=== PATIENT | female | born 1950 | race Caucasian/White ===

== ENCOUNTER 2019-07-15 10:42 | Outpatient (CLI) | payer MEDICARE, SELFPAY ==
--- NOTE | ~2019-07-15 | US_ITS ---
EXAMINATION: US carotid duplex BI DATE: 07/15/2019 11:12 INDICATION: Atherosclerosis. TECHNIQUE: Grayscale, color Doppler, and pulsed Doppler images of the cervical carotid arteries were obtained. The degree of vessel stenosis is placed in one of the following categories: normal, <50%, 5 0-69%, >=70% but less than near-occlusion, near-occlusion, or total occlusion. Note that percent sten osis relative to normal distal artery lumen diameter is indirectly measured from velocity measurement s as described by Barrie, et al. Radiology 2003; 229:340-346. Notes: Normal: Peak systolic velocity <125 centimeters/sec and no plaque <50%. Peak systolic velocity <125 ( EDV <40; ICA/CCA PSV ratio <2.0; used these factors only a tandem lesions or low cardiac output or co ntralateral disease) 50-69 %: PSV 125-230 (EDV 40-100; ratio 2-4) >= 70% but less than near occlusion: PSV greater than 230 (EDV > 100; ratio> 4.0) Near Occlusion: PSV that is variable; markedly narrowed lumen Occlusion: Absent flow on color/spectral Doppler and no lumen on orantes scale. COMPARISON: Ultrasound dated 03/14/2017 FINDINGS: RIGHT: The right common carotid artery (CCA) peak systolic velocity (PSV) is 90 cm/s. The right internal car otid artery (ICA) PSV is 84 cm/s. The right ICA end-diastolic velocity (EDV) is 19 cm/s. The right IC A/CCA PSV ratio is 0.9. The external carotid artery (ECA) PSV is 94 cm/s. There is antegrade flow in the right vertebral artery. LEFT: The left CCA PSV is 92 cm/s. The left ICA PSV is 94 cm/s. The left ICA EDV is 18 cm/s. The left ICA/C CA PSV ratio is 1.0. The ECA PSV is 126 cm/s. There is antegrade flow in the left vertebral artery. IMPRESSION: 1. Less than 50% stenosis in the right internal carotid artery by sonographic criteria. 2. Less than 50% stenosis in the left internal carotid artery by sonographic criteria. Reviewed, dictated and finalized at location B. CUTTER IMPRESSION: 1. Less than 50% stenosis in the right internal carotid artery by sonographic c chucho. 2. Less than 50% stenosis in the left internal carotid artery by sonographic praful almendarez.
== END 2019-07-15 10:43 | disposition home or self-care (01) ==
LOC: ANHIMG 10:45
PROVIDERS: PCP Internal Medicine; Visit Provider Internal Medicine
DX: I77.9 Disorder of arteries and arterioles, unspecified (principal); I65.23 Occlusion and stenosis of bilateral carotid arteries
CPT/HCPCS: 93880

== ENCOUNTER 2020-04-05 08:52 | Outpatient (CLI) | payer MEDICARE, SELFPAY ==
--- NOTE | 2020-05-10 16:07 | WPDHOMESLEEP ---
Sleep Study - Home Unattended Date of Study: 04/05/20 Ordering Provider: Fredy Puri MD Interpreting Physician: Alyssa Mack MD Home Sleep Study Type: Apnea Link Air Height: 1.52 m Weight: 60.328 kg Body Mass Index: 25.9 Neck Circumference (inches): 13 Lyons: 13 Reason for Sleep Study history of obstructive sleep apnea 5-6 years ago, lost 107 lb, retesting to see if obstructive sleep apnea has resolved Sleep History Natasha Edouard is a 70-year-old female who was diagnosed with obstructive sleep apnea 5 to 6 years ago. She used CPAP regularly. She has lost 107 lb this past year and wants to discontinue use of CPAP, if possible. she has continued using medication to help fall asleep include and 10 mg of melatonin. She rarely awakens from sleep feeling short of breath. She does not awaken at night with heartburn, belching or coughing. She occasionally snores. It is never loud enough that others complain about it. She frequently has trouble sleeping with a cold. She occasionally has gasping at night while using CPAP, however indicates that she does not have this problems when she is not using CPAP. she rarely has breathing problems at night reported to her by others. She occasionally sweats excessively at night. She rarely notices her heart pounding or beating irregularly at night. She rarely falls asleep during the day. She does not fall asleep involuntarily or while driving the car. She does not fall asleep during physical effort. She rarely has loss of muscle tone with strong emotion. 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 She does not feel paralyzed on waking or falling asleep. She rarely has vivid dreamlike scenes upon awakening or falling asleep. She is not afraid to go to sleep. She rarely has nightmares. She occasionally remembers her dreams. She frequently has racing thoughts through her mind. She occasionally feels sad or depressed. she frequently feels anxious. She occasionally has muscular tension. She rarely notices parts of her body jerking, rarely kicks at night. She does not have crawling or aching feelings in her legs at night. she rarely has any leg pain at night. She does not have morning jaw pain. she occasionally grind her teeth during sleep. She rarely is bothered by pain during the day, rarely is awakened by pain at night. She rarely wakes up feeling stiff in the morning. She does not wake up with sore or achy muscles. She rarely wakes up with pain in the neck and spine. She has not bears, dizziness, fatigue, moderate memory problems, insomnia and fainting spells. She has taken sertraline for anxiety disorder for the past 17 years. She has fatigue. She still uses CPAP even with the weight loss. CPAP now disrupts her sleep instead of helping it. She has nasal congestion which she notices at night. Normal bedtime is 12 midnight to 1:00 a.m.. She is now on Trazodone for sleep initiation which allows her to fall asleep faster compared to zolpidem. She typically wakes up 4-5 times at night. When she used the zolpidem at sometimes took hours for her to fall asleep. Her new medication is more effective. She usually wakes up at 2:00 a.m.. Sometime she does word puzzles if she is awake for over an hour. She wakes in the morning at 9:00 a.m.. On the weekends her schedule is similar. She naps infrequently. A short nap is not refreshing. She is drowsy in the morning for 2 hours after waking. She feels better in the evening compared to the morning. Habits: Smoked tobacco 22 years ago. Caffeine; a half bottle of Diet Coke a day. No alcohol or recreational drugs. [facility] Past Medical History Medical History Abnormal finding of blood chemistry, unspecified Acute renal failure Arm fracture, left Arthritis Benign essential hypertension BMI 27.0-27.9,adult BMI 31.0-31.9,adult BMI 33.0-33.9,adult
[2020-05-10 19:03] VITALS: BMI 25.9
== END 2020-04-05 08:53 | disposition home or self-care (01) ==
LOC: ANHCSM 08:57
PROVIDERS: PCP Internal Medicine; Visit Provider Internal Medicine
DX: G47.33 Obstructive sleep apnea (adult) (pediatric) (principal)
CPT/HCPCS: 95806

== ENCOUNTER 2020-09-27 16:09 | Outpatient (CLI) | payer MEDICARE, SELFPAY ==
--- NOTE | ~2020-09-27 | CT_ITS ---
EXAMINATION: CT facial bones wo con EXAM DATE: 09/27/2020 16:35 INDICATION: R51.9 - Headache, unspecified. Pain around right eye, fainted on and hit face. TECHNIQUE: Spiral CT of the facial bones was acquired in the axial plane without contrast. Coronal reformatted images were also reviewed. The dose-length product (DLP) for this examination was 283.88 mGy-cm. The exposure was tailored according to patient size, and iterative reconstruction (ASIR) wa s used as additional dose reduction technique. There is no prior study for comparison. FINDINGS: There are no displaced acute nasal bone fractures. The mandible, sinuses and orbits are in tact. The orbits, globes and extraocular muscles are unremarkable. Mild to moderate left maxillar y sinus mucoperiosteal thickening inferiorly, with what appears to be most likely a tooth root fragme nt inside this. No sinus fluid. Incomplete posterior fusion of C1, congenital variant. Small contus ion along the right brow. Bilateral cataract surgery. Moderate nasal septal deviation. IMPRESSION: 1. Small right periorbital soft tissue contusion. 2. Mild left maxillary sinus mucoperiosteal thickening with tooth root fragment inside. Reviewed, dictated and finalized at location A. IMPRESSION: 1. Small right periorbital soft tissue contusion. 2. Mild left maxillary sinus mucoperiosteal thickening with tooth root fragmen t inside.
== END 2020-09-27 16:10 | disposition home or self-care (01) ==
PROVIDERS: PCP Internal Medicine; Visit Provider Internal Medicine
DX: S00.83XA Contusion of other part of head, initial encounter (principal); R51.9 Headache, unspecified
CPT/HCPCS: 70486

== ENCOUNTER 2020-10-05 14:16 | Outpatient (CLI) | payer MEDICARE, SELFPAY ==
--- NOTE | 2020-10-05 14:30 | ECHO_ITS ---
Patient Info Name: Natasha Edouard Age: 70 years : 1950 Gender: Female Ht: 60 in Wt: 115 lbs BSA: 1.49 m2 HR: 63 bpm BP: 172 / 91 mmHg Technical Quality: Good Exam Date: 10/05/2020 2:49 PM Exam Location: [facility] Patient Status: Outpatient Admit Date: 10/05/2020 Staff Ordering Physician: Fredy Puri MD Pacs Administrator: JAIRO Attending Provider: Fredy Puri MD Referring Physician: Jaxson HECTOR; Exam Type: CA echo doppler color flow Study Info Indications R55 - Syncope and collapse Complete two-dimensional, color flow and Doppler transthoracic echocardiogram is performed. Summary 1. Complete two-dimensional, color flow and Doppler transthoracic echocardiogram is performed. 2. Left ventricular chamber dimension is normal. 3. Left ventricular systolic function is normal, estimated at 65-70%. 4. The left ventricular diastolic function is grade I diastolic dysfunction. 5. E/e' 12 is mildly elevated. 6. Left atrial chamber dimension is moderately enlarged. 7. The mitral valve has moderate to severe calcified annulus. 8. There is trace tricuspid valve regurgitation. 9. No pulmonary hypertension, estimated pulmonary arterial systolic pressure is 30 mmHg. Left Ventricle E/e' 12 is mildly elevated. Left ventricular chamber dimension is normal. Left ventricular systolic function is normal, estimated at 65-70%. The left ventricular diastolic function is grade I diastolic dysfunction. Right Ventricle Right ventricular chamber dimension is normal. Right ventricular systolic function is normal. Left Atria Left atrial chamber dimension is moderately enlarged. Right Atria Right atrial chamber dimension is normal. Aortic Valve The aortic valve is trileaflet. There is no aortic valve stenosis. There is no aortic valve regurgitation. Pulmonic Valve There is no pulmonic regurgitation. Mitral Valve The mitral valve has moderate to severe calcified annulus. There is no mitral valve stenosis. There is no mitral valve regurgitation. Tricuspid Valve There is trace tricuspid valve regurgitation. No pulmonary hypertension, estimated pulmonary arterial systolic pressure is 30 mmHg. Pericardium/Pleural There is no pericardial effusion. Inferior Vena Cava Normal inferior vena cava with >50% collapse upon inspiration consistent with normal right atrial pressure, 5 mmHg. Aorta The aortic root size at the sinus of Valsalva is normal. Left Ventricular Outflow Tract Name Value Normal LVOT 2D LVOT Diameter 1.8 cm LVOT Doppler LVOT Peak Gradient 6 mmHg LVOT Mean Gradient 3 mmHg LVOT VTI 31 cm LVOT VTI/AV VTI Ratio 0.8 LVOT Stroke Volume 76 ml LVOT CO 13.0 l/min LVOT CI 8.7 l/min/m2 Pulmonic Valve Name Value Normal
== END 2020-10-05 14:17 | disposition home or self-care (01) ==
PROVIDERS: PCP Internal Medicine; Visit Provider Internal Medicine
DX: R55 Syncope and collapse (principal)
CPT/HCPCS: 93306

== ENCOUNTER → 2020-11-02 01:35 | Outpatient (CLI) | payer MEDICARE, SELFPAY ==
[2020-11-03 16:17] LABS: SARS-CoV-2 RNA PCR Negative
== END ==
PROVIDERS: PCP Internal Medicine; Visit Provider Podiatrist Foot & Ankle Surgery
DX: Z01.812 Encounter for preprocedural laboratory examination (principal); Z20.822 Contact with and (suspected) exposure to COVID-19
CPT/HCPCS: C9803; U0003; U0005

== ENCOUNTER 2020-11-02 09:16 | Outpatient (CLI) | payer MEDICARE, SELFPAY ==
[2020-11-02 10:27] LABS: Anion Gap 5 mmol/L (8-16); Blood Urea Nitrogen 23 mg/dL (7-17); Calcium 9.2 mg/dL (8.4-10.2); Carbon Dioxide 32 mmol/L (22-30); Chloride 101 mmol/L (98-107); Estimated Glomerular Filt Rate > 60; Glucose 146 mg/dL (65-105); Potassium 4.1 mmol/L (3.4-5.0); Sodium 138 mmol/L (137-145)
== END 2020-11-02 09:17 | disposition home or self-care (01) ==
LOC: ANHSURGERY 09:22
PROVIDERS: Anesthesiology; PCP Internal Medicine; Visit Provider Podiatrist Foot & Ankle Surgery
DX: E11.65 Type 2 diabetes mellitus with hyperglycemia (principal); Z79.4 Long term (current) use of insulin
CPT/HCPCS: 36415; 80048

== ENCOUNTER 2020-11-05 01:25 | Day surgery (SDC) | payer MEDICARE, SELFPAY ==
[2020-11-01 13:42] VITALS: BMI 21.5
[2020-11-05] VITALS (7 sets, daily range): BP systolic 107–151; BP diastolic 62–67; PULSE 57–63; RESP 12–16; TEMP 36.2; O2SAT 94–100; BMI 22.4
--- NOTE | ~2020-11-05 | XR_ITS ---
EXAMINATION: XR surgery orthopedic DATE: 11/05/2020 10:13 INDICATION: Arthrodesis in the right foot TECHNIQUE: 3 fluoroscopic images of the right forefoot are submitted during procedure performed by Dr Derek San. Radiologist was not present for the imaging or procedure. The amount of fluoroscopy time used during this procedure was 1.3 minutes. COMPARISON: None. FINDINGS: Initial image demonstrates prominent right hallux valgus. There is mild polyarticular osteoarthritis at the first metatarsophalangeal and multiple interphalangeal joints. Subsequent images demonstrates reduction to essentially anatomic alignment of the prior hallux valgus with first metatarsophalangeal arthrodesis with dorsal plate and screw fixation. There has also been an osteotomy of the head of th e second proximal phalanx with second proximal interphalangeal arthrodesis. A percutaneous pin extend s from the distal aspect of the second toe throughout the phalanges of the second toe and into the he ad of the second metatarsal. Arthrodesis of the second proximal interphalangeal joint which is in danis r-anatomic alignment. There is internal fixation with a compression screw positioned over the wire an d spanning the second proximal interphalangeal joint space. There is widening of the second metatarso phalangeal joint space with likely postoperative intra-articular lucent gas. No fractures identified. IMPRESSION: 1. Expected appearance during first metatarsophalangeal and second proximal interphalangeal instrumen digna arthrodeses which appear in near anatomic alignment. See procedure note for further detail. Reviewed, dictated and finalized at location A. IMPRESSION: 1. Expected appearance during first metatarsophalangeal and second proximal int erphalangeal instrumented arthrodeses which appear in near anatomic alignment. See procedure note for further detail.
--- NOTE | 2020-11-05 07:22 | WPDHPUPDATE1 ---
History and Physical Update Update Date/Time: 11/05/20 07:22 History and Physical has been reviewed, including an updated exam of the patient. There are NO changes in the patient's condition. Risks, benefits, and alternatives have been discussed and questions answered. Patient agrees to proceed with procedure.
[2020-11-05] MEDS: LACTATED RINGERS 1,000 ML 30 ML IV CONT ×2 (07:51→11:00)
--- NOTE | 2020-11-05 07:57 | WPDANESEPPF ---
Anes - Initial Pre Proc Eval Procedure: Operation Date: 11/05/20 08:30 Proposed Procedures s Hammertoe Repair of Second Digit on Right Foot - Mitchell San JR, MD p Arthrodesis of First Metatarsal Phalangeal Joint Right Foot - Mitchell San JR, MD Date/Time: 11/05/20 07:57 Surgeon: Mitchell San JR, MD Pre Op Diagnosis: bunion rt foot, hammertoe 2nd digit rt foot Patient Data Age: 70 Gender: F Height: 1.52 m Weight: 52 kg Last Vital Signs Temp 36.2 C L 11/05/20 07:53 Pulse 62 11/05/20 07:53 Resp 16 11/05/20 07:53 BP 107/62 11/05/20 07:53 Pulse Ox 100 11/05/20 07:53 Allergies Allergy/AdvReac Type Severity Reaction Status Date / Time Sulfa (Sulfonamide Allergy Unknown Diarrhea Verified 11/05/20 06:36 Antibiotics) morphine AdvReac Severe NAUSEA AND Verified 11/05/20 06:36 VOMITING Home Medications Medication Instructions Recorded Confirmed Type calcium carbonate 600 mg calcium 600 mg PO BID 07/09/19 11/01/20 History (1,500 mg) tablet cholecalciferol (vitamin D3) 25 1,000 unit PO DAILY 07/09/19 11/01/20 History mcg (1,000 unit) capsule mecobalamin (vitamin B12) 1,000 1,000 mcg SUBLINGUAL DAILY 07/09/19 11/01/20 History mcg disintegrating tablet,sublingual multivit with 1 tablet PO DAILY 07/09/19 11/01/20 History adswaqnd-jiul-JP-lutein 8 mg iron-400 mcg-300 mcg tablet omega-3 fatty acids 1,000 mg 2,000 mg PO BID cap 07/09/19 11/01/20 History capsule oxybutynin chloride 10 mg 10 mg PO DAILY #90 tablet 01/13/20 11/01/20 Rx tablet,extended release 24 hr insulin syringe-needle U-100 1 mL #400 ea 04/27/20 10/12/20 Rx 31 gauge x 5/16 empagliflozin 25 mg tablet See Rx Instructions .ROUTE 05/18/20 11/01/20 Rx .COMPLEX #90 tablet blood sugar diagnostic #400 ea 07/16/20 10/12/20 Rx fluticasone propionate 50 2 spray INTRANASAL DAILY #3 ea 07/16/20 11/01/20 Rx mcg/actuation nasal spray,suspension furosemide 20 mg tablet 20 mg PO QAM PRN #90 tablet 07/16/20 11/01/20 Rx metformin 1,000 mg tablet See Rx Instructions .ROUTE 07/16/20 11/01/20 Rx .COMPLEX #180 tablet rosuvastatin 40 mg tablet 40 mg PO DAILY #90 tablet 07/16/20 11/01/20 Rx trazodone 100 mg tablet See Rx Instructions PO .COMPLEX 09/06/20 11/01/20 Rx #180 tablet flash glucose sensor #6 ea 10/07/20 10/12/20 Rx flash glucose scanning reader See Rx Instructions .ROUTE 10/28/20 11/01/20 Rx .COMPLEX #1 ea fexofenadine-pseudoephedrine ER 1 tablet PO DAILY #31 tablet 10/29/20 11/01/20 Rx 180 mg-240 mg tablet,ext.release 24 hr insulin aspart U-100 [Novolog 5 unit SUB-Q .COMPLEX PRN 11/01/20 11/01/20 History U-100 Insulin aspart] insulin glargine [Lantus U-100 22 unit SUB-Q QAM 11/01/20 11/01/20 History Insulin] levocetirizine See Rx Instructions .ROUTE 11/01/20 11/01/20 History .COMPLEX PRN levothyroxine [Synthroid] 150 mcg PO QAM 11/01/20 11/05/20 History potassium chloride 10 meq PO DAILY PRN 11/01/20 11/01/20 History sertraline 200 mg PO HS 11/01/20 11/01/20 History triamcinolone acetonide See Rx Instructions .ROUTE 11/01/20 11/01/20 History .COMPLEX PRN Patient hx anesthesia problems: none Family hx anesthesia problems: none [facility] Past Medical History Medical History Abnormal finding of blood chemistry, unspecified Acute renal failure Arm fracture, left Arthritis Benign essential hypertension BMI 23.0-23.9, adult BMI 24.0-24.9, adult BMI 27.0-27.9,adult BMI 31.0-31.9,adult BMI 33.0-33.9,adult BMI 34.0-34.9,adult Bunion Carotid disease, bilateral Colon cancer screening Dependent edema Depression Diabetes mellitus type 2, insulin dependent Diabetes mellitus with hyperglycemia, with long-term current use of insulin Encounter for Medicare annual wellness exam Encounter for routine adult health examination without abnormal findings Excessive and redundant skin and subcutaneous tissue F
--- NOTE | 2020-11-05 08:12 | SUR.PREOP ---
0755: DR FOREMAN NOTIFIED THAT PT TOOK 3 GLUCOSE TABLETS AT MIDNIGHT, 1 TAB AT 0200, AND 1 TAB AT 0400 TODAY.
[2020-11-05] MEDS: ceFAZolin 2 GM/D5W 50 ML 2 GM/50 ML BAG IVPB (08:40)
--- NOTE | 2020-11-05 10:46 | W.PM.PROC2 ---
Procedure Note - Detailed Date of Procedure 11/05/20 Pre-op Diagnosis bunion rt foot, hammertoe 2nd digit rt foot Post-op Diagnosis same Procedure Performed 1. Arthrodesis of the first metatarsal phalangeal joint right foot 2. Hammertoe repair 2nd digit right foot requiring an extensor tenotomy and 2nd metatarsal osteotomy to reduce the deformity Surgeon Mitchell San JR, DPM Anesthesia general and local Description of Procedure PROCEDURE IN DETAIL: Under mild sedation, the patient was brought into the operating room, placed on the operating table in supine position. A pneumatic ankle tourniquet was placed about the patient's ipsilateral ankle. Following general LMA, a local anesthetic block was obtained about the foot and ankle utilizing 20 cc of Exparel. The foot was then scrubbed, prepped, and draped in the usual aseptic manner. An Esmarch bandage was then used to exsanguinate the patient's foot and the pneumatic ankle tourniquet was then inflated. Surgery began in the following manner: Attention was directed to the dorsal aspect of the 1st metatarsophalangeal joint where there was a prominent first metatarsal. The incision was made starting along the central shaft of the 1st metatarsal and extending just proximal to the interphalangeal joint of the hallux. The incision was continued deep down through the subcutaneous tissues using sharp and blunt dissection. All bleeders were cauterized as necessary. At this point, the dissection was continued down to the level of the periosteum and capsular structures overlying the 1st metatarsophalangeal joint. A full length periosteum and capsular incision was made just medial to the extensor hallucis longus tendon. The periosteum and capsular structures were freed from the base of the proximal phalanx as well as the distal 1st metatarsal. At this point, the 1st metatarsophalangeal joint was identified. There was almost complete loss of articular cartilage to the head of the 1st metatarsal as well as the base of the proximal phalanx. There was significant broadening and hypertrophy of the 1st metatarsophalangeal joint. Utilizing a sagittal bone saw, the hypertrophied 1st metatarsal was resected dorsally, medially, and laterally. A power bur was used to make sure that there were no rough edges and also to further debride the hypertrophic 1st metatarsal. Next, a rongeur was used to resect all hypertrophic base of the proximal phalanx. At this point, the reamer system for the [place] CrossCHECK system was used to denude the degenerative cartilage from the head of the 1st metatarsal as well as the base of the proximal phalanx. The cartilage and subchondral bone were fully debrided utilizing the reamer system until healthy bleeding bone was noted. Next, a 2-0 drill bit was used to further fenestrate the head of the 1st metatarsal as well as the base of the proximal phalanx in order to allow fusion across the 1st metatarsophalangeal joint. Next, a 0.045 inch K-wire was driven from the medial aspect of the base of the proximal phalanx into the head of the 1st metatarsal in order to serve as temporary fixation. A large steel plate was used to make sure that the hallux was in a rectus position both in the sagittal plane as well as the frontal and transverse plane. Excellent position of the hallux was noted. Next, a CrossCHECK plate was placed atop the 1st metatarsophalangeal joint held in position with [place] wires. Utilizing standard principles and techniques, the 2 distal drill holes were drilled and two 2.7mm mm fully-threaded locking screws were driven from dorsal to plantar holding the distal aspect of the plate intact. At this point, a 3.5mm lag screw was driven from dorsal distal to proximal plantar across the 1st metatarsophalangeal joint through the plate system with excellent compression noted after careful removal of the olive wire and temporary fixation from the 1st metatarsophala
[2020-11-05] MEDS: fentaNYL CITRATE INJ (*CRX) 100 MCG/2 ML VIAL 25 MCG IV PUSH ×4 (10:51→11:05)
--- NOTE | 2020-11-05 11:42 | SUR.PHASEII ---
patient ate prior to getting her BG checked in post-op.
[2020-11-05] MEDS: oxyCODONE/ACETAMINOPHEN (*CRX) 5-325 MG TABLET 1 TABLET PO (12:04)
== END 2020-11-05 12:55 | disposition home or self-care (01) ==
PROVIDERS: PCP Internal Medicine; Visit Provider Podiatrist Foot & Ankle Surgery
PROC: (CPT 28308; principal; 2020-11-05 08:30)
PROC: (CPT 28750; 2020-11-05 08:30)
DX: M21.611 Bunion of right foot (principal); M20.41 Other hammer toe(s) (acquired), right foot; I10 Essential (primary) hypertension; E11.40 Type 2 diabetes mellitus with diabetic neuropathy, unspecified; F32.9 Major depressive disorder, single episode, unspecified; E78.5 Hyperlipidemia, unspecified; E03.9 Hypothyroidism, unspecified; G47.33 Obstructive sleep apnea (adult) (pediatric); E55.9 Vitamin D deficiency, unspecified; Z79.4 Long term (current) use of insulin; Z79.84 Long term (current) use of oral hypoglycemic drugs; Z98.84 Bariatric surgery status; Z87.891 Personal history of nicotine dependence
CPT/HCPCS: 28308; 28285; 28750; 36415; 80048; A9270; C1713; C9290; C9803; J0690; J1100; J2250; J2405; J2704; J3010; J7120; U0003; U0005

== ENCOUNTER 2021-07-28 01:22 | Day surgery (SDC) | payer MEDICARE, SELFPAY ==
[2021-07-19 09:44] VITALS: BMI 22.2
--- NOTE | 2021-07-27 13:28 | WPDGICN ---
Assessment and Plan Assessment and plan (1) Change in bowel habit: Code(s): R19.4 - Change in bowel habit Status: Acute (2) Colon cancer screening: Code(s): Z12.11 - Encounter for screening for malignant neoplasm of colon Status: Acute Assessment and Plan: Colonoscopy with possible biopsy or polypectomy or cautery or injection of substances. GI Consult Note Consult date/time: 07/27/21 13:28 HPI: Natasha Edouard is a 71 year old female who has been having issues with her bowels. Lately she has been constipated. She does take many medications some of which can be constipating. she has a bowel movement almost every day but often feels like the stool is not want to come down. She then has to massage around the anus to stimulate it. She denies seeing blood in her stools Review of Systems Review of Systems: All systems reviewed & are unremarkable except as noted in HPI and below PMFSH Past Medical History Medical History Abnormal finding of blood chemistry, unspecified Acute renal failure Arm fracture, left Arthritis Benign essential hypertension BMI 21.0-21.9, adult BMI 23.0-23.9, adult BMI 24.0-24.9, adult BMI 27.0-27.9,adult BMI 31.0-31.9,adult BMI 33.0-33.9,adult BMI 34.0-34.9,adult Bunion Carotid disease, bilateral Change in bowel habit Colon cancer screening Constipation Dependent edema Depression Diabetes mellitus type 2, insulin dependent Diabetes mellitus with hyperglycemia, with long-term current use of insulin Elevated LFTs Encounter for Medicare annual wellness exam Encounter for routine adult health examination with abnormal findings Encounter for routine adult health examination without abnormal findings Excessive and redundant skin and subcutaneous tissue Facial pain, acute Follow up Frequent falls Grade I diastolic dysfunction Hearing loss HTN (hypertension) Hx of small bowel obstruction Hyperlipidemia Hypothyroidism Hypothyroidism (acquired) IDDM (insulin dependent diabetes mellitus) Insomnia Left wrist fracture Neuropathy On residential drug therapy Orthostatic hypotension MATTHIAS on CPAP Seasonal allergies Sinus mucosal thickening Syncope Traumatic ecchymosis of face Urticaria Vitamin D deficiency Surgical History Surgical History H/O section H/O: hysterectomy History of appendectomy History of bunionectomy History of Ivy-en-Y gastric bypass History of surgery on left wrist History of total bilateral knee replacement (TKR) S/P gastric bypass S/P right knee arthroscopy Family History Family History Mother Family history of diabetes mellitus in first degree relative Diabetes mellitus Father Family history of heart disease in male family member before age 55 Family history of cardiovascular disease Social History Social History Smoking packs per day: 1.5 Smoking cigarettes per day: 30.0 Years smoked: 20 Smoking pack-years: 30.00 Smoking status: Former smoker Tobacco type: cigarettes Additional smoking assessment comments: STATES 1 TO 1 1/2PK/DAY/30YRS-QUIT 1996 Alcohol intake: never Substance use: never Substance use type: does not use Living arrangements: with family Gender identity (if verbalized by the patient): Female Spiritual care concerns: No Meds Home Medications and Allergies Home Medications Medication Instructions Recorded Confirmed Type calcium carbonate 600 mg calcium 600 mg PO DAILY 07/09/19 07/19/21 History (1,500 mg) tablet cholecalciferol (vitamin D3) 25 1,000 unit PO DAILY 07/09/19 07/19/21 History mcg (1,000 unit) capsule mecobalamin (vitamin B12) 1,000 1,000 mcg SUBLINGUAL DAILY 07/09/19 07/19/21 History mcg disintegrating tablet,sublingual multivit with
[2021-07-28 08:44] VITALS: BP 110/75; PULSE 87; RESP 20; TEMP 36.8; O2SAT 100; BMI 21.7
--- NOTE | 2021-07-28 08:56 | WPDANESEPPF ---
Anes - Initial Pre Proc Eval Procedure: Operation Date: 07/28/21 09:30 Proposed Procedures p Colonoscopy - Piotr Lynn MD Date/Time: 07/28/21 08:56 Surgeon: Piotr Lynn MD Pre Op Diagnosis: change in bowel habits, constipation Patient Data Age: 71 Gender: F Height: 1.5 m Weight: 48.7 kg Last Vital Signs Temp 36.8 C 07/28/21 08:44 Pulse 87 07/28/21 08:44 Resp 20 07/28/21 08:44 BP 110/75 07/28/21 08:44 Pulse Ox 100 07/28/21 08:44 Allergies Allergy/AdvReac Type Severity Reaction Status Date / Time morphine AdvReac Severe NAUSEA AND Verified 07/28/21 08:43 VOMITING Sulfa (Sulfonamide AdvReac Intermediate Diarrhea Verified 07/28/21 08:43 Antibiotics) Home Medications Medication Instructions Recorded Confirmed Type calcium carbonate 600 mg calcium 600 mg PO DAILY 07/09/19 07/19/21 History (1,500 mg) tablet cholecalciferol (vitamin D3) 25 1,000 unit PO DAILY 07/09/19 07/19/21 History mcg (1,000 unit) capsule mecobalamin (vitamin B12) 1,000 1,000 mcg SUBLINGUAL DAILY 07/09/19 07/19/21 History mcg disintegrating tablet,sublingual multivit with 1 tablet PO DAILY 07/09/19 07/19/21 History klynhntj-bxtz-UV-lutein 8 mg iron-400 mcg-300 mcg tablet omega-3 fatty acids 1,000 mg 2,000 mg PO DAILY cap 07/09/19 07/19/21 History capsule insulin syringe-needle U-100 1 mL #400 ea 04/27/20 05/26/21 Rx 31 gauge x 16 blood sugar diagnostic #400 ea 07/16/20 05/26/21 Rx flash glucose scanning reader See Rx Instructions .ROUTE 10/28/20 07/19/21 Rx .COMPLEX #1 ea potassium chloride 10 meq PO DAILY PRN 11/01/20 07/19/21 History triamcinolone acetonide 0.5 % See Rx Instructions .ROUTE 12/02/20 07/19/21 Rx topical cream .COMPLEX #60 gram Synthroid 150 mcg tablet 150 mcg PO QAM #90 tablet NS 04/25/21 07/19/21 Rx trazodone 50 mg tablet See Rx Instructions .ROUTE 05/11/21 07/19/21 Rx .COMPLEX #180 tablet trazodone 100 mg tablet See Rx Instructions PO .COMPLEX 05/19/21 07/19/21 Rx #180 tablet flash glucose sensor See Rx Instructions .ROUTE 05/23/21 07/19/21 Rx .COMPLEX #6 ea furosemide 20 mg tablet 20 mg PO QAM PRN #90 tablet 05/23/21 07/19/21 Rx fluticasone propionate 50 See Rx Instructions .ROUTE 05/30/21 07/19/21 Rx mcg/actuation nasal .COMPLEX #48 gram spray,suspension levocetirizine 5 mg tablet See Rx Instructions .ROUTE 05/30/21 07/19/21 Rx .COMPLEX PRN #90 tablet Novolog U-100 Insulin aspart 100 5 unit SUB-Q TID PRN #30 ml NS 06/05/21 07/19/21 Rx unit/mL subcutaneous solution empagliflozin [Jardiance] 25 mg PO QAM 07/19/21 07/19/21 History insulin glargine [Lantus U-100 28 unit SUB-Q QAM 07/19/21 07/19/21 History Insulin] metformin 1,000 mg PO BID 07/19/21 07/19/21 History omeprazole 40 mg PO DAILY 07/19/21 07/19/21 History oxybutynin chloride 10 mg PO HS 07/19/21 07/19/21 History rosuvastatin 40 mg PO HS 07/19/21 07/19/21 History sertraline 200 mg PO HS 07/19/21 07/19/21 History cefdinir 300 mg capsule 300 mg PO Q12H #14 cap 07/22/21 Rx fexofenadine-pseudoephedrine ER See Rx Instructions .ROUTE 07/22/21 Rx 180 mg-240 mg tablet,ext.release .COMPLEX #31 tablet 24 hr Patient hx anesthesia problems: none Family hx anesthesia problems: none Results Review: All pre-operative results and documents have been reviewed as part of the pre-operative evaluation. [facility] Past Medical History Medical History Abnormal finding of blood chemistry, unspecified Acute renal failure Arm fracture, left Arthritis Benign essential hypertension BMI 21.0-21.9, adult BMI 23.0-23.9, adult BMI 24.0-24.9, adult BMI 27.0-27.9,adult BMI 31.0-31.9,adult BMI 33.0-33.9,adult BMI 34.0-34.9,adult Bunion Carotid disease, bilateral Change in bowel habit Colon cancer screening Constipation Dependent edema Depression Diabetes mellitus type 2, insulin dependent Diabetes mellitus with hypergl
[2021-07-28 09:14] LABS: Glucose Point of Care 251 mg/dl (65-105)
[2021-07-28] MEDS: LACTATED RINGERS 1,000 ML 150 ML IV CONT (09:14)
[2021-07-28 10:05] VITALS: BP 111/65; PULSE 68; RESP 18; O2SAT 96
[2021-07-28 10:15] VITALS: BP 118/62; PULSE 64; RESP 20; O2SAT 98
[2021-07-28 10:25] VITALS: BP 103/79; PULSE 65; RESP 20; O2SAT 100
--- NOTE | 2021-07-28 10:33 | SUR.PHASEII ---
Pt glucose 229 per implanted monitor.
== END 2021-07-28 10:34 | disposition home or self-care (01) ==
PROVIDERS: PCP Internal Medicine; Visit Provider Internal Medicine Gastroenterology
PROC: 0DJD8ZZ Inspection of Lower Intestinal Tract, Via Natural or Artificial Opening Endoscopic (ICD-10-PCS; CPT 45378; principal; 2021-07-28 09:30)
DX: Z12.11 Encounter for screening for malignant neoplasm of colon (principal); K57.30 Diverticulosis of large intestine without perforation or abscess without bleeding; K59.00 Constipation, unspecified; I11.9 Hypertensive heart disease without heart failure; E78.5 Hyperlipidemia, unspecified; E03.9 Hypothyroidism, unspecified; E11.40 Type 2 diabetes mellitus with diabetic neuropathy, unspecified; G47.33 Obstructive sleep apnea (adult) (pediatric); E55.9 Vitamin D deficiency, unspecified; F32.9 Major depressive disorder, single episode, unspecified; Z79.4 Long term (current) use of insulin; Z98.84 Bariatric surgery status; Z87.891 Personal history of nicotine dependence; Z79.84 Long term (current) use of oral hypoglycemic drugs
CPT/HCPCS: G0121; 82948; J2704; J7120

== ENCOUNTER 2021-09-13 08:58 | Outpatient (CLI) | payer MEDICARE, SELFPAY ==
--- NOTE | ~2021-09-13 | US_ITS ---
EXAMINATION: US abdomen limited DATE: 09/13/2021 10:43 INDICATION: Abnormal findings of blood chemistry TECHNIQUE: Multiple grayscale and Doppler ultrasound images of the abdomen were obtained. COMPARISON: CT, 05/31/2019 FINDINGS: The head and body of the pancreas are normal. The pancreatic tail is obscured by bowel gas. The liver is normal with normal echogenicity and echotexture. No surface nodularity. Normal hepatope grayson flow in the main portal vein. Stones are present in the nondistended gallbladder. There is no gal lbladder wall thickening or pericholecystic fluid. The normal common bile duct measures 3 mm. There w as no sonographic Joya sign. IMPRESSION: 1. Cholelithiasis without evidence of cholecystitis. Reviewed, dictated and finalized at location A.
== END 2021-09-13 08:59 | disposition home or self-care (01) ==
PROVIDERS: PCP Internal Medicine; Visit Provider Internal Medicine
DX: R79.89 Other specified abnormal findings of blood chemistry (principal); K80.20 Calculus of gallbladder without cholecystitis without obstruction
CPT/HCPCS: 76705

== ENCOUNTER 2021-10-14 09:55 | Outpatient (CLI) | payer MEDICARE, SELFPAY ==
--- NOTE | ~2021-10-14 | XR_ITS ---
EXAMINATION: XR thoracic spine 2V DATE: 10/14/2021 10:12 INDICATION: Mid back pain. TECHNIQUE: 2 views of thoracic spine were obtained. COMPARISON: Chest 2 views 10/24/2012 FINDINGS: There is 7 degrees dextrocurvature of thoracic spine. Vertebral body heights and interverte bral disc heights are normal. There are bridging endplate osteophytes at multiple levels in the spine , consistent with diffuse idiopathic skeletal hyperostosis (DISH). There are staple lines in the area of the stomach. IMPRESSION: 1. DISH. Reviewed, dictated and finalized at location A. IMPRESSION: 1. DISH.
== END 2021-10-14 09:56 | disposition home or self-care (01) ==
PROVIDERS: PCP Internal Medicine; Visit Provider Internal Medicine
DX: R10.9 Unspecified abdominal pain (principal); M54.6 Pain in thoracic spine; M48.19 Ankylosing hyperostosis [Forestier], multiple sites in spine
CPT/HCPCS: 72070

== ENCOUNTER 2022-03-17 08:36 | Outpatient (CLI) | payer MEDICARE, SELFPAY ==
--- NOTE | ~2022-03-17 | DEXA_ITS ---
Bone Density Report Name: SABRINA MARTIN Age: 72 Sex: Female Ethnicity: White Date of : 1950 Indication: postmenopausal; screening for osteoporosis; Referring Provider: KAREEM ALBARRAN Study: Bone densitometry was performed. Exam Date: March 17, 2022 Accession number: [id number] Bone Density: Region BMD T-score Z-score Classification AP Spine(L1-L4) 1.076 0.3 2.6 Normal Femoral Neck (Left) 0.569 -2.5 -0.5 Osteoporosis Total Hip (Left) 0.735 -1.7 0.0 Osteopenia Femoral Neck (Right) 0.552 -2.7 -0.7 Osteoporosis Total Hip (Right) 0.703 -2.0 -0.3 Osteopenia Total Hip Mean 0.719 -1.9 -0.2 Osteopenia World Health Organization criteria for BMD impression classify patients as: Normal (T-score at or above -1.0), Osteopenia (T-score between -1.0 and -2.5), or Osteoporosis (T-score at or below -2.5). 10-year Fracture Risk: FRAX not reported because: Some T-score for Spine Total or Hip Total or Femoral Neck at or below -2.5 Clinical Information Provided by Patient: Has used the following medications: Vitamin D, Calcium Patient maximum height was 60 Menopause Age: 44 Does not regularly consume dairy products Onset of menses at age 10 Number of children 4 Impression: The patient has osteoporosis, based on the Right Femoral Neck T-score. Discussion: INCREASED RISK OF FRACTURE. BONE DENSITY IS UNDESIRABLY LOW AT ONE OR MORE SKELETAL SITES, CONSISTENT WITH POSTMENOPAUSAL OSTEOPOROSIS. This patient's lowest T-score meets the World Health Organization's (WHO) criteria for osteoporosis at one or more sites (T-score -2.5 or below). In untreated patients, the risk of osteoporotic fracture increases approximately two-fold for each 1.0 SD decrease in T-score. Low bone density is not the only risk factor for fracture; also consider factors such as patient's age, frailty or poor health, risk of falling, risk of injury, previous osteoporotic fracture, family history of osteoporosis, cigarette smoking, low body weight, etc. Not everyone with low bone mineral density has osteoporosis; osteomalacia and other metabolic bone disorders should also be considered. Patients who have osteoporosis should be evaluated for specific diseases and conditions (secondary causes) that may cause or contribute to bone loss. The [place] [employer] Endocrinologists (AACE) and National Osteoporosis Foundation (NOF) recommend pharmacologic intervention for all postmenopausal women whose T-score is in this range. The patient should follow a healthful lifestyle (good nutrition with adequate calcium and vitamin D, and appropriate weight-bearing exercise). Follow-Up: Consider a repeat BMD and Vertebral Fracture Assessment (VFA) exam in 2 years or sooner if medically necessary, to reassess this patient's status. Kenneth
--- NOTE | ~2022-03-17 | MM_ITS ---
EXAMINATION: MM screening shun BI w earnest HISTORY: Screening TECHNIQUE: Craniocaudal and mediolateral oblique 3-D tomosynthesis images were obtained and synthetic 2-D images were generated. CAD analysis was submitted and interpreted. COMPARISON: No prior mammogram is available for comparison at this institution. BREAST PARENCHYMAL COMPOSITION: Breast composed of scattered areas of fibroglandular density FINDINGS: There are bilateral asymmetries in the upper outer quadrant of the right breast and in the subareolar location of the left breast. IMPRESSION: 1. Bilateral asymmetries. 2. Additional mammographic views and possible breast ultrasound are recommended. BI-RADS Category 0: Incomplete: Needs additional imaging evaluation. Reviewed, dictated and finalized at location A. IMPRESSION: 1. Bilateral asymmetries. 2. Additional mammographic views and possible breast ultrasound are recommended . BI-RADS Category 0: Incomplete: Needs additional imaging evaluation.
== END 2022-03-17 08:37 | disposition home or self-care (01) ==
LOC: ANHIMG 08:42
PROVIDERS: PCP Internal Medicine; Visit Provider Internal Medicine
DX: Z12.31 Encounter for screening mammogram for malignant neoplasm of breast (principal); R29.6 Repeated falls; Z91.89 Other specified personal risk factors, not elsewhere classified; R92.8 Other abnormal and inconclusive findings on diagnostic imaging of breast; Z78.0 Asymptomatic menopausal state; M81.0 Age-related osteoporosis without current pathological fracture; M85.852 Other specified disorders of bone density and structure, left thigh; M85.851 Other specified disorders of bone density and structure, right thigh
CPT/HCPCS: 77063; 77067; 77080

== ENCOUNTER 2022-03-28 06:57 | Emergency (ER) | payer MEDICARE, SELFPAY ==
--- NOTE | ~2022-03-28 | CT_ITS ---
EXAMINATION: CT brain wo con DATE: 03/28/2022 07:35 INDICATION: Head injury. TECHNIQUE: Computed tomography (CT) of the head was performed without intravenous contrast. The mA wa s adjusted according to patient size. Iterative reconstruction technique was employed. The dose-lengt h product was 605.33 mGy-cm. COMPARISON: None FINDINGS: There is no intracranial hemorrhage, acute infarction, or abnormal intracranial mass lesion . There are scattered areas of low attenuation in the cerebral white matter, which is within normal l imits for the patient's age. The ventricles are normal in size. There is mucosal thickening in left m axillary sinus with thickening and sclerosis of the sinus boss, consistent with chronic sinusitis. T he mastoid air cells are normal. IMPRESSION: 1. Normal aging brain. 2. Chronic sinusitis. Reviewed, dictated and finalized at location A. [facility]
[2022-03-28 07:00] VITALS: BP 147/67; PULSE 70; RESP 16; TEMP 36.7; O2SAT 96
--- NOTE | 2022-03-28 08:21 | ED.FALL ---
HPI - Fall General Chief Complaint: Fall Stated Complaint: fall/laceration Time Seen by Provider: 03/28/22 07:03 History of Present Illness HPI Narrative: Patient is 72-year-old female who presents to the ER after falling. Patient reports she rolled out of bed. Unsure if she struck her head on her nightstand or the ground. She has a laceration over the left parietal aspect. No headache or change in vision or change in hearing. She is not on any blood thinners. Bandage applied and bleeding controlled. Tetanus up-to-date. Related Data Home Medications Medication Instructions Recorded Confirmed calcium carbonate 600 mg calcium 600 mg PO DAILY 07/09/19 02/13/22 (1,500 mg) tablet (Calcium) mecobalamin (vitamin B12) 1,000 1,000 mcg sublingual DAILY 07/09/19 02/13/22 mcg disintegrating tablet,sublingual multivit with 1 tablet PO DAILY 07/09/19 02/13/22 awraaidv-kvnl-KG-lutein 8 mg iron-400 mcg-300 mcg tablet (Centrum Silver Women) omega-3 fatty acids 1,000 mg 2,000 mg PO DAILY 07/09/19 02/13/22 capsule (Fish Oil Concentrate) empagliflozin 25 mg tablet 25 mg PO QAM 07/19/21 02/13/22 (Jardiance) omeprazole 40 mg capsule,delayed 40 mg PO DAILY 07/19/21 02/13/22 release rosuvastatin 40 mg tablet 40 mg PO HS 07/19/21 02/13/22 cholecalciferol (vitamin D3) 125 125 mcg PO DAILY 03/22/22 mcg (5,000 unit) capsule Allergies Allergy/AdvReac Type Severity Reaction Status Date / Time morphine AdvReac Severe NAUSEA AND Verified 03/28/22 07:36 VOMITING Sulfa (Sulfonamide AdvReac Intermediate Diarrhea Verified 03/28/22 07:36 Antibiotics) Review of Systems Review of Systems: All systems reviewed & are unremarkable except as noted in HPI and below Eyes: Eyes: Denies change in vision Musculoskeletal: Musculoskeletal: Denies back pain, Denies arthralgias and Denies joint swelling Integumentary/Breasts: Skin/Breast: Denies erythema and Denies rash Comments: Scalp laceration Neurologic: Denies syncope, Denies headache(s), Denies focal weakness and Denies numbness PMFSH Past Medical History Medical History Abdominal pain Abnormal finding of blood chemistry, unspecified Acute renal failure Amaurosis fugax Arm fracture, left Arthritis Benign essential hypertension BMI 21.0-21.9, adult BMI 22.0-22.9, adult BMI 23.0-23.9, adult BMI 24.0-24.9, adult BMI 27.0-27.9,adult BMI 31.0-31.9,adult BMI 33.0-33.9,adult BMI 34.0-34.9,adult BMI 40.0-44.9, adult BMI 45.0-49.9, adult Body mass index (BMI) of 50-59.9 in adult (03/13/17) Bunion Carotid disease, bilateral Change in bowel habit Colon cancer screening Constipation Dependence on other enabling machines and devices Dependent edema Depression Diabetes mellitus type 2, insulin dependent Diverticular disease GILMAN (dyspnea on exertion) Elevated LFTs Encounter for Medicare annual wellness exam Encounter for routine adult health examination with abnormal findings Encounter for routine adult health examination without abnormal findings Excessive and redundant skin and subcutaneous tissue Facial pain, acute Fatigue Follow up Frequent falls GERD (gastroesophageal reflux disease) Grade I diastolic dysfunction Hearing loss History of obstructive sleep apnea HTN (hypertension) Hx of small bowel obstruction Hyperlipidemia Hypothyroidism Hypothyroidism (acquired) IDDM (insulin dependent diabetes mellitus) Insomnia Left arm numbness Left wrist fracture Neuropathy On fci drug therapy Orthostatic hypotension MATTHIAS on CPAP Seasonal allergies Sinus mucosal thickening Syncope Traumatic ecchymosis of face Urticaria Vitamin D deficiency Surgical History Surgical History H/O section H/O: hysterectomy History of appendectomy History of bunionectomy History of Ivy-en-Y gastric bypass History of surgery on left wrist Histor
== END 2022-03-28 09:35 | disposition home or self-care (01) ==
PROVIDERS: Emergency Provider Emergency Medicine; PCP Internal Medicine
DX: S01.01XA Laceration without foreign body of scalp, initial encounter (principal); I10 Essential (primary) hypertension; E11.40 Type 2 diabetes mellitus with diabetic neuropathy, unspecified; E03.9 Hypothyroidism, unspecified; E78.5 Hyperlipidemia, unspecified; I77.9 Disorder of arteries and arterioles, unspecified; K21.9 Gastro-esophageal reflux disease without esophagitis; G47.33 Obstructive sleep apnea (adult) (pediatric); M19.90 Unspecified osteoarthritis, unspecified site; Z90.710 Acquired absence of both cervix and uterus; Z98.84 Bariatric surgery status; Z96.653 Presence of artificial knee joint, bilateral; Z87.891 Personal history of nicotine dependence; Z79.4 Long term (current) use of insulin; Z79.84 Long term (current) use of oral hypoglycemic drugs; J32.9 Chronic sinusitis, unspecified; W06.XXXA Fall from bed, initial encounter
CPT/HCPCS: 12002; 70450; 99284

== ENCOUNTER 2022-04-05 13:32 | Outpatient (CLI) | payer MEDICARE, SELFPAY ==
--- NOTE | ~2022-04-05 | MMUS_ITS ---
EXAMINATION: MM diagnostic shun BI w earnest, US breast LT limited HISTORY: Bilateral mammographic asymmetries reported in upper outer right breast and subareolar left breast on 03/17/2022 screening mammogram TECHNIQUE: Additional 3-D tomosynthesis images of both breasts were performed and synthetic 2-D image s were generated. CAD analysis was submitted and interpreted. High resolution left 11:00-1:00 breast ultrasound was performed. COMPARISON: 03/17/2022 bilateral screening mammogram FINDINGS: MAMMOGRAPHIC FINDINGS: Right breast: No suspicious mass, architectural distortion, malignant calcification, skin thickening or retraction of the right breast is detected. Left breast: There is an angular tubular appearing asymmetric density anteriorly in the upper mid lef t breast, measuring up to approximately 2.9 cm AP dimension on CC view, up to approximately 7 mm tracy sverse dimension. No suspicious mass or architectural distortion, malignant calcification, skin thickening or retractio n of the left breast is noted otherwise. ULTRASOUND: 11:00 near nipple: There is a parallel circumscribed complex multicystic lesion measuring up to appro ximately 4 x 9 x 16 mm, without interval vascularity or suspicious shadowing. No other suspicious mass or shadowing is evident to 11:00 and 1:00. IMPRESSION: 1. Benign finding 2. Routine annual mammographic screening is recommended BI-RADS Category 2: Benign finding(s). Reviewed, dictated and finalized at location A. LEMAN IMPRESSION: 1. Benign finding 2. Routine annual mammographic screening is recommended BI-RADS Category 2: Benign finding(s).
== END 2022-04-05 13:33 | disposition home or self-care (01) ==
PROVIDERS: PCP Internal Medicine; Visit Provider Internal Medicine
DX: R92.8 Other abnormal and inconclusive findings on diagnostic imaging of breast (principal)
CPT/HCPCS: 76642; 77062; 77066; G0279

== ENCOUNTER 2022-04-27 14:25 | Outpatient (CLI) | payer MEDICARE, SELFPAY ==
--- NOTE | ~2022-04-27 | XR_ITS ---
Right Shoulder Technique: AP and scapular Y views were obtained. Clinical History: Pain Findings: No fracture or dislocation is seen. Osseous alignment is anatomic. There is minimal degener ative changes of the acromioclavicular and glenohumeral joints. Soft tissues are unremarkable. Impression: Minimal degenerative changes, as above. Reviewed, dictated and finalized at location [] ER OPENER Impression: Minimal degenerative changes, as above.
== END 2022-04-27 14:26 | disposition home or self-care (01) ==
PROVIDERS: PCP Internal Medicine; Visit Provider Internal Medicine
DX: M19.011 Primary osteoarthritis, right shoulder (principal)
CPT/HCPCS: 73030

== ENCOUNTER 2022-06-09 10:35 | Outpatient (CLI) | payer MEDICARE, SELFPAY ==
--- NOTE | ~2022-06-09 | NM_ITS ---
EXAMINATION: NM shaun stress w perfusion DATE: 06/09/2022 12:36 INDICATION: Chest pain TECHNIQUE: Rest images were obtained following intravenous administration of 8.6 mCi Tc99m tetrofosmi n (Myoview). The patient was infused intravenously with Lexiscan (Regadenoson). Then, 28.5 mCi Tc99m tetrofosmin (Myoview) was administered intravenously, and stress images were obtained. Data was recon structed into short axis and horizontal and vertical long axis SPECT images. Gated SPECT images were also obtained. COMPARISON: None. FINDINGS: There is no definite reversible or fixed perfusion abnormality to suggest ischemia or infar ction. There is normal left ventricular chamber size, wall motion and ejection fraction. Left ventr icular ejection fraction measures >70%. IMPRESSION: 1. Normal myocardial perfusion at rest and during stress. 2. Left ventricular ejection fraction measuring >70%. Reviewed, dictated and finalized at location B. CIATE PROFESSOR OF MANAGEMENT
--- NOTE | 2022-06-09 10:49 | EST_ITS ---
Patient Info Name: Natasha Edouard Age: 72 years : 1950 Gender: Female Ht: 60 in Wt: 126 lbs BSA: 1.57 m2 HR: 61 bpm BP: 142 / 80 mmHg Heart Rhythm: Sinus Rhythm Exam Date: 06/09/2022 11:48 AM Exam Location: [facility] Stress Patient Status: Outpatient Admit Date: 06/09/2022 Staff Ordering Physician: Fredy Puri MD Attending Provider: Fredy Puri MD Exercise Technologist: Shira Read CT Exercise Physician: Duane Medina DO Exam Type: CA stress shaun w NM Study Info Indications R07.9 - Chest pain, unspecified A regadenoson stress test was performed. Summary 1. 1. Negative lexiscan stress test for ischemic ST changes by ECG criteria. 2. 2. Baseline hypertension. 3. 3. Nuclear scan to follow and will be reported separately. Please correlate with it. 4. 4. Patient informed of the above results. Protocol: Lexiscan Stress ECG Details Stage: REST Duration (min): 1 min : 19 sec HR (bpm): 60 SBP (mmHg): 142 DBP (mmHg): 80 Stage: REST Duration (min): 5 min : 45 sec HR (bpm): 60 SBP (mmHg): 142 DBP (mmHg): 80 Stage: STAGE 1 Duration (min): 0 min : 59 sec HR (bpm): 76 SBP (mmHg): 147 DBP (mmHg): 77 Stage: RECOVERY Duration (min): 1 min : 0 sec HR (bpm): 82 SBP (mmHg): 147 DBP (mmHg): 77 Stage: RECOVERY Duration (min): 2 min : 0 sec HR (bpm): 83 SBP (mmHg): 147 DBP (mmHg): 77 Stage: RECOVERY Duration (min): 3 min : 0 sec HR (bpm): 85 SBP (mmHg): 128 DBP (mmHg): 63 Stage: RECOVERY Duration (min): 3 min : 2 sec HR (bpm): 84 SBP (mmHg): 128 DBP (mmHg): 63 Rest HR: 60 bpm Peak HR: 85 bpm Rest Sys BP: 142 mmHg Peak Sys BP: 147 mmHg Max Pred HR: 147 bpm % Max Pred HR: 58 % Target HR: 125 bpm Max RPP: 12,495 bpm*mmHg Termination Reason: Completed protocol Cardiac Symptoms: Shortness of breath Total Time: 1 min : 0 sec Rest Solorio BP: 80 mmHg Peak Solorio BP: 77 mmHg Total Dose: 0.4 mg Resting ECG Sinus rhythm. Stress ECG No ST changes. Arrhythmias None. Report Signatures
== END 2022-06-09 10:36 | disposition home or self-care (01) ==
PROVIDERS: PCP Internal Medicine; Visit Provider Internal Medicine
DX: R07.9 Chest pain, unspecified (principal); R53.83 Other fatigue
CPT/HCPCS: 78452; 93017; A9502; J2785

== ENCOUNTER 2022-11-02 11:17 | Outpatient (CLI) | payer MEDICARE, SELFPAY ==
--- NOTE | ~2022-11-02 | XR_ITS ---
EXAMINATION: XR thoracic spine 3V DATE: 11/02/2022 12:01 INDICATION: Nontraumatic severe back pain TECHNIQUE: One AP, lateral and lateral swimmer's views of the thoracic spine were obtained. COMPARISON: 10/14/2021 FINDINGS: Slight thoracic dextrocurvature likely exaggerated by some leftward rotation of the patient. Sagittal alignment is normal. Vertebral body heights are normal. Mild disc height loss at multiple levels thr oughout the thoracic spine. There are bridging osteophytes at multiple levels in the spine, consisten t with diffuse idiopathic skeletal hyperostosis (DISH). Suture lines in the left epigastric region co nsistent with history of prior gastric bypass procedure. Visualized portions of the lungs are clear. Heart size is normal. IMPRESSION: 1. Mild thoracic spondylosis with multiple bridging or nearly bridging endplate osteophytes consisten t with diffuse idiopathic skeletal hyperostosis (DISH). Reviewed, dictated and finalized at location A. IMPRESSION: 1. Mild thoracic spondylosis with multiple bridging or nearly bridging endplate osteophytes consistent with diffuse idiopathic skeletal hyperostosis (DISH).
--- NOTE | ~2022-11-02 | XR_ITS ---
XR abdomen/kub 1V 11/02/2022 11:57 INDICATION: Back pain TECHNIQUE: KUB COMPARISON: None FINDINGS: Bowel gas pattern is normal. Large amount of retained fecal material in the colon. There ar e surgical changes in the left upper abdomen. There is no evidence of free air, mass, organomegaly, a scites or obstruction. No abnormal calculi are seen. The bones appear intact. IMPRESSION: 1: No acute abdominal abnormality identified. Reviewed, dictated and finalized at location L.
--- NOTE | ~2022-11-02 | XR_ITS ---
XR lumbar spine 6V w bending 11/02/2022 11:57 Indication: Severe low back pain Procedure: 6 views lumbar spine including flexion/extension views Comparison: 10/14/2021 Findings: There is mild superior endplate compression deformity of L2. There is disc narrowing at all lumbar levels most advanced at L5-S1. There is moderate facet hypertrophy at L3-4, L4-5 and L5-S1. T here is grade 1 degenerative spondylolisthesis at L4-5. No acute fracture or traumatic malalignment. Impression: 1: Moderate-severe lumbar spondylosis. 2: Mild chronic superior plate compression deformity of L2. Reviewed, dictated and finalized at location L. Impression: 1: Moderate-severe lumbar spondylosis. 2: Mild chronic superior plate compression deformity of L2.
== END 2022-11-02 11:18 | disposition home or self-care (01) ==
PROVIDERS: PCP Internal Medicine; Visit Provider Internal Medicine
DX: M47.894 Other spondylosis, thoracic region (principal); M47.896 Other spondylosis, lumbar region
CPT/HCPCS: 72072; 72114; 74018

== ENCOUNTER 2023-03-07 12:26 | Emergency (ER) | payer MEDICARE, SELFPAY ==
--- NOTE | ~2023-03-07 | XR_ITS ---
Clinical Indication: Chest pressure PA and lateral views of the chest: Comparison: 10/24/2012 Findings: There is linear right midlung scarring. The lungs are otherwise clear, without evidence of focal consolidation or pleural effusion. Cardiomediastinal silhouette is within normal limits. Bones and soft tissues are unremarkable. Impression: Linear right midlung scarring, otherwise clear lungs. Reviewed, dictated and finalized at location . Impression: Linear right midlung scarring, otherwise clear lungs.
--- NOTE | ~2023-03-07 | CT_ITS ---
EXAMINATION: CTA chest PE protocol DATE: 03/07/2023 15:57 CDT INDICATION: Midsternal chest pressure TECHNIQUE: Computed tomographic angiography (CTA) of the chest was performed with 100 mL Omnipaque-35 0 intravenous contrast. The dose-length product was 265.79 mGy-cm. Maximum intensity projection 3D-re constructions of the aorta and other arteries were constructed by the technologist on a separate work station. COMPARISON: None. FINDINGS: There is mediastinal lymphadenopathy. Study is technically adequate without evidence for pu lmonary embolism. Heart size normal. No significant pleural or pericardial effusion. There are change s of gastric bypass surgery. There is a hiatal hernia. There is patchy groundglass opacification in b oth lungs, consistent with pneumonia. No endobronchial lesions. No pneumothorax. IMPRESSION: 1. Patchy bilateral groundglass opacification of both lungs, consistent with pneumonia. 2: Mediastinal lymphadenopathy, likely reactive. Reviewed, dictated and finalized at location B. IMPRESSION: 1. Patchy bilateral groundglass opacification of both lungs, consistent with pn eumonia. 2: Mediastinal lymphadenopathy, likely reactive.
--- NOTE | 2023-03-07 12:29 | ECG_ITS ---
Measurements Intervals [place] Rate: 68 P: 24 OR: 157 QRS: 11 QRSD: 74 T: 38 QT: 403 QTc: 429 Interpretive Statements SINUS RHYTHM NO PREVIOUS ECG AVAILABLE FOR COMPARISON Electronically Signed On 03-07-2023 20:23:53 CDT by Gabrielle Elliott M.D.
[2023-03-07 12:39] VITALS: BP 118/64; PULSE 69; RESP 20; TEMP 36.2; O2SAT 100
[2023-03-07 12:46] LABS: Basophils Absolute Auto 0.1 K/mm3 (0.0-0.1); Basophils Percent Auto 0.7 % (0.2-1.2); Eosinophils Absolute Auto 0.2 K/mm3 (0-0.3); Eosinophils Percent Auto 3.1 % (0-4.4); Hematocrit 46.2 % (37.0-47.0); Hemoglobin 13.8 g/dL (12.0-15.0); Immature Granulocyte Absolute 0.03 K/mm3 (0.00-0.031); Immature Granulocyte Percent A 0.4 % (0-0.5); Lymphocytes Percent Auto 13.9 % (18.3-44.2); Mean Corpuscular HGB Conc 29.9 g/dl (32-36); Mean Platelet Volume 10.1 fl (7.4-10.4); Monocytes Absolute Auto 0.7 K/mm3 (0.1-0.6); Monocytes Percent Auto 9.5 % (2.6-8.5); Neutrophils Absolute Auto 5.2 K/mm3 (1.3-6.7); Neutrophils Percent Auto 72.4 % (45.5-73.1); Platelet Count Result 338 k/mm3 (150-375); Red Blood Count 5.31 M/mm3 (4.2-5.4); Red Cell Distribution Width 14.6 % (11.5-14.5); White Blood Count 7.2 K/mm3 (4.5-10.0)
[2023-03-07 12:55] LABS: Alanine Aminotransferase 18 U/L (6-35); Albumin Level 4.1 g/dL (3.5-5.1); Alkaline Phosphatase 57 U/L (38-126); Anion Gap 5 mmol/L (8-16); Aspartate Amino Transferase 25 U/L (14-36); Bilirubin,Total 0.4 mg/dL (0.2-1.3); Blood Urea Nitrogen 20 mg/dL (7-17); Calcium 9.4 mg/dL (8.4-10.2); Carbon Dioxide 29 mmol/L (22-30); Chloride 104 mmol/L (98-107); Estimated CRCL calculation 50 ml/min; Estimated Glomerular Filt Rate > 60; Glucose 114 mg/dL (65-110); Lipase 84 U/L (23-300); Sodium 138 mmol/L (137-145)
[2023-03-07 13:07] LABS: Troponin I < 0.012 ng/mL (0.000-0.034)
[2023-03-07 13:51] LABS: INR 0.9; Partial Thromboplastin Time 27.5 SECONDS (22.3-36.8); Prothrombin Time 12.4 Seconds (11.1-14.7)
--- NOTE | 2023-03-07 14:18 | ED.CHESTPAIN ---
HPI - Chest Pain General Chief Complaint: Chest Pain Stated Complaint: chest pain Time Seen by Provider: 03/07/23 13:40 History of Present Illness HPI narrative: 73-year-old female present emergency department for evaluation of intermittent chest pain. Patient states over the last few days patient has had short lasting chest pain that feels like pressure and last 2 to 3 minutes. Patient denies any radiation of the pain to her neck back or arm. Patient denies any prior cardiac history. Patient did have a stress test by Dr. Medina last year. Upon arrival to the emergency department patient denies any current chest pain or shortness of breath. Related Data Home Medications Medication Instructions Recorded Confirmed calcium carbonate 600 mg calcium 600 mg PO DAILY 07/09/19 01/29/23 (1,500 mg) tablet (Calcium) mecobalamin (vitamin B12) 1,000 1,000 mcg sublingual DAILY 07/09/19 01/29/23 mcg disintegrating tablet,sublingual [id number] 8 mg-folic 400 1 tablet PO DAILY 07/09/19 01/29/23 mcg-K 50 mcg-lutein 300 mcg tablet (Centrum Silver Women) omega-3 fatty acids 1,000 mg 2,000 mg PO DAILY 07/09/19 01/29/23 capsule (Fish Oil Concentrate) empagliflozin 25 mg tablet 25 mg PO QAM 07/19/21 01/29/23 (Jardiance) rosuvastatin 40 mg tablet 40 mg PO HS 07/19/21 01/29/23 cholecalciferol (vitamin D3) 125 125 mcg PO DAILY 03/22/22 01/29/23 mcg (5,000 unit) capsule ferrous sulfate 325 mg (65 mg 325 mg PO BID 01/26/23 01/29/23 iron) tablet (FeroSul) Allergies Allergy/AdvReac Type Severity Reaction Status Date / Time morphine AdvReac Severe NAUSEA AND Verified 01/29/23 09:13 VOMITING Sulfa (Sulfonamide AdvReac Intermediate Diarrhea Verified 01/29/23 09:13 Antibiotics) Review of Systems Review of Systems: All systems reviewed & are unremarkable except as noted in HPI and below PMFSH Past Medical History Medical History (Updated 03/07/23 @ 16:29 by Jovani Griffith MD) Abdominal pain Abnormal finding of blood chemistry, unspecified Acute renal failure Amaurosis fugax Arm fracture, left Arthritis Benign essential hypertension BMI 21.0-21.9, adult BMI 22.0-22.9, adult BMI 23.0-23.9, adult BMI 24.0-24.9, adult BMI 25.0-25.9,adult BMI 27.0-27.9,adult BMI 31.0-31.9,adult BMI 33.0-33.9,adult BMI 34.0-34.9,adult BMI 40.0-44.9, adult BMI 45.0-49.9, adult Body mass index (BMI) of 50-59.9 in adult (03/13/17) Bunion Carotid disease, bilateral Change in bowel habit Cheilitis Colon cancer screening Constipation Dependence on other enabling machines and devices Dependent edema Depression Diabetes mellitus type 2, insulin dependent Diverticular disease GILMAN (dyspnea on exertion) Elevated LFTs Encounter for Medicare annual wellness exam Encounter for routine adult health examination with abnormal findings Encounter for routine adult health examination without abnormal findings Excessive and redundant skin and subcutaneous tissue Facial pain, acute Fatigue Follow up Frequent falls GERD (gastroesophageal reflux disease) Grade I diastolic dysfunction Hearing loss History of obstructive sleep apnea HTN (hypertension) Hx of small bowel obstruction Hyperlipidemia Hypothyroidism Hypothyroidism (acquired) IDDM (insulin dependent diabetes mellitus) Insomnia Iron deficiency anemia Left arm numbness Left wrist fracture Left-sided chest pain Mild sleep apnea Neuropathy On penitentiary drug therapy Orthostatic hypotension MATTHIAS on CPAP Seasonal allergies Sinus mucosal thickening Syncope Traumatic ecchymosis of face Trigger finger of left hand Urticaria Vitamin D deficiency Surgical History Surgical History H/O section H/O: hysterectomy History of appendectomy History of bunionectomy History of Ivy-en-Y gastric bypass History of surgery on left wrist History of total bilateral knee replacement (TKR) S/P gastric bypass S/P right kn
[2023-03-07 14:46] LABS: D Dimer 0.83 ug/mL (<0.48)
[2023-03-07 15:18] VITALS: BP 119/88; PULSE 64; RESP 19; O2SAT 92
[2023-03-07 15:48] LABS: Troponin I < 0.012 ng/mL (0.000-0.034)
[2023-03-07] MEDS: AZITHROMYCIN 250 MG TABLET 500 MG PO (17:00)
[2023-03-07] MEDS: AMOXICILLIN/CLAVULANATE K 875-125 MG TAB 1 TABLET PO (17:00)
[2023-03-07 17:02] VITALS: BP 119/88; PULSE 66; RESP 17; O2SAT 95
== END 2023-03-07 17:04 | disposition home or self-care (01) ==
PROVIDERS: Emergency Medicine; Emergency Provider Emergency Medicine; PCP Internal Medicine
DX: J18.9 Pneumonia, unspecified organism (principal); R07.9 Chest pain, unspecified; I10 Essential (primary) hypertension; I77.9 Disorder of arteries and arterioles, unspecified; E03.9 Hypothyroidism, unspecified; E11.40 Type 2 diabetes mellitus with diabetic neuropathy, unspecified; E55.9 Vitamin D deficiency, unspecified; D50.9 Iron deficiency anemia, unspecified; K21.9 Gastro-esophageal reflux disease without esophagitis; G47.33 Obstructive sleep apnea (adult) (pediatric); F32.A Depression, unspecified; Z98.84 Bariatric surgery status; Z96.653 Presence of artificial knee joint, bilateral; Z87.891 Personal history of nicotine dependence; Z90.710 Acquired absence of both cervix and uterus; Z79.84 Long term (current) use of oral hypoglycemic drugs; Z79.4 Long term (current) use of insulin
CPT/HCPCS: 36415; 71046; 71275; 80053; 83690; 84484; 85025; 85380; 85610; 85730; 93005; 99284; A9270; Q9967

== ENCOUNTER 2023-03-12 11:16 | Outpatient (CLI) | payer MEDICARE, SELFPAY ==
--- NOTE | ~2023-03-12 | XR_ITS ---
XR chest 2V DATE: 03/12/2023 11:33 INDICATION: Pneumonia follow-up TECHNIQUE: PA and lateral views COMPARISON: 03/07/2023 2 view chest and CTA chest FINDINGS: Interval improvement of mild discoid atelectasis, right upper lobe. No pulmonary infiltrate or consolidation, pleural effusion or pulmonary vascular congestion or pneumothorax are evident. Normal heart size. No hilar or mediastinal enlargement. Diffuse osteopenia. Diffuse idiopathic skeletal hyperostosis of the thoracic spine. IMPRESSION: Mild discoid atelectasis, right upper lobe Reviewed, dictated and finalized at location B.
== END 2023-03-12 11:17 | disposition home or self-care (01) ==
PROVIDERS: PCP Internal Medicine; Visit Provider Internal Medicine
DX: J18.9 Pneumonia, unspecified organism (principal)
CPT/HCPCS: 71046

== ENCOUNTER 2023-06-22 11:14 | Outpatient (CLI) | payer MEDICARE, SELFPAY ==
--- NOTE | ~2023-06-22 | US_ITS ---
EXAMINATION: US carotid duplex BI DATE: 06/22/2023 16:52 INDICATION: Carotid atherosclerosis TECHNIQUE: Grayscale, color Doppler, and pulsed Doppler images of the cervical carotid arteries were obtained. The degree of vessel stenosis is placed in one of the following categories: normal, <50%, 5 0-69%, >=70% but less than near-occlusion, near-occlusion, or total occlusion. Note that percent sten osis relative to normal distal artery lumen diameter is indirectly measured from velocity measurement s as described by Barrie, et al. Radiology 2003; 229:340-346. COMPARISON: 07/15/2019 FINDINGS: RIGHT: The right common carotid artery (CCA) peak systolic velocity (PSV) is 68 cm/s. The right internal car otid artery (ICA) PSV is 53 cm/s. The right ICA end-diastolic velocity (EDV) is 13 cm/s. The right IC A/CCA PSV ratio is 0.9. Grayscale and color Doppler images yield an estimate of <50% diameter reducti on from plaque in the ICA. The external carotid artery (ECA) PSV is 94 cm/s. There is antegrade flow in the right vertebral artery. LEFT: The left CCA PSV is 65 cm/s. The left ICA PSV is 60 cm/s. The left ICA EDV is 18 cm/s. The left ICA/C CA PSV ratio is 1.7. Grayscale and color Doppler images yield an estimate of <50% diameter reduction from plaque in the ICA. The ECA PSV is 80 cm/s. There is antegrade flow in the left vertebral artery. IMPRESSION: 1. <50% stenosis in the right internal carotid artery. 2. <50% stenosis in the left internal carotid artery. Reviewed, dictated and finalized at location A. GER TARGET
== END 2023-06-22 11:15 | disposition home or self-care (01) ==
PROVIDERS: PCP Internal Medicine; Visit Provider Internal Medicine
DX: Z09 Encounter for follow-up examination after completed treatment for conditions other than malignant neoplasm (principal); I77.9 Disorder of arteries and arterioles, unspecified; I65.23 Occlusion and stenosis of bilateral carotid arteries
CPT/HCPCS: 93880

== ENCOUNTER 2023-11-19 15:15 | Emergency (ER) | payer MEDICARE, SELFPAY ==
--- NOTE | ~2023-11-19 | CT_ITS ---
EXAMINATION: CT abdomen pelvis w con DATE: 11/19/2023 18:06 INDICATION: Low abdominal pain. Blood in stool. TECHNIQUE: Computed tomography (CT) of the abdomen and pelvis was performed with 100 mL Omnipaque 350 intravenous contrast. Automated exposure control and iterative reconstruction technique were employe d. The dose-length product was 310.49 mGy-cm. COMPARISON: CT abdomen pelvis 05/31/2019 FINDINGS: The visualized portions of the lung bases demonstrate mild atelectasis. No pleural effusion . The heart size is normal. No pericardial effusion. There are coronary artery calcifications. There is a small sliding hiatal hernia. There are changes of gastric bypass procedure. The liver, gallbladd er, spleen, pancreas, and adrenal glands are normal. There is cortical thinning of the kidneys. There is a 2 mm stone in right kidney. There are scattered diverticula in the colon. There is fat strandin g around the sigmoid colon, consistent with diverticulitis. There are no dilated loops of bowel. The appendix is not visualized. There are no pathologically enlarged lymph nodes. There is no free intrap eritoneal fluid. There is a lipoma in right iliopsoas muscle. There is severe lumbar spondylosis. The re is a chronic compression fracture of L2. IMPRESSION: 1. Sigmoid diverticulitis. No perforation or abscess. Reviewed, dictated and finalized at location E.
[2023-11-19 15:16] VITALS: BP 122/62; PULSE 72; RESP 17; TEMP 36.4; O2SAT 100
--- NOTE | 2023-11-19 17:17 | ED.GENADULT ---
HPI - General Adult General Chief complaint: Recheck/Abnormal Lab/Rx Stated complaint: ruptured colon Time Seen by Provider: 11/19/23 17:17 Focused HPI: Patient is a 73 y/o female, with PMH of IDDM, who presents to the ED with c/o ABD pain and rectal bleeding. Patient reports having watery diarrhea for the past 3 days. She denies blood mixed in with the stool, but notes shes has had several episode of passing only bright red blood. She does not hx of hemorrhoids and diverticulitis, but denies ever having bleeding like this before. She also c/o lower abdominal pain, N/V a few nights ago, and abnormal tissue coming from her rectum. States she looked with a mirror this morning and saw a red piece of tissue coming from her rectum. Denies fevers, melena. Denies previous hx of GIB. She is not on any anticoagulation. Last colonoscopy 2021. GENERAL: Elderly, well-nourished, and in no acute distress. HEAD: Normocephalic, atraumatic. CHEST: Clear to auscultation. ?No respiratory distress. HEART: Regular rate and rhythm.? ABD: Mild tenderness palpation diffusely throughout lower abdomen. No rebound or rigidity. Normoactive bowel sounds. NEURO: ?Alert and oriented x3. Patient screened in triage and initial orders placed.? ?Additional care and disposition to be based upon?diagnostic testing and treatment. Source: patient and old records reviewed Mode of arrival: ambulatory Limitations: no limitations Related Data Home Medications Medication Instructions Recorded Confirmed calcium carbonate (Calcium 600) 600 mg PO DAILY 07/09/19 10/11/23 mecobalamin (vitamin B12) 1,000 1,000 mcg sublingual DAILY 07/09/19 10/11/23 mcg disintegrating tablet,sublingual [id number] 8 mg-folic 400 1 tablet PO DAILY 07/09/19 10/11/23 mcg-K 50 mcg-lutein 300 mcg tablet (Centrum Silver Women) omega-3 fatty acids 1,000 mg 2,000 mg PO DAILY 07/09/19 10/11/23 capsule (Fish Oil Concentrate) cholecalciferol (vitamin D3) 125 125 mcg PO DAILY 03/22/22 10/11/23 mcg (5,000 unit) capsule Allergies Allergy/AdvReac Type Severity Reaction Status Date / Time morphine AdvReac Severe NAUSEA AND Verified 10/11/23 15:19 VOMITING Sulfa (Sulfonamide AdvReac Intermediate Diarrhea Verified 10/11/23 15:19 Antibiotics) [facility] Past Medical History Medical History (Updated 11/20/23 @ 00:00 by Background Daemon) Abdominal pain Abnormal finding of blood chemistry, unspecified Acute renal failure Amaurosis fugax Arm fracture, left Arthritis Benign essential hypertension BMI 21.0-21.9, adult BMI 22.0-22.9, adult BMI 23.0-23.9, adult BMI 24.0-24.9, adult BMI 25.0-25.9,adult BMI 27.0-27.9,adult BMI 31.0-31.9,adult BMI 33.0-33.9,adult BMI 34.0-34.9,adult BMI 40.0-44.9, adult BMI 45.0-49.9, adult Body mass index (BMI) of 50-59.9 in adult (03/13/17) Bunion Carotid disease, bilateral Change in bowel habit Cheilitis Chest discomfort Colon cancer screening Constipation Dependence on other enabling machines and devices Dependent edema Depression Diabetes mellitus type 2, insulin dependent Diverticular disease GILMAN (dyspnea on exertion) Elevated LFTs Encounter for Medicare annual wellness exam Encounter for routine adult health examination with abnormal findings Encounter for routine adult health examination without abnormal findings Excessive and redundant skin and subcutaneous tissue Facial pain, acute Fatigue Follow up Frequent falls GERD (gastroesophageal reflux disease) Grade I diastolic dysfunction Hearing loss History of obstructive sleep apnea HTN (hypertension) Hx of small bowel obstruction Hyperlipidemia Hypothyroidism Hypothyroidism (acquired) IDDM (insulin dependent diabetes mellitus) Insomnia Iron deficiency anemia Left arm numbness Left wrist fracture Left-sided chest pain Mild sleep apnea Neuropathy On machine long goods helper drug therapy Orthostatic hypotension MATTHIAS on CPAP Seasonal allergies Sinus mucosal thickening Syncope Traumati
[2023-11-19 17:25] VITALS: BP 128/56; PULSE 69; RESP 16; TEMP 36.4; O2SAT 95
[2023-11-19 17:33] LABS: Basophils Percent Auto 0.3 % (0.2-1.2); Eosinophils Absolute Auto 0.2 K/mm3 (0-0.3); Eosinophils Percent Auto 1.8 % (0-4.4); Hematocrit 47.1 % (37.0-47.0); Hemoglobin 15.5 g/dL (12.0-15.0); Immature Granulocyte Absolute 0.04 K/mm3 (0.00-0.031); Immature Granulocyte Percent A 0.4 % (0-0.5); Lymphocytes Percent Auto 13.3 % (18.3-44.2); Mean Corpuscular HGB Conc 32.9 g/dl (32-36); Mean Corpuscular Hemoglobin 29.6 pg (26-34); Mean Corpuscular Volume 90.1 fl (80-100); Mean Platelet Volume 9.7 fl (7.4-10.4); Monocytes Absolute Auto 0.8 K/mm3 (0.1-0.6); Monocytes Percent Auto 9.2 % (2.6-8.5); Neutrophils Absolute Auto 6.8 K/mm3 (1.3-6.7); Platelet Count Result 334 k/mm3 (150-375); Red Blood Count 5.23 M/mm3 (4.2-5.4); Red Cell Distribution Width 14.2 % (11.5-14.5); White Blood Count 9.1 K/mm3 (4.5-10.0)
[2023-11-19 17:44] LABS: Alanine Aminotransferase 15 U/L (6-35); Albumin Level 4.5 g/dL (3.5-5.1); Alkaline Phosphatase 52 U/L (38-126); Anion Gap 10 mmol/L (4-12); Aspartate Amino Transferase 25 U/L (14-36); Bilirubin,Total 0.6 mg/dL (0.2-1.3); Blood Urea Nitrogen 31 mg/dL (7-17); Calcium 9.5 mg/dL (8.4-10.2); Carbon Dioxide 29 mmol/L (22-30); Chloride 99 mmol/L (98-107); Estimated CRCL calculation 48 ml/min; Estimated Glomerular Filt Rate > 60; Glucose 146 mg/dL (65-110); Lipase 67 U/L (23-300); Potassium 3.8 mmol/L (3.4-5.0); Sodium 138 mmol/L (137-145)
[2023-11-19 17:52] LABS: Prothrombin Time 13.5 Seconds (11.1-14.7)
[2023-11-19 17:53] LABS: Partial Thromboplastin Time 30.6 Seconds (22.3-36.8)
[2023-11-19 19:52] VITALS: BP 184/79; PULSE 65; RESP 15; TEMP 36.8; O2SAT 99
--- NOTE | 2023-11-19 19:53 | ED.RECABL ---
HPI - Recheck/Abnormal Lab/Rx General Chief Complaint: Recheck/Abnormal Lab/Rx Stated Complaint: ruptured colon Time Seen by Provider: 11/19/23 17:17 Source: patient, family and old records reviewed Mode of arrival: ambulatory Limitations: no limitations History of Present Illness HPI narrative: 73 YEARS OLD WHITE FEMALE CAME TO THE EMERGENCY ROOM BY PRIVATE CAR COMPLAINING OF FREQUENT BOWEL MOVEMENT UP TO 20 A DAY EACH TIME A SMALL AMOUNT SOMETIME HAVE TISSUE IN IT SOMETIME HAVE BLOOD IN IT, WAS DIFFUSE ABDOMINAL PAIN. SHE DENIES ANY FEVER OR CHILLS OR NAUSEA OR VOMITING. PATIENT IS NOT ON ANTI-PLATELET OR ANTICOAGULANT MEDICATION, HISTORY OF APPENDECTOMY, GASTRIC BYPASS, COMPLICATED WITH OBSTRUCTION, DIABETES, HYPOTHYROIDISM. PATIENT DOES NOT SMOKE OR DRINK. THE ABDOMINAL PAIN IS DIFFUSE, DULL ACHING, NO AGGRAVATING OR RELIEVING FACTORS Related Data Home Medications Medication Instructions Recorded Confirmed calcium carbonate (Calcium 600) 600 mg PO DAILY 07/09/19 10/11/23 mecobalamin (vitamin B12) 1,000 1,000 mcg sublingual DAILY 07/09/19 10/11/23 mcg disintegrating tablet,sublingual [id number]-znqa-[id number] 8 mg-folic 400 1 tablet PO DAILY 07/09/19 10/11/23 mcg-K 50 mcg-lutein 300 mcg tablet (Centrum Silver Women) omega-3 fatty acids 1,000 mg 2,000 mg PO DAILY 07/09/19 10/11/23 capsule (Fish Oil Concentrate) cholecalciferol (vitamin D3) 125 125 mcg PO DAILY 03/22/22 10/11/23 mcg (5,000 unit) capsule Allergies Allergy/AdvReac Type Severity Reaction Status Date / Time morphine AdvReac Severe NAUSEA AND Verified 10/11/23 15:19 VOMITING Sulfa (Sulfonamide AdvReac Intermediate Diarrhea Verified 10/11/23 15:19 Antibiotics) Review of Systems Review of Systems: All systems reviewed & are unremarkable except as noted in HPI and below PMFSH Past Medical History Medical History (Updated 11/19/23 @ 21:51 by Jenny Silva MD) Abdominal pain Abnormal finding of blood chemistry, unspecified Acute renal failure Amaurosis fugax Arm fracture, left Arthritis Benign essential hypertension BMI 21.0-21.9, adult BMI 22.0-22.9, adult BMI 23.0-23.9, adult BMI 24.0-24.9, adult BMI 25.0-25.9,adult BMI 27.0-27.9,adult BMI 31.0-31.9,adult BMI 33.0-33.9,adult BMI 34.0-34.9,adult BMI 40.0-44.9, adult BMI 45.0-49.9, adult Body mass index (BMI) of 50-59.9 in adult (03/13/17) Bunion Carotid disease, bilateral Change in bowel habit Cheilitis Chest discomfort Colon cancer screening Constipation Dependence on other enabling machines and devices Dependent edema Depression Diabetes mellitus type 2, insulin dependent Diverticular disease GILMAN (dyspnea on exertion) Elevated LFTs Encounter for Medicare annual wellness exam Encounter for routine adult health examination with abnormal findings Encounter for routine adult health examination without abnormal findings Excessive and redundant skin and subcutaneous tissue Facial pain, acute Fatigue Follow up Frequent falls GERD (gastroesophageal reflux disease) Grade I diastolic dysfunction Hearing loss History of obstructive sleep apnea HTN (hypertension) Hx of small bowel obstruction Hyperlipidemia Hypothyroidism Hypothyroidism (acquired) IDDM (insulin dependent diabetes mellitus) Insomnia Iron deficiency anemia Left arm numbness Left wrist fracture Left-sided chest pain Mild sleep apnea Neuropathy On [facility] drug therapy Orthostatic hypotension MATTHIAS on CPAP Seasonal allergies Sinus mucosal thickening Syncope Traumatic ecchymosis of face Trigger finger of left hand Trigger index finger of left hand Urticaria Vitamin D deficiency Surgical History Surgical History (Updated 10/11/23 @ 15:40 by Monica Dowling [facility]) H/O section H/O: hysterectomy History of appendectomy History of bunionectomy History of dental surgery History of Ivy-en-Y gastric bypass History of surgery on left wrist History of total bilateral knee replacement (TKR) S/P
[2023-11-19] MEDS: SODIUM CHLORIDE 0.9% IV 1,000 ML 999 ML IV CONT (20:19)
[2023-11-19 21:11] LABS: Appearance Urine Clear (Clear); Bilirubin Urine Negative (Negative); Blood Urine Negative (Negative); Color Urine Yellow (Yellow); Glucose Urine UA 2+ mg/dL (Negative); Ketones Urine Negative (Negative); Leukocyte Esterase Ur Negative LEU/UL (Negative); Nitrate Urine Negative (Negative); Protein Urine Negative (Negative); Specific Grav Ur > 1.045 (1.001-1.035); Urobilinogen Urine 0.2 mg/dL (<2.0)
[2023-11-19 21:12] LABS: Add Urine Microscopic? YES
== END 2023-11-19 22:01 | disposition home or self-care (01) ==
PROVIDERS: Physician Assistant; Emergency Provider Emergency Medicine; PCP Internal Medicine
DX: K57.92 Diverticulitis of intestine, part unspecified, without perforation or abscess without bleeding (principal); Z87.891 Personal history of nicotine dependence; M19.90 Unspecified osteoarthritis, unspecified site; F32.A Depression, unspecified; E11.9 Type 2 diabetes mellitus without complications; Z79.4 Long term (current) use of insulin; K21.9 Gastro-esophageal reflux disease without esophagitis; I10 Essential (primary) hypertension; E03.9 Hypothyroidism, unspecified; D64.9 Anemia, unspecified; G47.30 Sleep apnea, unspecified
CPT/HCPCS: 36415; 74177; 80053; 81001; 83605; 83690; 85025; 85610; 85730; 86850; 86900; 86901; 96360; 96361; 99284; J7030; Q9967

== ENCOUNTER 2023-11-27 15:10 | Outpatient (CLI) | payer MEDICARE, SELFPAY ==
--- NOTE | ~2023-11-27 | MM_ITS ---
EXAMINATION: MM screening shun BI w earnest HISTORY: Screening TECHNIQUE: Craniocaudal and mediolateral oblique 3-D tomosynthesis images were obtained and synthetic 2-D images were generated. CAD analysis was submitted and interpreted. COMPARISON: No prior mammogram is available for comparison at this institution. BREAST PARENCHYMAL COMPOSITION: Not dense: There are scattered areas of fibroglandular density. FINDINGS: There is focal asymmetry in the subareolar location of the left breast anteriorly, unchange d from prior study. There is no evidence of suspicious mass, calcification, or architectural distorti on to suggest malignancy in either breast. There has been no suspicious interval change. IMPRESSION: 1. No mammographic evidence of malignancy. 2. Recommend routine screening mammography in one year. BI-RADS Category 2: Benign finding(s). Reviewed, dictated and finalized at location B.
== END 2023-11-27 15:11 | disposition home or self-care (01) ==
PROVIDERS: PCP Internal Medicine; Visit Provider Internal Medicine
DX: Z12.31 Encounter for screening mammogram for malignant neoplasm of breast (principal)
CPT/HCPCS: 77063; 77067

== ENCOUNTER 2024-01-17 12:30 | Outpatient (RCR) | payer MEDICARE, SELFPAY ==
--- NOTE | 2024-01-11 11:27 | OPREHPOC ---
Outpatient Therapy Plan of Care This is a Multidisciplinary Plan of Care that may contain components documented by all disciplines (PT, OT, and ST.) PT Problem 1 PT Problem #1 Knowledge Deficit PT Goal 1 Goal / Goal Update 1. Patient will perform independent HEP Target Visit 2 PT Problem 2 PT Problem #2 Pain PT Goal 1 Goal / Goal Update 1. Patient will report abdominal pain no higher than 3/10 with normal ADL's Target Visit 5 PT Problem 3 PT Problem #3 Impaired Strength PT Goal 1 Goal / Goal Update 1. Pelvic floor strength to 2/5 to decrease bowel urgency and stress incontinence 2. Pelvic floor endurance to 5 seconds Target Visit 5 PT Problem 4 PT Problem #4 Impaired Functional ADLs PT Goal 1 Goal / Goal Update 1. Patient will report no more than 2 BM per day and no sensation of incomplete emptying 2. Patient able to go out in the community without limitation 3. Patient will report stress incontinence no more than 1 time a week Target Visit 5
--- NOTE | 2024-01-11 11:27 | PTOPEVAL1 ---
Assessment and note entered by Brooke Caballero DPT Evaluation Information Assessment Status Evaluation Diagnosis constipation ICD-10 Condition Codes (PT) Weakness R53.1,R32 Subjective Information Pt reports she voids 8-10 times a day and 1-2 times at night. Leaks urine every day at some point and wears pads at all times. Takes myrbetric . Can hold urge to void a very short amount of time. Denies pain with urination. BM 6-8 times a day but reports inability to completely empty. The frequency of BM has increased over the last year. Feels a lot of fecal urgency. Sometimes has pain with BM. Denies fecal incontinence but the urge will hit quickly. Has also been diagnosed with diverticulitis and does get abdominal pain, highest 7-8 and lowest 07/21. Has hemorrhoids that bleed and will be getting those removed January 20. Denies history of pelvic pain. Pt has been 3 times, 2 vaginal deliveries and 1 . Hysterectomy in 1977. Oopherectomy 15 years later, gastric bypass 5 years ago, then another abdominal surgery to remove scar tissue. Reports a fear of going out socially due to her frequent and urgent BM. Patient goal: be able to control bowels better Diet: insulin dependent diabetes, eats smaller meals 6 times a day. Drinks protein shakes, iced water and iced tea (approximately 20 ounces of tea ). Apple juice if her glucose drops but not daily. Reported Pain Level Pain Score 3: Self Report Assessment PT Clinical Summary The patient is presenting to skilled therapy with diagnosis of constipation and reports bowel frequency/urgency, stress incontinence, and abdominal pain. She presents with significantly decreased core and pelvic floor strength and unable to perform contraction at all this session. Her weakness is contributing to her symptoms and she will highly benefit from therapy to address these impairments in order to improve function. Plan of Care Interventions Electrical Stimulation,Hot Pack/Cold Pack,Manual Therapy,Neuro Re-education,Patient/Caregiver Education,Therapeutic Activities,Therapeutic Exercise PT Services Indicated Yes Treatment Frequency and
--- NOTE | 2024-02-28 15:04 | PTOPDC ---
Assessment and note entered by Brooke Caballero DPT Evaluation Information Assessment Status Discharge - Pt Not Present Diagnosis constipation ICD-10 Condition Codes (PT) Weakness R53.1,R32 Subjective Information - Assessment PT Clinical Summary The patient has not attended therapy since 01/17/24. She will be discharged this date. Plan of Care PT Services Indicated No
== END 2024-02-29 11:03 | disposition home or self-care (01) ==
LOC: ANHPT 12:30
PROVIDERS: PCP Internal Medicine; Visit Provider Surgery
DX: K59.09 Other constipation (principal)
CPT/HCPCS: 97112; 97140; 97161; 97530

== ENCOUNTER 2024-01-21 01:08 | Day surgery (SDC) | payer MEDICARE, SELFPAY ==
[2024-01-16 09:29] VITALS: BMI 26.2
--- NOTE | 2024-01-16 09:48 | PC.NURSE ---
Report to the Outpatient Waiting Room, entrance under the green pavilion located off [facility], at time _1000am on date _01/21/24 . Planned Procedure Time: __12:00pm .? Time changes happen often and if your time is changed the preop area will call you the afternoon before. - You and your visitor will be asked to self-screen and do not enter if you have any COVID symptoms. Please call surgeon if you need to reschedule. - A mask is optional within the hospital at this time. Patients may have clear liquids (water, carbonated beverages, clear teas, apple juice) until 3 hours prior to surgery (0900am) with a maximum of 20 ounces. - No food from midnight until time of surgery and no smoking Take only the following medications with a SIP of water on the morning of surgery: __Synthroid and 1/2 am scheduled insulin. Tramadol if needed for pain DO NOT STOP ANY OF YOUR OTHER PRESCRIPTION MEDICATIONS PRIOR TO SURGERY EXCEPT THE FOLLOWING Medications to discontinue per physician Hold all vitamins, supplements,probiotics and herbs 3 days prior to surgery per Anesthesia Date to take last dose___01/17/24 Please no make-up, nail belarusian, hairspray, perfume, deodorant, or body powder the day of surgery.? No jewelry (including any body piercings) or valuables the day of surgery, leave them at home.? Please take a shower or bath the night before, or the morning of, surgery with an antibacterial soap.? Wear comfortable, loose fitting clothing.? - Jewelry must be removed prior to entering the operating room.? Rings and piercings that are not removed may be cut off. - The hospital will not accept responsibility for valuables.? - Please leave all valuables, including medications, at home the day of surgery. If you are going home after surgery, a licensed recycling collections driver must drive you home.? - NO public transportation without another adult if you receive anesthesia. - We recommend that an adult stay with you for 24 hours following discharge. - We also recommend that you do not drive, make important decision, drink alcoholic beverages, or take any drugs that were not prescribed by your health care provider for at least 24 hours after your discharge time. Follow any additional instructions given to you from your surgeon. Pt to call today to verify No prep is required preop w Telephone instructions given to __patient and asked if any additional questions and then verbalized understanding. Patient advised to call surgeon office or pre surgery nurse liaison [phone] if any additional questions.
[2024-01-21] VITALS (16 sets, daily range): BP systolic 117–153; BP diastolic 61–72; PULSE 53–65; RESP 11–18; TEMP 36.2–36.4; O2SAT 90–100; BMI 27.1
[2024-01-21] MEDS: LACTATED RINGERS 1,000 ML 30 ML IV CONT (10:50)
[2024-01-21] MEDS: ACETAMINOPHEN 500 MG TABLET 1000 MG PO (10:53)
[2024-01-21 10:59] LABS: Glucose Point of Care 112 mg/dl (65-105)
--- NOTE | 2024-01-21 11:45 | WPDHPUPDATE1 ---
History and Physical Update Update Date/Time: 01/21/24 11:45 History and Physical has been reviewed, including an updated exam of the patient. There are NO changes in the patient's condition. Risks, benefits, and alternatives have been discussed and questions answered. Patient agrees to proceed with procedure.
--- NOTE | 2024-01-21 11:52 | PM.IMHP ---
H&P: HPI History of Present Illness Date/Time: 01/21/24 11:52 Chief Complaint: Bleeding internal hemorrhoids Narrative: 74 yo woman present for internal hemorrhoid banding. She reports no changes since last seen in office. Review of Systems Review of Systems: All systems reviewed & are unremarkable except as noted in HPI and below Constitutional: Constitutional: Denies chills, Denies fever(s), Denies headache(s) and Denies weight loss Eyes: Eyes: Denies change in vision ENT: Denies dizziness, Denies headache(s), Denies neck mass and Denies throat swelling Cardiovascular: Cardiovascular: Denies chest pain, Denies lightheadedness and Denies dyspnea Respiratory: Respiratory: Denies cough, Denies dyspnea and Denies wheezing Gastrointestinal: Gastrointestinal: Denies abdominal pain, Denies change in bowel habits, Denies nausea and Denies vomiting Comments: Prolapsing internal hemorrhoids Genitourinary: Genitourinary: Denies hematuria and Denies dysuria Musculoskeletal: Musculoskeletal: Reports as per HPI Integumentary/Breasts: Skin/Breast: Reports as per HPI Neurologic: Denies dizziness and Denies headache(s) Allergic/Immunologic: Allergic/Immunologic: Denies throat swelling and Denies wheezing PMFSH Past Medical History Medical History Abdominal pain Abnormal finding of blood chemistry, unspecified Acute renal failure Amaurosis fugax Arm fracture, left Arthritis Benign essential hypertension BMI 21.0-21.9, adult BMI 22.0-22.9, adult BMI 23.0-23.9, adult BMI 24.0-24.9, adult BMI 25.0-25.9,adult BMI 26.0-26.9,adult BMI 27.0-27.9,adult BMI 31.0-31.9,adult BMI 33.0-33.9,adult BMI 34.0-34.9,adult BMI 40.0-44.9, adult BMI 45.0-49.9, adult Body mass index (BMI) of 50-59.9 in adult (03/13/17) Bunion Carotid disease, bilateral Change in bowel habit Cheilitis Chest discomfort Colon cancer screening Constipation Dependence on other enabling machines and devices Dependent edema Depression Diabetes mellitus type 2, insulin dependent Diverticular disease GILMAN (dyspnea on exertion) Elevated LFTs Encounter for Medicare annual wellness exam Encounter for routine adult health examination with abnormal findings Encounter for routine adult health examination without abnormal findings Excessive and redundant skin and subcutaneous tissue External hemorrhoid Facial pain, acute Fatigue Follow up Frequent falls GERD (gastroesophageal reflux disease) Grade I diastolic dysfunction Hearing loss History of obstructive sleep apnea HTN (hypertension) Hx of small bowel obstruction Hyperlipidemia Hypothyroidism Hypothyroidism (acquired) IDDM (insulin dependent diabetes mellitus) Insomnia Iron deficiency anemia Left arm numbness Left wrist fracture Left-sided chest pain Mild sleep apnea Neuropathy 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 Orthostatic hypotension MATTHIAS on CPAP Seasonal allergies Sinus mucosal thickening Syncope Traumatic ecchymosis of face Trigger finger of left hand Trigger index finger of left hand Urinary incontinence Urticaria Vitamin D deficiency Surgical History Surgical History H/O section H/O: hysterectomy History of appendectomy History of bunionectomy History of dental surgery History of Ivy-en-Y gastric bypass History of surgery on left wrist History of total bilateral knee replacement (TKR) S/P gastric bypass S/P right knee arthroscopy Family History Family History Mother Family history of diabetes mellitus in first degree relative Diabetes mellitus Father Family history of heart disease in male family member before age 55 Family history of cardiovascular disease Social History Social History Smoking packs per day: 1 Smoking cigarettes per day: 20.0 Y
--- NOTE | 2024-01-21 11:59 | WPDANESEPPF ---
Anes - Initial Pre Proc Eval Procedure: Operation Date: 01/21/24 12:00 Proposed Procedures p Rectal Examination Under Anesthesia, Internal Hemorrhoids Rubber Banding - Shahbaz Wooten DO Date/Time: 01/21/24 11:59 Surgeon: Shahbaz Wooten DO Pre Op Diagnosis: grade3 internal hemorrhoids Patient Data Age: 74 Gender: F Height: 1.52 m Weight: 63 kg Last Vital Signs Temp 36.2 C L 01/21/24 10:25 Pulse 65 01/21/24 10:25 Resp 14 01/21/24 10:25 BP 127/71 01/21/24 10:25 Pulse Ox 99 01/21/24 10:25 O2 Del Method Room Air 01/21/24 10:25 Allergies Allergy/AdvReac Type Severity Reaction Status Date / Time morphine AdvReac Severe NAUSEA AND Verified 01/21/24 11:19 VOMITING Sulfa (Sulfonamide AdvReac Intermediate Diarrhea Verified 01/21/24 11:19 Antibiotics) Home Medications Medication Instructions Recorded Confirmed Type calcium carbonate (Calcium 600) 600 mg PO DAILY 07/09/19 01/16/24 History mecobalamin (vitamin B12) 1,000 1,000 mcg sublingual DAILY 07/09/19 01/16/24 History mcg disintegrating tablet,sublingual [id number]-[id number] 8 mg-folic 400 1 tablet PO DAILY 07/09/19 01/16/24 History mcg-K 50 mcg-lutein 300 mcg tablet (Centrum Silver Women) omega-3 fatty acids 1,000 mg 2,000 mg PO DAILY 07/09/19 01/16/24 History capsule (Fish Oil Concentrate) blood sugar diagnostic (Accu-Chek #400 ea 07/16/20 12/20/23 Rx Radha Plus test strips) flash glucose scanning reader See Rx Instructions .Route 10/28/20 12/20/23 Rx (FreeStyle Sandy 14 Day [place]) .COMPLEX #1 ea cholecalciferol (vitamin D3) 125 125 mcg PO DAILY 03/22/22 01/16/24 History mcg (5,000 unit) capsule levocetirizine 5 mg tablet See Rx Instructions .Route 03/20/23 01/16/24 Rx .COMPLEX #90 tabs Cpap machine and supplies #1 ea 10/22/23 12/20/23 Rx alendronate 70 mg tablet (Fosamax) 70 mg PO WEEKLY #12 tabs 10/23/23 01/16/24 Rx lancets 30 gauge #300 ea 10/23/23 12/20/23 Rx insulin syringe-needle U-100 1 mL #100 ea 10/29/23 12/20/23 Rx 31 gauge x 5/16 (BD Insulin Syringe Ultra-Fine) Jardiance 25 mg tablet 25 mg PO QAM #30 tabs 11/02/23 01/16/24 Rx (empagliflozin) omeprazole 40 mg capsule,delayed 40 mg PO DAILY #90 caps 11/02/23 01/16/24 Rx release blood-glucose sensor (FreeStyle #2 ea 11/26/23 12/20/23 Rx Sandy 3 Sensor device) bupropion HCl 150 mg 24 hr tablet, 150 mg PO QAM #90 tabs 12/07/23 01/16/24 Rx extended release (Wellbutrin XL) tramadol 50 mg tablet 50 mg PO QID PRN pain #50 tabs 12/20/23 01/16/24 Rx furosemide 20 mg tablet See Rx Instructions .Route 12/21/23 01/16/24 Rx .COMPLEX #90 tabs Synthroid 150 mcg tablet See Rx Instructions .Route 01/01/24 01/21/24 Rx (levothyroxine) .COMPLEX #90 tabs bempedoic acid 180 mg-ezetimibe 10 1 tablet PO DAILY #90 tabs 01/02/24 01/16/24 Rx mg tablet (Nexlizet) blood-glucose meter,continuous #1 ea 01/02/24 Rx (FreeStyle Sandy 3 [place]) flash glucose sensor (FreeStyle See Rx Instructions .Route 01/02/24 Rx Sandy 14 Day Sensor kit) .COMPLEX #6 ea fluticasone propionate 50 See Rx Instructions .Route 01/02/24 01/16/24 Rx mcg/actuation nasal .COMPLEX #48 grams spray,suspension insulin glargine 100 unit/mL See Rx Instructions .Route 01/02/24 01/21/24 Rx subcutaneous solution (Lantus .COMPLEX #30 mL U-100 Insulin) metformin 1,000 mg tablet See Rx Instructions .Route 01/02/24 01/16/24 Rx .COMPLEX #180 tabs mirabegron 50 mg tablet,extended 50 mg PO DAILY #90 tabs 01/02/24 01/16/24 Rx release 24 hr (Myrbetriq) potassium chloride 10 mEq See Rx Instructions .Route 01/02/24 01/16/24 Rx capsule,extended release .COMPLEX #90 caps sertraline 100 mg tablet See Rx Instructions .Route 01/02/24 01/16/24 Rx .COMPLEX #180 tabs trazodone 100 mg tablet See Rx Instructions .Route 01/02/24 01/16/24 Rx .COMPLEX #180 tabs trazodone 50 mg tablet See Rx Instructions .Route 01/02/24 01/16/24 Rx .COMPLEX #180
[2024-01-21] MEDS: ceFAZolin 2 GM/D5W 50 ML 2 GM/50 ML BAG IVPB (12:15)
[2024-01-21] MEDS: BUPivacaine HCL 0.5% 10 ML AMP 30 ML INFILTRATE (12:29)
--- NOTE | 2024-01-21 12:39 | W.PM.PROC2 ---
Procedure Note - Detailed Date of Procedure 01/21/24 Pre-op Diagnosis grade3 internal hemorrhoids Post-op Diagnosis Same Procedure Performed Rectal exam under anesthesia with internal hemorrhoid rubber-band ligation x3 Surgeon Shahbaz Wooten, DO Anesthesia General (LMA) and Local (1% lidocaine with epinephrine) Indications This is a woman who presented with chronic constipation, pelvic floor relaxation, and prolapsing/bleeding internal hemorrhoids. She has been treating the constipation with MiraLax twice daily and has been seeing physical therapy for pelvic floor strengthening exercises. He continues to have intermittent bleeding with bowel movements. Discussions were made with the patient about treatment options and decision was made to proceed with rectal exam under anesthesia with internal hemorrhoid rubber banding. Findings Rectal exam under anesthesia was performed. The patient did have evidence of a slightly relaxed anal sphincter and pelvic floor. She had some prolapsing internal hemorrhoid tissue which was most predominant in the right anterior and left lateral locations. Rubber-band ligation was performed and the right anterior, left lateral, and right posterior locations. No other rectal abnormalities were noted. No specimens were obtained for pathology. Description of Procedure Procedure as well as risks, benefits, and alternatives were discussed with the patient. Written consent was obtained and placed in chart prior to procedure. Patient was brought back to surgical suite. She was placed supine on operating table. Time-out was done to confirm patient and procedure. LMA was then placed by the anesthesia department. She was placed in left lateral decubitus position on the operating table. Her perirectal area was prepped and draped in sterile fashion using Betadine prep. Digital rectal exam was initially performed. A medium Hill-Sy anoscope was then inserted and the anal rectal canal was carefully inspected. Prolapsing internal hemorrhoids were identified but no other significant abnormalities were seen. Rubber-band ligation of the internal hemorrhoids were performed in the right anterior, left posterior, and right posterior locations. The base of the hemorrhoid that was ligated was anesthetized with 1% lidocaine with epinephrine. The area was carefully inspected and hemostasis appeared adequate. No other abnormalities were noted. The anoscope was then removed. The patient was then awakened from anesthesia, extubated, and transferred to recovery. Estimated Blood Loss 2 Complications No immediate complications Condition Stable Disposition Same day [facility] Billing Surgery - Charge Forward: Surgery Billing
[2024-01-21 12:46] LABS: Glucose Point of Care 91 mg/dl (65-105)
[2024-01-21] MEDS: fentaNYL CITRATE INJ (*CRX) 100 MCG/2 ML VIAL 25 MCG IV PUSH ×3 (13:17→14:08)
--- NOTE | 2024-01-21 14:52 | SUR.PHASEII ---
DR. JIMENES CALLED RE: SATS 90% ON ROOM AIR; INSTRUCTED TO HAVE PATIENT USE INCENTIVE SPIROMETER. PATIENT ABLE TO REACH GOAL OF 1750 WITHOUT DIFFICULTY.
--- NOTE | 2024-01-21 15:00 | SUR.PHASEII ---
SATS 90% ON ROOM AIR AFTER DOING INCENTIVE SPIROMETER; REPLACED O2 PER NC 1 LITER.
--- NOTE | 2024-01-21 15:36 | SUR.PHASEII ---
Addendum entered by Bonny Pate RN 01/21/24 15:37: ON ROOM AIR Original Note: 1515 PATIENT SAT'S NOW 98% AFTER WALKING TO BATHROOM.
== END 2024-01-21 15:30 | disposition home or self-care (01) ==
PROVIDERS: PCP Internal Medicine; Visit Provider Surgery
PROC: (CPT 46221; principal; 2024-01-21 12:00)
DX: K64.2 Third degree hemorrhoids (principal); I10 Essential (primary) hypertension; E78.5 Hyperlipidemia, unspecified; E03.9 Hypothyroidism, unspecified; E11.9 Type 2 diabetes mellitus without complications; K21.9 Gastro-esophageal reflux disease without esophagitis; N17.9 Acute kidney failure, unspecified; G47.00 Insomnia, unspecified; E55.9 Vitamin D deficiency, unspecified; D50.9 Iron deficiency anemia, unspecified; F32.A Depression, unspecified; G47.33 Obstructive sleep apnea (adult) (pediatric); Z79.83 Long term (current) use of bisphosphonates; Z79.4 Long term (current) use of insulin; Z79.84 Long term (current) use of oral hypoglycemic drugs; Z79.891 Long term (current) use of opiate analgesic; Z99.89 Dependence on other enabling machines and devices; Z98.890 Other specified postprocedural states; Z98.84 Bariatric surgery status; Z87.891 Personal history of nicotine dependence; Z86.79 Personal history of other diseases of the circulatory system; Z82.49 Family history of ischemic heart disease and other diseases of the circulatory system
CPT/HCPCS: 46221; 82948; A9270; J0690; J1100; J2405; J2704; J3010; J7120

== ENCOUNTER 2024-02-03 18:31 | Emergency (ER) | payer MEDICARE, SELFPAY ==
--- NOTE | ~2024-02-03 | XR_ITS ---
XR chest 2V DATE: 02/03/2024 19:10 INDICATION: Chest pressure TECHNIQUE: PA and lateral views COMPARISON: 03/12/2023 PA and lateral views FINDINGS: Normal heart size. No hilar or mediastinal enlargement. No pulmonary infiltrate or consol idation, pulmonary vascular congestion or pleural effusion or pneumothorax. Diffuse idiopathic skeletal hyperostosis of the thoracic spine. Osteopenia. IMPRESSION: No active cardiopulmonary disease Reviewed, dictated and finalized at location A.
--- NOTE | 2024-02-03 18:31 | ECG_ITS ---
Test Date: 2024-02-03 18:52:10 Measurements Intervals [place] Rate: 62 P: 22 CA: 156 QRS: -7 QRSD: 82 T: 34 QT: 409 QTc: 417 Interpretive Statements SINUS RHYTHM DELAYED PRECORDIAL R/S TRANSITION NONSPECIFIC ST-T WAVE ABNORMALITY- HIGH LATERAL LEADS BASELINE ARTIFACT- I, II, III, AVR, AVL, AVF, V1-V6 BORDERLINE ECG No previous ECG available for comparison Electronically Signed On 02-03-2024 19:30:54 CDT by Duane Medina D.O.
[2024-02-03 18:35] VITALS: BP 152/82; PULSE 65; RESP 16; TEMP 36.4; O2SAT 99
[2024-02-03 18:58] LABS: Basophils Absolute Auto 0.1 K/mm3 (0.0-0.1); Basophils Percent Auto 0.6 % (0.2-1.2); Eosinophils Absolute Auto 0.2 K/mm3 (0-0.3); Eosinophils Percent Auto 2.2 % (0-4.4); Hematocrit 49.2 % (37.0-47.0); Hemoglobin 15.8 g/dL (12.0-15.0); Immature Granulocyte Absolute 0.02 K/mm3 (0.00-0.031); Immature Granulocyte Percent A 0.2 % (0-0.5); Lymphocytes Absolute Auto 1.12 K/mm3 (0.9-3.2); Lymphocytes Percent Auto 12.7 % (18.3-44.2); Mean Corpuscular HGB Conc 32.1 g/dl (32-36); Mean Corpuscular Hemoglobin 29.5 pg (26-34); Mean Corpuscular Volume 91.8 fl (80-100); Mean Platelet Volume 9.3 fl (7.4-10.4); Monocytes Absolute Auto 0.9 K/mm3 (0.1-0.6); Monocytes Percent Auto 10.4 % (2.6-8.5); Neutrophils Absolute Auto 6.5 K/mm3 (1.3-6.7); Neutrophils Percent Auto 73.9 % (45.5-73.1); Platelet Count Result 310 k/mm3 (150-375); Red Blood Count 5.36 M/mm3 (4.2-5.4); Red Cell Distribution Width 14.2 % (11.5-14.5); White Blood Count 8.8 K/mm3 (4.5-10.0)
[2024-02-03 19:09] LABS: Prothrombin Time 13.4 Seconds (11.1-14.7)
[2024-02-03 19:10] LABS: Partial Thromboplastin Time 38.5 Seconds (22.3-36.8)
[2024-02-03 19:16] LABS: Alanine Aminotransferase 19 U/L (6-35); Albumin Level 4.3 g/dL (3.5-5.1); Alkaline Phosphatase 65 U/L (38-126); Anion Gap 9 mmol/L (4-12); Aspartate Amino Transferase 34 U/L (14-36); Bilirubin,Total 0.3 mg/dL (0.2-1.3); Blood Urea Nitrogen 19 mg/dL (7-17); Calcium 8.9 mg/dL (8.4-10.2); Carbon Dioxide 30 mmol/L (22-30); Chloride 98 mmol/L (98-107); Estimated CRCL calculation 50 ml/min; Estimated Glomerular Filt Rate > 60; Glucose 56 mg/dL (65-110); Lipase 87 U/L (23-300); Potassium 3.4 mmol/L (3.4-5.0); Sodium 137 mmol/L (137-145)
[2024-02-03 19:18] LABS: Troponin I < 0.012 ng/mL (0.000-0.034)
[2024-02-03 19:30] LABS: Glucose Point of Care 152 mg/dl (65-105)
--- NOTE | 2024-02-03 19:37 | PC.NURSE ---
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 Pt bought her an apple juice and she is drinking it at this time.
[2024-02-03 19:38] VITALS: PULSE 71; O2SAT 98
[2024-02-03] MEDS: ASPIRIN 81 MG CHEWABLE TABLET 324 MG PO (19:42)
[2024-02-03 19:43] VITALS: BP 129/54; PULSE 60; RESP 16; O2SAT 96
[2024-02-03 19:53] LABS: Magnesium 2.1 mg/dL (1.6-2.3)
[2024-02-03 20:31] VITALS: BP 133/57; PULSE 62; RESP 18; O2SAT 91
--- NOTE | 2024-02-03 22:10 | ECG_ITS ---
Test Date: 2024-02-03 22:23:11 Measurements Intervals [place] Rate: 60 P: 39 NV: 171 QRS: 32 QRSD: 77 T: 36 QT: 408 QTc: 409 Interpretive Statements SINUS RHYTHM CANNOT R/O SEPTAL INFARCT, AGE INDETERMINATE BASELINE ARTIFACT- I, II, III, AVR, AVL ABNORMAL ECG Compared to ECG 02/03/2024 18:52:10 NO SIGNIFICANT CHANGE Electronically Signed On 02-04-2024 06:21:45 CDT by Duane Medina D.O.
[2024-02-03 23:00] VITALS: BP 147/64; PULSE 61; RESP 18; O2SAT 99
[2024-02-03 23:16] LABS: Troponin I 0.012 ng/mL (0.000-0.034)
--- NOTE | 2024-02-03 23:18 | ED.GENADULT ---
HPI - General Adult General Chief complaint: Chest Pain Stated complaint: chest pressure Time Seen by Provider: 02/03/24 19:27 History of Present Illness HPI narrative: Patient 74-year-old female who presents emergency department with chief complaint of chest pain. Patient reports he has had several episodes of discomfort in her chest where she feels as though her heart is beating fast the patient states she gets diaphoretic patient reports she had an episode yesterday and then had an episode today the patient states episode lasted less than 5 minutes reports that it has resolved now and currently has no complaints. Patient reports contact her primary care provider who recommended that she come to the emergency department for evaluation. Patient reports that several years since her last stress test. Related Data Home Medications Medication Instructions Recorded Confirmed calcium carbonate (Calcium 600) 600 mg PO DAILY 07/09/19 02/01/24 mecobalamin (vitamin B12) 1,000 1,000 mcg sublingual DAILY 07/09/19 02/01/24 mcg disintegrating tablet,sublingual [id number]-[id number] 8 mg-folic 400 1 tablet PO DAILY 07/09/19 02/01/24 mcg-K 50 mcg-lutein 300 mcg tablet (Centrum Silver Women) omega-3 fatty acids 1,000 mg 2,000 mg PO DAILY 07/09/19 02/01/24 capsule (Fish Oil Concentrate) cholecalciferol (vitamin D3) 125 125 mcg PO DAILY 03/22/22 02/01/24 mcg (5,000 unit) capsule buspirone 10 mg tablet 10 mg PO BID 01/16/24 02/01/24 Allergies Allergy/AdvReac Type Severity Reaction Status Date / Time morphine AdvReac Severe NAUSEA AND Verified 02/01/24 09:15 VOMITING Sulfa (Sulfonamide AdvReac Intermediate Diarrhea Verified 02/01/24 09:15 Antibiotics) Review of Systems Review of Systems: A 10 system review of systems was completed on the patient and is negative except for what is stated in the HPI. Nursing and ancillary documentation was reviewed. [facility], [facility] Past Medical History Medical History Abdominal pain Abnormal finding of blood chemistry, unspecified Acute renal failure Amaurosis fugax Arm fracture, left Arthritis Benign essential hypertension BMI 21.0-21.9, adult BMI 22.0-22.9, adult BMI 23.0-23.9, adult BMI 24.0-24.9, adult BMI 25.0-25.9,adult BMI 26.0-26.9,adult BMI 27.0-27.9,adult BMI 31.0-31.9,adult BMI 33.0-33.9,adult BMI 34.0-34.9,adult BMI 40.0-44.9, adult BMI 45.0-49.9, adult Body mass index (BMI) of 50-59.9 in adult (03/13/17) Bunion Carotid disease, bilateral Change in bowel habit Cheilitis Chest discomfort Colon cancer screening Constipation Dependence on other enabling machines and devices Dependent edema Depression Diabetes mellitus type 2, insulin dependent Diverticular disease GILMAN (dyspnea on exertion) Elevated LFTs Encounter for Medicare annual wellness exam Encounter for routine adult health examination with abnormal findings Encounter for routine adult health examination without abnormal findings Excessive and redundant skin and subcutaneous tissue External hemorrhoid Facial pain, acute Fatigue Follow up Frequent falls GERD (gastroesophageal reflux disease) Grade I diastolic dysfunction Hearing loss History of obstructive sleep apnea HTN (hypertension) Hx of small bowel obstruction Hyperlipidemia Hypothyroidism Hypothyroidism (acquired) IDDM (insulin dependent diabetes mellitus) Insomnia Iron deficiency anemia Left arm numbness Left wrist fracture Left-sided chest pain Mild sleep apnea Neuropathy 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
== END 2024-02-03 23:30 | disposition home or self-care (01) ==
PROVIDERS: Emergency Medicine; Emergency Provider Emergency Medicine; PCP Internal Medicine
DX: R07.89 Other chest pain (principal); R00.2 Palpitations; I77.9 Disorder of arteries and arterioles, unspecified; I11.9 Hypertensive heart disease without heart failure; K21.9 Gastro-esophageal reflux disease without esophagitis; E11.40 Type 2 diabetes mellitus with diabetic neuropathy, unspecified; E55.9 Vitamin D deficiency, unspecified; E03.9 Hypothyroidism, unspecified; D50.9 Iron deficiency anemia, unspecified; G47.33 Obstructive sleep apnea (adult) (pediatric); N39.41 Urge incontinence; Z98.84 Bariatric surgery status; Z96.653 Presence of artificial knee joint, bilateral; Z87.891 Personal history of nicotine dependence; Z90.710 Acquired absence of both cervix and uterus; R94.31 Abnormal electrocardiogram [ECG] [EKG]
CPT/HCPCS: 36415; 71046; 80053; 82948; 83690; 83735; 84443; 84484; 85025; 85610; 85730; 93005; 99284; A9270

== ENCOUNTER 2024-02-27 01:25 | Day surgery (SDC) | payer MEDICARE, SELFPAY ==
--- NOTE | 2024-02-21 11:18 | PC.NURSE ---
Report to the Outpatient Waiting Room, entrance under the green pavilion located off [facility], at time 1200 NOON on date ___ 02/27/24___. Planned Procedure Time: __2:00 PM .? Time changes happen often and if your time is changed the preop area will call you the afternoon before. - You and your visitor will be asked to self-screen and do not enter if you have any COVID symptoms. Please call surgeon if you need to reschedule. - A mask is optional within the hospital at this time. Patients may have clear liquids (water, carbonated beverages, clear teas, apple juice) until 3 hours prior to surgery( 11 AM) with a maximum of 20 ounces. - No food from midnight until time of surgery and no smoking - Infants may have breast milk until 4 hours before surgery, formula 6 hours prior to surgery. - Children will be allowed to drink immediately following surgery.? If applicable, please bring a bottle or sippy cup to assist with drinking. Juice, water, soda, and popsicles are readily available.? For infants on formula, please bring formula the day of surgery.? Pacifiers are allowed. Take only the following medications with a SIP of water on the morning of surgery: BUPROPION,BUSPIRONE,SERTRALINE,SYNTHROID, TAKE HALF OF INSULIN DOSE MORNING OF SURGERY DO NOT STOP ANY OF YOUR OTHER PRESCRIPTION MEDICATIONS PRIOR TO SURGERY EXCEPT THE FOLLOWING Medications to discontinue per physician HOLD ALL VITAMINS AND SUPPLEMENTS 3 DAYS PRE OP.LAST DOSE 02/23/24 Please no make-up, nail vietnamese, hairspray, perfume, deodorant, or body powder the day of surgery.? No jewelry (including any body piercings) or valuables the day of surgery, leave them at home.? Please take a shower or bath the night before, or the morning of, surgery with an antibacterial soap.? Wear comfortable, loose fitting clothing.? Children are encouraged to wear pajamas. - Jewelry must be removed prior to entering the operating room.? Rings and piercings that are not removed may be cut off. - The hospital will not accept responsibility for valuables.? - Please leave all valuables, including medications, at home the day of surgery. If you are going home after surgery, a licensed security patrol driver must drive you home.? - NO public transportation without another adult if you receive anesthesia. - We recommend that an adult stay with you for 24 hours following discharge. - We also recommend that you do not drive, make important decision, drink alcoholic beverages, or take any drugs that were not prescribed by your health care provider for at least 24 hours after your discharge time. Follow any additional instructions given to you from your surgeon. Telephone instructions given to ___PATIENT and asked if any additional questions and then verbalized understanding. Patient advised to call surgeon office or pre surgery nurse liaison [phone] if any additional questions.
[2024-02-21 11:24] VITALS: BMI 24.5
[2024-02-27 12:11] LABS: Glucose Point of Care 155 mg/dl (65-105)
[2024-02-27] MEDS: ACETAMINOPHEN 500 MG TABLET 1000 MG PO (12:30)
[2024-02-27 12:35] VITALS: BP 100/75; PULSE 72; RESP 14; TEMP 36.4; O2SAT 96; BMI 27.6
--- NOTE | 2024-02-27 12:41 | WPDHPUPDATE1 ---
History and Physical Update Update Date/Time: 02/27/24 12:41 History and Physical has been reviewed, including an updated exam of the patient. There are NO changes in the patient's condition. Risks, benefits, and alternatives have been discussed and questions answered. Patient agrees to proceed with procedure.
--- NOTE | 2024-02-27 12:53 | WPDANESEPPF ---
Anes - Initial Pre Proc Eval Procedure: Operation Date: 02/27/24 14:00 Proposed Procedures p Rectal Examination under Anesthesia Internal Hemorrhoid Banding - Shahbaz Wooten DO Date/Time: 02/27/24 12:53 Surgeon: Shahbaz Wooten DO Pre Op Diagnosis: Grade III Internal Hemorrhoids Patient Data Age: 74 Gender: F Height: 1.52 m Weight: 64.1 kg Last Vital Signs Temp 97.5 F L 02/27/24 12:35 Pulse 72 02/27/24 12:35 Resp 14 02/27/24 12:35 BP 100/75 02/27/24 12:35 Pulse Ox 96 02/27/24 12:35 O2 Del Method Room Air 02/27/24 12:35 Allergies Allergy/AdvReac Type Severity Reaction Status Date / Time morphine AdvReac Severe NAUSEA AND Verified 02/27/24 12:26 VOMITING Sulfa (Sulfonamide AdvReac Intermediate Diarrhea Verified 02/27/24 12:26 Antibiotics) Home Medications Medication Instructions Recorded Confirmed Type calcium carbonate (Calcium 600) 600 mg PO DAILY 07/09/19 02/21/24 History mecobalamin (vitamin B12) 1,000 1,000 mcg sublingual DAILY 07/09/19 02/21/24 History mcg disintegrating tablet,sublingual gkkcincj-fiwy-mymk 8 mg-folic 400 1 tablet PO DAILY 07/09/19 02/21/24 History mcg-K 50 mcg-lutein 300 mcg tablet (Centrum Silver Women) omega-3 fatty acids 1,000 mg 2,000 mg PO DAILY 07/09/19 02/21/24 History capsule (Fish Oil Concentrate) blood sugar diagnostic (Accu-Chek #400 ea 07/16/20 02/07/24 Rx Radha Plus test strips) flash glucose scanning reader See Rx Instructions .Route 10/28/20 02/21/24 Rx (FreeStyle Sandy 14 Day [place]) .COMPLEX #1 ea cholecalciferol (vitamin D3) 125 125 mcg PO DAILY 03/22/22 02/21/24 History mcg (5,000 unit) capsule Cpap machine and supplies #1 ea 10/22/23 02/07/24 Rx alendronate 70 mg tablet (Fosamax) 70 mg PO WEEKLY #12 tabs 10/23/23 02/21/24 Rx lancets 30 gauge #300 ea 10/23/23 02/07/24 Rx insulin syringe-needle U-100 1 mL #100 ea 10/29/23 02/07/24 Rx 31 gauge x 5/16 (BD Insulin Syringe Ultra-Fine) Jardiance 25 mg tablet 25 mg PO QAM #30 tabs 11/02/23 02/21/24 Rx (empagliflozin) omeprazole 40 mg capsule,delayed 40 mg PO DAILY #90 caps 11/02/23 02/21/24 Rx release bupropion HCl 150 mg 24 hr tablet, 150 mg PO QAM #90 tabs 12/07/23 02/21/24 Rx extended release (Wellbutrin XL) tramadol 50 mg tablet 50 mg PO QID PRN pain #50 tabs 12/20/23 02/21/24 Rx furosemide 20 mg tablet See Rx Instructions .Route 12/21/23 02/21/24 Rx .COMPLEX #90 tabs Synthroid 150 mcg tablet See Rx Instructions .Route 01/01/24 02/21/24 Rx (levothyroxine) .COMPLEX #90 tabs bempedoic acid 180 mg-ezetimibe 10 1 tablet PO DAILY #90 tabs 01/02/24 02/21/24 Rx mg tablet (Nexlizet) blood-glucose meter,continuous #1 ea 01/02/24 02/07/24 Rx (FreeStyle Sandy 3 [place]) fluticasone propionate 50 See Rx Instructions .Route 01/02/24 02/21/24 Rx mcg/actuation nasal .COMPLEX #48 grams spray,suspension insulin glargine 100 unit/mL See Rx Instructions .Route 01/02/24 02/27/24 Rx subcutaneous solution (Lantus .COMPLEX #30 mL U-100 Insulin) metformin 1,000 mg tablet See Rx Instructions .Route 01/02/24 02/21/24 Rx .COMPLEX #180 tabs mirabegron 50 mg tablet,extended 50 mg PO DAILY #90 tabs 01/02/24 02/21/24 Rx release 24 hr (Myrbetriq) potassium chloride 10 mEq See Rx Instructions .Route 01/02/24 02/21/24 Rx capsule,extended release .COMPLEX #90 caps sertraline 100 mg tablet See Rx Instructions .Route 01/02/24 02/21/24 Rx .COMPLEX #180 tabs trazodone 100 mg tablet See Rx Instructions .Route 01/02/24 02/21/24 Rx .COMPLEX #180 tabs trazodone 50 mg tablet See Rx Instructions .Route 01/02/24 02/21/24 Rx .COMPLEX #180 tabs triamcinolone acetonide 0.5 % See Rx Instructions .Route 01/02/24 02/21/24 Rx topical cream .COMPLEX #60 grams fexofenadine-pseudoephedrine ER See Rx Instructions .Route 01/03/24 02/21/24 Rx 180 mg-240 mg tablet,ext.release .COMPLEX #31 tabs 24 hr (Laurence-D 24 Hour) insulin
[2024-02-27] MEDS: LACTATED RINGERS 1,000 ML 30 ML IV CONT (13:00)
[2024-02-27] MEDS: ceFAZolin 2 GM/D5W 50 ML 2 GM/50 ML BAG IVPB (13:04)
[2024-02-27] MEDS: BUPIVACAINE/EPINEPHRINE 0.5% 10 ML VIAL 4 ML INFILTRATE (13:22)
[2024-02-27 13:24] VITALS: BP 111/60; PULSE 56; RESP 14; O2SAT 97
[2024-02-27 13:31] LABS: Glucose Point of Care 144 mg/dl (65-105)
--- NOTE | 2024-02-27 13:33 | P.OP_ITS ---
Procedure Note - Detailed Date of Procedure 02/27/24 Pre-op Diagnosis Grade III Internal Hemorrhoids Post-op Diagnosis Same Procedure Performed Rectal exam under anesthesia with internal hemorrhoid rubber banding x3 Surgeon Shahbaz Wooten, DO Anesthesia MAC and Local Indications This is a 74-year-old woman who presented with prolapsing and bleeding internal hemorrhoids. She has undergone internal hemorrhoid banding once before and had some slight benefit but still continues to have rectal bleeding. She now presents for repeat hemorrhoid rubber banding. Findings Rectal exam under anesthesia was performed. The patient appeared to still have some prolapsing internal hemorrhoids around the left lateral, anterior midline, and left posterior locations. Rubber bands were placed around these 3 locations at the internal hemorrhoid tissue. No other rectal abnormalities were seen. Patient tolerated the procedure well. Description of Procedure Procedure as well as risks, benefits, and alternatives were discussed with the patient. Written consent was obtained and placed in chart prior to procedure. Patient was brought back to surgical suite. She was placed in left lateral decubitus position on her hospital stretcher. Time-out was done to confirm patient and procedure. IV sedation was administered by the anesthesia department. Her perirectal area was prepped and draped in sterile fashion using Betadine prep. Digital rectal exam was initially performed. A medium Hill- Sy anoscope was then inserted and the anal rectal canal was carefully inspected. Prolapsing internal hemorrhoids were identified but no other significant abnormalities were seen. Rubber-band ligation of the internal hemorrhoids were performed in the left lateral, left posterior, and anterior midline locations. The base of the hemorrhoid that was ligated was anesthetized with 1% lidocaine with epinephrine. The area was carefully inspected and hemostasis appeared adequate. No other abnormalities were noted. The anoscope was then removed. The patient was then awakened from anesthesia and transferred to recovery. Estimated Blood Loss 2 Complications No immediate complications Condition Stable Disposition Same day [facility] Billing Surgery - Charge Forward: Surgery Billing
[2024-02-27 13:40] VITALS: BP 123/61; PULSE 60; RESP 14; O2SAT 92
[2024-02-27 14:10] VITALS: BP 122/60; PULSE 56; RESP 14; O2SAT 93
[2024-02-27] MEDS: fentaNYL CITRATE INJ (*CRX) 100 MCG/2 ML VIAL 25 MCG IV PUSH (14:15)
[2024-02-27 14:40] VITALS: BP 118/62; PULSE 54; RESP 14; O2SAT 97
== END 2024-02-27 15:00 | disposition home or self-care (01) ==
PROVIDERS: PCP Internal Medicine; Visit Provider Surgery
PROC: (CPT 46221; principal; 2024-02-27 14:00)
DX: K64.2 Third degree hemorrhoids (principal); E78.5 Hyperlipidemia, unspecified; E03.9 Hypothyroidism, unspecified; I11.0 Hypertensive heart disease with heart failure; I50.30 Unspecified diastolic (congestive) heart failure; E11.9 Type 2 diabetes mellitus without complications; G47.00 Insomnia, unspecified; D50.9 Iron deficiency anemia, unspecified; E55.9 Vitamin D deficiency, unspecified; G47.33 Obstructive sleep apnea (adult) (pediatric); N17.9 Acute kidney failure, unspecified; F32.A Depression, unspecified; G21.9 Secondary parkinsonism, unspecified; I95.1 Orthostatic hypotension; R32 Unspecified urinary incontinence; Z79.4 Long term (current) use of insulin; Z79.83 Long term (current) use of bisphosphonates; Z79.84 Long term (current) use of oral hypoglycemic drugs; Z79.891 Long term (current) use of opiate analgesic; Z79.899 Other long term (current) drug therapy; Z79.85 Long-term (current) use of injectable non-insulin antidiabetic drugs; Z99.89 Dependence on other enabling machines and devices; Z98.890 Other specified postprocedural states; Z98.84 Bariatric surgery status; Z87.891 Personal history of nicotine dependence; Z87.19 Personal history of other diseases of the digestive system; Z82.49 Family history of ischemic heart disease and other diseases of the circulatory system
CPT/HCPCS: 46221; 82948; A9270; J0690; J2003; J2405; J2704; J3010; J7120

== ENCOUNTER 2024-02-28 14:09 | Outpatient (CLI) | payer MEDICARE, SELFPAY ==
--- NOTE | 2024-03-04 15:37 | WPDHOLTEREM ---
Holter/Event Monitor Holter/Event Monitor Date of procedure: 02/28/24 Holter/Event Procedure: 48 Hr Holter Monitor Indications: Palpitations Conclusion: 1. 48 hour holter monitor on 02/28/24. 2. Underlying rhythm is sinus rhythm. HR range 48-109 bpm; average HR 66 bpm. HR at 48 bpm was at 07:29. 3. There are 196 premature supraventricular complexes, 1 supraventricular couplet, and 3 supraventricular bigeminy. NO supraventricular tachycardia. 4. There are 276 premature ventricular complexes and 210 ventricular bigeminy. No ventricular tachycardia. 5. No sinoatrial or atrioventricular blocks. No significant pauses greater than 2 seconds. 6. Patient reports symptoms of chest pains which demonstrate sinus rhythm, HR range 48-66 bpm.
== END 2024-02-28 14:10 | disposition home or self-care (01) ==
LOC: ANHCARD 14:13
PROVIDERS: PCP Internal Medicine; Visit Provider Internal Medicine
DX: R00.2 Palpitations (principal); R07.89 Other chest pain
CPT/HCPCS: 93225; 93226

== ENCOUNTER 2024-04-25 01:12 | Day surgery (SDC) | payer MEDICARE, SELFPAY ==
[2024-04-14 11:46] VITALS: BMI 25.4
--- NOTE | 2024-04-14 11:56 | PC.NURSE ---
Report to the Outpatient Waiting Room, entrance under the green pavilion located off [facility], at time __10:00am on date _04/25/24 . Planned Procedure Time: __12:00pm .? Time changes happen often and if your time is changed the preop area will call you the afternoon before. - You and your visitor will be asked to self-screen and do not enter if you have any COVID symptoms. Please call surgeon if you need to reschedule. - A mask is optional within the hospital at this time. Patients may have clear liquids (water, carbonated beverages, clear teas, apple juice) until 3 hours prior to surgery with a maximum of 20 ounces. - No food from midnight until time of surgery and no smoking. This includes no chewing gum, candy or mints.(0900am) Take only the following medications with a SIP of water on the morning of surgery: __1/2 am Insulin, Busprion, Synthroid, Sertraline, Tramadol DO NOT STOP ANY OF YOUR OTHER PRESCRIPTION MEDICATIONS PRIOR TO SURGERY EXCEPT THE FOLLOWING Medications to discontinue per physician Hold all vitamins and supplements for 3 days prior per Anesthesia Date to take last dose___ Please no make-up, nail estonian, hairspray, perfume, deodorant, or body powder the day of surgery.? No jewelry (including any body piercings) or valuables the day of surgery, leave them at home.? Please take a shower or bath the night before, or the morning of, surgery with an antibacterial soap.? Wear comfortable, loose fitting clothing.? - Jewelry must be removed prior to entering the operating room.? Rings and piercings that are not removed may be cut off. - The hospital will not accept responsibility for valuables.? - Please leave all valuables, including medications, at home the day of surgery. If you are going home after surgery, a licensed cdl b driver must drive you home.? - NO public transportation without another adult if you receive anesthesia. - We recommend that an adult stay with you for 24 hours following discharge. - We also recommend that you do not drive, make important decision, drink alcoholic beverages, or take any drugs that were not prescribed by your health care provider for at least 24 hours after your discharge time. Follow any additional instructions given to you from your surgeon. Telephone instructions given to ___Patient and asked if any additional questions and then verbalized understanding. Patient advised to call surgeon office or pre surgery nurse liaison [phone] if any additional questions.
[2024-04-25 10:14] VITALS: BP 139/59; PULSE 79; RESP 16; TEMP 36.1; O2SAT 100
[2024-04-25 10:56] LABS: Glucose Point of Care 246 mg/dl (65-105)
[2024-04-25 11:08] LABS: Anion Gap 3 mmol/L (4-12); Blood Urea Nitrogen 25 mg/dL (7-17); Carbon Dioxide 30 mmol/L (22-30); Chloride 102 mmol/L (98-107); Estimated CRCL calculation 49 ml/min; Estimated Glomerular Filt Rate > 60; Glucose 219 mg/dL (65-110); Potassium 4.1 mmol/L (3.4-5.0); Sodium 135 mmol/L (137-145)
--- NOTE | 2024-04-25 11:39 | P.HP_ITS ---
H&P: HPI History of Present Illness Date/Time: 04/25/24 11:39 Chief Complaint: bleeding internal hemorrhoids Narrative: 74 yo woman presents for hemorrhoid rubber banding. She reports bleeding is improving but still has some occasional bleeding. Denies any pain. Review of Systems Review of Systems: All systems reviewed & are unremarkable except as noted in HPI and below Constitutional: Constitutional: Denies chills, Denies fever(s), Denies headache(s) and Denies weight loss Eyes: Eyes: Denies change in vision ENT: Denies dizziness, Denies headache(s), Denies neck mass and Denies throat swelling Cardiovascular: Cardiovascular: Denies chest pain, Denies lightheadedness and Denies dyspnea Respiratory: Respiratory: Denies cough, Denies dyspnea and Denies wheezing Gastrointestinal: Gastrointestinal: Denies abdominal pain, Denies change in bowel habits, Denies nausea and Denies vomiting Genitourinary: Genitourinary: Denies hematuria and Denies dysuria Musculoskeletal: Musculoskeletal: Reports as per HPI Integumentary/Breasts: Skin/Breast: Reports as per HPI Neurologic: Denies dizziness and Denies headache(s) Allergic/Immunologic: Allergic/Immunologic: Denies throat swelling and Denies wheezing [facility] Past Medical History Medical History (Updated 04/08/24 @ 11:26 by Monica Dowling, [facility]) Encounter for weight management External hemorrhoid Urinary incontinence BMI 26.0-26.9,adult Chest discomfort Trigger index finger of left hand Cheilitis Iron deficiency anemia Left-sided chest pain Trigger finger of left hand BMI 25.0-25.9,adult Body mass index (BMI) of 50-59.9 in adult (03/13/17) Left arm numbness History of obstructive sleep apnea GILMAN (dyspnea on exertion) Dependence on other enabling machines and devices BMI 45.0-49.9, adult BMI 40.0-44.9, adult Amaurosis fugax Acute renal failure Mild sleep apnea Fatigue Abdominal pain GERD (gastroesophageal reflux disease) Diverticular disease BMI 22.0-22.9, adult Change in bowel habit BMI 21.0-21.9, adult Encounter for routine adult health examination with abnormal findings Constipation Elevated LFTs Grade I diastolic dysfunction Bunion Sinus mucosal thickening Facial pain, acute Traumatic ecchymosis of face BMI 23.0-23.9, adult Syncope Frequent falls Colon cancer screening BMI 24.0-24.9, adult Seasonal allergies Vitamin D deficiency Insomnia BMI 27.0-27.9,adult Excessive and redundant skin and subcutaneous tissue Encounter for routine adult health examination without abnormal findings BMI 31.0-31.9,adult Urticaria BMI 33.0-33.9,adult Follow up Encounter for Medicare annual wellness exam Hearing loss Abnormal finding of blood chemistry, unspecified Orthostatic hypotension Hx of small bowel obstruction Carotid disease, bilateral BMI 34.0-34.9,adult Benign essential hypertension On usp drug therapy MATTHIAS on CPAP Hypothyroidism (acquired) Hyperlipidemia Diabetes mellitus type 2, insulin dependent Dependent edema Depression IDDM (insulin dependent diabetes mellitus) Hypothyroidism Left wrist fracture Arm fracture, left Arthritis HTN (hypertension) Neuropathy Surgical History Surgical History History of hemorrhoidectomy Rectal exam under anesthesia with internal hemorrhoid rubber-band ligation x3 History of dental surgery History of bunionectomy History of total bilateral knee replacement (TKR) S/P gastric bypass S/P right knee arthroscopy History of surgery on left wrist History of appendectomy H/O: hysterectomy H/O section History of Ivy-en-Y gastric bypass Family History Family History (Updated 04/16/24 @ 13:56 by Monica Dowling CMA) Mother Family history of diabetes mellitus in first degree relative Diabetes mellitus Father Family history of heart disease in male family member before age 55 Family history of cardiovascular disease Sibling FHx: thyroid cancer Papillary thyroid cancer Social History Social History Smoking packs per day: 1 Smoking cigarettes per day: 20.0 Years smoked: 30 Smoking pack-years: 30.00 Smoking status: Former smoker Tobacco type: cigarettes Second hand tobacco smoke exposure: No Smoking end date: 05/14/97 Additional smoking assessment comments: STATES 1 TO 1 1/2PK/DAY/30YRS-QUIT 1996 Alcohol intake: never Substance use: never Substance use type: does not use Lack of Transportation: No Lack of Food: Never True Current Housing: I Have Housing Concerned About Future Housing: No Difficulty Paying Gas/Electric Bills: No Difficulty Paying for Meds: No Currently Unemployed: No Education: Bachelor's Degree Difficulty w/ Childcare or Family Care: No Living arrangements: with family Additional living arrangements comments: Occupation/Education: retired Gender identity (if verbalized by the patient): Female Spiritual care concerns: No Meds Home Medications and Allergies Home Medications ?Medication ?Instructions ?Recorded ?Confirmed ?Type calcium carbonate (Calcium 600) 600 mg PO DAILY 07/09/19 04/14/24 History mecobalamin (vitamin B12) 1,000 1,000 mcg sublingual DAILY 07/09/19 04/14/24 History mcg disintegrating tablet,sublingual luiyosrq-soyf-kbxf 8 mg-folic 400 1 tablet PO DAILY 07/09/19 04/14/24 History mcg-K 50 mcg-lutein 300 mcg tablet (Centrum Silver Women) omega-3 fatty acids 1,000 mg 2,000 mg PO DAILY 07/09/19 04/14/24 History capsule (Fish Oil Concentrate) blood sugar diagnostic (Accu-Chek #400 ea 07/16/20 04/14/24 Rx Radha Plus test strips) flash glucose scanning reader See Rx Instructions .Route 10/28/20 04/14/24 Rx (FreeStyle Sandy 14 Day [place]) .COMPLEX #1 ea cholecalciferol (vitamin D3) 125 125 mcg PO DAILY 03/22/22 04/14/24 History mcg (5,000 unit) capsule Cpap machine and supplies #1 ea 10/22/23 04/14/24 Rx alendronate 70 mg tablet (Fosamax) 70 mg PO WEEKLY #12 tabs 10/23/23 04/14/24 Rx lancets 30 gauge #300 ea 10/23/23 04/14/24 Rx insulin syringe-needle U-100 1 mL #100 ea 10/29/23 04/14/24 Rx 31 gauge x 5/16 (BD Insulin Syringe Ultra-Fine) Jardiance 25 mg tablet 25 mg PO QAM #30 tabs 11/02/23 04/14/24 Rx (empagliflozin) omeprazole 40 mg capsule,delayed 40 mg PO DAILY #90 caps 11/02/23 04/14/24 Rx release bupropion HCl 150 mg 24 hr tablet, 150 mg PO QAM #90 tabs 12/07/23 04/25/24 Rx extended release (Wellbutrin XL) tramadol 50 mg tablet 50 mg PO QID PRN pain #50 tabs 12/20/23 04/14/24 Rx furosemide 20 mg tablet See Rx Instructions .Route 12/21/23 04/14/24 Rx .COMPLEX #90 tabs Synthroid 150 mcg tablet See Rx Instructions .Route 01/01/24 04/14/24 Rx (levothyroxine) .COMPLEX #90 tabs bempedoic acid 180 mg-ezetimibe 10 1 tablet PO DAILY #90 tabs 01/02/24 04/14/24 Rx mg tablet (Nexlizet) blood-glucose meter,continuous #1 ea 01/02/24 04/14/24 Rx (FreeStyle [place] 3 [place]) fluticasone propionate 50 See Rx Instructions .Route 01/02/24 04/14/24 Rx mcg/actuation nasal .COMPLEX #48 grams spray,suspension insulin glargine 100 unit/mL See Rx Instructions .Route 01/02/24 04/14/24 Rx subcutaneous solution (Lantus .COMPLEX #30 mL U-100 Insulin) metformin 1,000 mg tablet See Rx Instructions .Route 01/02/24 04/14/24 Rx .COMPLEX #180 tabs mirabegron 50 mg tablet,extended 50 mg PO DAILY #90 tabs 01/02/24 04/14/24 Rx release 24 hr (Myrbetriq) potassium chloride 10 mEq See Rx Instructions .Route 01/02/24 04/14/24 Rx capsule,extended release .COMPLEX #90 caps sertraline 100 mg tablet See Rx Instructions .Route 01/02/24 04/25/24 Rx .COMPLEX #180 tabs trazodone 100 mg tablet See Rx Instructions .Route 01/02/24 04/14/24 Rx .COMPLEX #180 tabs trazodone 50 mg tablet See Rx Instructions .Route 01/02/24 04/14/24 Rx .COMPLEX #180 tabs triamcinolone acetonide 0.5 % See Rx Instructions .Route 01/02/24 04/14/24 Rx topical cream .COMPLEX #60 grams fexofenadine-pseudoephedrine ER See Rx Instructions .Route 01/03/24 04/14/24 Rx 180 mg-240 mg tablet,ext.release .COMPLEX #31 tabs 24 hr (Laurence-D 24 Hour) levocetirizine 5 mg tablet See Rx Instructions .Route 02/04/24 04/14/24 Rx .COMPLEX #90 tabs melatonin 5 mg capsule 5 mg PO HS 02/07/24 04/14/24 History blood-glucose sensor (FreeStyle #2 ea 02/26/24 04/14/24 Rx Sandy 3 Sensor device) buspirone 15 mg tablet 15 mg PO TID #90 tabs 03/07/24 04/25/24 Rx oxybutynin chloride 10 mg See Rx Instructions .Route 04/07/24 04/14/24 Rx tablet,extended release 24 hr .COMPLEX #90 tabs semaglutide 1 mg/dose (4 mg/3 mL) 1 mg (0.75 mL) subcut WEEKLY #3 mL 04/08/24 04/14/24 Rx subcutaneous pen injector (Ozempic) insulin lispro 100 unit/mL See Rx Instructions subcut 04/16/24 04/25/24 Rx subcutaneous solution (Humalog .COMPLEX #20 mL U-100 Insulin) Allergies Allergy/AdvReac Type Severity Reaction Status Date / Time morphine AdvReac Severe NAUSEA AND Verified 04/25/24 11:14 VOMITING Sulfa (Sulfonamide AdvReac Intermediate Diarrhea Verified 04/25/24 11:14 Antibiotics) Vital Signs Vital Signs - 24 hr 04/25/24 10:14 Temperature 96.9 F L Pulse Rate 79 Respiratory Rate 16 Blood Pressure 139/59 L Pulse Oximetry 100 Oxygen Delivery Room Air Exam Const: General: no acute distress and alert Orientation/consciousness: patient oriented x3 HENMT: Head: normocephalic and atraumatic Ears: hearing grossly normal bilaterally Face/Nose/Sinus: Normal nares present Mouth: Yes Normal oral and palatal mucosa present Eyes: Periorbital: periorbital findings normal Sclera: sclerae normal EOM: EOMs intact bilaterally Neck: Neck: normal visual inspection, no lymphadenopathy and trachea midline Chest: Chest palpation & inspection: normal inspection of the chest Resp: Effort & Inspection: normal respiratory effort Auscultation: clear to auscultation bilaterally Cardio: Jugular venous distension: no JVD Rate: regular rate Rhythm: regular rhythm Heart sounds: S1 normal heart sound present and S2 normal heart sound present Peripheral pulses: Peripheral pulses 2+ throughout GI: Inspection: normal to inspection GI Palp: Yes Soft to palpation, No Tenderness to palpation present (GI), No Guarding due to palpation present (GI) and No Rebound tenderness present Percussion: Yes normal to percussion Auscultation: normal bowel sounds Rectal Exam: Internal hemorrhoid(s) present : General: Yes no CVA tenderness Back/Spine/Pelvis: Back: no CVA tenderness Neuro: General: patient oriented x3, no focal motor deficits and CN's II-XI intact bilaterally Cognition (Neuro): normal cognition Speech: normal speech Motor exam (neuro): 5/5 motor strength present throughout Extrem: General: capillary refill normal and no clubbing, cyanosis or edema H&P: Results Labs Labs: [facility] 04/25/24 10:35 Sodium 135 L Potassium 4.1 Chloride 102 Carbon Dioxide 30 BUN 25 H Creatinine 0.60 L Glucose 219 H Calcium 9.0 Assessment and Plan Assessment and plan (1) Grade III internal hemorrhoids: Code(s): K64.2 - Third degree hemorrhoids Status: Acute Assessment and Plan: I have recommended rectal exam under anesthesia with internal hemorrhoid rubber banding. I have discussed the procedure, risks, benefits, and alternatives with the patient. All questions answered. No changes since last seen in office.
--- NOTE | 2024-04-25 11:39 | WPDHPUPDATE1 ---
History and Physical Update Update Date/Time: 04/25/24 11:39 History and Physical has been reviewed, including an updated exam of the patient. There are NO changes in the patient's condition. Risks, benefits, and alternatives have been discussed and questions answered. Patient agrees to proceed with procedure.
[2024-04-25] MEDS: BUPivacaine HCL 0.5% 10 ML AMP 30 ML INFILTRATE (11:59)
--- NOTE | 2024-04-25 11:59 | P.PNAN_ITS ---
Anes - Initial Pre Proc Eval Procedure: Operation Date: 04/25/24 12:00 Proposed Procedures p Rectal Examination under Anesthesia for Internal Hemorrhoids Rubber Banding - Shahbaz Wooten DO Date/Time: 04/25/24 11:59 Surgeon: Shahbaz Wooten DO Pre Op Diagnosis: grade 3 internal hemorrhoids Patient Data Age: 74 Gender: F Height: 1.52 m Weight: 58.3 kg Last Vital Signs Temp 96.9 F L 04/25/24 10:14 Pulse 79 04/25/24 10:14 Resp 16 04/25/24 10:14 BP 139/59 L 04/25/24 10:14 Pulse Ox 100 04/25/24 10:14 O2 Del Method Room Air 04/25/24 10:14 Allergies Allergy/AdvReac Type Severity Reaction Status Date / Time morphine AdvReac Severe NAUSEA AND Verified 04/25/24 11:14 VOMITING Sulfa (Sulfonamide AdvReac Intermediate Diarrhea Verified 04/25/24 11:14 Antibiotics) Home Medications ?Medication ?Instructions ?Recorded ?Confirmed ?Type calcium carbonate (Calcium 600) 600 mg PO DAILY 07/09/19 04/14/24 History mecobalamin (vitamin B12) 1,000 1,000 mcg sublingual DAILY 07/09/19 04/14/24 History mcg disintegrating tablet,sublingual [id number] 8 mg-folic 400 1 tablet PO DAILY 07/09/19 04/14/24 History mcg-K 50 mcg-lutein 300 mcg tablet (Centrum Silver Women) omega-3 fatty acids 1,000 mg 2,000 mg PO DAILY 07/09/19 04/14/24 History capsule (Fish Oil Concentrate) blood sugar diagnostic (Accu-Chek #400 ea 07/16/20 04/14/24 Rx Radha Plus test strips) flash glucose scanning reader See Rx Instructions .Route 10/28/20 04/14/24 Rx (FreeStyle Sandy 14 Day [place]) .COMPLEX #1 ea cholecalciferol (vitamin D3) 125 125 mcg PO DAILY 03/22/22 04/14/24 History mcg (5,000 unit) capsule Cpap machine and supplies #1 ea 10/22/23 04/14/24 Rx alendronate 70 mg tablet (Fosamax) 70 mg PO WEEKLY #12 tabs 10/23/23 04/14/24 Rx lancets 30 gauge #300 ea 10/23/23 04/14/24 Rx insulin syringe-needle U-100 1 mL #100 ea 10/29/23 04/14/24 Rx 31 gauge x 5/16 (BD Insulin Syringe Ultra-Fine) Jardiance 25 mg tablet 25 mg PO QAM #30 tabs 11/02/23 04/14/24 Rx (empagliflozin) omeprazole 40 mg capsule,delayed 40 mg PO DAILY #90 caps 11/02/23 04/14/24 Rx release bupropion HCl 150 mg 24 hr tablet, 150 mg PO QAM #90 tabs 12/07/23 04/25/24 Rx extended release (Wellbutrin XL) tramadol 50 mg tablet 50 mg PO QID PRN pain #50 tabs 12/20/23 04/14/24 Rx furosemide 20 mg tablet See Rx Instructions .Route 12/21/23 04/14/24 Rx .COMPLEX #90 tabs Synthroid 150 mcg tablet See Rx Instructions .Route 01/01/24 04/14/24 Rx (levothyroxine) .COMPLEX #90 tabs bempedoic acid 180 mg-ezetimibe 10 1 tablet PO DAILY #90 tabs 01/02/24 04/14/24 Rx mg tablet (Nexlizet) blood-glucose meter,continuous #1 ea 01/02/24 04/14/24 Rx (FreeStyle [place] 3 [place]) fluticasone propionate 50 See Rx Instructions .Route 01/02/24 04/14/24 Rx mcg/actuation nasal .COMPLEX #48 grams spray,suspension insulin glargine 100 unit/mL See Rx Instructions .Route 01/02/24 04/14/24 Rx subcutaneous solution (Lantus .COMPLEX #30 mL U-100 Insulin) metformin 1,000 mg tablet See Rx Instructions .Route 01/02/24 04/14/24 Rx .COMPLEX #180 tabs mirabegron 50 mg tablet,extended 50 mg PO DAILY #90 tabs 01/02/24 04/14/24 Rx release 24 hr (Myrbetriq) potassium chloride 10 mEq See Rx Instructions .Route 01/02/24 04/14/24 Rx capsule,extended release .COMPLEX #90 caps sertraline 100 mg tablet See Rx Instructions .Route 01/02/24 04/25/24 Rx .COMPLEX #180 tabs trazodone 100 mg tablet See Rx Instructions .Route 01/02/24 04/14/24 Rx .COMPLEX #180 tabs trazodone 50 mg tablet See Rx Instructions .Route 01/02/24 04/14/24 Rx .COMPLEX #180 tabs triamcinolone acetonide 0.5 % See Rx Instructions .Route 01/02/24 04/14/24 Rx topical cream .COMPLEX #60 grams fexofenadine-pseudoephedrine ER See Rx Instructions .Route 01/03/24 04/14/24 Rx 180 mg-240 mg tablet,ext.release .COMPLEX #31 tabs 24 hr (Laurence-D 24 Hour) levocetirizine 5 mg tablet See Rx Instructions .Route 02/04/24 04/14/24 Rx .COMPLEX #90 tabs melatonin 5 mg capsule 5 mg PO HS 02/07/24 04/14/24 History blood-glucose sensor (FreeStyle #2 ea 02/26/24 04/14/24 Rx Sandy 3 Sensor device) buspirone 15 mg tablet 15 mg PO TID #90 tabs 03/07/24 04/25/24 Rx oxybutynin chloride 10 mg See Rx Instructions .Route 04/07/24 04/14/24 Rx tablet,extended release 24 hr .COMPLEX #90 tabs semaglutide 1 mg/dose (4 mg/3 mL) 1 mg (0.75 mL) subcut WEEKLY #3 mL 04/08/24 04/14/24 Rx subcutaneous pen injector (Ozempic) insulin lispro 100 unit/mL See Rx Instructions subcut 04/16/24 04/25/24 Rx subcutaneous solution (Humalog .COMPLEX #20 mL U-100 Insulin) Laboratory Tests 04/25/24 04/25/24 10:35 10:48 Sodium 135 L mmol/L (137-145) Potassium 4.1 mmol/L (3.4-5.0) Chloride 102 mmol/L (98-107) Carbon Dioxide 30 mmol/L (22-30) Anion Gap 3 L mmol/L (4-12) BUN 25 H mg/dL (7-17) Creatinine 0.60 L mg/dL (0.7-1.0) Estim Creat Clear Calc 49 ml/min Estimated GFR > 60 (59 - ) Glucose 219 H mg/dL (65-110) POC Capillary Glucose 246 H mg/dl (65-105) Calcium 9.0 mg/dL (8.4-10.2) Patient hx anesthesia problems: none Family hx anesthesia problems: none Results Review: All pre-operative results and documents have been reviewed as part of the pre- operative evaluation. [facility] Past Medical History Medical History (Updated 04/08/24 @ 11:26 by Monica Dowling CMA) Encounter for weight management External hemorrhoid Urinary incontinence BMI 26.0-26.9,adult Chest discomfort Trigger index finger of left hand Cheilitis Iron deficiency anemia Left-sided chest pain Trigger finger of left hand BMI 25.0-25.9,adult Body mass index (BMI) of 50-59.9 in adult (03/13/17) Left arm numbness History of obstructive sleep apnea GILMAN (dyspnea on exertion) Dependence on other enabling machines and devices BMI 45.0-49.9, adult BMI 40.0-44.9, adult Amaurosis fugax Acute renal failure Mild sleep apnea Fatigue Abdominal pain GERD (gastroesophageal reflux disease) Diverticular disease BMI 22.0-22.9, adult Change in bowel habit BMI 21.0-21.9, adult Encounter for routine adult health examination with abnormal findings Constipation Elevated LFTs Grade I diastolic dysfunction Bunion Sinus mucosal thickening Facial pain, acute Traumatic ecchymosis of face BMI 23.0-23.9, adult Syncope Frequent falls Colon cancer screening BMI 24.0-24.9, adult Seasonal allergies Vitamin D deficiency Insomnia BMI 27.0-27.9,adult Excessive and redundant skin and subcutaneous tissue Encounter for routine adult health examination without abnormal findings BMI 31.0-31.9,adult Urticaria BMI 33.0-33.9,adult Follow up Encounter for Medicare annual wellness exam Hearing loss Abnormal finding of blood chemistry, unspecified Orthostatic hypotension Hx of small bowel obstruction Carotid disease, bilateral BMI 34.0-34.9,adult Benign essential hypertension On lobsterman drug therapy MATTHIAS on CPAP Hypothyroidism (acquired) Hyperlipidemia Diabetes mellitus type 2, insulin dependent Dependent edema Depression IDDM (insulin dependent diabetes mellitus) Hypothyroidism Left wrist fracture Arm fracture, left Arthritis HTN (hypertension) Neuropathy Surgical History Surgical History History of hemorrhoidectomy Rectal exam under anesthesia with internal hemorrhoid rubber-band ligation x3 History of dental surgery History of bunionectomy History of total bilateral knee replacement (TKR) S/P gastric bypass S/P right knee arthroscopy History of surgery on left wrist History of appendectomy H/O: hysterectomy H/O section History of Ivy-en-Y gastric bypass Family History Family History (Updated 04/16/24 @ 13:56 by Monica Dowling [facility]) Mother Family history of diabetes mellitus in first degree relative Diabetes mellitus Father Family history of heart disease in male family member before age 55 Family history of cardiovascular disease Sibling FHx: thyroid cancer Papillary thyroid cancer Social History Social History (Reviewed 04/08/24 @ 11:21 by Monica Dowling [facility]) Smoking packs per day: 1 Smoking cigarettes per day: 20.0 Years smoked: 30 Smoking pack-years: 30.00 Smoking status: Former smoker Tobacco type: cigarettes Second hand tobacco smoke exposure: No Smoking end date: 05/14/97 Additional smoking assessment comments: STATES 1 TO 1 1/2PK/DAY/30YRS-QUIT 1996 Alcohol intake: never Substance use: never Substance use type: does not use Lack of Transportation: No Lack of Food: Never True Current Housing: I Have Housing Concerned About Future Housing: No Difficulty Paying Gas/Electric Bills: No Difficulty Paying for Meds: No Currently Unemployed: No Education: Bachelor's Degree Difficulty w/ Childcare or Family Care: No Living arrangements: with family Additional living arrangements comments: Occupation/Education: retired Gender identity (if verbalized by the patient): Female Spiritual care concerns: No Anes - Eval Final PreProcedure Day of Procedure 04/25/24 11:59 Patient weight: normal Heart: regular rate and rhythm Lungs: clear to auscultation Airway: Mallampati scale class II Neurological: alert and oriented Last oral intake: >/= 8 hours ASA classification: III Emergent: no Anesthetic plan: proceed Anesthesia type and monitoring: general GIVS and standard monitoring Results Review: All pre-operative results and documents have been reviewed as part of the pre- operative evaluation. Informed Consent: The patient's anesthetic plan and its attendant risks and benefits were discussed with the patient/family/POA. Questions were solicited and answers provided to the satisfaction of the patient/family/POA.
[2024-04-25] MEDS: ceFAZolin 2 GM/D5W 50 ML 2 GM/50 ML BAG IVPB (12:04)
--- NOTE | 2024-04-25 12:29 | W.PM.PROC2 ---
Procedure Note - Detailed Date of Procedure 04/25/24 Pre-op Diagnosis grade 3 internal hemorrhoids Post-op Diagnosis Same Procedure Performed Rectal exam under anesthesia with internal hemorrhoid rubber banding x2 Surgeon Shahbaz Wooten, DO Anesthesia MAC and Local ( 0.5% bupivacaine) Indications this is a 74-year-old woman who presents with internal hemorrhoid bleeding. She has been experiencing rectal bleeding for several months. She has already gone through a couple rounds of internal hemorrhoid banding and is seen signs of improvement. She still has some occasional rectal bleeding and was noted to have some prolapsing internal hemorrhoids in the right anterior and right lateral locations. Discussions were made with the patient about treatment options and decision was made to proceed with internal hemorrhoid rubber banding. Findings Rectal exam under anesthesia was performed. Prolapsing internal hemorrhoids were identified in the right anterior and right lateral locations. Internal hemorrhoid banding was performed in each of these locations. No other abnormalities were noted. Description of Procedure Procedure as well as risks, benefits, and alternatives were discussed with the patient. Written consent was obtained and placed in chart prior to procedure. Patient was brought back to surgical suite. She was placed in right lateral decubitus position the stretcher. IV sedation was administered by the anesthesia department. Time-out was done to confirm patient and procedure. Her perirectal area was prepped and draped in sterile fashion using Betadine prep. Digital rectal exam was initially performed. A medium Hill-Sy anoscope was then inserted in the anal rectal canal was carefully inspected. Internal hemorrhoid rubber banding was performed in the right anterior and right lateral locations. No other significant prolapsing internal hemorrhoids were noted. 0.5% bupivacaine was infiltrated at the base of each of the hemorrhoid locations. The anoscope was then removed. The patient was then awakened from anesthesia and transferred to recovery. Estimated Blood Loss 2 Complications No immediate complications Condition Stable Disposition Same day [facility] Billing Surgery - Charge Forward: Surgery Billing
[2024-04-25 12:32] VITALS: BP 134/70; PULSE 58; RESP 14; O2SAT 100
[2024-04-25 13:02] VITALS: BP 139/74; PULSE 61; RESP 16; O2SAT 100
[2024-04-25 13:25] VITALS: BP 137/69; PULSE 57; RESP 16
== END 2024-04-25 13:32 | disposition home or self-care (01) ==
PROVIDERS: Anesthesiology; PCP Internal Medicine; Visit Provider Surgery
PROC: (CPT 46221; principal; 2024-04-25 12:00)
DX: K64.2 Third degree hemorrhoids (principal); E11.9 Type 2 diabetes mellitus without complications; Z87.891 Personal history of nicotine dependence; Z79.4 Long term (current) use of insulin; Z79.84 Long term (current) use of oral hypoglycemic drugs
CPT/HCPCS: 46221; 36415; 80048; 82948; A9270; J0690; J2003; J2405; J2704

== ENCOUNTER 2024-06-25 11:49 | Outpatient (CLI) | payer MEDICARE, SELFPAY ==
--- NOTE | ~2024-06-25 | XR_ITS ---
EXAMINATION: XR lumbar spine 2-3V DATE: 06/25/2024 12:25 INDICATION: Right hip pain post fall several weeks prior TECHNIQUE: Anteroposterior and lateral views of the lumbar spine, and cone-down lateral view of the l umbosacral junction were obtained. COMPARISON: Lumbar spine radiographs dated 11/02/[address] dated 11/19/2023 FINDINGS: Unchanged 5 mm anterolisthesis L4 on L5 with associated severe bilateral facet osteoarthritis.. Uncha nged chronic L2 compression fracture with 20% anterior to central vertebral body height loss. Moderat e disc height loss at L5-S1. Mild disc height loss at T12-L1, L1-L2 and L4-L5. Postoperative changes in the abdomen with suture lines in the left upper and left lower quadrants. IMPRESSION: 1. Moderate lower lumbar predominant spondylosis with chronic mild L2 compression fracture. Reviewed, dictated and finalized at location A. ER TECHNICAL SUPERVISOR IMPRESSION: 1. Moderate lower lumbar predominant spondylosis with chronic mild L2 compressi on fracture.
--- NOTE | ~2024-06-25 | XR_ITS ---
EXAMINATION: XR hip RT min 2V DATE: 06/25/2024 12:25 INDICATION: Right hip pain post fall several weeks prior TECHNIQUE: Anteroposterior and frog-leg lateral views of the right hip were obtained. COMPARISON: None. FINDINGS: Alignment is normal. No fracture or suspected osteonecrosis. Mild right hip osteoarthritis with relat ively preserved joint space and small marginal osteophytes along the rim of the acetabulum. Mild bila teral sacral iliac osteoarthritis. Moderate lower lumbar spondylosis with prominent right-sided endpl ate osteophytes at L5-S1. Surgical clips at the medial aspect of the bilateral proximal thighs. IMPRESSION: 1. Mild right hip osteoarthritis. No acute osseous abnormality. Reviewed, dictated and finalized at location A. A SALES EXECUTIVE
--- OUTSIDE RECORDS SUMMARY | 2024-06-25 12:21 | XMS_ITS | Continuity of Care Document ---
Author Organization [facility] Address [id number] [place] [address] [address] [place] [address] Phone Care Team Providers Care Pcts Name Role Phone Jonny Fuchs DO Unavailable Unavailable Advance Directives Directive Yes / No Effective Date File Name No Information Encounters Encounter Description Practice Location Reason(s) For Visit Diagnoses Date Provider Providers Copied on Encounter [facility], [address], [place], [place], [id number], [place] tel:[phone] [facility] No Information Shila Fabian. [address] [place], [address], [place]. tel: [phone] Family History Family Member Type Diagnosis Age At Onset No Information Payers Payer name Insurance type Covered republican ID Authoriza tion(s) No Information Social History [...]
--- OUTSIDE RECORDS SUMMARY | 2024-06-25 12:21 | XMS_ITS | Clinical Summary ---
Author Organization [facility] Address [address] [place] [address] Care Team Providers Care Final Inspector Motorcyles Name Role Phone Fredy Puri MD Primary Care Provider [phone] Social History Tobacco Use Types Packs/Day Years Used Date Smoking Tobacco: Never Assessed Comments Unknown Sex and Gender Information Value Date Recorded Sex Assigned at Not on file Legal Sex Female 2:32 PM CDT Gender Identity Not on file Sexual Orientation Not on file Plan of Treatment Health Maintenance Due Date Last Done Comments Colorectal Cancer Screening Colonoscopy (10 Years) 1950 Kidney Health Evaluation 1950 Lipid Panel 1949 Diabetes: Retinopathy Eye Exam 1967 Hepatitis C 1967 DTaP, Tdap and Td Vaccines (1 - Tdap) 01/14/1968 Annual Medicare Wellness Visit 2014 Dexa Scan (General) 2014 Zoster Vaccines (2 of 3) 04/08/2015 02/11/2015 Hemoglobin A1C 11/30/2019 06/01/2019, 09/24/2018 COVID-19 Vaccine ( season) 2024 02/03/2022, 01/21/2022, 08/27/2021, Additional history exists Pneumococcal Vaccine: 65+ Years Completed 03/19/2018, 03/15/2017 Influenza Adult Completed 01/06/2024, 01/12, 08/03/2021, Additional history exists RSV Immunization or 60+ Years Completed 01/06/2024, 02/04/2023 Meningococcal B Vaccine Aged Out No l onger eligible based on patient's age to complete this topic Meningococcal Vaccine Aged Out No edgar tima eligible based on patient's age to complete this topic RSV Immunizations Under 20 Months Aged Out No longer eligible based on patient's age to complete this topic Insurance [facility] Care Teams Final Inspector Motorcyles Relationship Specialty Start Date End Date Fredy Puri MD [address] [place] [id number] PCP - General INTERNAL MEDICINE 02/08/24
--- OUTSIDE RECORDS SUMMARY | 2024-06-25 12:21 | XMS_ITS | Referral Summary ---
Author Organization [facility] Address [address] [place] [address] Care Team Providers Care Peritoneal Dialysis Registered Nurse Name Role Phone Fredy Puri MD Primary Care Provider [phone] Allergies Active Allergy Reactions Criticality Noted Date Comments Adhesive Blisters High 04/06/2020 Grass Pollen Other (See comments) Low 09/11/2018 Sinus congestion House Dust Other (See comments) Low 08/04/2020 Stuffy nose, itchy eyes Mold Other (See comments) Low 09/11/2018 Sinus congestion and infections Morphine Vomiting Low 05/07/1970 Pollen Extracts Other (See comments) Low 09/11/2018 Sinus congestion Sulfa (Sulfonamide Antibiotics) Nausea & Vomiting Low 06/01/2019 Sulphated Oil Diarrhea Low 09/11/2018 Medications sertraline (ZOLOFT) 100 mg tabletIndication s:depression Take 200 mg by mouth nightly 09/04/19 19 Active VITAMIN D3 1,000 unit capsuleIndicatio ns:Vitamin D Deficiency Take 1,000 Units by mouth daily 08/31/19 19 Active fluticasone propionate (FLONASE) 50 mcg/actuation nasal sprayIndications :Allergic Rhinitis Administer 1 spray into each nostril as needed 0 12/29/19 19 Active oxybutynin XL (DITROPAN-XL) 10 mg 24 hr tabletIndication s:Urinary Urge Incontinence Take 10 mg by mouth nightly Active potassium chloride ER (KLOR-CON,K-DUR) 10 mEq CR tabletIndication s:hypokalemia prevention,takes with lasix due to cramps Take 10 mEq by mouth as needed Active cyanocobalamin, vitamin B-12, 500 mcg tablet,disintegr atingIndications :Prevention of Vitamin B12 Deficiency [address] 500 mcg under the tongue daily 30 each 5 02/28/20 19 Active Additional Information Patient taking differently: 1,000 mcgsublingual Daily, Indications: Prevention of Vitamin B12 Deficiency, Reported on 07/18/2021 calcium carbonate (OS-WENDY) 1,250 mg (500 mg elemental) tabletIndication s:Hypocalcemia Prevention Take 1 tablet by mouth every morning 01/22/20 19 Active Laurence-D 24 Hour 180-240 mg per 24 hr tabletIndication s:Allergic Rhinitis Take 1 tablet by mouth as needed 10/13/19 20 Active metFORMIN (GLUCOPHAGE) 1,000 mg tabletIndication s:type 2 diabetes mellitus Take 1,000 mg by mouth 2 (two) times a day 10/25/19 20 Active omega 5-jxt-uvc-fish oil 1,200 (144-216) mg capsuleIndicatio ns:hypertriglyce ridemia Take 1 capsule by mouth cook cold meat before breakfast 09/11/19 20 Active multivitamin-iro n-folic acid (Centrum Complete) 18-400 mg-mcg tabletIndication s:Vitamin Deficiency Prevention Take 1 tablet by mouth cook cold meat before breakfast 05/14/19 20 Active furosemide (LASIX) 20 mg tabletIndication s:Edema Take 20 mg by mouth as needed 11/10/19 20 Active Synthroid 150 mcg tabletIndication s:hypothyroidism Take 150 mcg by mouth cook cold meat before breakfast 11/29/19 20 Active Jardiance 25 mg tabletIndication s:type 2 diabetes mellitus Take 25 mg by mouth cook cold meat before breakfast 01/20/20 20 Active insulin aspart (NovoLOG) 100 unit/mL vial for injection Active insulin glargine (LANTUS) 100 unit/mL vial for injection Active traZODone (DESYREL) 100 mg tablet 08/18/19 21 Active FreeStyle Sandy 14 Day Sensor kit USE TO CONTINOUSLY MONITOR BLOOD SUGAR 10/08/19 21 Active levocetirizine (XYZAL) 5 mg tablet 10/10/19 21 Active traZODone (DESYREL) 50 mg tablet 06/25/19 22 Active alendronate (Fosamax) 70 mg tablet 04/01/20 22 Active bempedoic acid-ezetimibe (Nexlizet) 180-10 mg tablet 04/01/20 22 Active bran/gum/fib/abdiaziz /psyl/kelp/pec (FIBER 6 ORAL) 04/01/20 22 Active busPIRone (BUSPAR) 10 mg tablet Take 10 mg by mouth 2 (two) times a day 04/12/20 22 Active docusate sodium (COLACE) 100 mg capsule 04/01/20 22 Active traMADoL (ULTRAM) 50 mg tablet Take 50 mg by mouth 4 (four) times a day as needed 03/28/20 22 Active triamcinolone (KENALOG) 0.5 % cream 05/15/19 23 Active BD Insulin Syringe Ultra-Fine 1 mL 31 gauge x 5/16 syringe USE 4 SYRINGE DAILY WITH INSULIN 06/19/19 23 Active omeprazole (PriLOSEC) 40 mg capsule Take 1 capsule (40 mg total) by mouth daily 90 capsule 3 03/26/20 23 Active Active Problems Problem Noted Date Diagnosed Date Gastroesophageal reflux disease 08/11/2021 Overview (08/11/2021): Added automatically from request for surgery [id number] Regurgitation of food 08/11/2021 Overview (08/11/2021): Added automatically from request for surgery [id number] Status post gastric bypass for obesity Overview (07/18/2020): Added automatically from request for surgery [id number] Abdominal pannus 03/30/2020 Overview (03/30/2020): Added automatically from request for surgery [id number] Encounter for long-term (current) use of other m edications 12/17/2019 Urinary tract infection 12/17/2019 Epigastric pain 05/31/2019 Overview (06/01/2019): Added automatically from request for surgery [id number] MYESHA (acute kidney injury) ([facility]) 02/28/2019 Type 2 diabetes mellitus 02/28/2019 Severe malnutrition ([facility]) 02/21/2019 Nausea and vomiting 02/20/2019 Overview (02/21/2019): Added automatically from request for surgery [id number] Morbid obesity 09/11/2018 Benign essential hypertension 04/15/2010 Anxiety state 04/15/2010 Hypothyroidism 04/15/2010 Insomnia 04/15/2010 Other and unspecified hyperlipidemia 04/15/2010 Osteoarthrosis 04/15/2010 Type 2 diabetes mellitus wit h hyperglycemia, with long-term current use of insulin 04/15/2010 Urinary incontinence 04/15/2010 Resolved Problems Problem Noted Date Diagnosed Date Resolved Date Morbid (severe) obesity due to excess calories 11/01/2018 08/31/2021 Overview (11/01/2018): Added automatically from request for surgery [id number] Immunizations Name Administration Dates Next Due Influenza, Trivalent, High D ose, Split, Preservative Free, Intramuscular 03/19/2019,02/11/2018,02/14/2017 Influenza, Trivalent, IM (MDV) 04/01/2013 Pneumococcal Conjugate PCV 13 03/15/2017 Pneumococcal Polysaccharide PPV23 03/19/2018 ZOSTER LIVE 02/11/2015 Social History Tobacco Use Types Packs/Day Years Used Date Smoking Tobacco: Former Cigarettes 1 29 1 969 - 1998 Smokeless Tobacco: Never Alcohol Use Standard Drinks/Week Comments Never 0 (1 standard drink = 0.6 oz pur e alcohol) AUDIT-C Answer Date Recorded Q1: How often do you have a drink containing alc ohol? Never 08/31/2021 Average Number of Drinks Not on file 022 Q3: How often do you have si x or more drinks on one occasion? Never 08/31/2021 PHQ-2 Answer Date Recorded PHQ-2 Total Score (If total score is 3 or more points, staff should administer the PHQ-9) 0 08/19/2020 Comments No Sex and Gender Information Value Date Recorded Sex Assigned at Not on file Legal Sex Female 8:10 PM STUDENT MINISTRY PASTOR Gender Identity Not on file Sexual Orientation Straight 08/08/2019 1: 54 PM CDT Last Filed Vital Signs Vital Sign Reading Time Taken Comments Blood Pressure 126/73 08/31/2021 8:50 AM CDT Pulse 63 08/31/2021 8:50 AM CDT Temperature 36.2 C (97.2 F) 08/31/2021 8:34 AM CDT Respiratory Rate 23 08/31/2021 8:50 AM CDT Oxygen Saturation 96% 08/31/2021 8:50 AM CDT Inhaled Oxygen Concentration - - Weight 50.8 kg (112 lb) 08/31/2021 6:50 AM CDT Height 152.4 cm (5') 08/31/2021 6:50 AM CDT Body Mass Index 21.87 08/31/2021 6:50 AM CDT Plan of Treatment Not on file Medical Devices Implanted Type Area Sewer Line Repairer Device Identifier Shelf Expiration Date Model / Serial / Lot Other - See Comments Other - see comments Bilatera l: Knee Description:Double knee repl acement Procedures Procedure Name Priority Date/Time Associated Diagnosis Comments HEMOGLOBIN A1C Timed 06/01/2019 3:42 AM STUDENT MINISTRY PASTOR LIPID PANEL Timed 06/01/2019 3:42 AM STUDENT MINISTRY PASTOR EGFR Routine 01/21/2019 2:50 AM CDT from Last 3 Months or Most Recently Relevant to Health Maintenance Results * (ABNORMAL) Hemoglobin A1c (06/01/2019 3:42 AM STUDENT MINISTRY PASTOR) Hgb A1C 7.3(H) 4.0 - 5.6 % MICHELE BHANDARI Estimated Average Glucose 163 mg/dL MICHELE BHANDARI Comment: The ADA recommends reporting an estimated Average Glucose (eAG) with all Hemoglobin A1c results using the equation derived from a study of 507 normal and diabetic adults. Minority populations were underrepresented and children were not included. (Diabetes Care 31:6480-9642, 2008). The eAG is not equivalent to a fasting glucose. Blood specimen (specimen) 06/01/2019 3:42 AM STUDENT MINISTRY PASTOR 06/01/2019 4:24 AM STUDENT MINISTRY PASTOR us Jesus Gallegos MD LAB BLOOD ORDERABLES Final Res ult MICHELE BHANDARI [facility] Department [place] [address] * Lipid panel (06/01/2019 3:42 AM STUDENT MINISTRY PASTOR) Cholesterol 88 30 - 199 mg/dL MIC[facility] Comment: Interpretive Data Ages < or = 19 years Acceptable: <170 mg/dL Borderline high: 170-199 mg/dL High: >or= 200 mg/dL Ages > or = 20 years Desirable: <200 mg/dL Borderline high: 200-239 mg/dL High: >or= 240 mg/dL Literature References: 1. Expert Panel on Integrated Guidelines for Cardiovascular Health and Risk Reduction in Children and Adolescents. Pediatrics 2011;128:S213 2. NCEP Expert Panel. Circulation 2004;110:227 Current Interpretive Data was last revised on 2018. Triglycerides 117 <=149 mg/dL MICHELE [facility] Comment: Interpretive Data Ages < or = 9 years Acceptable: <75 mg/dL Borderline high: 75-99 mg/dL High: >or= 100 mg/dL Ages 10 to 20 years Acceptable: <90 mg/dL Borderline high: 90-129 mg/dL High: >or= 130 mg/dL Ages > or = 20 years Desirable: <150 mg/dL Borderline high: 150-199 mg/dL High: 200-499 mg/dL Very high: >or= 499 mg/dL Literature References: 1. Expert Panel on Integrated Guidelines for Cardiovascular Health and Risk Reduction in Children and Adolescents. Pediatrics 2011;128:S213 2. NCEP Expert Panel. Circulation 2004;110:227 Current Interpretive Data was last revised on 2018. HDL 44 >=40 mg/dL MIC[facility] Comment: Interpretive Data Ages < or = 19 years Acceptable: >45 mg/dL Borderline low: 40-45 mg/dL Low: <40 mg/dL Ages > or = 20 years Desirable: >or= 60 mg/dL Low: <40 mg/dL Literature References: 1. Expert Panel on Integrated Guidelines for Cardiovascular Health and Risk Reduction in Children and Adolescents. Pediatrics 2011;128:S213 2. NCEP Expert Panel. Circulation 2004;110:227 Current Interpretive Data was last revised on 2018. LDL, calculated 21 <=129 mg/dL MIC[facility] Comment: Interpretive Data Ages < or = 19 years Acceptable: <110 mg/dL Borderline high: 110-129 mg/dL High: >or= 130 mg/dL Ages > or = 20 years Optimal: <100 mg/dL Near optimal: 100-129 mg/dL Borderline high: 130-159 mg/dL High: >160 mg/dL Literature References: 1. Expert Panel on Integrated Guidelines for Cardiovascular Health and Risk Reduction in Children and Adolescents. Pediatrics 2011;128:S213 2. NCEP Expert Panel. Circulation 2004;110:227 Current Interpretive Data was last revised on 2018. Non-HDL Cholesterol 44 mg/dL MIC[facility] Comment: Interpretive Data Ages < or = 19 years Acceptable: <120 mg/dL Borderline high: 120-144 mg/dL High: >145 mg/dL Ages > or = 20 years When triglycerides are >200 mg/dL, Non-HDL cholesterol is a secondary target of therapy with treatment goals that are 30 mg/dL greater than the LDL cholesterol target. Literature References: 1. Expert Panel on Integrated Guidelines for Cardiovascular Health and Risk Reduction in Children and Adolescents. Pediatrics 2011;128:S213 2. NCEP Expert Panel. Circulation 2004;110:227 Current Interpretive Data was last revised on 2018. [facility]ol/HDL ratio 2 [facility] Blood specimen (specimen) 06/01/2019 3:42 AM STUDENT MINISTRY PASTOR 06/01/2019 4:21 AM STUDENT MINISTRY PASTOR us Jesus Gallegos MD LAB BLOOD ORDERABLES Final Res ult [facility] [place] [address] * eGFR (01/21/2019 2:50 AM CDT) eGFR >60 mL/min/1.7 3 m2 MICHELE [facility] Comment: Interpretive Data Reference Interval Normal >/= 90 mL/min/1.73m2 Mildly decreased* 60 - 89 mL/min/1.73m2 Mildly to moderately decreased 45 - 59 mL/min/1.73m2 Moderately to severely decreased 30 - 44 mL/min/1.73m2 Severely decreased 15 - 29 mL/min/1.73m2 Kidney Failure < 15 mL/min/1.73m2 *Relative to young adult level If -[place] multiply value by 1.16. Estimated glomerular filtration rate is determined by the CKD-EPI equation recommended by the National Kidney Foundation (KDIGO 2012 Clinical Practice Guideline for the Evaluation and Management of Chronic Kidney Disease. Kidney Intnl Suppl May 2012;3:1). The CKD-EPI equation should not be used for patients with unstable renal function and has not been validated in children and those over 70. Current interpretive data was last reviewed 2015. Blood specimen (specimen) 01/21/2019 2:50 AM CDT 01/21/2019 3:42 AM CDT us Manuel Tai MD LAB BLOOD ORDERABLES Final Resu lt [facility] [address] [facility] [place] [address] from Last 3 Months or Most Recently Relevant to Health Maintenance Insurance [employer] MEDICARE PPO [employer] MEDICARE PPO [employer] MEDICARE PPO Advance Directives For more information, please contact: [phone] * Full Code (Latest Code Status on File) Date Activated Date Inactivated Comments 08/19/2020 2:04 PM 08/20/2020 4:19 PM * Full Code Date Activated Date Inactivated Comments 05/31/2019 11:10 PM 06/03/2019 5:47 PM * Full Code Date Activated Date Inactivated Comments 02/21/2019 2:17 PM 02/28/2019 7:04 PM * Full Code Date Activated Date Inactivated Comments 02/20/2019 11:32 PM 02/21/2019 2:16 PM * Full Code Date Activated Date Inactivated Comments 01/20/2019 2:11 PM 01/22/2019 9:34 PM Care Teams Peritoneal Dialysis Registered Nurse Relationship Specialty Start Date End Date Fredy Puri MD [address] [place] [address] PCP - General 10/17/12
--- OUTSIDE RECORDS SUMMARY | 2024-06-25 12:21 | XMS_ITS | Continuity of Care Document ---
Author Organization [facility] Address [address] [place] [address] Phone Care Team Providers Care Founder & Ceo Name Role Phone Subhash DAVIS MD, Panfilo Unavailable Unavailable Medications Medication Instructions Dosage Effective [...] Provider Providers Copied on Encounter [facility], [address], [place], [place], [id number], [place] tel:[phone] [facility] [place] No Information 5 Subhash Whittaker. [address], [address], [place], [place], [id number], [place]. tel:[phone] Referring Provider: Panfilo Parnell, [address], [place], [place], [id number]. tel:[phone] [facility], [address] [place] [address], [id number], tel:[phone] [facility] [place] No Information 5 Subhash Whittaker. [address], [place], [place], [address], [place]. tel:[phone] Referring Provider: Panfilo Parnell, [address], [place], [place], [id number]. tel:[phone] OFFICE/OUTPA TIENT VISIT, [facility], [address] [place] [address], [id number], [place] tel:[phone] [facility] No Information 5 Subhash Whittaker. [address], [place], [place], [id number], [place]. tel:[phone] Referring Provider: Panfilo Parnell, [address], [place], [place], [id number]. tel:[phone] [facility], [address] [place] [address], [id number], [place] tel:[phone] [facility] No Information 4 Ale Reyes. [address], [place], [place], [address], [place]. tel:[phone] Referring Provider: Haydee Pichardo, [address], [place], [address]. tel:[phone] [facility], [address] [place] [address], [id number], [place] tel:[phone] [facility] No Information 4 Jose Hubbard. [address], [address], [place], [address], [place]. tel:[phone] Referring Provider: Haydee Pichardo, [address], [place], [address]. tel:[phone] [facility], [address] [place] [address], [id number], tel:[phone] [facility] vision is improved, but still blurry OS (chief complaint)n o sharp pain, irritation off and on OS (chief complaint)v ision is improved, but still blurry (chief complaint)n o sharp pain, irritation off and on (chief complaint) No Information 4 Jose Hubbard. [address], [address], [place], [address], [place]. tel:[phone] Referring Provider: aHydee Pichardo, [address], [place], [address]. tel:[phone] [facility], [address] [place] [address], [id number], tel:[phone] [facility] No Information 4 Subhash Whittaker. [address], [address], [id number], [place]. tel:[phone] Referring Provider: Panfilo Parnell, [address], [id number]. tel:[phone] [facility], [address] [place] [address], [id number], tel:[phone] [facility] foreign body sensation OD (chief complaint)f oreign body sensation (chief complaint) No Information 4 Derheimer OD Lucy. [address], [address], [id number], [place]. tel:[phone] Referring Provider: Lucy Deng OD, [address], [place], [place], [id number]. tel:[phone] [facility], [address] [place] [address], [id number], tel:[phone] [facility] No Information 4 Sowmya OD Lucy. [address], [place], [place], [id number], [place]. tel:[phone] Referring Provider: Lucy Deng OD, [address], [place], [place], [address]. tel:[phone] [facility], [address] [place] [address], [id number], tel:[phone] [facility] [place] No Information 4 Subhash Whittaker. [address], [place], [place], [id number], [place]. tel:[phone] Referring Provider: Panfilo Cullen MD P, [address], [place], [place], [id number]. tel:[phone] [facility], [address] [place] [address], [id number], tel:[phone] [facility] No Information 4 Subhash Whittaker. [address], [place], [place], [id number], [place]. tel:[phone] Referring Provider: Panfilo Cullen MD P, [address], [place], [place], [id number]. tel:[phone] OFFICE/OUTPA TIENT VISIT, [facility], [address] [place] [address], [id number], tel:[phone] [facility] No Information 4 Subhash Whittaker. [address], [place], [place], [id number], . tel:[phone] Referring Provider: Panfilo Cullen MD P, [address], [place], [place], [id number]. tel:[phone] Family History Family Member Type Diagnosis Age At Onset No Information Payers Payer name Insurance type Covered republican ID Authoriza tion(s) [facility] [id number] Medicare [place] [id number] Social History Type Description Quantity Date Captured Comments Sex Female Smoking Status No Information Chief Complaint And Reason For Visit No Information Plan Of Treatment Date Type Action Status No Information History Of Present Illness Encounter Date Complaint History Of Prese nt Illness vision is improved, but still blurry vision is improved, but still blurry OS no sharp pain, irrit ation off and on no sharp pain, irritation off and on OS foreign body sensation foreign b emily sensation OD Instructions Date Instruction Additional Infor mation - Refer by Dr. Christopher sood [facility].Standard lens: mild mono-OS Related to Cataract 1 day, 2nd eye - RTO 1 month for final refracti on Related to Cataract 1 day, 2nd eye Assessments Type Assessment Date No Information
--- OUTSIDE RECORDS SUMMARY | 2024-06-25 12:21 | XMS_ITS | Clinical Summary ---
Author Organization [facility] Address [facility] [place] [address] Care Team Providers Care Battery Parts Assembler Name Role Phone Fredy Puri MD Primary Care Provider [phone] Allergies Active Allergy Reactions Criticality Noted Date [...] times a day 10/25/19 20 Active omega 2-dsd-qxr-fish oil 1,200 (144-216) mg capsuleIndicatio ns:hypertriglyce ridemia Take 1 capsule by mouth cobbler sole before breakfast 09/11/19 20 Active multivitamin-iro n-folic acid (Centrum Complete) 18-400 mg-mcg tabletIndication s:Vitamin Deficiency Prevention Take 1 tablet by mouth cobbler sole before breakfast 05/14/19 20 Active furosemide (LASIX) 20 mg tabletIndication s:Edema Take 20 mg by mouth as needed 11/10/19 20 Active Synthroid 150 mcg tabletIndication s:hypothyroidism Take 150 mcg by mouth cobbler sole before breakfast 11/29/19 20 Active Jardiance 25 mg tabletIndication s:type 2 diabetes mellitus Take 25 mg by mouth cobbler sole before breakfast 01/20/20 20 Active insulin aspart [...] (08/11/2021): Added automatically from request for surgery [id number] Regurgitation of food 08/11/2021 Overview (08/11/2021): Added automatically from request for surgery [id number] Status post gastric bypass for obesity Overview (07/18/2020): Added automatically from request for surgery [id number] Abdominal pannus 03/30/2020 Overview (03/30/2020): Added automatically from request for surgery [id number] Encounter for long-term (current) use of other m edications 12/17/2019 Urinary tract infection 12/17/2019 Epigastric pain 05/31/2019 Overview (06/01/2019): Added automatically from request for surgery [id number] MYESHA (acute kidney injury) ([facility]) 02/28/2019 Type 2 diabetes mellitus 02/28/2019 Severe malnutrition ([facility]) 02/21/2019 Nausea and vomiting 02/20/2019 Overview (02/21/2019): Added automatically from request for surgery [id number] Morbid obesity 09/11/2018 Benign essential hypertension 04/15/2010 [...] (11/01/2018): Added automatically from request for surgery [id number] Immunizations Name Administration Dates Next Due Influenza, Trivalent, High D ose, Split, Preservative Free, Intramuscular 03/19/2019,02/11/2018,02/14/2017 Influenza, Trivalent, IM (MDV) 04/01/2013 Pneumococcal Conjugate PCV 13 03/15/2017 Pneumococcal Polysaccharide PPV23 03/19/2018 ZOSTER LIVE 02/11/2015 Surgical History Surgery Date Site/Laterality Comments TONSILLECTOMY 05/14/1973 - 05/13/1974 SECTION 05/14/1976 - 05/13/1977 OOPHERECTOMY 05/14/1989 - 05/13/1990 Bilateral KNEE ARTHROSCOPY 05/14/2002 - 05/13/2003 Bilateral TOTAL KNEE ARTHROPLASTY 05/14/2014 - 05/13/2015 Bilateral APPENDECTOMY 05/14/1968 - 05/13/1969 HYSTERECTOMY 05/14/1976 - 05/13/1977 RACHEL-EN-Y PROCEDURE 01/20/2019 ESOPHAGOGASTRODUODENOSCOPY EXPLORATORY LAPAROTOMY 06/01/2019 adhesiolysis KNEE SURGERY Right Right knee exploration CATARACT EXTRACTION W/ INTRA OCULAR LENS IMPLANT Bilateral Medical History Medical History Date Comments Type 2 diabetes mellitus (HCC) D xd 1976 Sleep apnea Hyperlipidemia Treated with sta tin Hypertension Dxd 1970 Arthritis Hypothyroidism Bariatric surgery status Family History Medical History Relation Name Comments Heart attack Father Hypercalcemia Father Hypertension Father overweight Father Diabetes Mother Heart attack Mother Stroke Mother overweight Mother Cancer Sister Diabetes Sister overweight Sister Anesthesia problems Neg Hx Relation Name Status Comments Father Mother Sister Social History Tobacco Use Types Packs/Day Years Used Date Smoking Tobacco: Former Cigarettes 1 29 1 969 - 1997 Smokeless Tobacco: Never Alcohol Use Standard Drinks/Week [...] on file Legal Sex Female 8:10 PM PROPOSITION PLAYER Gender Identity Not on file Sexual Orientation Straight 08/08/2019 1: 54 PM CDT Obstetrics History Last Filed Vital Signs Vital Sign Reading [...] 08/31/2021 6:50 AM CDT Plan of Treatment Health Maintenance Due Date Last Done Comments Albumin Creatinine Ratio, Urine 1949 Colon Cancer Screening-Colonoscopy 1950 Hepatitis C Screening 1949 Osteoporosis Screening-Bone Density Scan 1949 Dilated Eye Exam 1949 Foot Exam 1949 DTaP/Tdap/Td Vaccine (1 - Tdap) 01/14/1960 Hepatitis B Screening 1967 Well Visit 65+ 2014 Zoster Vaccine (2 of 3) 04/08/2015 02/11/2015 Hemoglobin A1C 11/30/2019 06/01/2019, 09/24/2018 eGFR 01/22/2020 01/21/2019, 09/24/2018 Lipid Panel 06/01/2020 06/01/2019, 09/24/2018 Depression Screening 07/18/2021 07/18/2020 Fall Risk Assessment 08/31/2022 08/31/2021 Influenza Vaccine (#1) 2024 9, 02/11/2018, 02/14/2017, Additional history exists Pneumococcal vaccine 65+ Completed 03/19/2018, 06/2016 Medical Devices Implanted Type Area Weblogic Administrator Device Identifier Shelf Expiration Date Model / Serial / Lot Other - See Comments Other - see comments Bilyadiraa l: Knee Description:Double knee repl acement Procedures Procedure Name Priority Date/Time Associated Diagnosis Comments HEMOGLOBIN A1C Timed 06/01/2019 3:42 AM PROPOSITION PLAYER LIPID PANEL Timed 06/01/2019 3:42 AM PROPOSITION PLAYER EGFR Routine 01/21/2019 2:50 AM CDT from Last 3 Months or Most Recently Relevant to Health Maintenance Results * (ABNORMAL) Hemoglobin A1c (06/01/2019 3:42 AM PROPOSITION PLAYER) Hgb A1C 7.3(H) 4.0 - 5.6 % MICHELE BHANDARI Estimated Average Glucose 163 mg/dL MICHELE BHANDARI Comment: The ADA recommends reporting an estimated Average Glucose (eAG) with all Hemoglobin A1c results using the equation derived from a study of 507 normal and diabetic adults. Minority populations were underrepresented and children were not included. (Diabetes Care 31:9458-9539, 2008). The eAG is not equivalent to a fasting glucose. Blood specimen (specimen) 06/01/2019 3:42 AM PROPOSITION PLAYER 06/01/2019 4:24 AM PROPOSITION PLAYER us Jesus Gallegos MD LAB BLOOD ORDERABLES Final Res ult MICHELE BHANDARI [facility] Department [place] [address] * Lipid panel (06/01/2019 3:42 AM PROPOSITION PLAYER) Cholesterol 88 30 - 199 mg/dL MICHELE [facility] Comment: Interpretive Data Ages < or = [...] on 2018. Triglycerides 117 <=149 mg/dL MICHELE [facility] Comment: Interpretive Data Ages < or = [...] on 2018. HDL 44 >=40 mg/dL MICHELE [facility] Comment: Interpretive Data Ages < or = [...] 2018. LDL, calculated 21 <=129 mg/dL MICHELE [facility] Comment: Interpretive Data Ages < or = [...] on 2018. Non-HDL Cholesterol 44 mg/dL MICHELE [facility] Comment: Interpretive Data Ages < or = [...] last revised on 2018. Chol/HDL ratio 2 [facility] Blood specimen (specimen) 06/01/2019 3:42 AM PROPOSITION PLAYER 06/01/2019 4:21 AM PROPOSITION PLAYER us Jesus Gallegos MD LAB BLOOD ORDERABLES Final Res ult [facility] Department [place] [address] * eGFR (01/21/2019 2:50 AM CDT) eGFR >60 mL/min/1.7 3 m2 MICHELE [facility]. [facility] Comment: Interpretive Data Reference Interval Normal >/= 90 mL/min/1.73m2 Mildly decreased* 60 - 89 mL/min/1.73m2 Mildly to moderately decreased 45 - 59 mL/min/1.73m2 Moderately to severely decreased 30 - 44 mL/min/1.73m2 Severely decreased 15 - 29 mL/min/1.73m2 Kidney Failure < 15 mL/min/1.73m2 *Relative to young adult level If -Turkmen multiply value by 1.16. Estimated glomerular filtration [...] MD LAB BLOOD ORDERABLES Final Resu lt [facility]ER [facility] [address] [facility]. AALIYAH Drummond [id number] from Last 3 Months or Most Recently Relevant to Health Maintenance Insurance [employer] MEDICARE PPO [employer] MEDICARE PPO [employer] CHOICE MEDICARE PPO Advance Directives For more information, please contact: [phone] * Full Code (Latest Code Status on [...] 2:11 PM 01/22/2019 9:34 PM Care Teams Battery Parts Assembler Relationship Specialty Start Date End Date Fredy Puri MD [address] [place] [address] PCP - General 10/17/12
--- OUTSIDE RECORDS SUMMARY | 2024-06-25 12:21 | XMS_ITS | Encounter Summary ---
Author Organization [facility] Address [address] [place] [address] Care Team Providers Care French Instructor Name Role Phone Fredy Puri MD Primary Care Provider [phone] Encounter Details Date Type Department Care Team (Late st Contact Info) Description 01/23/2019 Documentation [facility] Case Management [id number] [place] [address] Brandee Graham, JERMAIN Social History Tobacco Use Types Packs/Day Years Used Date Smoking Tobacco: Former Cigarettes 1 29 1 969 - 1998 Smokeless Tobacco: Never Alcohol Use Standard Drinks/Week Comments Never 0 (1 standard drink = 0.6 oz pur e alcohol) AUDIT-C Answer Date Recorded Frequency of Alcohol Consumption Never 09/11/2018 Average Number of Drinks Not on file 019 Frequency of Binge Drinking Not on file 05/2018 Comments No Sex and Gender Information Value Date Recorded Sex Assigned at Not on file Legal Sex Female 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
--- OUTSIDE RECORDS SUMMARY | 2024-06-25 12:21 | XMS_ITS | Encounter Summary ---
Author Organization [facility] Address [address] [place] [address] Care Team Providers Care Brand Engineer Name Role Phone Unavailable Primary Care Provider Unavailabl e Encounter Details Date Type Department Care Team (Late st Contact Info) Description 11/27/2002 Outpatient [facility] [address] [facility] [address] [place] [address] Shahbaz Bland MD [address] [address] SWELLING OF LIMB (Primary Dx) Social History Tobacco Use Types Packs/Day Years Used Date Smoking Tobacco: Never Assessed Comments Unknown Sex and Gender Information Value Date Recorded Sex Assigned at Not on file Legal Sex Female 5:02 AM 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
--- OUTSIDE RECORDS SUMMARY | 2024-06-25 12:21 | XMS_ITS | Clinical Summary ---
Author Organization [email or web address] Address [address] [facility] Attn: Epic Prelude ADT AALIYAH ROMERO [address] Care Team Providers Care Heater Installer Name Role Phone Unavailable Primary Care Provider Unavailabl e Social History Tobacco Use Types Packs/Day Years Used Date Smoking Tobacco: Never Assessed Comments Unknown Sex and Gender Information Value Date Recorded Sex Assigned at Not on file Legal Sex Female 5:02 AM PROGRAM CLINICIAN Gender Identity Not on file Sexual Orientation Not on file Plan of Treatment Health Maintenance Due Date Last Done Comments DTAP/TDAP/TD VACCINES (1 - Tdap) 01/14/1968 COLORECTAL SCREENING 1994 Colorectal Cancer Screening 1994 FIT-DNA Q 3 years 1994 FIT/FOBT Q 1 year 1994 Flex Sig/CT Colonography Q 5 years 1994 PNEUMOCOCCAL VACCINE 65+ YEARS (1 of 1 - PCV) 01/13/19 99 ZOSTER VACCINE (1 of 2) 1999 OSTEOPOROSIS SCREENING 2014 INFLUENZA VACCINE (#1) 2023 RSV VACCINE (60+ or ) (1 - 1-dose 75+ series) 01/14/2024
== END 2024-06-25 11:50 | disposition home or self-care (01) ==
PROVIDERS: PCP Internal Medicine; Visit Provider Internal Medicine
DX: T14.90XA Injury, unspecified, initial encounter (principal); M47.896 Other spondylosis, lumbar region; M16.11 Unilateral primary osteoarthritis, right hip
CPT/HCPCS: 72100; 73502

== ENCOUNTER 2024-08-29 12:26 | Outpatient (CLI) | payer MEDICARE, SELFPAY ==
--- NOTE | ~2024-08-29 | MR_ITS ---
EXAMINATION: MR hip RT wo con DATE: 08/29/2024 13:40 INDICATION: Right hip pain TECHNIQUE: Magnetic resonance imaging (MRI) of the right hip was performed without intravenous contr ast. Sequences included full-field axial PD-weighted FS FSE and T1-weighted FSE, coronal of the pelvi s with PD-weighted FS FSE, T2-weighted FSE and T1-weighted FSE, small field of view of the right hip with axial PD-weighted FS FSE, sagittal PD-weighted FS FSE, coronal PD-weighted FS FSE and coronal T2 weighted FSE. Additional radial T1-weighted FGR oriented orthogonal to the acetabular rim were obt ained for evaluation of the labrum. COMPARISON: Right hip radiographs dated 06/25/2024 FINDINGS: Marrow edema in the proximal femur centered about an avulsion fracture of the right greater trochante r which is new since the prior radiographs. The fracture involves the footplate of the right gluteus medius tendon. The more anterior footplate of the right gluteus minimus tendon remains contiguous wit h the main to the femur. There is 5 mm superomedial distraction. No other fractures identified. Mild bilateral hip and sacroiliac osteoarthritis. There is degenerative tearing of the superolateral right acetabular labrum. There is severe lumbosacral spondylosis with multilevel severe lower lumbar facet osteoarthritis. Symmetric physiologic amount of fluid within both hip joints. There is reactive edema in the soft tis sues surrounding the right greater trochanteric fracture. 7.0 x 3.7 x 1.7 cm intramuscular lipoma wit hin the distal right iliac is muscle. There is diverticulosis along the sigmoid colon without adjacen t from trace stranding to suggest diverticulitis. The uterus is not identified and has likely been rodriguez rgically resected. There is pelvic floor relaxation. No pathologically enlarged pelvic/inguinal lymph adenopathy. IMPRESSION: 1. 5 mm superomedial distraction of a right greater trochanteric avulsion fracture involving the foot plate of the right gluteus medius tendon which is new since 06/25/2024. Reviewed, dictated and finalized at location A. IMPRESSION: 1. 5 mm superomedial distraction of a right greater trochanteric avulsion fract ure involving the footplate of the right gluteus medius tendon which is new sin ce 06/25/2024.
--- NOTE | ~2024-08-29 | MR_ITS ---
MRI of the lumbar spine Clinical History: Back pain Technique: Axial T2-weighted images, and sagittal T1-weighted, T2-weighted, and and T2 fat-sat images were acquired. Findings: Chronic mild compression of L2 present. No acute fracture or subluxation. No suspicious bon e marrow signal abnormality seen. At L1-L2, there is moderate facet arthropathy. No definite disc bulge or herniation. No spinal canal stenosis or left neural foraminal narrowing. There is mild right neural foraminal narrowing. At L2-L3, there is minimal disc bulge and moderate facet arthropathy. No central canal stenosis. Ther e is moderate to advanced bilateral neural foraminal narrowing. At L3-L4, there is minimal disc bulge with moderate facet arthropathy. No central canal stenosis. The re is mild bilateral neural foraminal narrowing. At L4-L5, there is diffuse disc bulge and severe facet arthropathy. There is moderate central canal s tenosis. There is advanced right neural foraminal narrowing, and moderate to advanced left neural for aminal narrowing. At L5-S1, there is severe degenerative disc narrowing. There is disc osteophyte complex and moderate to advanced facet arthropathy. No central canal stenosis. There is severe bilateral neural foraminal narrowing. Paravertebral soft tissues are unremarkable. Impression: Multilevel moderate to advanced degenerative spondylosis, as detailed above, with multilevel neural f oraminal narrowing present. Moderate central canal stenosis at L4-L5. Chronic L2 compression fracture. Reviewed, dictated and finalized at [facility]. Impression: Multilevel moderate to advanced degenerative spondylosis, as detailed above, wi th multilevel neural foraminal narrowing present. Moderate central canal stenos is at L4-L5. Chronic L2 compression fracture.
== END 2024-08-29 12:27 | disposition home or self-care (01) ==
LOC: GOSHIMG 12:27
PROVIDERS: PCP Internal Medicine; Visit Provider Internal Medicine
DX: M47.896 Other spondylosis, lumbar region (principal); M48.061 Spinal stenosis, lumbar region without neurogenic claudication; S32.020A Wedge compression fracture of second lumbar vertebra, initial encounter for closed fracture; S76.311A Strain of muscle, fascia and tendon of the posterior muscle group at thigh level, right thigh, initial encounter; R29.6 Repeated falls; X58.XXXA Exposure to other specified factors, initial encounter
CPT/HCPCS: 72148; 73721

== ENCOUNTER 2024-10-08 14:55 | Inpatient (IN) | payer MEDICARE, SELFPAY ==
--- NOTE | ~2024-10-08 | XR_ITS ---
EXAMINATION: XR surgery orthopedic DATE: 10/09/2024 15:04 INDICATION: Right hip intertrochanteric nailing TECHNIQUE: 4 fluoroscopic images of the right hip and proximal femur were obtained during procedure p erformed by Dr. Gonzalez. Radiologist was not present for the imaging or procedure. The amount of flu oroscopy time used during this procedure was 1.4 minutes. Total DAP was 2.45 Gycm^2. COMPARISON: Radiographs dated 10/08/2024 FINDINGS: Antegrade intramedullary guillermina and femoral neck dynamic compression screw fixation of the proximal righ t femur. The right greater trochanteric fracture fragment remains minimally displaced in near-anatomi c alignment. Mild osteoarthritis at the right hip. No other fractures identified. Surgical clips in t he medial subcutaneous tissues of the right thigh. IMPRESSION: 1. Fluoroscopy utilized during internal fixation of the proximal right femoral fracture which is in n ear-anatomic alignment. See procedure note for further detail. Reviewed, dictated and finalized at location A. IMPRESSION: 1. Fluoroscopy utilized during internal fixation of the proximal right femoral fracture which is in near-anatomic alignment. See procedure note for further de tail.
--- NOTE | ~2024-10-08 | CT_ITS ---
CT brain wo con Ordering provider: Lazaro Guzman MD History: 74 years Female with . Fall . Comparison: None. Technique: CT of the head without contrast. Radiation reduction technique utilized.The dose-length pr oduct was 605.33 mGy-cm. FINDINGS: BRAIN PARENCHYMA AND CSF SPACES: Mild leukoaraiosis and diffuse cortical atrophy. Mild atheromatous d isease. No midline shift, mass effect or hemorrhage. The brain parenchyma and CSF spaces are otherwi se normal. VISUALIZED PARANASAL SINUSES: Well aerated. MASTOIDS: Well aerated. BONES: The bones appear intact. Bifid posterior arch of C1. SOFT TISSUES: Visualized nasopharynx is normal. Superficial soft tissues are normal. IMPRESSION: No acute intracranial findings. Reviewed, dictated and finalized at location A.
--- NOTE | ~2024-10-08 | XR_ITS ---
XR hip RT 2V w AP pelvis Ordering provider: Stevie Connelly MD History: . fall . Comparison: October 02, 2024 FINDINGS: BONES: Highly suggestive fracture in the right intertrochanteric area is noted. HIP JOINT SPACES: Normal. Bilateral moderate narrowing. SACROILIAC JOINT SPACES/LUMBAR SPINE: The sacroiliac joint spaces are normal. Mild degenerative huitron es of the visualized lower lumbar spine. PUBIC SYMPHYSIS: Normal. SOFT TISSUES: Normal. IMPRESSION: Highly suggestive right intertrochanteric fracture. CT confirmation is advised. Bilateral hip moderate osteoarthritic changes. Reviewed, dictated and finalized at location A.
--- NOTE | ~2024-10-08 | XR_ITS ---
XR chest 1V portable Ordering provider: Lazaro Guzman MD History: 74 years Female with . Pre-op . Comparison: February 03, 2024 FINDINGS: MEDIASTINUM: The cardiac silhouette is not enlarged. LUNGS: No infiltrates, effusions or pneumothorax. OTHER: No free air under the diaphragm. Degenerative changes of the spine. IMPRESSION: No acute cardiopulmonary pathology. Reviewed, dictated and finalized at location A.
--- NOTE | ~2024-10-08 | CT_ITS ---
CT pelvis wo con Ordering provider: Lazaro Guzman MD History: . Eval R hip fracture . Comparison: None. Technique: CT pelvis without oral and IV contrast. . Automated exposure control and iterative recons truction technique were employed. The dose-length product was 123.58 mGy-cm. Findings: BONES: Fracture is seen in the right greater trochanter and also in the area of the lesser trochanter . Extension between the 2 fractures cannot be excluded. Age appropriate degenerative changes of the visualized lower lumbar spine. The bilateral hip osteoart hritic changes and bilateral sacroiliacs. Pubic symphysitis is noted. SUPERFICIAL SOFT TISSUES: Normal. PELVIC ORGANS: The bladder is normal. VISUALIZED BOWEL AND MESENTERY: Normal. No free air or free fluid. No lymphadenopathy. RETROPERITONEUM: Mild atheromatous disease. IMPRESSION: Fracture in the area of the right greater trochanter with highly suggestive fracture in the lesser tr ochanter. Other appearances as described above. Reviewed, dictated and finalized at location A. IMPRESSION: Fracture in the area of the right greater trochanter with highly suggestive fra cture in the lesser trochanter. Other appearances as described above.
--- OUTSIDE RECORDS SUMMARY | 2024-10-08 15:00 | XMS_ITS | Clinical Summary ---
Author Organization [facility] Address [address] [facility] Attn: Epic Prelude ADT AALIYAH ROMERO [address] Care Team Providers Care Fish Roe Processor Name Role Phone Unavailable Primary Care Provider Unavailabl e Social History Tobacco Use Types Packs/Day Years Used Date Smoking Tobacco: Never Assessed Comments Unknown Sex and Gender Information Value Date Recorded Sex Assigned at Not on file Legal Sex Female 5:02 AM ESTHETICIAN Gender Identity Not on file Sexual Orientation Not on file Plan of Treatment Health Maintenance Due Date Last Done Comments DTAP/TDAP/TD VACCINES (1 - Tdap) 01/14/1968 COLORECTAL SCREENING 1994 Colorectal Cancer Screening 1994 FIT-DNA Q 3 years 1994 FIT/FOBT Q 1 year 1994 Flex Sig/CT Colonography Q 5 years 1994 PNEUMOCOCCAL VACCINE 50+ YEARS (1 of 1 - PCV) 01/13/19 99 ZOSTER VACCINE (1 of 2) 1999 OSTEOPOROSIS SCREENING 2014 INFLUENZA VACCINE (#1) 2023 RSV VACCINE (60+ or ) (1 - 1-dose 75+ series) 01/14/2024
--- OUTSIDE RECORDS SUMMARY | 2024-10-08 15:00 | XMS_ITS | Encounter Summary ---
Author Organization [facility] [employer] Address [address] [place] [address] Care Team Providers Care Poiser Balance Name Role Phone Unavailable Primary Care Provider Unavailabl e Encounter Details Date Type Department Care Team (Late st Contact Info) Description 11/27/2002 Outpatient [facility] [address] [facility] [place] [facility] [place] [address] Shahbaz Bland MD [address] [address] SWELLING OF LIMB (Primary Dx) Social History Tobacco Use Types Packs/Day Years Used Date Smoking Tobacco: Never Assessed Comments Unknown Sex and Gender Information Value Date Recorded Sex Assigned at Not on file Legal Sex Female 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
--- OUTSIDE RECORDS SUMMARY | 2024-10-08 15:00 | XMS_ITS | Clinical Summary ---
Author Organization [facility] Address [address] [place] [address] Care Team Providers Care Teleservices Representative Name Role Phone Fredy Puri MD Primary Care Provider [phone] Allergies Active Allergy Reactions Criticality Noted Date [...] times a day 10/25/19 20 Active omega 4-ahj-phq-fish oil 1,200 (144-216) mg capsuleIndicatio ns:hypertriglyce ridemia Take 1 capsule by mouth contact acid plant operator helper before breakfast 09/11/19 20 Active multivitamin-iro n-folic acid (Centrum Complete) 18-400 mg-mcg tabletIndication s:Vitamin Deficiency Prevention Take 1 tablet by mouth contact acid plant operator helper before breakfast 05/14/19 20 Active furosemide (LASIX) 20 mg tabletIndication s:Edema Take 20 mg by mouth as needed 11/10/19 20 Active Synthroid 150 mcg tabletIndication s:hypothyroidism Take 150 mcg by mouth contact acid plant operator helper before breakfast 11/29/19 20 Active Jardiance 25 mg tabletIndication s:type 2 diabetes mellitus Take 25 mg by mouth contact acid plant operator helper before breakfast 01/20/20 20 Active insulin aspart [...] Active bran/gum/fib/abdiaziz /psyl/kelp/pec (FIBER 6 ORAL) 04/01/20 Active busPIRone (BUSPAR) 10 mg tablet Take 10 mg by mouth 2 (two) times a day 04/12/20 Active docusate sodium (COLACE) 100 mg capsule 04/01/20 Active traMADoL (ULTRAM) 50 mg tablet Take 50 mg by mouth 4 (four) times a day as needed 03/28/20 Active triamcinolone (KENALOG) 0.5 % cream 05/15/19 [...] (08/11/2021): Added automatically from request for surgery [id number] Regurgitation of food 08/11/2021 Overview (08/11/2021): Added automatically from request for surgery [id number] Status post gastric bypass for obesity Overview (07/18/2020): Added automatically from request for surgery [id number] Abdominal pannus 03/30/2020 Overview (03/30/2020): Added automatically from request for surgery [id number] Encounter for long-term (current) use of other m edications 12/17/2019 Urinary tract infection 12/17/2019 Epigastric pain 05/31/2019 Overview (06/01/2019): Added automatically from request for surgery [id number] MYESHA (acute kidney injury) ([facility]) 02/28/2019 Type 2 diabetes mellitus 02/28/2019 Severe malnutrition 02/21/2019 Nausea and vomiting 02/20/2019 Overview (02/21/2019): Added automatically from request for surgery [id number] Morbid obesity 09/11/2018 Benign essential hypertension 04/15/2010 [...] (11/01/2018): Added automatically from request for surgery [id number] Immunizations Immunization Administration Dates Next Due Influenza, Trivalent, High [...] on file Legal Sex Female 8:10 PM PRINCIPAL DATABASE DEVELOPER Gender Identity Not on file Sexual Orientation [...] Fall Risk Assessment 08/31/2022 08/31/2021 Influenza Vaccine (Season Ended) 2025 03/19/2019, 02/11/2018, 02/14/2017, Additional history exists Pneumococcal vaccine 65+ Completed 03/19/2018, 06/2016 Medical Devices Implanted Type Area Director Of Collections Device Identifier Shelf Expiration Date Model / Serial / Lot Other - See Comments Other - see comments Bilyadiraa l: Knee Description:Double knee repl acement Procedures Procedure Name Priority Date/Time Associated Diagnosis Comments HEMOGLOBIN A1C Timed 06/01/2019 3:42 AM PRINCIPAL DATABASE DEVELOPER LIPID PANEL Timed 06/01/2019 3:42 AM PRINCIPAL DATABASE DEVELOPER EGFR Routine 01/21/2019 2:50 AM CDT from Last 3 Months or Most Recently Relevant to Health Maintenance Results * (ABNORMAL) Hemoglobin A1c (06/01/2019 3:42 AM PRINCIPAL DATABASE DEVELOPER) Hgb A1C 7.3(H) 4.0 - 5.6 % [facility] Estimated Average Glucose 163 mg/dL [facility] Comment: The ADA recommends reporting an estimated Average Glucose (eAG) with all Hemoglobin A1c results using the equation derived from a study of 507 normal and diabetic adults. Minority populations were underrepresented and children were not included. (Diabetes Care 31:5599-7060, 2008). The eAG is not equivalent to a fasting glucose. Blood specimen (specimen) 06/01/2019 3:42 AM PRINCIPAL DATABASE DEVELOPER 06/01/2019 4:24 AM PRINCIPAL DATABASE DEVELOPER us Jesus Gallegos MD LAB BLOOD ORDERABLES Final Res ult [facility] Department [place] [address] * Lipid panel (06/01/2019 3:42 AM PRINCIPAL DATABASE DEVELOPER) Cholesterol 88 30 - 199 mg/dL [facility] Comment: Interpretive Data Ages < or = [...] revised on 2018. Triglycerides 117 <=149 mg/dL [facility] Comment: Interpretive Data Ages < or = [...] revised on 2018. HDL 44 >=40 mg/dL [facility] Comment: Interpretive Data Ages < or [...] on 2018. LDL, calculated 21 <=129 mg/dL [facility] Comment: Interpretive Data Ages < or [...] revised on 2018. Non-HDL Cholesterol 44 mg/dL [facility] Comment: Interpretive Data Ages < or = [...] last revised on 2018. Chol/HDL ratio 2 [facility] Blood specimen (specimen) 06/01/2019 3:42 AM PRINCIPAL DATABASE DEVELOPER 06/01/2019 4:21 AM PRINCIPAL DATABASE DEVELOPER us Jesus Gallegos MD LAB BLOOD ORDERABLES Final Res ult [facility] Department [place] [address] * eGFR (01/21/2019 2:50 AM CDT) eGFR >60 mL/min/1.7 3 m2 [facility] Comment: Interpretive Data Reference Interval Normal >/= 90 mL/min/1.73m2 Mildly decreased* 60 - 89 mL/min/1.73m2 Mildly to moderately decreased 45 - 59 mL/min/1.73m2 Moderately to severely decreased 30 - 44 mL/min/1.73m2 Severely decreased 15 - 29 mL/min/1.73m2 Kidney Failure < 15 mL/min/1.73m2 *Relative to young adult level If -French multiply value by 1.16. Estimated glomerular filtration [...] MD LAB BLOOD ORDERABLES Final Resu lt [facility] [address] [facility] [address] from Last 3 Months or Most Recently Relevant to Health Maintenance Insurance [employer] MEDICARE PPO [employer] MEDICARE PPO HUMANA CHOICE MEDICARE PPO Advance Directives For more information, please contact: [phone] * Full Code (Latest Code Status on [...] 2:11 PM 01/22/2019 9:34 PM Care Teams Teleservices Representative Relationship Specialty Start Date End Date Fredy Puri MD [address] [facility] [address] [place] [phone] PCP - General 10/17/12
--- OUTSIDE RECORDS SUMMARY | 2024-10-08 15:00 | XMS_ITS | Encounter Summary ---
Author Organization [facility] Healthcare Address [address] [place] [address] Care Team Providers Care Can Closing Machine Tender Name Role Phone Fredy Puri MD Primary Care Provider [phone] Encounter Details Date Type Department Care Team (Late st Contact Info) Description 01/23/2019 Documentation [facility] Case Management [address] [address] Brandee Graham RN Social History Tobacco Use Types Packs/Day Years Used Date Smoking Tobacco: Former Cigarettes 1 29 1 969 - 1998 Smokeless Tobacco: Never Alcohol Use Standard Drinks/Week Comments Never 0 (1 standard drink = 0.6 oz pur e alcohol) AUDIT-C Answer Date Recorded Frequency of Alcohol Consumption Never 09/11/2018 Average Number of Drinks Not on file 019 Frequency of Binge Drinking Not on file 0505/2018 Comments No Sex and Gender Information Value Date Recorded Sex Assigned at Not on file 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
--- OUTSIDE RECORDS SUMMARY | 2024-10-08 15:00 | XMS_ITS | Referral Summary ---
Author Organization [facility] Address [address] [place] [address] Care Team Providers Care Brick Stacker Name Role Phone Fredy Puri MD Primary Care Provider [phone] Allergies Active Allergy Reactions Criticality Noted Date [...] times a day 10/25/19 20 Active omega 1-eoo-xqs-fish oil 1,200 (144-216) mg capsuleIndicatio ns:hypertriglyce ridemia Take 1 capsule by mouth early childhood education worker before breakfast 09/11/19 20 Active multivitamin-iro n-folic acid (Centrum Complete) 18-400 mg-mcg tabletIndication s:Vitamin Deficiency Prevention Take 1 tablet by mouth early childhood education worker before breakfast 05/14/19 20 Active furosemide (LASIX) 20 mg tabletIndication s:Edema Take 20 mg by mouth as needed 11/10/19 20 Active Synthroid 150 mcg tabletIndication s:hypothyroidism Take 150 mcg by mouth early childhood education worker before breakfast 11/29/19 20 Active Jardiance 25 mg tabletIndication s:type 2 diabetes mellitus Take 25 mg by mouth early childhood education worker before breakfast 01/20/20 20 Active insulin aspart [...] (08/11/2021): Added automatically from request for surgery [id number] Regurgitation of food 08/11/2021 Overview (08/11/2021): Added automatically from request for surgery [id number] Status post gastric bypass for obesity Overview (07/18/2020): Added automatically from request for surgery [id number] Abdominal pannus 03/30/2020 Overview (03/30/2020): Added automatically from request for surgery [id number] Encounter for long-term (current) use of other m edications 12/17/2019 Urinary tract infection 12/17/2019 Epigastric pain 05/31/2019 Overview (06/01/2019): Added automatically from request for surgery [id number] MYESHA (acute kidney injury) ([facility]) 02/28/2019 Type 2 diabetes mellitus 02/28/2019 Severe malnutrition 02/21/2019 Nausea and vomiting 02/20/2019 Overview (02/21/2019): Added automatically from request for surgery [id number] Morbid obesity 09/11/2018 Benign essential hypertension 04/15/2010 [...] (11/01/2018): Added automatically from request for surgery [id number] Immunizations Immunization Administration Dates Next Due Influenza, [...] on file Legal Sex Female 8:10 PM TIRE LAYER Gender Identity Not on file Sexual Orientation [...] on file Medical Devices Implanted Type Area Security Patrol Driver Device Identifier Shelf Expiration Date Model / Serial / Lot Other - See Comments Other - see comments Bilatera l: Knee Description:Double knee repl acement Procedures Procedure Name Priority Date/Time Associated Diagnosis Comments HEMOGLOBIN A1C Timed 06/01/2019 3:42 AM TIRE LAYER LIPID PANEL Timed 06/01/2019 3:42 AM TIRE LAYER EGFR Routine 01/21/2019 2:50 AM CDT from Last 3 Months or Most Recently Relevant to Health Maintenance Results * (ABNORMAL) Hemoglobin A1c (06/01/2019 3:42 AM TIRE LAYER) Hgb A1C 7.3(H) 4.0 - 5.6 % [facility] Estimated Average Glucose 163 mg/dL [facility] Comment: The ADA recommends reporting an estimated Average Glucose (eAG) with all Hemoglobin A1c results using the equation derived from a study of 507 normal and diabetic adults. Minority populations were underrepresented and children were not included. (Diabetes Care 31:6125-3437, 2008). The eAG is not equivalent to a fasting glucose. Blood specimen (specimen) 06/01/2019 3:42 AM TIRE LAYER 06/01/2019 4:24 AM TIRE LAYER us Jesus Gallegos MD LAB BLOOD ORDERABLES Final Res ult [facility] Department [place] [address] * Lipid panel (06/01/2019 3:42 AM TIRE LAYER) Cholesterol 88 30 - 199 mg/dL [facility] Comment: Interpretive Data Ages < or = [...] revised on 2018. Triglycerides 117 <=149 mg/dL [facility] Comment: Interpretive Data Ages < or [...] on 2018. HDL 44 >=40 mg/dL [facility] Comment: Interpretive Data Ages < or [...] 2018. LDL, calculated 21 <=129 mg/dL [facility] Comment: Interpretive Data Ages < or [...] on 2018. Non-HDL Cholesterol 44 mg/dL [facility] Comment: Interpretive Data Ages < or [...] last revised on 2018. Chol/HDL ratio 2 [facility] Blood specimen (specimen) 06/01/2019 3:42 AM TIRE LAYER 06/01/2019 4:21 AM TIRE LAYER us Jesus Gallegos MD LAB BLOOD ORDERABLES Final Res ult [facility] Department [place] [address] * eGFR (01/21/2019 2:50 AM CDT) eGFR >60 mL/min/1.7 3 m2 [facility] Comment: Interpretive Data Reference Interval Normal >/= 90 mL/min/1.73m2 Mildly decreased* 60 - 89 mL/min/1.73m2 Mildly to moderately decreased 45 - 59 mL/min/1.73m2 Moderately to severely decreased 30 - 44 mL/min/1.73m2 Severely decreased 15 - 29 mL/min/1.73m2 Kidney Failure < 15 mL/min/1.73m2 *Relative to young adult level If -Nicaraguan multiply value by 1.16. Estimated glomerular filtration [...] BLOOD ORDERABLES Final Resu lt [facility] [address] [facility] [address] from Last 3 Months or Most Recently Relevant to Health Maintenance Insurance HUMANA CHOICE MEDICARE PPO HUMANA CHOICE MEDICARE PPO HUMANA CHOICE MEDICARE PPO Advance Directives For more information, please contact: [phone] * Full Code (Latest Code Status on [...] 2:11 PM 01/22/2019 9:34 PM Care Teams Brick Stacker Relationship Specialty Start Date End Date Fredy Puri MD [address] [facility] [address] [address] [facility] [address] [place] [address] PCP - General 10/17/12
--- OUTSIDE RECORDS SUMMARY | 2024-10-08 15:00 | XMS_ITS | Continuity of Care Document ---
Author Organization [facility] Address [id number] [place] [address] [address] [place] [address] Phone Care Team Providers Care Aws Developer Name Role Phone Jonny Fuchs DO Unavailable Unavailable Advance Directives Directive Yes / No Effective Date File Name No Information Encounters Encounter Description Practice Location Reason(s) For Visit Diagnoses Date Provider Providers Copied on Encounter [facility], [address], [place], [place], [id number], [place] tel:[phone] [facility] No Information Shila Fabian. [address] [place], [address], [place]. tel: [phone] Family History Family Member Type Diagnosis Age At Onset No Information Payers Payer name Insurance type Covered libertarian ID Authoriza tion(s) No Information Social History [...]
--- OUTSIDE RECORDS SUMMARY | 2024-10-08 15:00 | XMS_ITS | Continuity of Care Document ---
Author Organization [facility] Address [address] [place] [address] [address] [place] [address] Phone Care Team Providers Care Business English Instructor Name Role Phone Panfilo Cullen MD, MD [...] Provider Providers Copied on Encounter [facility], [address] [place], [place] [address] [address], [place], [place], [id number], [place] tel:[phone] [facility] No Information 5 Subhash Whittaker. [address], [place], [place], [id number], [place]. tel:[phone] Referring Provider: Panfilo Parnell, [address], [place], [address] . tel:[phone] [facility], [address] [place] [address], [id number], tel:[phone] [facility] No Information 5 Subhash Whittaker. [address], [place], [place], [id number], [place]. tel:[phone] Referring Provider: Panfilo Parnell, [address], [place], [address] . tel:[phone] OFFICE/OUTPA TIENT VISIT, [facility], [address] [place] [address], [id number], [place] tel:[phone] [facility] No Information 5 Subhash Whittaker. [address], [place], [place], [id number], [place]. tel:[phone] Referring Provider: Panfilo Parnell, [address], [place], [address] . tel:[phone] [facility], [address] [place] [address], [id number], [place] tel:[phone] [facility] No Information 4 Ale Reyes. [address], [place], [place], [id number], [place]. tel:[phone] Referring Provider: Haydee Pichardo, [address], [place], [address] . tel:[phone] [facility], [address] [place] [address], [id number], [place] tel:[phone] [facility] No Information 4 Jose Hubbard. [address], [address], [place], [place], [id number], [place]. tel:[phone] Referring Provider: Haydee Pichardo, [address], [place], [address] . tel:[phone] [facility], [address] [place] [address], [id number], tel:[phone] [facility] vision is improved, but still blurry OS (chief complaint)n o sharp pain, irritation off and on OS (chief complaint) No Information 4 Jose Hubbard. [address], [address], [place], [place], [id number], [place]. tel:[phone] Referring Provider: Haydee Pichardo, [address], [place], [address] . tel:[phone] [facility], [address] [place] [address], [id number], tel:[phone] [facility] No Information 4 Subhash Whittaker. [address], [place], [place], [id number], [place]. tel:[phone] Referring Provider: Panfilo Cullen MD P, [address], [place], [address] . tel:[phone] [facility], [address] [place] [address], [id number], [place] tel:[phone] [facility] foreign body sensation OD (chief complaint) No Information 4 Sowmya OD Lucy. [address], [place], [place], [id number], [place]. tel:[phone] Referring Provider: Lucy Deng OD, [address], [place], [address] . tel:[phone] [facility], [address] [place] [address], [id number], tel:[phone] [facility] No Information 4 Sowmya OD Lucy. [address], [place], [place], [id number], [place]. tel:[phone] Referring Provider: Lucy Mcnealdeepa OD, [address], [place], [address] . tel:[phone] [facility], [address] [place] [address], [id number], tel:[phone] [facility] [place] No Information 4 Subhash Whittaker. [address], [address], [address], [place]. tel:[phone] Referring Provider: Panfilo Cullen MD P, [address], [place], [address] . tel:[phone] [facility], [address] [place] [address], [id number], tel:[phone] [facility] No Information 4 Subhash Whittaker. [address], [address], [place], [place], [id number], [place]. tel:[phone] Referring Provider: Panfilo Cullen MD P, [address], [place], [address] . tel:[phone] OFFICE/OUTPA TIENT VISIT, [facility], [address] [place] [address], [id number], [place] tel:[phone] [facility] No Information 4 Subhash Whittaker. [address], [address], [id number], [place]. tel:[phone] Referring Provider: Panfilo Cullen MD P, [address] [facility] [address], [place], [address] . tel:[phone] Family History Family Member Type Diagnosis Age At Onset No Information Payers Payer name Insurance type Covered libertarian ID Authoriza titerry(s) [facility] [id number] Medicare SECONDARY MB [id number] Social History Type Description Quantity Date Captured [...] body sensation foreign b emily sensation OD Functional Status Date Functional Assessmen t No Information Instructions Date Instruction Additional Infor mation - RTO 1 month for final refracti on Related to Cataract 1 day, 2nd eye - Refer by Dr. Christopher sood [facility].Standard lens: mild mono-OS Related to Cataract 1 day, 2nd eye Assessments Type Assessment Date No Information Patient Care Teams Name Effective Dates (start - stop) Status Members No Information
[2024-10-08 15:14] VITALS: BP 114/68; PULSE 88; RESP 16; TEMP 36.4; O2SAT 98
--- OUTSIDE RECORDS SUMMARY | 2024-10-08 16:13 | XMS_ITS | Clinical Summary ---
Author Organization [employer] 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
--- OUTSIDE RECORDS SUMMARY | 2024-10-08 16:13 | XMS_ITS | Encounter Summary ---
Author Organization [email or web address] Address [address] [place] [address] Care Team Providers Care Hospital Supervisor Name Role Phone Unavailable Primary Care Provider Unavailabl e Encounter Details Date Type Department Care Team (Late st Contact Info) Description 11/27/2002 Outpatient [facility] [address] [facility] [place] [address] [place] [address] Shahbaz Bland MD [address] [address] SWELLING OF LIMB (Primary Dx) Social History Tobacco Use Types Packs/Day Years Used Date Smoking Tobacco: Never Assessed Comments Unknown Sex and Gender Information Value Date Recorded Sex Assigned at Not on file Legal Sex Female 5:02 AM SHADE CLASSIFIER Gender Identity Not on file Sexual Orientation Not on file documented as of this encounter Plan of Treatment Not on file documented as of this encounter Visit Diagnoses Diagnosis Swelling of limb- Primary documented in this encounter
--- OUTSIDE RECORDS SUMMARY | 2024-10-08 16:13 | XMS_ITS | Referral Summary ---
Author Organization [facility] Address [address] [place] [address] Care Team Providers Care Sock Knitter Name Role Phone Fredy Puri MD Primary Care Provider [phone] Allergies Active Allergy Reactions Criticality Noted Date [...] times a day 10/25/19 20 Active omega 8-dag-nuu-fish oil 1,200 (144-216) mg capsuleIndicatio ns:hypertriglyce ridemia Take 1 capsule by mouth private branch exchange installer before breakfast 09/11/19 20 Active multivitamin-iro n-folic acid (Centrum Complete) 18-400 mg-mcg tabletIndication s:Vitamin Deficiency Prevention Take 1 tablet by mouth private branch exchange installer before breakfast 05/14/19 20 Active furosemide (LASIX) 20 mg tabletIndication s:Edema Take 20 mg by mouth as needed 11/10/19 20 Active Synthroid 150 mcg tabletIndication s:hypothyroidism Take 150 mcg by mouth private branch exchange installer before breakfast 11/29/19 20 Active Jardiance 25 mg tabletIndication s:type 2 diabetes mellitus Take 25 mg by mouth private branch exchange installer before breakfast 01/20/20 20 Active insulin aspart [...] (08/11/2021): Added automatically from request for surgery [id number] Regurgitation of food 08/11/2021 Overview (08/11/2021): Added automatically from request for surgery [id number] Status post gastric bypass for obesity Overview (07/18/2020): Added automatically from request for surgery [id number] Abdominal pannus 03/30/2020 Overview (03/30/2020): Added automatically from request for surgery [id number] Encounter for long-term (current) use of other m edications 12/17/2019 Urinary tract infection 12/17/2019 Epigastric pain 05/31/2019 Overview (06/01/2019): Added automatically from request for surgery [id number] MYESHA (acute kidney injury) ([facility]) 02/28/2019 Type 2 diabetes mellitus 02/28/2019 Severe malnutrition 02/21/2019 Nausea and vomiting 02/20/2019 Overview (02/21/2019): Added automatically from request for surgery [id number] Morbid obesity 09/11/2018 Benign essential hypertension 04/15/2010 [...] (11/01/2018): Added automatically from request for surgery [id number] Immunizations Immunization Administration Dates Next Due Influenza, [...] on file Legal Sex Female 8:10 PM ORACLE EBS DEVELOPER Gender Identity Not on file Sexual [...] on file Medical Devices Implanted Type Area Bag Making Machine Operator Device Identifier Shelf Expiration Date Model / Serial / Lot Other - See Comments Other - see comments Bilatera l: Knee Description:Double knee repl acement Procedures Procedure Name Priority Date/Time Associated Diagnosis Comments HEMOGLOBIN A1C Timed 06/01/2019 3:42 AM ORACLE EBS DEVELOPER LIPID PANEL Timed 06/01/2019 3:42 AM ORACLE EBS DEVELOPER EGFR Routine 01/21/2019 2:50 AM CDT from Last 3 Months or Most Recently Relevant to Health Maintenance Results * (ABNORMAL) Hemoglobin A1c (06/01/2019 3:42 AM ORACLE EBS DEVELOPER) Hgb A1C 7.3(H) 4.0 - 5.6 % MIC[facility]LE [facility] Estimated Average Glucose 163 mg/dL [facility] Comment: The ADA recommends reporting an estimated Average Glucose (eAG) with all Hemoglobin A1c results using the equation derived from a study of 507 normal and diabetic adults. Minority populations were underrepresented and children were not included. (Diabetes Care 31:9011-0821, 2008). The eAG is not equivalent to a fasting glucose. Blood specimen (specimen) 06/01/2019 3:42 AM ORACLE EBS DEVELOPER 06/01/2019 4:24 AM ORACLE EBS DEVELOPER us Jesus Gallegos MD LAB BLOOD ORDERABLES Final Res ult MICHELE [facility] Department [place] [address] * Lipid panel (06/01/2019 3:42 AM ORACLE EBS DEVELOPER) Cholesterol 88 30 - 199 mg/dL [...] on 2018. Triglycerides 117 <=149 mg/dL [facility] Comment: Interpretive Data Ages < or [...] on 2018. HDL 44 >=40 mg/dL [facility] Comment: Interpretive Data Ages < or [...] 2018. LDL, calculated 21 <=129 mg/dL [facility] Comment: Interpretive Data Ages < or [...] on 2018. Non-HDL Cholesterol 44 mg/dL MIC[facility] Comment: Interpretive Data Ages < or [...] last revised on 2018. Chol/HDL ratio [address] [facility] [facility] Blood specimen (specimen) 06/01/2019 3:42 AM ORACLE EBS DEVELOPER 06/01/2019 4:21 AM ORACLE EBS DEVELOPER us Jesus Gallegos MD LAB BLOOD ORDERABLES Final Res ult [facility] [place] [address] * eGFR (01/21/2019 2:50 AM CDT) eGFR >60 mL/min/1.7 3 m2 [facility] Comment: Interpretive Data Reference Interval Normal >/= 90 mL/min/1.73m2 Mildly decreased* 60 - 89 mL/min/1.73m2 Mildly to moderately decreased 45 - 59 mL/min/1.73m2 Moderately to severely decreased 30 - 44 mL/min/1.73m2 Severely decreased 15 - 29 mL/min/1.73m2 Kidney Failure < 15 mL/min/1.73m2 *Relative to young adult level If -Finnish multiply value by 1.16. Estimated glomerular filtration [...] BLOOD ORDERABLES Final Resu lt [facility] [address] [facility] [place] [address] from Last 3 Months or Most Recently Relevant to Health Maintenance Insurance HUMANA CHOICE MEDICARE PPO HUMANA CHOICE MEDICARE PPO HUMANA CHOICE MEDICARE PPO Advance Directives For more information, please contact: [phone] * Full Code (Latest Code Status on [...] 2:11 PM 01/22/2019 9:34 PM Care Teams Sock Knitter Relationship Specialty Start Date End Date Fredy Puri MD [address] [facility] [address] [facility] [address] [place] [address] PCP - General 10/17/12
--- OUTSIDE RECORDS SUMMARY | 2024-10-08 16:13 | XMS_ITS | Continuity of Care Document ---
Author Organization [facility] Address [address] [place] [address] [address] [place] [address] Phone Care Team Providers Care Last Greaser Name Role Phone Jonny Fuchs DO Unavailable Unavailable Advance Directives Directive Yes / No Effective Date File Name No Information Encounters Encounter Description Practice Location Reason(s) For Visit Diagnoses Date Provider Providers Copied on Encounter [facility], [address], [place], [place], [id number], [place] tel:[phone] [facility] No Information Shila Fabian. [address] [place], [address], [place]. tel: [phone] Family History Family Member Type Diagnosis Age At Onset No Information Payers Payer name Insurance type Covered alliance party ID Authoriza tion(s) No Information Social [...]
--- OUTSIDE RECORDS SUMMARY | 2024-10-08 16:13 | XMS_ITS | Continuity of Care Document ---
Author Organization [facility] Address [address] [place] [address] [address] [place] [address] Phone Care Team Providers Care Eeg Technician Name Role Phone Panfilo Cullen MD, MD [...] Provider Providers Copied on Encounter [facility] [place] [facility], [address] [place], [place] [address] [address], [place], [place], [id number], [place] tel:[phone] [facility] No Information 5 Subhash Whittaker. [address], [place], [place], [id number], [place]. tel:[phone] Referring Provider: Panfilo Parnell, [address], [place], [address] . tel:[phone] [facility] [place] [facility], [address] [place] [address], [id number], tel:[phone] [facility] No Information 5 Subhash Whittaker. [address], [place], [place], [id number], [place]. tel:[phone] Referring Provider: Panfilo Parnell, [address], [place], [address] . tel:[phone] OFFICE/OUTPA TIENT VISIT, [facility] [place] [facility], [address] [place] [address], [id number], [place] tel:[phone] [facility] No Information 5 Subhash Whittaker. [address], [address], [place], [place], [id number], [place]. tel:[phone] Referring Provider: Panfilo Parnell, [address], [place], [address] . tel:[phone] [facility] [place] [facility], [address] [place] [address], [id number], [place] tel:[phone] [facility] No Information 4 Ale Reeys. [address], [address], [place], [place], [id number], [place]. tel:[phone] Referring Provider: Haydee Pichardo, [address], [place], [address] . tel:[phone] [facility] [place] [facility], [address] [place] [address], [id number], [place] tel:[phone] [facility] No Information 4 Jose Hubbard. [address], [address], [place], [place], [id number], [place]. tel:[phone] Referring Provider: Haydee Pichardo, [address], [place], [address] . tel:[phone] [facility], [address] [place] [address], [id number], tel:[phone] [facility] vision is improved, but still blurry OS (chief complaint)n o sharp pain, irritation off and on OS (chief complaint) No Information 4 Jose Hubbard. [address], [address], [place], [place], [id number], [place]. tel:[phone] Referring Provider: Haydee Pichardo, [address], [place], [address] . tel:[phone] [facility], [address] [place] [address], [id number], tel:[phone] [facility] No Information 4 Subhash Whittaker. [address], [address], [place], [place], [id number], [place]. tel:[phone] Referring Provider: Panfilo Cullen MD P, [address], [place], [address] . tel:[phone] [facility], [address] [place] [address], [id number], [place] tel:[phone] [facility] SN[facility]ER foreign body sensation OD (chief complaint) No Information 4 Sowmya OD Lucy. [address], [address], [place], [place], [id number], [place]. tel:[phone] Referring Provider: Lucy Deng OD, [address], [place], [address] . tel:[phone] [facility], [address] [place] [address], [id number], tel:[phone] [facility] No Information 4 Sowmya OD Lucy. [address], [place], [place], [id number], [place]. tel:[phone] Referring Provider: Lucy Mcnealdeepa OD, [address], [place], [address] . tel:[phone] [facility], [address] [place] [address], [id number], tel:[phone] [facility] No Information 4 Subhash Whittaker. [address], [address], [address], [place]. tel:[phone] Referring Provider: Panfilo Cullen MD P, [address], [place], [address] . tel:[phone] [facility], [address] [place] [address], [id number], tel:[phone] [facility] No Information 4 Subhash Whittaker. [address], [address], [place], [place], [address], [place]. tel:[phone] Referring Provider: Panfilo Cullen MD P, [address], [place], [address] . tel:[phone] OFFICE/OUTPA TIENT VISIT, [facility], [address] [place] [address], [id number], [place] tel:[phone] [facility] No Information 4 Subhash Whittaker. [address], [address], [place], [id number], [place]. tel:[phone] Referring Provider: Panfilo Cullen MD P, [address] [facility] [address], [place], [address] . tel:[phone] Family History Family Member Type Diagnosis Age At Onset No Information Payers Payer name Insurance type Covered green party ID Authoriza titerry(s) [facility] [id number] Medicare SECONDARY MB [id number] Social History Type Description Quantity Date Captured [...] No Information Instructions Date Instruction Additional Infor matyang - Refer by Dr. Christopher sood [facility].Standard lens: mild mono-OS Related to Cataract 1 day, 2nd eye - RTO 1 month for final refracti on Related to Cataract 1 day, 2nd eye Assessments Type Assessment Date No Information Patient Care Teams Name Effective Dates (start - stop) Status Members No Information
--- OUTSIDE RECORDS SUMMARY | 2024-10-08 16:13 | XMS_ITS | Clinical Summary ---
Author Organization [facility] Address [address] [place] [address] Care Team Providers Care Sweatband Perforator Name Role Phone Fredy Puri MD Primary Care Provider [phone] Allergies Active Allergy Reactions Criticality Noted Date [...] times a day 10/25/19 20 Active omega 7-rqe-awk-fish oil 1,200 (144-216) mg capsuleIndicatio ns:hypertriglyce ridemia Take 1 capsule by mouth auto bench mechanic before breakfast 09/11/19 20 Active multivitamin-iro n-folic acid (Centrum Complete) 18-400 mg-mcg tabletIndication s:Vitamin Deficiency Prevention Take 1 tablet by mouth auto bench mechanic before breakfast 05/14/19 20 Active furosemide (LASIX) 20 mg tabletIndication s:Edema Take 20 mg by mouth as needed 11/10/19 20 Active Synthroid 150 mcg tabletIndication s:hypothyroidism Take 150 mcg by mouth auto bench mechanic before breakfast 11/29/19 20 Active Jardiance 25 mg tabletIndication s:type 2 diabetes mellitus Take 25 mg by mouth auto bench mechanic before breakfast 01/20/20 20 Active insulin aspart [...] (08/11/2021): Added automatically from request for surgery [id number] Regurgitation of food 08/11/2021 Overview (08/11/2021): Added automatically from request for surgery [id number] Status post gastric bypass for obesity Overview (07/18/2020): Added automatically from request for surgery [id number] Abdominal pannus 03/30/2020 Overview (03/30/2020): Added automatically from request for surgery [id number] Encounter for long-term (current) use of other m edications 12/17/2019 Urinary tract infection 12/17/2019 Epigastric pain 05/31/2019 Overview (06/01/2019): Added automatically from request for surgery [id number] MYESHA (acute kidney injury) ([facility]) 02/28/2019 Type 2 diabetes mellitus 02/28/2019 Severe malnutrition 02/21/2019 Nausea and vomiting 02/20/2019 Overview (02/21/2019): Added automatically from request for surgery [id number] Morbid obesity 09/11/2018 Benign essential hypertension 04/15/2010 [...] (11/01/2018): Added automatically from request for surgery [id number] Immunizations Immunization Administration Dates Next Due Influenza, [...] on file Legal Sex Female 8:10 PM LOANS CONSULTANT Gender Identity Not on file Sexual Orientation [...] 03/19/2018, 06/2016 Medical Devices Implanted Type Area Workday Manager Device Identifier Shelf Expiration Date Model / Serial / Lot Other - See Comments Other - see comments Bilyadiraa l: Knee Description:Double knee repl acement Procedures Procedure Name Priority Date/Time Associated Diagnosis Comments HEMOGLOBIN A1C Timed 06/01/2019 3:42 AM LOANS CONSULTANT LIPID PANEL Timed 06/01/2019 3:42 AM LOANS CONSULTANT EGFR Routine 01/21/2019 2:50 AM CDT from Last 3 Months or Most Recently Relevant to Health Maintenance Results * (ABNORMAL) Hemoglobin A1c (06/01/2019 3:42 AM LOANS CONSULTANT) Hgb A1C 7.3(H) 4.0 - 5.6 % [facility] Estimated Average Glucose 163 mg/dL [facility] Comment: The ADA recommends reporting an estimated Average Glucose (eAG) with all Hemoglobin A1c results using the equation derived from a study of 507 normal and diabetic adults. Minority populations were underrepresented and children were not included. (Diabetes Care 31:7390-0926, 2008). The eAG is not equivalent to a fasting glucose. Blood specimen (specimen) 06/01/2019 3:42 AM LOANS CONSULTANT 06/01/2019 4:24 AM LOANS CONSULTANT us Jesus Gallegos MD LAB BLOOD ORDERABLES Final Res ult [facility] Department [place] [address] * Lipid panel (06/01/2019 3:42 AM LOANS CONSULTANT) Cholesterol 88 30 - 199 mg/dL MIC[facility] Comment: Interpretive Data Ages < or [...] revised on 2018. Triglycerides 117 <=149 mg/dL [facility] Comment: Interpretive Data Ages < or [...] revised on 2018. HDL 44 >=40 mg/dL [facility] Comment: Interpretive Data Ages < or = [...] on 2018. LDL, calculated 21 <=129 mg/dL [facility] Comment: Interpretive Data Ages < or = [...] revised on 2018. Non-HDL Cholesterol 44 mg/dL [facility] Comment: Interpretive Data Ages < or [...] last revised on 2018. Chol/HDL ratio 2 [facility] Blood specimen (specimen) 06/01/2019 3:42 AM LOANS CONSULTANT 06/01/2019 4:21 AM LOANS CONSULTANT us Jesus Gallegos MD LAB BLOOD ORDERABLES Final Res ult [facility] Department [place] [address] * eGFR (01/21/2019 2:50 AM CDT) eGFR >60 mL/min/1.7 3 m2 MIC[facility] Comment: Interpretive Data Reference Interval Normal >/= 90 mL/min/1.73m2 Mildly decreased* 60 - 89 mL/min/1.73m2 Mildly to moderately decreased 45 - 59 mL/min/1.73m2 Moderately to severely decreased 30 - 44 mL/min/1.73m2 Severely decreased 15 - 29 mL/min/1.73m2 Kidney Failure < 15 mL/min/1.73m2 *Relative to young adult level If -Yemeni multiply value by 1.16. Estimated glomerular filtration [...] BLOOD ORDERABLES Final Resu lt [facility] [address] [facility] [place] [address] from Last 3 Months or Most Recently Relevant to Health Maintenance Insurance Technology [employer] MEDICARE PPO HUMAN[employer]m MEDICARE PPO HUMANA CHOICE MEDICARE PPO Advance Directives For more information, please contact: [phone] * Full Code (Latest Code Status on [...] 2:11 PM 01/22/2019 9:34 PM Care Teams Sweatband Perforator Relationship Specialty Start Date End Date Fredy Puri MD [address] [facility] [address] [place] [id number] PCP - General 10/17/12
--- OUTSIDE RECORDS SUMMARY | 2024-10-08 16:13 | XMS_ITS | Encounter Summary ---
Author Organization [facility] Address [address] [place] [address] Care Team Providers Care Business Development Agent Name Role Phone Fredy Puri MD Primary Care Provider [phone] Encounter Details Date Type Department Care Team (Late st Contact Info) Description 01/23/2019 Documentation [facility] Case Management [address] [address] Brandee Graham RN Social History Tobacco Use [...] on file Legal Sex Female 8:10 PM EVP [employer] SAL[employer] Gender Identity Not on file Sexual Orientation Straight 08/08/2019 1: 54 PM CDT documented as of this encounter Plan of Treatment Not on file documented as of this encounter Visit Diagnoses Not on filedocumented in this encounter Care Teams Business Development Agent Relationship Specialty Start Date End Date Fredy Puri MD [address] [place] [address] [place] [address] PCP - General 10/17/12 documented as of this encounter
--- NOTE | 2024-10-08 17:20 | ED_ITS ---
HPI - General Adult General Chief complaint: Extremity Injury, Lower Stated complaint: Existing R hip fx-fell again, increased pain Time Seen by Provider: 10/08/24 15:27 History of Present Illness HPI narrative: 74-year-old female presents with right hip pain. Patient has a known right greater Crohn's enteric hip fracture this been treating non operatively by Carlos. Patient says that she fell yesterday. She is unclear if she lost consciousness. She did strike her head. She is not on blood thinners. She denies any chest pain palpitations shortness of breath or any recent illness. She now has increased pain in her right hip. Related Data Home Medications ?Medication ?Instructions ?Recorded ?Confirmed ?Last Taken ?Type calcium carbonate (Calcium 600) 600 mg PO DAILY 07/09/19 10/02/24 3 Days Ago History ~02/24/24 mecobalamin (vitamin B12) 1,000 1,000 mcg sublingual DAILY 07/09/19 10/02/24 3 Days Ago History mcg disintegrating ~02/24/24 tablet,sublingual [id number] 8 mg-folic 400 1 tablet PO DAILY 07/09/19 10/02/24 3 Days Ago History mcg-K 50 mcg-lutein 300 mcg tablet ~02/24/24 (Centrum Silver Women) omega-3 fatty acids 1,000 mg 2,000 mg PO DAILY 07/09/19 10/02/24 3 Days Ago History capsule (Fish Oil Concentrate) ~02/24/24 cholecalciferol (vitamin D3) 125 125 mcg PO DAILY 03/22/22 10/02/24 3 Days Ago History mcg (5,000 unit) capsule ~02/24/24 melatonin 5 mg capsule 5 mg PO HS 02/07/24 10/02/24 Unknown History Allergies Allergy/AdvReac Type Severity Reaction Status Date / Time morphine AdvReac Severe NAUSEA AND Verified 10/02/24 07:26 VOMITING Sulfa (Sulfonamide AdvReac Intermediate Diarrhea Verified 10/02/24 07:26 Antibiotics) PMFSH Past Medical History Medical History Osteopenia Osteoporosis Lesion of skin of foot Frequent sinus infections Multiple falls Polycythemia Right hip pain Encounter for weight management External hemorrhoid Urinary incontinence BMI 26.0-26.9,adult Chest discomfort Trigger index finger of left hand Cheilitis Iron deficiency anemia Left-sided chest pain Trigger finger of left hand BMI 25.0-25.9,adult Body mass index (BMI) of 50-59.9 in adult (03/13/17) Left arm numbness History of obstructive sleep apnea GILMAN (dyspnea on exertion) Dependence on other enabling machines and devices BMI 45.0-49.9, adult BMI 40.0-44.9, adult Amaurosis fugax Acute renal failure Mild sleep apnea Fatigue Abdominal pain GERD (gastroesophageal reflux disease) Diverticular disease BMI 22.0-22.9, adult Change in bowel habit BMI 21.0-21.9, adult Encounter for routine adult health examination with abnormal findings Constipation Elevated LFTs Grade I diastolic dysfunction Bunion Sinus mucosal thickening Facial pain, acute Traumatic ecchymosis of face BMI 23.0-23.9, adult Syncope Frequent falls Colon cancer screening BMI 24.0-24.9, adult Seasonal allergies Vitamin D deficiency Insomnia BMI 27.0-27.9,adult Excessive and redundant skin and subcutaneous tissue Encounter for routine adult health examination without abnormal findings BMI 31.0-31.9,adult Urticaria BMI 33.0-33.9,adult Follow up Encounter for Medicare annual wellness exam Hearing loss Abnormal finding of blood chemistry, unspecified Orthostatic hypotension Hx of small bowel obstruction Carotid disease, bilateral BMI 34.0-34.9,adult Benign essential hypertension 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 MATTHIAS on CPAP Hypothyroidism (acquired) Hyperlipidemia Diabetes mellitus type 2, insulin dependent Dependent edema Depression IDDM (insulin dependent diabetes mellitus) Hypothyroidism Left wrist fracture Arm fracture, left Arthritis HTN (hypertension) Neuropathy Surgical History Surgical History History of hemorrhoidectomy Rectal exam under anesthesia with internal hemorrhoid rubber-band ligation x3 History of dental surgery History of bunionectomy History of total bilateral knee replacement (TKR) S/P gastric bypass S/P right knee arthroscopy History of surgery on left wrist History of appendectomy H/O: hysterectomy H/O section History of Ivy-en-Y gastric bypass Family History Family History Mother Family history of diabetes mellitus in first degree relative Diabetes mellitus Father Family history of heart disease in male family member before age 55 Family history of cardiovascular disease Sibling FHx: thyroid cancer Papillary thyroid cancer Social History Social History Smoking packs per day: 1 Smoking cigarettes per day: 20.0 Years smoked: 30 Smoking pack-years: 30.00 Smoking status: Former smoker Tobacco type: cigarettes Second hand tobacco smoke exposure: No Smoking end date: 05/14/97 Additional smoking assessment comments: STATES 1 TO 1 1/2PK/DAY/30YRS-QUIT 1996 Alcohol intake: never Substance use: never Substance use type: does not use Current Housing: Decline to Answer Concerned About Future Housing: Decline to Answer Difficulty Paying Gas/Electric Bills: Decline to Answer Difficulty Paying for Meds: Decline to Answer Currently Unemployed: Decline to Answer Education: Decline to Answer Difficulty w/ Childcare or Family Care: Decline to Answer Living arrangements: with family Additional living arrangements comments: Occupation/Education: retired Gender identity (if verbalized by the patient): Female Spiritual care concerns: No Exam 2 Narrative: APPEARANCE: No apparent distress. Head: atraumatic. EYES: EOMI, NOSE: Atraumatic NECK: Trachea midline RESPIRATORY: No increased rate of breathing CARDIOVASCULAR: RRR, ABDOMINAL: Non-distended MUSCULOSKELETAl: Focal exam of right leg revealed no obvious deformities. No shortening or rotation. Patient is able to bear minimal weight. Pain with internal external rotation of the hip. Leg is neurovascularly intact. Compartments are soft. NEURO: Alert. Moving 4/4 extremities SKIN:: Warm, dry. Normal color PSYCHIATRIC: Normal affect Course Vital Signs Vital signs: Vital Signs Temperature 97.6 F 10/08/24 15:14 Pulse Rate 88 10/08/24 15:14 Respiratory Rate 16 10/08/24 15:14 Blood Pressure 114/68 10/08/24 15:14 Pulse Oximetry 98 10/08/24 15:14 Temperature 97.0 F L 10/08/24 19:29 Pulse Rate 61 10/08/24 19:29 Respiratory Rate 20 10/08/24 19:29 Blood Pressure 142/72 H 10/08/24 19:29 Pulse Oximetry 100 10/08/24 19:29 Medical Decision Making MDM Narrative Medical decision making narrative: -Course: 74-year-old female presenting with hip pain after fall. X-ray showed possible extension of her hop strainer greater trochanteric hip fracture. CT ordered to evaluate which is also highly suggestive of intertrochanteric fracture. Case was discussed with Dr. Gonzalez who reviewed the films and believes that she now has an intertrochanteric hip fracture which will require surgery. Patient is unclear if she syncopized or not before the fall yesterday. CT head was negative. EKG, troponin, BNP, laboratory studies, are also within normal limits. Will place on telemetry. UA pending at time of admission. Independent EKG interpretation: Rhythm [sinus], Rate [60], [place] -[normal], [place] -[normal], QRS [narrow], QTC [normal], T waves -[negative for concerning inversions], ST Segments - [Negative for concerning elevations] Final interpretations: [Normal Sinus Rhythm] -DDX includes but is not limited to: Greater trochanteric hip fracture, intertrochanteric hip fracture, orthostatic syncope, mechanical fall, cardiogenic syncope Vital Signs Vital Signs: Vital Signs Temperature 97.6 F 10/08/24 15:14 Pulse Rate 88 10/08/24 15:14 Respiratory Rate 16 10/08/24 15:14 Blood Pressure 114/68 10/08/24 15:14 Pulse Oximetry 98 10/08/24 15:14 Temperature 97.0 F L 10/08/24 19:29 Pulse Rate 61 10/08/24 19:29 Respiratory Rate 20 10/08/24 19:29 Blood Pressure 142/72 H 10/08/24 19:29 Pulse Oximetry 100 10/08/24 19:29 Lab Data 10/08/24 18:51 10/08/24 18:51 Labs: Lab Results 10/08/24 Range/Units 18:51 WBC 6.7 (4.5-10.0) K/mm3 RBC 5.18 (4.2-5.4) M/mm3 Hgb 15.1 H (12.0-15.0) g/dL Hct 47.8 H (37.0-47.0) % MCV 92.3 (80-100) fl MCH 29.2 (26-34) pg MCHC 31.6 L (32-36) g/dl RDW 13.1 (11.5-14.5) % Plt Count 283 (150-375) k/mm3 MPV 10.0 (7.4-10.4) fl Immature Gran % (Auto) 0.4 (0-0.5) % Neut % (Auto) 65.8 (45.5-73.1) % Lymph % (Auto) 21.0 (18.3-44.2) % [place] % (Auto) 9.7 H (2.6-8.5) % Eos % (Auto) 2.5 (0-4.4) % Baso % (Auto) 0.6 (0.2-1.2) % Lymph # (Auto) 1.41 (0.9-3.2) K/mm3 [place] # (Auto) 0.7 H (0.1-0.6) K/mm3 Eos # (Auto) 0.2 (0-0.3) K/mm3 Baso # (Auto) 0.0 (0.0-0.1) K/mm3 Abs Immat Gran (auto) 0.03 (0.00-0.031) K/mm3 Absolute Neuts (auto) 4.4 (1.3-6.7) K/mm3 Absolute Nucleated RBC 0.000 (0.0-0.012) K/mm3 Nucleated RBC % 0.0 (0.0-0.2) % Sodium 136 L (137-145) mmol/L Potassium 3.9 (3.4-5.0) mmol/L Chloride 101 (98-107) mmol/L Carbon Dioxide 31 H (22-30) mmol/L Anion Gap 4 (4-12) mmol/L BUN 26 H (7-17) mg/dL Creatinine 0.59 L (0.7-1.0) mg/dL Estim Creat Clear Calc 50 ml/min Estimated GFR > 60 (59 - ) Glucose 177 H (65-110) mg/dL Calcium 9.2 (8.4-10.2) mg/dL Total Bilirubin 0.4 (0.2-1.3) mg/dL AST 38 H (14-36) U/L ALT 23 (6-35) U/L Alkaline Phosphatase 61 (38-126) U/L Troponin I < 0.012 (0.000-0.034) ng/mL NT-Pro-B Natriuret Pep 33 (19.9-100) pg/mL Total Protein 7.0 (6.3-8.2) g/dL Albumin 4.0 (3.5-5.1) g/dL Discharge Plan Discharge Clinical Impression: Intertrochanteric fracture Patient Disposition: Home Condition: Stable Instructions: Antibiotic Form, Hip Fracture (ED) Patient Language: Salvadorean Prescriptions: No Action calcium carbonate [Calcium 600] 600 mg calcium (1,500 mg) tablet 600 mg PO DAILY mecobalamin (vitamin B12) 1,000 mcg tablet,disintegrating 1,000 mcg SUBLINGUAL DAILY Rx Instructions: place tablet under tongue and allow to dissolve for at least30 secs before swallowing Centrum Silver Women 8 mg iron-400 mcg-300 mcg tablet 1 tablet PO DAILY omega-3 fatty acids [Fish Oil Concentrate] 1,000 mg capsule 2,000 mg PO DAILY melatonin 5 mg capsule 5 mg PO HS alendronate [Fosamax] 70 mg tablet 70 mg PO WEEKLY Qty: 12 1RF Patient Comments: TAKES ON SUNDAYS Nexlizet 180-10 mg tablet 1 tablet PO DAILY Qty: 90 1RF bupropion HCl [Wellbutrin XL] 150 mg tablet extended release 24 hr 150 mg PO QAM Qty: 90 1RF buspirone 15 mg tablet 15 mg PO TID Qty: 90 1RF furosemide 20 mg tablet See Rx Instructions .ROUTE .COMPLEX Qty: 90 1RF Dose Instruction: TAKE 1 TABLET EVERY MORNING NEEDED FOR WEIGHT GAIN Rx Instructions: TAKE 1 TABLET EVERY MORNING NEEDED FOR WEIGHT GAIN Jardiance 25 mg tablet 25 mg PO QAM Qty: 30 2RF Rx Instructions: TAKE 1 TABLET BY MOUTH ONCE DAILY IN THE MORNING metformin 1,000 mg tablet See Rx Instructions .ROUTE .COMPLEX Qty: 180 1RF Dose Instruction: TAKE 1 TABLET TWICE DAILY Rx Instructions: TAKE 1 TABLET TWICE DAILY mirabegron [Myrbetriq] 50 mg tablet extended release 24 hr 50 mg PO DAILY Qty: 90 1RF Rx Instructions: . omeprazole 40 mg capsule,delayed release(DR/EC) 40 mg PO DAILY Qty: 90 0RF sertraline 100 mg tablet See Rx Instructions .ROUTE .COMPLEX Qty: 180 1RF Dose Instruction: TAKE 2 TABLETS EVERY DAY Rx Instructions: TAKE 2 TABLETS EVERY DAY levothyroxine [Synthroid] 150 mcg tablet See Rx Instructions .ROUTE .COMPLEX Qty: 90 1RF Dose Instruction: TAKE 1 TABLET EVERY MORNING Rx Instructions: TAKE 1 TABLET EVERY MORNING trazodone 50 mg tablet See Rx Instructions .ROUTE .COMPLEX Qty: 180 1RF Dose Instruction: TAKE 1 TO 2 TABLETS AT BEDTIME FOR SLEEP (TAKE WITH 100MG TABLET FOR TOTAL OF 150 TO 300MG) Rx Instructions: TAKE 1 TO 2 TABLETS AT BEDTIME FOR SLEEP (TAKE WITH 100MG TABLET FOR TOTAL OF 150 TO 300MG) trazodone 100 mg tablet See Rx Instructions .ROUTE .COMPLEX Qty: 180 1RF Dose Instruction: TAKE 1 TO 2 TABLETS EVERY NIGHT FOR SLEEP. TAKE WITH 50MG TABLET FOR TOTAL OF 150 - 300MG Rx Instructions: TAKE 1 TO 2 TABLETS EVERY NIGHT FOR SLEEP. TAKE WITH 50MG TABLET FOR TOTAL OF 150 - 300MG triamcinolone acetonide 0.5 % cream See Rx Instructions .ROUTE .COMPLEX Qty: 60 0RF Dose Instruction: APPLY TOPICALLY THREE TIMES DAILY NEEDED FOR ITCHING Rx Instructions: APPLY TOPICALLY THREE TIMES DAILY NEEDED FOR ITCHING FreeStyle Sandy 14 Day [place] Misc See Rx Instructions .ROUTE .COMPLEX Qty: 1 0RF Dose Instruction: USE TO CONTINUOUSLY MONITOR BLOOD SUGAR Rx Instructions: USE TO CONTINUOUSLY MONITOR BLOOD SUGAR cholecalciferol (vitamin D3) 125 mcg (5,000 unit) capsule 125 mcg PO DAILY (DME) Cpap machine and supplies See Rx Instructions .Route .MEDSUPPLY Qty: 1 0RF Rx Instructions: Cpap machine - needs heated humidity, mask of choice and pressure between 4 and 20 recommended. Mrs Javan gaspar [place] patient. Needs STAT! (DME) FreeStyle Sandy 3 [place] Misc See Rx Instructions .Route Qty: 1 0RF Rx Instructions: As directed fluticasone propionate 50 mcg/actuation spray,suspension See Rx Instructions .ROUTE .COMPLEX Qty: 48 1RF Dose Instruction: USE 2 SPRAYS IN EACH NOSTRIL EVERY DAY Rx Instructions: USE 2 SPRAYS IN EACH NOSTRIL EVERY DAY (DME) FreeStyle Sandy 3 Sensor Device See Rx Instructions .ROUTE .COMPLEX Qty: 2 5RF Dose Instruction: USE DIRECTED Rx Instructions: USE DIRECTED; FREE STYLE SANDY 3 PLUS DENSOR (DME) CPAP Pressure change See Rx Instructions .Route .MEDSUPPLY Qty: 1 0RF Rx Instructions: CPAP Pressure change AUTO-CPAP (E0601) 7 ---- 12 CMH2O DX Code: G47.33 Length of Need: Lifetime DME:[facility] ([facility] [place]) insulin syringe-needle U-100 1 mL 31 gauge x 5/16 syringe See Rx Instructions .ROUTE .COMPLEX Qty: 100 2RF Dose Instruction: USE 4 SYRINGE DAILY WITH INSULIN Rx Instructions: USE 4 SYRINGE DAILY WITH INSULIN levocetirizine 5 mg tablet See Rx Instructions .ROUTE .COMPLEX Qty: 90 1RF Dose Instruction: TAKE 1 TABLET ONE TIME DAILY IN THE EVENING IF LAURENCE D NOT WORKING ( NEEDED FOR CONGESTION) Rx Instructions: TAKE 1 TABLET ONE TIME DAILY IN THE EVENING IF LAURENCE D NOT WORKING ( NEEDED FOR CONGESTION) fexofenadine-pseudoephedrine [Laurence-D 24 Hour] 180-240 mg tablet extended release 24 hr See Rx Instructions .ROUTE .COMPLEX Qty: 31 1RF Dose Instruction: Take 1 tablet by mouth once daily Rx Instructions: Take 1 tablet by mouth once daily Ozempic 2 mg/dose (8 mg/3 mL) pen injector 2 mg subcut WEEKLY Qty: 3 0RF insulin glargine [Lantus U-100 Insulin] 100 unit/mL solution See Rx Instructions .ROUTE .COMPLEX Qty: 40 0RF Dose Instruction: INJECT 40 UNITS SUBCUTANEOUSLY ONCE IN THE MORNING. DISCARD VIAL 28 DAYS AFTER OPENING. Rx Instructions: INJECT 40 UNITS SUBCUTANEOUSLY ONCE IN THE MORNING. DISCARD VIAL 28 DAYS AFTER OPENING. Follow-up/Referrals: Fredy Puri MD [Primary Care Provider] -
--- NOTE | 2024-10-08 18:37 | ECG_ITS ---
Test Date: 2024-10-08 19:14:46 Measurements Intervals [place] Rate: 60 P: 25 NM: 162 QRS: 47 QRSD: 95 T: 34 QT: 441 QTc: 442 Interpretive Statements SINUS RHYTHM Compared to ECG 02/03/2024 22:23:11 Myocardial infarct finding no longer present Electronically Signed On 10-09-2024 15:17:09 CDT by Eliel White M.D.
--- NOTE | 2024-10-08 18:42 | P.CONOP_ITS ---
Assessment and Plan Assessment and plan (1) Intertrochanteric fracture of right hip: Code(s): S72.141A - Displaced intertrochanteric fracture of right femur, initial encounter for closed fracture Status: Acute Assessment and Plan: Intertrochanteric Fracture RIGHT. Recommend ORIF. Will Proceed. Discussed risks, benefits, limitations, and alternatives in detail. History of Present Illness HPI Consult date: 10/09/24 Chief complaint: Hip fracture Narrative: Patient had Right Greater trochanteric Fracture. She fell again completing the intertrochanteric fracture. Review of Systems 2 Musculoskeletal: Musculoskeletal: Reports arthralgias, Reports joint swelling and Reports stiffness Neurologic: Reports abnormal gait PMFSH Past Medical History Medical History Osteopenia Osteoporosis Lesion of skin of foot Frequent sinus infections Multiple falls Polycythemia Right hip pain Encounter for weight management External hemorrhoid Urinary incontinence BMI 26.0-26.9,adult Chest discomfort Trigger index finger of left hand Cheilitis Iron deficiency anemia Left-sided chest pain Trigger finger of left hand BMI 25.0-25.9,adult Body mass index (BMI) of 50-59.9 in adult (03/13/17) Left arm numbness History of obstructive sleep apnea GILMAN (dyspnea on exertion) Dependence on other enabling machines and devices BMI 45.0-49.9, adult BMI 40.0-44.9, adult Amaurosis fugax Acute renal failure Mild sleep apnea Fatigue Abdominal pain GERD (gastroesophageal reflux disease) Diverticular disease BMI 22.0-22.9, adult Change in bowel habit BMI 21.0-21.9, adult Encounter for routine adult health examination with abnormal findings Constipation Elevated LFTs Grade I diastolic dysfunction Bunion Sinus mucosal thickening Facial pain, acute Traumatic ecchymosis of face BMI 23.0-23.9, adult Syncope Frequent falls Colon cancer screening BMI 24.0-24.9, adult Seasonal allergies Vitamin D deficiency Insomnia BMI 27.0-27.9,adult Excessive and redundant skin and subcutaneous tissue Encounter for routine adult health examination without abnormal findings BMI 31.0-31.9,adult Urticaria BMI 33.0-33.9,adult Follow up Encounter for Medicare annual wellness exam Hearing loss Abnormal finding of blood chemistry, unspecified Orthostatic hypotension Hx of small bowel obstruction Carotid disease, bilateral BMI 34.0-34.9,adult Benign essential hypertension 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 MATTHIAS on CPAP Hypothyroidism (acquired) Hyperlipidemia Diabetes mellitus type 2, insulin dependent Dependent edema Depression IDDM (insulin dependent diabetes mellitus) Hypothyroidism Left wrist fracture Arm fracture, left Arthritis HTN (hypertension) Neuropathy Surgical History Surgical History History of hemorrhoidectomy Rectal exam under anesthesia with internal hemorrhoid rubber-band ligation x3 History of dental surgery History of bunionectomy History of total bilateral knee replacement (TKR) S/P gastric bypass S/P right knee arthroscopy History of surgery on left wrist History of appendectomy H/O: hysterectomy H/O section History of Ivy-en-Y gastric bypass Family History Family History Mother Family history of diabetes mellitus in first degree relative Diabetes mellitus Father Family history of heart disease in male family member before age 55 Family history of cardiovascular disease Sibling FHx: thyroid cancer Papillary thyroid cancer Social History Social History Smoking packs per day: 1 Smoking cigarettes per day: 20.0 Years smoked: 30 Smoking pack-years: 30.00 Smoking status: Former smoker Tobacco type: cigarettes Second hand tobacco smoke exposure: No Smoking end date: 09/11/89 Additional smoking assessment comments: STATES 1 TO 1 1/2PK/DAY/30YRS-QUIT 1996 Alcohol intake: never Substance use: never Substance use type: does not use Do You Feel Safe in your Home?: Yes Lack of Transportation: No Lack of Food: Never True Current Housing: I Have Housing Concerned About Future Housing: No Difficulty Paying Gas/Electric Bills: No Difficulty Paying for Meds: No Currently Unemployed: No Education: Associate Degree Difficulty w/ Childcare or Family Care: No Living arrangements: with family Additional living arrangements comments: Occupation/Education: retired Gender identity (if verbalized by the patient): Female Spiritual care concerns: No Meds Home Medications and Allergies Home Medications ?Medication ?Instructions ?Recorded ?Confirmed ?Type calcium carbonate (Calcium 600) 600 mg PO DAILY 07/09/19 10/08/24 History mecobalamin (vitamin B12) 1,000 1,000 mcg sublingual DAILY 07/09/19 10/08/24 History mcg disintegrating tablet,sublingual [id number] 8 mg-folic 400 1 tablet PO DAILY 07/09/19 10/08/24 History mcg-K 50 mcg-lutein 300 mcg tablet (Centrum Silver Women) omega-3 fatty acids 1,000 mg 2,000 mg PO DAILY 07/09/19 10/08/24 History capsule (Fish Oil Concentrate) flash glucose scanning reader See Rx Instructions .Route 10/28/20 10/08/24 Rx (FreeStyle Sandy 14 Day [place]) .COMPLEX #1 ea cholecalciferol (vitamin D3) 125 125 mcg PO DAILY 03/22/22 10/08/24 History mcg (5,000 unit) capsule Cpap machine and supplies #1 ea 10/22/23 10/02/24 Rx blood-glucose,instrument repair specialist,cont #1 ea 01/02/24 10/02/24 Rx (FreeStyle Sandy 3 [place]) melatonin 5 mg capsule 5 mg PO HS 02/07/24 10/08/24 History fluticasone propionate 50 See Rx Instructions .Route 05/22/24 10/08/24 Rx mcg/actuation nasal .COMPLEX #48 grams spray,suspension blood-glucose sensor (FreeStyle #2 ea 06/04/24 10/02/24 Rx Sandy 3 Sensor device) CPAP Pressure change #1 ea 07/24/24 10/02/24 Rx insulin syringe-needle U-100 1 mL #100 ea 07/31/24 10/02/24 Rx 31 gauge x 5/16 levocetirizine 5 mg tablet See Rx Instructions .Route 08/05/24 10/08/24 Rx .COMPLEX #90 tabs Jardiance 25 mg tablet 25 mg PO QAM #30 tabs 08/20/24 10/08/24 Rx (empagliflozin) Synthroid 150 mcg tablet See Rx Instructions .Route 08/20/24 10/08/24 Rx (levothyroxine) .COMPLEX #90 tabs alendronate 70 mg tablet (Fosamax) 70 mg PO WEEKLY #12 tabs 08/20/24 10/08/24 Rx bempedoic acid 180 mg-ezetimibe 10 1 tablet PO DAILY #90 tabs 08/20/24 10/08/24 Rx mg tablet (Nexlizet) bupropion HCl 150 mg 24 hr tablet, 150 mg PO QAM #90 tabs 08/20/24 10/08/24 Rx extended release (Wellbutrin XL) furosemide 20 mg tablet See Rx Instructions .Route 08/20/24 10/08/24 Rx .COMPLEX #90 tabs metformin 1,000 mg tablet See Rx Instructions .Route 08/20/24 10/08/24 Rx .COMPLEX #180 tabs mirabegron 50 mg tablet,extended 50 mg PO DAILY #90 tabs 08/20/24 10/08/24 Rx release 24 hr (Myrbetriq) sertraline 100 mg tablet See Rx Instructions .Route 08/20/24 10/08/24 Rx .COMPLEX #180 tabs trazodone 100 mg tablet See Rx Instructions .Route 08/20/24 10/08/24 Rx .COMPLEX #180 tabs trazodone 50 mg tablet See Rx Instructions .Route 08/20/24 10/08/24 Rx .COMPLEX #180 tabs triamcinolone acetonide 0.5 % See Rx Instructions .Route 08/20/24 10/08/24 Rx topical cream .COMPLEX #60 grams fexofenadine-pseudoephedrine ER See Rx Instructions .Route 08/25/24 10/08/24 Rx 180 mg-240 mg tablet,ext.release .COMPLEX #31 tabs 24 hr (Laurence-D 24 Hour) semaglutide 2 mg/dose (8 mg/3 mL) 2 mg (0.75 mL) subcut WEEKLY #3 mL 08/28/24 10/08/24 Rx subcutaneous pen injector (Ozempic) buspirone 15 mg tablet 15 mg PO .COMPLEX 10/08/24 10/09/24 History insulin glargine 100 unit/mL See Rx Instructions .Route .COMPLEX 10/08/24 10/08/24 History subcutaneous solution (Lantus U-100 Insulin) omeprazole 40 mg capsule,delayed 40 mg PO QHS 10/08/24 10/08/24 History release tramadol 50 mg tablet 50 mg PO QID PRN pain 10/08/24 10/08/24 History Allergies Allergy/AdvReac Type Severity Reaction Status Date / Time morphine AdvReac Severe NAUSEA AND Verified 10/02/24 07:26 VOMITING Sulfa (Sulfonamide AdvReac Intermediate Diarrhea Verified 10/02/24 07:26 Antibiotics) Vital Signs Vital Signs - 24 hr 10/08/24 15:14 Temperature 97.6 F Pulse Rate 88 Respiratory Rate 16 Blood Pressure 114/68 Pulse Oximetry 98 Exam 2 Narrative: Pain with motion of hip. NVI Results Labs 10/08/24 18:51 10/08/24 18:51 Labs: All other labs normal.
[2024-10-08 19:00] LABS: Basophils Percent Auto 0.6 % (0.2-1.2); Eosinophils Absolute Auto 0.2 K/mm3 (0-0.3); Eosinophils Percent Auto 2.5 % (0-4.4); Hematocrit 47.8 % (37.0-47.0); Hemoglobin 15.1 g/dL (12.0-15.0); Immature Granulocyte Absolute 0.03 K/mm3 (0.00-0.031); Immature Granulocyte Percent A 0.4 % (0-0.5); Lymphocytes Absolute Auto 1.41 K/mm3 (0.9-3.2); Mean Corpuscular HGB Conc 31.6 g/dl (32-36); Mean Corpuscular Hemoglobin 29.2 pg (26-34); Mean Corpuscular Volume 92.3 fl (80-100); Monocytes Absolute Auto 0.7 K/mm3 (0.1-0.6); Monocytes Percent Auto 9.7 % (2.6-8.5); Neutrophils Absolute Auto 4.4 K/mm3 (1.3-6.7); Neutrophils Percent Auto 65.8 % (45.5-73.1); Platelet Count Result 283 k/mm3 (150-375); Red Blood Count 5.18 M/mm3 (4.2-5.4); Red Cell Distribution Width 13.1 % (11.5-14.5); White Blood Count 6.7 K/mm3 (4.5-10.0)
[2024-10-08 19:09] LABS: Alanine Aminotransferase 23 U/L (6-35); Alkaline Phosphatase 61 U/L (38-126); Anion Gap 4 mmol/L (4-12); Aspartate Amino Transferase 38 U/L (14-36); Bilirubin,Total 0.4 mg/dL (0.2-1.3); Blood Urea Nitrogen 26 mg/dL (7-17); Calcium 9.2 mg/dL (8.4-10.2); Carbon Dioxide 31 mmol/L (22-30); Chloride 101 mmol/L (98-107); Estimated CRCL calculation 50 ml/min; Estimated Glomerular Filt Rate > 60; Glucose 177 mg/dL (65-110); Potassium 3.9 mmol/L (3.4-5.0); Sodium 136 mmol/L (137-145)
[2024-10-08 19:21] LABS: NT Pro B Type Natriuretic Pept 33 pg/mL (19.9-100); Troponin I < 0.012 ng/mL (0.000-0.034)
[2024-10-08 19:29] VITALS: BP 142/72; PULSE 61; RESP 20; TEMP 36.1; O2SAT 100
[2024-10-08] MEDS: traMADol HCL (*CRX) 50 MG TABLET PO (19:44)
[2024-10-08 21:14] VITALS: BP 133/61; PULSE 62; RESP 18; TEMP 36.6; O2SAT 98
[2024-10-08 21:54] LABS: Add Urine Microscopic? NO; Appearance Urine Clear (Clear); Bilirubin Urine Negative (Negative); Blood Urine Negative (Negative); Color Urine Yellow (Yellow); Glucose Urine UA 3+ mg/dL (Negative); Ketones Urine Negative (Negative); Leukocyte Esterase Ur Negative LEU/UL (Negative); Nitrate Urine Negative (Negative); Protein Urine Negative (Negative); Specific Grav Ur 1.018 (1.001-1.035); Urobilinogen Urine 0.2 mg/dL (<2.0); pH Urine 5.5 (5.0-9.0)
[2024-10-08 22:55] VITALS: BMI 21.4
--- NOTE | 2024-10-08 23:05 | ADMGEN ---
This patient, Natasha Edouard, was admitted to [facility] Room 306-02. Patient/family oriented to hospital policies and general routines including ID bracelet, bed and alarms, visiting hours, pain management, procedures, bathroom and other care routines, personal items, smoking policy, room service/diet, and visiting hours. Information on how to activate the Rapid Response Team has been discussed. Patient/Family are encouraged to report perceived risks to care and to ask questions if they do not understand what they are told or what they should do.
[2024-10-08 23:09] VITALS: BP 135/68; PULSE 78; RESP 16; TEMP 36.3; O2SAT 95
[2024-10-09] VITALS (21 sets, daily range): BP systolic 102–165; BP diastolic 60–90; PULSE 59–78; RESP 14–18; TEMP 36.1–37; O2SAT 90–99; BMI 21.4
--- NOTE | 2024-10-09 00:08 | P.HP_ITS ---
H&P: HPI History of Present Illness Date/Time: 10/09/24 00:08 Chief Complaint: Fall at home Narrative: 74-year-old female presents on 10/08/2024 to [place] [facility] with right hip pain. She was standing at the side of her bed when she fell. Unclear if she lost consciousness. This was not witnessed by the who lives with her. She reports she hit her head but was not confused and she was clear minded shortly after. She has an existing history of a fracture of the greater trochanter of the right femur with mild displacement. She last followed up in the office with Dr. Gonzalez on 10/02/2024 in the were following non operative management. Head CT in ER without acute intracranial findings, pelvis CT demonstrates right greater trochanter. Assessed by Dr. Gonzalez. Will go for ORIF. Review of Systems Review of Systems: All systems reviewed & are unremarkable except as noted in HPI and below (HPI) PMFSH Past Medical History Medical History Osteopenia Osteoporosis Lesion of skin of foot Frequent sinus infections Multiple falls Polycythemia Right hip pain Encounter for weight management External hemorrhoid Urinary incontinence BMI 26.0-26.9,adult Chest discomfort Trigger index finger of left hand Cheilitis Iron deficiency anemia Left-sided chest pain Trigger finger of left hand BMI 25.0-25.9,adult Body mass index (BMI) of 50-59.9 in adult (03/13/17) Left arm numbness History of obstructive sleep apnea GILMAN (dyspnea on exertion) Dependence on other enabling machines and devices BMI 45.0-49.9, adult BMI 40.0-44.9, adult Amaurosis fugax Acute renal failure Mild sleep apnea Fatigue Abdominal pain GERD (gastroesophageal reflux disease) Diverticular disease BMI 22.0-22.9, adult Change in bowel habit BMI 21.0-21.9, adult Encounter for routine adult health examination with abnormal findings Constipation Elevated LFTs Grade I diastolic dysfunction Bunion Sinus mucosal thickening Facial pain, acute Traumatic ecchymosis of face BMI 23.0-23.9, adult Syncope Frequent falls Colon cancer screening BMI 24.0-24.9, adult Seasonal allergies Vitamin D deficiency Insomnia BMI 27.0-27.9,adult Excessive and redundant skin and subcutaneous tissue Encounter for routine adult health examination without abnormal findings BMI 31.0-31.9,adult Urticaria BMI 33.0-33.9,adult Follow up Encounter for Medicare annual wellness exam Hearing loss Abnormal finding of blood chemistry, unspecified Orthostatic hypotension Hx of small bowel obstruction Carotid disease, bilateral BMI 34.0-34.9,adult Benign essential hypertension 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 MATTHIAS on CPAP Hypothyroidism (acquired) Hyperlipidemia Diabetes mellitus type 2, insulin dependent Dependent edema Depression IDDM (insulin dependent diabetes mellitus) Hypothyroidism Left wrist fracture Arm fracture, left Arthritis HTN (hypertension) Neuropathy Surgical History Surgical History History of hemorrhoidectomy Rectal exam under anesthesia with internal hemorrhoid rubber-band ligation x3 History of dental surgery History of bunionectomy History of total bilateral knee replacement (TKR) S/P gastric bypass S/P right knee arthroscopy History of surgery on left wrist History of appendectomy H/O: hysterectomy H/O section History of Ivy-en-Y gastric bypass Family History Family History Mother Family history of diabetes mellitus in first degree relative Diabetes mellitus Father Family history of heart disease in male family member before age 55 Family history of cardiovascular disease Sibling FHx: thyroid cancer Papillary thyroid cancer Social History Social History Smoking packs per day: 1 Smoking cigarettes per day: 20.0 Years smoked: 30 Smoking pack-years: 30.00 Smoking status: Former smoker Tobacco type: cigarettes Second hand tobacco smoke exposure: No Smoking end date: 09/11/89 Additional smoking assessment comments: STATES 1 TO 1 1/2PK/DAY/30YRS-QUIT 1996 Alcohol intake: never Substance use: never Substance use type: does not use Do You Feel Safe in your Home?: Yes Lack of Transportation: No Lack of Food: Never True Current Housing: I Have Housing Concerned About Future Housing: No Difficulty Paying Gas/Electric Bills: No Difficulty Paying for Meds: No Currently Unemployed: No Education: Associate Degree Difficulty w/ Childcare or Family Care: No Living arrangements: with family Additional living arrangements comments: Occupation/Education: retired Gender identity (if verbalized by the patient): Female Spiritual care concerns: No Meds Home Medications and Allergies Home Medications ?Medication ?Instructions ?Recorded ?Confirmed ?Type calcium carbonate (Calcium 600) 600 mg PO DAILY 07/09/19 10/08/24 History mecobalamin (vitamin B12) 1,000 1,000 mcg sublingual DAILY 07/09/19 10/08/24 Hi story mcg disintegrating tablet,sublingual vtqcriyk-lucr-gxbs 8 mg-folic 400 1 tablet PO DAILY 07/09/19 10/08/24 History mcg-K 50 mcg-lutein 300 mcg tablet (Centrum Silver Women) omega-3 fatty acids 1,000 mg 2,000 mg PO DAILY 07/09/19 10/08/24 History capsule (Fish Oil Concentrate) flash glucose scanning reader See Rx Instructions .Route 10/28/20 10/08/24 Rx (FreeStyle Sandy 14 Day [place]) .COMPLEX #1 ea cholecalciferol (vitamin D3) 125 125 mcg PO DAILY 03/22/22 10/08/24 History mcg (5,000 unit) capsule Cpap machine and supplies #1 ea 10/22/23 10/02/24 Rx blood-glucose,estimator printing,cont #1 ea 01/02/24 10/02/24 Rx (FreeStyle Sandy 3 [place]) melatonin 5 mg capsule 5 mg PO HS 02/07/24 10/08/24 History fluticasone propionate 50 See Rx Instructions .Route 05/22/24 10/08/24 Rx mcg/actuation nasal .COMPLEX #48 grams spray,suspension blood-glucose sensor (FreeStyle #2 ea 06/04/24 10/02/24 Rx Sandy 3 Sensor device) CPAP Pressure change #1 ea 07/24/24 10/02/24 Rx insulin syringe-needle U-100 1 mL #100 ea 07/31/24 10/02/24 Rx 31 gauge x 09/26 levocetirizine 5 mg tablet See Rx Instructions .Route 08/05/24 10/08/24 Rx .COMPLEX #90 tabs Jardiance 25 mg tablet 25 mg PO QAM #30 tabs 08/20/24 10/08/24 Rx (empagliflozin) Synthroid 150 mcg tablet See Rx Instructions .Route 08/20/24 10/08/24 Rx (levothyroxine) .COMPLEX #90 tabs alendronate 70 mg tablet (Fosamax) 70 mg PO WEEKLY #12 tabs 08/20/24 10/08/24 Rx bempedoic acid 180 mg-ezetimibe 10 1 tablet PO DAILY #90 tabs 08/20/24 10/08/24 Rx mg tablet (Nexlizet) bupropion HCl 150 mg 24 hr tablet, 150 mg PO QAM #90 tabs 08/20/24 10/08/24 Rx extended release (Wellbutrin XL) furosemide 20 mg tablet See Rx Instructions .Route 08/20/24 10/08/24 Rx .COMPLEX #90 tabs metformin 1,000 mg tablet See Rx Instructions .Route 08/20/24 10/08/24 Rx .COMPLEX #180 tabs mirabegron 50 mg tablet,extended 50 mg PO DAILY #90 tabs 08/20/24 10/08/24 Rx release 24 hr (Myrbetriq) sertraline 100 mg tablet See Rx Instructions .Route 08/20/24 10/08/24 Rx .COMPLEX #180 tabs trazodone 100 mg tablet See Rx Instructions .Route 08/20/24 10/08/24 Rx .COMPLEX #180 tabs trazodone 50 mg tablet See Rx Instructions .Route 08/20/24 10/08/24 Rx .COMPLEX #180 tabs triamcinolone acetonide 0.5 % See Rx Instructions .Route 08/20/24 10/08/24 Rx topical cream .COMPLEX #60 grams fexofenadine-pseudoephedrine ER See Rx Instructions .Route 08/25/24 10/08/24 Rx 180 mg-240 mg tablet,ext.release .COMPLEX #31 tabs 24 hr (Laurence-D 24 Hour) semaglutide 2 mg/dose (8 mg/3 mL) 2 mg (0.75 mL) subcut WEEKLY #3 mL 08/28/24 10/08/24 Rx subcutaneous pen injector (Ozempic) buspirone 10 mg tablet 30 mg PO QPM 10/08/24 10/08/24 History buspirone 15 mg tablet 15 mg PO QAM 10/08/24 10/08/24 History insulin glargine 100 unit/mL See Rx Instructions .Route .COMPLEX 10/08/24 10/08/24 History subcutaneous solution (Lantus U-100 Insulin) omeprazole 40 mg capsule,delayed 40 mg PO QHS 10/08/24 10/08/24 History release tramadol 50 mg tablet 50 mg PO QID PRN pain 10/08/24 10/08/24 History Allergies Allergy/AdvReac Type Severity Reaction Status Date / Time morphine AdvReac Severe NAUSEA AND Verified 10/02/24 07:26 VOMITING Sulfa (Sulfonamide AdvReac Intermediate Diarrhea Verified 10/02/24 07:26 Antibiotics) Vital Signs Vital Signs - 24 hr 10/08/24 15:14 10/08/24 19:29 10/08/24 21:14 Temperature 97.6 F 97.0 F L 97.9 F Pulse Rate 88 61 62 Respiratory Rate 16 20 18 Blood Pressure 114/68 142/72 H 133/61 Pulse Oximetry 98 100 98 Oxygen Delivery 10/08/24 22:55 10/08/24 23:09 Temperature 97.3 F L Pulse Rate 78 Respiratory Rate 16 Blood Pressure 135/68 Pulse Oximetry 95 Oxygen Delivery Room Air Exam Const: General: comfortable and no acute distress HENMT: Mouth: Yes moist mucous membranes Eyes: Pupils: Equal, round and reactive pupils present Neck: Neck: supple Resp: Effort & Inspection: normal respiratory effort Auscultation: clear to auscultation bilaterally Cardio: Rate: regular rate Rhythm: regular rhythm GI: Inspection: non-distended GI Palp: Yes Soft to palpation : General: Yes bladder normal to palpation Neuro: Motor exam (neuro): 5/5 motor strength present throughout Sensory Exam: normal sensation Extrem: General: no edema H&P: Results Labs Labs: Short CBC 10/08/24 Range/Units 18:51 WBC 6.7 (4.5-10.0) K/mm3 Hgb 15.1 H (12.0-15.0) g/dL Hct 47.8 H (37.0-47.0) % Plt Count 283 (150-375) k/mm3 BMP 10/08/24 18:51 Sodium 136 L Potassium 3.9 Chloride 101 Carbon Dioxide 31 H BUN 26 H Creatinine 0.59 L Glucose 177 H Calcium 9.2 Cardiac Enzymes 10/08/24 Range/Units 18:51 Troponin I < 0.012 (0.000-0.034) ng/mL Liver Function 10/08/24 Range/Units 18:51 Total Bilirubin 0.4 (0.2-1.3) mg/dL AST 38 H (14-36) U/L ALT 23 (6-35) U/L Alkaline Phosphatase 61 (38-126) U/L Albumin 4.0 (3.5-5.1) g/dL Urine 10/08/24 Range/Units 21:49 Urine Color Yellow (Yellow) Urine Appearance Clear (Clear) Urine pH 5.5 (5.0-9.0) Ur Specific [place] 1.018 (1.001-1.035) Urine Protein Negative (Negative) mg/dL Urine Glucose (UA) 3+ H (Negative) mg/dL Assessment and Plan Assessment and plan (1) Intertrochanteric fracture of right hip: Code(s): S72.141A - Displaced intertrochanteric fracture of right femur, initial encounter for closed fracture Status: Acute Plan NPO. SCDs. She is doing well with tramadol p.r.n. being scheduled for ORIF Hospitalist MIPS Advance Care Plan I have confirmed that the patient's Advanced Care Plan is present, code status is documented, or surrogate decision maker is listed in patient medical record.: Yes Medication Reconciliation I have utilized all available resources to obtain, update and review the patients current medications (includes all prescriptions, OTC, herbals, cannabis, and nutritional supplements).: Yes
[2024-10-09 03:34] LABS: Glucose Point of Care 78 mg/dl (65-105)
--- NOTE | 2024-10-09 03:34 | PC.NURSE ---
I called and spoke with Dr. Paniagua as Pt's glucose is 78. She does not qualify for hypoglycemic protocol at this time and I asked if he may want to start IV fluids with D5. He would like to hold off at this time and give 12.5 mg D50 with recheck in 15 minutes. If glucose is over 80, recheck in 1 hour. Call him if glucose drops then he would consider starting fluids with D5.
[2024-10-09] MEDS: DEXTROSE 50% 25 GM/50 ML SYRINGE IV PUSH (03:41)
[2024-10-09 04:04] LABS: Glucose Point of Care 160 mg/dl (65-105)
[2024-10-09 05:05] LABS: Glucose Point of Care 85 mg/dl (65-105)
[2024-10-09 05:52] LABS: Glucose Point of Care 89 mg/dl (65-105)
--- NOTE | 2024-10-09 07:32 | P.PNIM_ITS ---
Progress Note: A&P Assessment and Plan (1) Intertrochanteric fracture of right hip: Code(s): S72.141A - Displaced intertrochanteric fracture of right femur, initial encounter for closed fracture Status: Acute Assessment and Plan: * Patient with a fall and syncope * Came in with right hip pain * Hip xray Highly suggestive right intertrochanteric fracture. CT confirmation is advised. * Hip CT Fracture in the area of the right greater trochanter with highly suggestive fracture in the lesser trochanter. * Morphine and norco for pain control * NPO diet for now * Corth surgery consulted * Surgical intervention planned for today * Post op care per ortho surgery * PT/OT when appropriate (2) Anxiety disorder: Qualifiers: Anxiety disorder type: unspecified anxiety disorder Qualified Code(s): F41.9 - Anxiety disorder, unspecified Code(s): F41.9 - Anxiety disorder, unspecified Status: Acute Assessment and Plan: * Continue buspar and wellburtin * Continue Zoloft (3) Benign essential hypertension: Code(s): I10 - Essential (primary) hypertension Status: Acute Assessment and Plan: * BP is stable 136/68 * Continue home medications * Trend BP * Adjust therapy (4) Hyperlipidemia: Qualifiers: Hyperlipidemia type: mixed hyperlipidemia Qualified Code(s): E78.2 - Mixed hyperlipidemia Code(s): E78.5 - Hyperlipidemia, unspecified Status: Acute Assessment and Plan: * Continue home medications as ordered (5) Diabetes mellitus type 2, insulin dependent: Code(s): E11.9 - Type 2 diabetes mellitus without complications; Z79.4 - MCFP (current) use of insulin Status: Acute Assessment and Plan: * Glucose is stable at 93 * hold home Jardiance, metformin, and Ozempic * Continue home lantus * ISS * Hypoglycemia protocol * Trend glucose * Adjust therapy as indicated * D5 half-normal saline at 100 an hour for now while she is NPO (6) Hypothyroidism (acquired): Code(s): E03.9 - Hypothyroidism, unspecified Status: Acute Assessment and Plan: * Continue home levothyroxine (7) Syncope and collapse: Code(s): R55 - Syncope and collapse Status: Acute Assessment and Plan: * Patient presented after syncopal episode * Echo ordered after her surgery * She will need orthostatic blood pressures * Fall precautions * Chest x-ray with no acute findings Time Spent With Patient Time: 48 minutes Time with patient: Greater than 35 minutes Subjective Date/time seen: 10/09/24 07:32 Interval history: 10/09/2024 Patient states she is feeling better. Her pain is better controlled. With Dilaudid. She denies any chest pain, shortness a breath, nausea, vomiting, diarrhea constipation. She is concerned about her glucose. Did put her on D5 half-normal saline for now. Also patient did state that she had a syncopal episode and did wake up and was wondering what happened to her. Will get an echo after her surgery. 10/09/2024 74-year-old female presents on 10/08/2024 to [place] ER with right hip pain. She was standing at the side of her bed when she fell. Unclear if she lost consciousness. This was not witnessed by the who lives with her. She reports she hit her head but was not confused and she was clear minded shortly after. She has an existing history of a fracture of the greater trochanter of the right femur with mild displacement. She last followed up in the office with Dr. Gonzalez on 10/02/2024 in the were following non operative management. Head CT in ER without acute intracranial findings, pelvis CT demonstrates right greater trochanter. Assessed by Dr. Gonzalez. Will go for ORIF.v Review of Systems Review of Systems: All systems reviewed & are unremarkable except as noted in HPI and below Exam Narrative: General: well-nourished, 74-year-old female, sitting up in bed, comfortable, NARD Neuro: awake, alert and oriented x4, speech clear, no focal neuro deficits noted HEENMT: normocephalic, atraumatic, EOMI, sclerae anicteric, moist oral mucosa Respiratory: Clear to auscultation bilaterally without crackles, rhonchi or wheezes, nonlabored breathing Cardio: regular rate, regular rhythm with S1-S2 Abdomen: nondistended, normoactive bowel sounds, soft, nontender to palpation Extremities: Skin: no rashes or lesions, warm and dry Psych: appropriate mood and affect, judgment and insight intact Objective Data Vital Signs Vital Signs: Vital Signs - 24 hr 10/08/24 15:14 10/08/24 19:29 10/08/24 21:14 Temperature 97.6 F 97.0 F L 97.9 F Pulse Rate 88 61 62 Respiratory Rate 16 20 18 Blood Pressure 114/68 142/72 H 133/61 Pulse Oximetry 98 100 98 Oxygen Delivery 10/08/24 22:55 10/08/24 23:09 10/09/24 00:00 Temperature 97.3 F L Pulse Rate 78 71 Respiratory Rate 16 Blood Pressure 135/68 Pulse Oximetry 95 Oxygen Delivery Room Air 10/09/24 04:00 10/09/24 05:40 Temperature 97.4 F L Pulse Rate 59 L 69 Respiratory Rate 16 Blood Pressure 136/68 Pulse Oximetry 94 Oxygen Delivery Intake/Output Intake/Output: Intake & Output 10/06/24 10/07/24 10/08/24 10/09/24 23:59 23:59 23:59 23:59 Intake Total 550 Output Total 600 Balance -50 Meds/Results Medications: Active Medications Generic Name Dose Route Start Last Admin Trade Name Freq PRN Reason Stop Dose Admin Dextrose 12.5 gm 10/09/24 02:46 10/09/24 03:41 Dextrose 50% 25 Gm/50 Ml Syringe IV PUSH 12.5 gm PRN PRN Administration Hypoglycemia Protocol Fluticasone Propionate 2 spray 10/09/24 09:00 Fluticasone Propionate 0.05% Na Spr 16 Gm Btl (*Bkc) NASAL DAILY INGRID Glucose 15 gm 10/09/24 02:46 Glucose Oral Gel 15 Gm Of Glucse In 37.5 Gm Tube PO PRN PRN Hypoglycemia Protocol Dextrose 1,000 mls @ 100 mls/hr 10/09/24 02:46 Dextrose 5% 1,000 Ml IVPB PRN PRN Hypoglycemia Protocol Tramadol HCl 50 mg 10/09/24 00:07 Tramadol Hcl (*Crx) 50 Mg Tablet PO Q4H PRN Pain Rated 4-6 Radiology Results: ITS Impressions Hip/Pelvis X-Ray 10/08/24 15:39 IMPRESSION: Highly suggestive right intertrochanteric fracture. CT confirmation is advised. Bilateral hip moderate osteoarthritic changes. Pelvis CT 10/08/24 17:53 IMPRESSION: Fracture in the area of the right greater trochanter with highly suggestive fracture in the lesser trochanter. Other appearances as described above. Head CT 10/08/24 19:09 IMPRESSION: No acute intracranial findings. Chest X-Ray 10/08/24 19:36 IMPRESSION: No acute cardiopulmonary pathology. Labs Labs: Laboratory Results - last 24 hr 10/08/24 10/08/24 10/09/24 18:51 21:49 03:31 WBC 6.7 RBC 5.18 Hgb 15.1 H Hct 47.8 H MCV 92.3 MCH 29.2 MCHC 31.6 L RDW 13.1 Plt Count 283 MPV 10.0 Immature Gran % (Auto) 0.4 Neut % (Auto) 65.8 Lymph % (Auto) 21.0 [place] % (Auto) 9.7 H Eos % (Auto) 2.5 Baso % (Auto) 0.6 Lymph # (Auto) 1.41 [place] # (Auto) 0.7 H Eos # (Auto) 0.2 Baso # (Auto) 0.0 Abs Immat Gran (auto) 0.03 Absolute Neuts (auto) 4.4 Absolute Nucleated RBC 0.000 Nucleated RBC % 0.0 Sodium 136 L Potassium 3.9 Chloride 101 Carbon Dioxide 31 H Anion Gap 4 BUN 26 H Creatinine 0.59 L Estim Creat Clear Calc 50 Estimated GFR > 60 Glucose 177 H POC Capillary Glucose 78 Calcium 9.2 Total Bilirubin 0.4 AST 38 H ALT 23 Alkaline Phosphatase 61 Troponin I < 0.012 NT-Pro-B Natriuret Pep 33 Total Protein 7.0 Albumin 4.0 Urine Color Yellow Urine Appearance Clear Urine pH 5.5 Ur Specific [place] 1.018 Urine Protein Negative Urine Glucose (UA) 3+ H Urine Ketones Negative Ur Blood (Man) Negative Urine Nitrate Negative Urine Bilirubin Negative Urine Urobilinogen 0.2 Leukocyte Esterase Rfl Negative 10/09/24 10/09/24 10/09/24 04:02 05:02 05:48 WBC RBC Hgb Hct MCV MCH MCHC RDW Plt Count MPV Immature Gran % (Auto) Neut % (Auto) Lymph % (Auto) [place] % (Auto) Eos % (Auto) Baso % (Auto) Lymph # (Auto) [place] # (Auto) Eos # (Auto) Baso # (Auto) Abs Immat Gran (auto) Absolute Neuts (auto) Absolute Nucleated RBC Nucleated RBC % Sodium Potassium Chloride Carbon Dioxide Anion Gap BUN Creatinine Estim Creat Clear Calc Estimated GFR Glucose POC Capillary Glucose 160 H 85 89 Calcium Total Bilirubin AST ALT Alkaline Phosphatase Troponin I NT-Pro-B Natriuret Pep Total Protein Albumin Urine Color Urine Appearance Urine pH Ur Specific [place] Urine Protein Urine Glucose (UA) Urine Ketones Ur Blood (Man) Urine Nitrate Urine Bilirubin Urine Urobilinogen Leukocyte Esterase Rfl
[2024-10-09 07:33] LABS: Anion Gap 6 mmol/L (4-12); Blood Urea Nitrogen 23 mg/dL (7-17); Calcium 8.9 mg/dL (8.4-10.2); Carbon Dioxide 27 mmol/L (22-30); Chloride 103 mmol/L (98-107); Estimated CRCL calculation 64 ml/min; Estimated Glomerular Filt Rate > 60; Glucose 93 mg/dL (65-110); Magnesium 2.1 mg/dL (1.6-2.3); Sodium 136 mmol/L (137-145)
[2024-10-09] MEDS: traMADol HCL (*CRX) 50 MG TABLET PO ×2 (07:49→22:44)
[2024-10-09 07:59] LABS: Basophils Percent Auto 0.3 % (0.2-1.2); Eosinophils Absolute Auto 0.1 K/mm3 (0-0.3); Eosinophils Percent Auto 1.4 % (0-4.4); Hematocrit 47.6 % (37.0-47.0); Immature Granulocyte Absolute 0.03 K/mm3 (0.00-0.031); Immature Granulocyte Percent A 0.5 % (0-0.5); Lymphocytes Absolute Auto 0.88 K/mm3 (0.9-3.2); Lymphocytes Percent Auto 13.5 % (18.3-44.2); Mean Corpuscular HGB Conc 31.5 g/dl (32-36); Mean Corpuscular Hemoglobin 29.3 pg (26-34); Mean Platelet Volume 9.8 fl (7.4-10.4); Monocytes Absolute Auto 0.8 K/mm3 (0.1-0.6); Monocytes Percent Auto 11.8 % (2.6-8.5); Neutrophils Absolute Auto 4.7 K/mm3 (1.3-6.7); Neutrophils Percent Auto 72.5 % (45.5-73.1); Platelet Count Result 258 k/mm3 (150-375); Red Blood Count 5.12 M/mm3 (4.2-5.4); Red Cell Distribution Width 12.9 % (11.5-14.5); White Blood Count 6.5 K/mm3 (4.5-10.0)
[2024-10-09 08:14] LABS: Prothrombin Time 13.7 Seconds (11.1-14.7)
[2024-10-09] MEDS: HYDROmorphone HCL INJ (*CRX) 2 MG/ML VIAL 0.5 MG IV PUSH (10:05)
[2024-10-09] MEDS: FLUTICASONE PROPIONATE 0.05% NA SPR 16 GM BTL (*BKC) 2 SPRAY NASAL (10:05)
[2024-10-09 10:22] LABS: Glucose Point of Care 89 mg/dl (65-105)
[2024-10-09] MEDS: DEXTROSE 5%/0.45% SOD CHL 1,000 ML 100 ML IV CONT (10:31)
--- NOTE | 2024-10-09 12:02 | WPDHPUPDATE1 ---
History and Physical Update Update Date/Time: 10/09/24 12:02 History and Physical has been reviewed, including an updated exam of the patient. There are NO changes in the patient's condition. Risks, benefits, and alternatives have been discussed and questions answered. Patient agrees to proceed with procedure.
[2024-10-09 12:03] LABS: Glucose Point of Care 105 mg/dl (65-105)
--- NOTE | 2024-10-09 13:20 | WPDANESEPPF ---
Anes - Initial Pre Proc Eval Procedure: Operation Date: 10/09/24 15:00 Proposed Procedures p Right Intertrochanteric Nail - Kaz Gonzalez MD Date/Time: 10/09/24 13:20 Surgeon: Radha Paniagua MD Pre Op Diagnosis: Hip fracture Patient Data Age: 74 Gender: F Height: 1.52 m Weight: 49.8 kg Last Vital Signs Temp 97.1 F L 10/09/24 13:00 Pulse 65 10/09/24 13:00 Resp 16 10/09/24 13:00 BP 123/69 10/09/24 13:00 Pulse Ox 94 10/09/24 13:00 O2 Del Method Room Air 10/09/24 13:00 Allergies Allergy/AdvReac Type Severity Reaction Status Date / Time morphine AdvReac Severe NAUSEA AND Verified 10/09/24 13:06 VOMITING Sulfa (Sulfonamide AdvReac Intermediate Diarrhea Verified 10/09/24 13:06 Antibiotics) Home Medications ?Medication ?Instructions ?Recorded ?Confirmed ?Type calcium carbonate (Calcium 600) 600 mg PO DAILY 07/09/19 10/08/24 History mecobalamin (vitamin B12) 1,000 1,000 mcg sublingual DAILY 07/09/19 10/08/24 History mcg disintegrating tablet,sublingual [id number] 8 mg-folic 400 1 tablet PO DAILY 07/09/19 10/08/24 History mcg-K 50 mcg-lutein 300 mcg tablet (Centrum Silver Women) omega-3 fatty acids 1,000 mg 2,000 mg PO DAILY 07/09/19 10/08/24 History capsule (Fish Oil Concentrate) flash glucose scanning reader See Rx Instructions .Route 10/28/20 10/08/24 Rx (FreeStyle Sandy 14 Day Hardwick) .COMPLEX #1 ea cholecalciferol (vitamin D3) 125 125 mcg PO DAILY 03/22/22 10/08/24 History mcg (5,000 unit) capsule Cpap machine and supplies #1 ea 10/22/23 10/02/24 Rx blood-glucose,loop tender,cont #1 ea 01/02/24 10/02/24 Rx (FreeStyle Sandy 3 [place]wick) melatonin 5 mg capsule 5 mg PO HS 02/07/24 10/08/24 History fluticasone propionate 50 See Rx Instructions .Route 05/22/24 10/08/24 Rx mcg/actuation nasal .COMPLEX #48 grams spray,suspension blood-glucose sensor (FreeStyle #2 ea 06/04/24 10/02/24 Rx Sandy 3 Sensor device) CPAP Pressure change #1 ea 07/24/24 10/02/24 Rx insulin syringe-needle U-100 1 mL #100 ea 07/31/24 10/02/24 Rx 31 gauge x 5/16 levocetirizine 5 mg tablet See Rx Instructions .Route 08/05/24 10/08/24 Rx .COMPLEX #90 tabs Jardiance 25 mg tablet 25 mg PO QAM #30 tabs 08/20/24 10/08/24 Rx (empagliflozin) Synthroid 150 mcg tablet See Rx Instructions .Route 08/20/24 10/08/24 Rx (levothyroxine) .COMPLEX #90 tabs alendronate 70 mg tablet (Fosamax) 70 mg PO WEEKLY #12 tabs 08/20/24 10/08/24 Rx bempedoic acid 180 mg-ezetimibe 10 1 tablet PO DAILY #90 tabs 08/20/24 10/08/24 Rx mg tablet (Nexlizet) bupropion HCl 150 mg 24 hr tablet, 150 mg PO QAM #90 tabs 08/20/24 10/08/24 Rx extended release (Wellbutrin XL) furosemide 20 mg tablet See Rx Instructions .Route 08/20/24 10/08/24 Rx .COMPLEX #90 tabs metformin 1,000 mg tablet See Rx Instructions .Route 08/20/24 10/08/24 Rx .COMPLEX #180 tabs mirabegron 50 mg tablet,extended 50 mg PO DAILY #90 tabs 08/20/24 10/08/24 Rx release 24 hr (Myrbetriq) sertraline 100 mg tablet See Rx Instructions .Route 08/20/24 10/08/24 Rx .COMPLEX #180 tabs trazodone 100 mg tablet See Rx Instructions .Route 08/20/24 10/08/24 Rx .COMPLEX #180 tabs trazodone 50 mg tablet See Rx Instructions .Route 08/20/24 10/08/24 Rx .COMPLEX #180 tabs triamcinolone acetonide 0.5 % See Rx Instructions .Route 08/20/24 10/08/24 Rx topical cream .COMPLEX #60 grams fexofenadine-pseudoephedrine ER See Rx Instructions .Route 08/25/24 10/08/24 Rx 180 mg-240 mg tablet,ext.release .COMPLEX #31 tabs 24 hr (Laurence-D 24 Hour) semaglutide 2 mg/dose (8 mg/3 mL) 2 mg (0.75 mL) subcut WEEKLY #3 mL 08/28/24 10/08/24 Rx subcutaneous pen injector (Ozempic) buspirone 15 mg tablet 15 mg PO .COMPLEX 10/08/24 10/09/24 History insulin glargine 100 unit/mL See Rx Instructions .Route .COMPLEX 10/08/24 10/08/24 History subcutaneous solution (Lantus U-100 Insulin) omeprazole 40 mg capsule,delayed 40 mg PO QHS 10/08/24 10/08/24 History release tramadol 50 mg tablet 50 mg PO QID PRN pain 10/08/24 10/08/24 History Laboratory Tests 10/08/24 10/08/24 10/09/24 18:51 21:49 03:31 WBC 6.7 K/mm3 (4.5-10.0) RBC 5.18 M/mm3 (4.2-5.4) Hgb 15.1 H g/dL (12.0-15.0) Hct 47.8 H % (37.0-47.0) MCV 92.3 fl (80-100) MCH 29.2 pg (26-34) MCHC 31.6 L g/dl (32-36) RDW 13.1 % (11.5-14.5) Plt Count 283 k/mm3 (150-375) MPV 10.0 fl (7.4-10.4) Immature Gran % (Auto) 0.4 % (0-0.5) Neut % (Auto) 65.8 % (45.5-73.1) Lymph % (Auto) 21.0 % (18.3-44.2) [place] % (Auto) 9.7 H % (2.6-8.5) Eos % (Auto) 2.5 % (0-4.4) Baso % (Auto) 0.6 % (0.2-1.2) Lymph # (Auto) 1.41 K/mm3 (0.9-3.2) [place] # (Auto) 0.7 H K/mm3 (0.1-0.6) Eos # (Auto) 0.2 K/mm3 (0-0.3) Baso # (Auto) 0.0 K/mm3 (0.0-0.1) Abs Immat Gran (auto) 0.03 K/mm3 (0.00-0.031) Absolute Neuts (auto) 4.4 K/mm3 (1.3-6.7) Absolute Nucleated RBC 0.000 K/mm3 (0.0-0.012) Nucleated RBC % 0.0 % (0.0-0.2) PT INR Sodium 136 L mmol/L (137-145) Potassium 3.9 mmol/L (3.4-5.0) Chloride 101 mmol/L (98-107) Carbon Dioxide 31 H mmol/L (22-30) Anion Gap 4 mmol/L (4-12) BUN 26 H mg/dL (7-17) Creatinine 0.59 L mg/dL (0.7-1.0) Estim Creat Clear Calc 50 ml/min Estimated GFR > 60 (59 - ) Glucose 177 H mg/dL (65-110) POC Capillary Glucose 78 mg/dl (65-105) Calcium 9.2 mg/dL (8.4-10.2) Magnesium Total Bilirubin 0.4 mg/dL (0.2-1.3) AST 38 H U/L (14-36) ALT 23 U/L (6-35) Alkaline Phosphatase 61 U/L (38-126) Troponin I < 0.012 ng/mL (0.000-0.034) NT-Pro-B Natriuret Pep 33 pg/mL (19.9-100) Total Protein 7.0 g/dL (6.3-8.2) Albumin 4.0 g/dL (3.5-5.1) Urine Color Yellow (Yellow) Urine Appearance Clear (Clear) Urine pH 5.5 (5.0-9.0) Ur Specific [place] 1.018 (1.001-1.035) Urine Protein Negative mg/dL (Negative) Urine Glucose (UA) 3+ H mg/dL (Negative) Urine Ketones Negative mg/dL (Negative) Ur Blood (Man) Negative (Negative) Urine Nitrate Negative (Negative) Urine Bilirubin Negative (Negative) Urine Urobilinogen 0.2 mg/dL (<2.0) Leukocyte Esterase Rfl Negative ALLEN/UL (Negative) 10/09/24 10/09/24 10/09/24 04:02 05:02 05:48 WBC RBC Hgb Hct MCV MCH MCHC RDW Plt Count MPV Immature Gran % (Auto) Neut % (Auto) Lymph % (Auto) [place] % (Auto) Eos % (Auto) Baso % (Auto) Lymph # (Auto) [place] # (Auto) Eos # (Auto) Baso # (Auto) Abs Immat Gran (auto) Absolute Neuts (auto) Absolute Nucleated RBC Nucleated RBC % PT INR Sodium Potassium Chloride Carbon Dioxide Anion Gap BUN Creatinine Estim Creat Clear Calc Estimated GFR Glucose POC Capillary Glucose 160 H mg/dl 85 mg/dl 89 mg/dl (65-105) (65-105) (65-105) Calcium Magnesium Total Bilirubin AST ALT Alkaline Phosphatase Troponin I NT-Pro-B Natriuret Pep Total Protein Albumin Urine Color Urine Appearance Urine pH Ur Specific [place] Urine Protein Urine Glucose (UA) Urine Ketones Ur Blood (Man) Urine Nitrate Urine Bilirubin Urine Urobilinogen Leukocyte Esterase Rfl 10/09/24 10/09/24 10/09/24 06:48 07:44 10:19 WBC 6.5 K/mm3 (4.5-10.0) RBC 5.12 M/mm3 (4.2-5.4) Hgb 15.0 g/dL (12.0-15.0) Hct 47.6 H % (37.0-47.0) MCV 93.0 fl (80-100) MCH 29.3 pg (26-34) MCHC 31.5 L g/dl (32-36) RDW 12.9 % (11.5-14.5) Plt Count 258 k/mm3 (150-375) MPV 9.8 fl (7.4-10.4) Immature Gran % (Auto) 0.5 % (0-0.5) Neut % (Auto) 72.5 % (45.5-73.1) Lymph % (Auto) 13.5 L % (18.3-44.2) [place] % (Auto) 11.8 H % (2.6-8.5) Eos % (Auto) 1.4 % (0-4.4) Baso % (Auto) 0.3 % (0.2-1.2) Lymph # (Auto) 0.88 L K/mm3 (0.9-3.2) [place] # (Auto) 0.8 H K/mm3 (0.1-0.6) Eos # (Auto) 0.1 K/mm3 (0-0.3) Baso # (Auto) 0.0 K/mm3 (0.0-0.1) Abs Immat Gran (auto) 0.03 K/mm3 (0.00-0.031) Absolute Neuts (auto) 4.7 K/mm3 (1.3-6.7) Absolute Nucleated RBC 0.000 K/mm3 (0.0-0.012) Nucleated RBC % 0.0 % (0.0-0.2) PT 13.7 Seconds (11.1-14.7) INR 1.0 Sodium 136 L mmol/L (137-145) Potassium 4.0 mmol/L (3.4-5.0) Chloride 103 mmol/L (98-107) Carbon Dioxide 27 mmol/L (22-30) Anion Gap 6 mmol/L (4-12) BUN 23 H mg/dL (7-17) Creatinine 0.45 L mg/dL (0.7-1.0) Estim Creat Clear Calc 64 ml/min Estimated GFR > 60 (59 - ) Glucose 93 mg/dL (65-110) POC Capillary Glucose 89 mg/dl (65-105) Calcium 8.9 mg/dL (8.4-10.2) Magnesium 2.1 mg/dL (1.6-2.3) Total Bilirubin AST ALT Alkaline Phosphatase Troponin I NT-Pro-B Natriuret Pep Total Protein Albumin Urine Color Urine Appearance Urine pH Ur Specific [place] Urine Protein Urine Glucose (UA) Urine Ketones Ur Blood (Man) Urine Nitrate Urine Bilirubin Urine Urobilinogen Leukocyte Esterase Rfl 10/09/24 11:59 WBC RBC Hgb Hct MCV MCH MCHC RDW Plt Count MPV Immature Gran % (Auto) Neut % (Auto) Lymph % (Auto) [place] % (Auto) Eos % (Auto) Baso % (Auto) Lymph # (Auto) [place] # (Auto) Eos # (Auto) Baso # (Auto) Abs Immat Gran (auto) Absolute Neuts (auto) Absolute Nucleated RBC Nucleated RBC % PT INR Sodium Potassium Chloride Carbon Dioxide Anion Gap BUN Creatinine Estim Creat Clear Calc Estimated GFR Glucose POC Capillary Glucose 105 mg/dl (65-105) Calcium Magnesium Total Bilirubin AST ALT Alkaline Phosphatase Troponin I NT-Pro-B Natriuret Pep Total Protein Albumin Urine Color Urine Appearance Urine pH Ur Specific [place] Urine Protein Urine Glucose (UA) Urine Ketones Ur Blood (Man) Urine Nitrate Urine Bilirubin Urine Urobilinogen Leukocyte Esterase Rfl Patient hx anesthesia problems: none Family hx anesthesia problems: none Results Review: All pre-operative results and documents have been reviewed as part of the pre-operative evaluation. [facility] Past Medical History Medical History Osteopenia Osteoporosis Lesion of skin of foot Frequent sinus infections Multiple falls Polycythemia Right hip pain Encounter for weight management External hemorrhoid Urinary incontinence BMI 26.0-26.9,adult Chest discomfort Trigger index finger of left hand Cheilitis Iron deficiency anemia Left-sided chest pain Trigger finger of left hand BMI 25.0-25.9,adult Body mass index (BMI) of 50-59.9 in adult (03/13/17) Left arm numbness History of obstructive sleep apnea GILMAN (dyspnea on exertion) Dependence on other enabling machines and devices BMI 45.0-49.9, adult BMI 40.0-44.9, adult Amaurosis fugax Acute renal failure Mild sleep apnea Fatigue Abdominal pain GERD (gastroesophageal reflux disease) Diverticular disease BMI 22.0-22.9, adult Change in bowel habit BMI 21.0-21.9, adult Encounter for routine adult health examination with abnormal findings Constipation Elevated LFTs Grade I diastolic dysfunction Bunion Sinus mucosal thickening Facial pain, acute Traumatic ecchymosis of face BMI 23.0-23.9, adult Syncope Frequent falls Colon cancer screening BMI 24.0-24.9, adult Seasonal allergies Vitamin D deficiency Insomnia BMI 27.0-27.9,adult Excessive and redundant skin and subcutaneous tissue Encounter for routine adult health examination without abnormal findings BMI 31.0-31.9,adult Urticaria BMI 33.0-33.9,adult Follow up Encounter for Medicare annual wellness exam Hearing loss Abnormal finding of blood chemistry, unspecified Orthostatic hypotension Hx of small bowel obstruction Carotid disease, bilateral BMI 34.0-34.9,adult Benign essential hypertension On assisted drug therapy MATTHIAS on CPAP Hypothyroidism (acquired) Hyperlipidemia Diabetes mellitus type 2, insulin dependent Dependent edema Depression IDDM (insulin dependent diabetes mellitus) Hypothyroidism Left wrist fracture Arm fracture, left Arthritis HTN (hypertension) Neuropathy Surgical History Surgical History History of hemorrhoidectomy Rectal exam under anesthesia with internal hemorrhoid rubber-band ligation x3 History of dental surgery History of bunionectomy History of total bilateral knee replacement (TKR) S/P gastric bypass S/P right knee arthroscopy History of surgery on left wrist History of appendectomy H/O: hysterectomy H/O section History of Ivy-en-Y gastric bypass Family History Family History Mother Family history of diabetes mellitus in first degree relative Diabetes mellitus Father Family history of heart disease in male family member before age 55 Family history of cardiovascular disease Sibling FHx: thyroid cancer Papillary thyroid cancer Social History Social History Smoking packs per day: 1 Smoking cigarettes per day: 20.0 Years smoked: 30 Smoking pack-years: 30.00 Smoking status: Former smoker Tobacco type: cigarettes Second hand tobacco smoke exposure: No Smoking end date: 09/11/89 Additional smoking assessment comments: STATES 1 TO 1 1/2PK/DAY/30YRS-QUIT 1996 Alcohol intake: never Substance use: never Substance use type: does not use Do You Feel Safe in your Home?: Yes Lack of Transportation: No Lack of Food: Never True Current Housing: I Have Housing Concerned About Future Housing: No Difficulty Paying Gas/Electric Bills: No Difficulty Paying for Meds: No Currently Unemployed: No Education: Associate Degree Difficulty w/ Childcare or Family Care: No Living arrangements: with family Additional living arrangements comments: Occupation/Education: retired Gender identity (if verbalized by the patient): Female Spiritual care concerns: No Anes - Eval Final PreProcedure Day of Procedure 10/09/24 13:20 Patient weight: normal Lungs: normal air movement Airway: Mallampati scale class II Neurological: alert and oriented Last oral intake: >/= 8 hours ASA classification: III Emergent: no Anesthetic plan: proceed Anesthesia type and monitoring: general LMA and standard monitoring Results Review: All pre-operative results and documents have been reviewed as part of the pre-operative evaluation. Carotid US 2023 nml less 50%. Stress test 2022 nml perfusion. Pt DM, hx MATTHIAS no CPAP since wt loss. Now for hip sx after hip fx without clear etiology for syncope. Discussed w pt, spouse and CLINICAL PSYCHOLOGIST LICENSED. Pt w sig pain and wishes to proceed for this more urgent hip sx. Informed Consent: The patient's anesthetic plan and its attendant risks and benefits were discussed with the patient/family/POA. Questions were solicited and answers provided to the satisfaction of the patient/family/POA.
[2024-10-09] MEDS: ceFAZolin SODIUM 1 GM VIAL 2 GM IV PUSH (13:34)
--- NOTE | 2024-10-09 14:06 | SUR.OPER ---
Patient arrived to OR with 16 luxembourger jason catheter draining clear yellow urine
--- NOTE | 2024-10-09 14:31 | W.PM.PROC2 ---
Procedure Note - Detailed Date of Procedure 10/09/24 Pre-op Diagnosis RIGHT Intertrochanteric Hip fracture Post-op Diagnosis Same Procedure Performed Open reduction internal fixation with a trochanteric nail Surgeon Kaz Gonzalez MD Anesthesia General Indications Hip fracture Description of Procedure Patient brought to operating room #7. A general anesthetic was administered. She was placed on the fracture table this sterilely prepped and draped in usual manner. No reduction was necessary as the fracture was undisplaced. Incision made over the tip of the trochanter. Dissection carried down to the trochanter broached with an awl. A guide guillermina placed in the one-step Reamer used. All the 130 degree nail was placed 9 millimeters in diameter. This was supple 90 millimeter screw in the center of the head. X-rays in the AP and lateral planes demonstrate anatomic aligned with good fixation and good placement of the hardware. The wounds irrigated closed with 2. Vicryl 2-0 Vicryl and jacob. Sterile dressing applied. Patient left the operating in satisfactory condition. Estimated Blood Loss 100 Complications No immediate complications Condition Stable Disposition PACU [facility] Billing Surgery - Charge Forward: Surgery Billing ([id number] Troch Nail for IT Fracture)
[2024-10-09] MEDS: DEXTROSE 5% 1,000 ML 1,000 ML 40 ML IV CONT (14:50)
[2024-10-09] MEDS: LACTATED RINGERS 1,000 ML 30 ML IV CONT (14:50)
[2024-10-09 15:04] LABS: Glucose Point of Care 93 mg/dl (65-105)
[2024-10-09] MEDS: fentaNYL CITRATE INJ (*CRX) 100 MCG/2 ML VIAL 25 MCG IV PUSH ×4 (15:43→15:58)
[2024-10-09] MEDS: HYDROmorphone HCL INJ (*CRX) 2 MG/ML VIAL 1 MG IV PUSH ×2 (17:08→19:30)
[2024-10-09] MEDS: HYDROcodone/acetaminophen (*CRX) 7.5-325 MG TABLET 1 TAB PO (18:34)
[2024-10-09 18:35] LABS: Glucose Point of Care 242 mg/dl (65-105)
[2024-10-09] MEDS: INSULIN ASPART (*BKC) 100 UNITS/ML SUB-Q ×2 (18:36→21:52)
[2024-10-09 21:33] LABS: Glucose Point of Care 243 mg/dl (65-105)
[2024-10-09] MEDS: ceFAZolin 2 GM/D5W 50 ML 2 GM/50 ML BAG IVPB (21:49)
[2024-10-10] VITALS (10 sets, daily range): BP systolic 118–154; BP diastolic 49–98; PULSE 63–84; RESP 14–18; TEMP 36.2–37; O2SAT 91–100
--- NOTE | 2024-10-10 | ECHO_ITS ---
Patient Info Name: Natasha Edouard Age: 74 years : 1950 Gender: Female Ht: 60 in Wt: 109 lbs BSA: 1.45 m2 HR: 72 bpm BP: 130 / 61 mmHg Technical Quality: Good Exam Date: 10/10/2024 10:05 AM Patient Status: I Admit Date: 10/08/2024 Exam Type: CA echo doppler color flow Complete two-dimensional, color flow and Doppler transthoracic echocardiogram is performed. Staff Referring Physician: Kaz Gonzalez MD Scientific Systems Analyst: Neha Silvestre Attending Provider: Radha Paniagua Summary 1. Complete two-dimensional, color flow and Doppler transthoracic echocardiogram is performed. 2. Left ventricular chamber dimension is normal. 3. Left ventricular systolic function is normal, estimated at 65-70. 4. There is mild concentric increased left ventricular wall thickness. 5. The left ventricular diastolic function is grade I diastolic dysfunction. 6. E/e' 8 is minimally elevated. 7. Left atrial chamber dimension is mildly enlarged. 8. There is mild aortic valve sclerosis. 9. The mitral valve has a moderately calcified annulus. 10. There is trace tricuspid valve regurgitation. 11. Moderate pulmonary hypertension, estimated pulmonary arterial systolic pressure is 52 mmHg. Left Ventricle E/e' 8 is minimally elevated. Left ventricular chamber dimension is normal. Left ventricular systolic function is normal, estimated at 65-70. There is mild concentric increased left ventricular wall thickness. The left ventricular diastolic function is grade I diastolic dysfunction. Right Ventricle Right ventricular chamber dimension is normal. Right ventricular systolic function is normal. Left Atria Left atrial chamber dimension is mildly enlarged. Right Atria Right atrial chamber dimension is normal. Aortic Valve The aortic valve is trileaflet. There is mild aortic valve sclerosis. There is no aortic valve stenosis. There is no aortic valve regurgitation. Pulmonic Valve There is no pulmonic regurgitation. Mitral Valve The mitral valve has a moderately calcified annulus. There is no mitral valve stenosis. There is no mitral valve regurgitation. Tricuspid Valve There is trace tricuspid valve regurgitation. Moderate pulmonary hypertension, estimated pulmonary arterial systolic pressure is 52 mmHg. Pericardium/Pleural There is no pericardial effusion. Inferior Vena Cava Normal inferior vena cava with >50% collapse upon inspiration consistent with normal right atrial pressure, 5 mmHg. Aorta The aortic root size at the sinus of Valsalva is normal. Left Ventricular Outflow Tract Name Value Normal LVOT 2D LVOT Diameter 1.7 cm LVOT Doppler LVOT Peak Velocity 127 cm/s LVOT Peak Gradient 6 mmHg LVOT Mean Gradient 4 mmHg LVOT VTI 31 cm LVOT VTI/AV VTI Ratio 0.9 LVOT Stroke Volume 69 ml LVOT CO 12.7 l/min LVOT CI 8.7 l/min/m2 Pulmonic Valve Name Value Normal PV Doppler PV Peak Velocity 122 cm/s PV Peak Gradient 6 mmHg Mitral Valve Name Value Normal MV Diastolic Function MV E Peak Velocity 70 cm/s MV A Peak Velocity 133 cm/s MV E/A 0.5 MV Decel Time (PW) 350 ms MV Annular TDI MV E/e' (Septal) 9.7 MV E/e' (Lateral) 7.5 MV E/e' (Average) 8.6 Tricuspid Valve Name Value Normal TV Regurgitation Doppler TR Peak Velocity 342 cm/s TR Peak Gradient 33 mmHg Estimated PAP/RSVP RA Pressure 5 mmHg <=5 PA Systolic Pressure 52 mmHg <36 RV Systolic Pressure 52 mmHg <36 TV Annular TDI TV Lateral Pili s' Velocity 13.9 cm/s >=9.5 Aorta Name Value Normal Ascending Aorta Ao Root Diameter (MM) 3.1 cm Ao Root Diam Index (MM) 2.1 cm/m2 Aortic Valve Name Value Normal AV Doppler AV Peak Velocity 181 cm/s AV Peak Gradient 13 mmHg AV Mean Gradient 7 mmHg AV VTI 37 cm AV Area (Cont Eq VTI) 1.9 cm2 >=3.0 AV Area (Cont Eq Van) 1.5 cm2 AV DI (Van) 0.70 AV Regurgitation 2D LVOT Area 2.2 cm2 Ventricles Name Value Normal LV Dimensions 2D/MM IVS Diastolic Thickness (2D) 1.0 cm 0.6-1.0 LVID Diastole (2D) 3.4 cm 3.8-5.2 LVIW Diastolic Thickness (2D) 1.1 cm 0.6-0.9 LVID Systole (2D) 2.0 cm 2.2-3.5 LVOT Diameter 1.7 cm LV Mass (2D Cubed) 109.89 g 67.00-162.00 LV Mass Index (2D Cubed) 76 g/m2 43-95 Relative Wall Thickness (2D) 0.66 <=0.42 LV Fractional Shortening/Ejection Fraction 2D/MM LV Fractional Shortening (2D) 40 % 27-45 LV EF (2D Teichtasneemz) 72 % LV Diastolic Volume (4C MOD) 50 ml LV EF (4C MOD) 72 % LV Diastolic Volume (2C MOD) 40 ml LV EF (2C MOD) 60 % LV Diastolic Volume (BP MOD) 47 ml 46-106 LV Diastolic Volume Index (BP MOD) 32 ml/m2 29-61 LV Systolic Volume (BP MOD) 15 ml 14-42 LV Systolic Volume Index (BP MOD) 11 ml/m2 8-24 LV EF (BP MOD) 67 % 54-74 LV Diastolic Length (4C) 7.8 cm LV Systolic Length (4C) 6.0 cm LV Stroke Volume (4C MOD) 36 ml RV Dimensions 2D/MM RVID Diastole (2D) 3.3 cm 2.1-3.5 Atria Name Value Normal LA Dimensions LA Volume (4C A-L) 53 ml LA Volume (BP A-L) 55 ml RA Dimensions RA Systolic Major Cowen Length (4C) 3.9 cm 2.2-2.8 RA Area (4C) 9.1 cm2 <=18.0 Report Signatures
[2024-10-10] MEDS: HYDROcodone/acetaminophen (*CRX) 7.5-325 MG TABLET 1 TAB PO ×2 (00:25→12:49)
[2024-10-10] MEDS: DEXTROSE 5%/0.45% SOD CHL 1,000 ML 100 ML IV CONT (01:14)
[2024-10-10] MEDS: HYDROmorphone HCL INJ (*CRX) 2 MG/ML VIAL 1 MG IV PUSH ×3 (05:12→20:34)
[2024-10-10] MEDS: ceFAZolin 2 GM/D5W 50 ML 2 GM/50 ML BAG IVPB ×2 (05:15→14:50)
--- NOTE | 2024-10-10 06:21 | PC.NURSE ---
RN informed pt that there was an order to remove her jason catheter. Pt was in 9/10 pain and asked for RN to come back and remove it once her pain medication had more time to be effective. RN went back to check on pt and pt was dry heaving and reported nausea. Pt received prn medication for nausea and again asked the RN to wait to pull out the jason. RN again went in to pts room after she was given the nausea medication and she said her nausea was slightly better but still refused to have the jason catheter pulled out yet.
[2024-10-10 06:28] LABS: Basophils Absolute Auto 0.1 K/mm3 (0.0-0.1); Basophils Percent Auto 0.5 % (0.2-1.2); Eosinophils Absolute Auto 0.2 K/mm3 (0-0.3); Eosinophils Percent Auto 2.3 % (0-4.4); Hematocrit 37.7 % (37.0-47.0); Hemoglobin 11.9 g/dL (12.0-15.0); Immature Granulocyte Absolute 0.05 K/mm3 (0.00-0.031); Immature Granulocyte Percent A 0.5 % (0-0.5); Lymphocytes Absolute Auto 0.67 K/mm3 (0.9-3.2); Lymphocytes Percent Auto 6.4 % (18.3-44.2); Mean Corpuscular HGB Conc 31.6 g/dl (32-36); Mean Corpuscular Hemoglobin 29.3 pg (26-34); Mean Corpuscular Volume 92.9 fl (80-100); Mean Platelet Volume 10.1 fl (7.4-10.4); Monocytes Percent Auto 9.4 % (2.6-8.5); Neutrophils Absolute Auto 8.5 K/mm3 (1.3-6.7); Neutrophils Percent Auto 80.9 % (45.5-73.1); Platelet Count Result 234 k/mm3 (150-375); Red Blood Count 4.06 M/mm3 (4.2-5.4); Red Cell Distribution Width 12.8 % (11.5-14.5); White Blood Count 10.5 K/mm3 (4.5-10.0)
[2024-10-10 06:41] LABS: Anion Gap 5 mmol/L (4-12); Blood Urea Nitrogen 12 mg/dL (7-17); Calcium 8.3 mg/dL (8.4-10.2); Carbon Dioxide 30 mmol/L (22-30); Chloride 98 mmol/L (98-107); Estimated CRCL calculation 67 ml/min; Estimated Glomerular Filt Rate > 60; Glucose 203 mg/dL (65-110); Potassium 3.8 mmol/L (3.4-5.0); Sodium 133 mmol/L (137-145)
--- NOTE | 2024-10-10 07:23 | P.PNIM_ITS ---
Progress Note: A&P Assessment and Plan (1) Intertrochanteric fracture of right hip: Code(s): S72.141A - Displaced intertrochanteric fracture of right femur, initial encounter for closed fracture Status: Acute Assessment and Plan: * Patient with a fall and syncope * Came in with right hip pain * Hip xray Highly suggestive right intertrochanteric fracture. CT confirmation is advised. * Hip CT Fracture in the area of the right greater trochanter with highly suggestive fracture in the lesser trochanter. * Morphine and norco for pain control * Diabetic diet * Corth surgery consulted * S/P Open reduction internal fixation with a trochanteric nail * Post op care per ortho surgery * PT/OT when appropriate (2) Anxiety disorder: Qualifiers: Anxiety disorder type: unspecified anxiety disorder Qualified Code(s): F41.9 - Anxiety disorder, unspecified Code(s): F41.9 - Anxiety disorder, unspecified Status: Acute Assessment and Plan: * Continue buspar and wellburtin * Continue Zoloft (3) Benign essential hypertension: Code(s): I10 - Essential (primary) hypertension Status: Acute Assessment and Plan: * BP is stable 130/61 * Continue home medications * Trend BP * Adjust therapy (4) Hyperlipidemia: Qualifiers: Hyperlipidemia type: mixed hyperlipidemia Qualified Code(s): E78.2 - Mixed hyperlipidemia Code(s): E78.5 - Hyperlipidemia, unspecified Status: Acute Assessment and Plan: * Continue home medications as ordered (5) Diabetes mellitus type 2, insulin dependent: Code(s): E11.9 - Type 2 diabetes mellitus without complications; Z79.4 - manager intermediate (current) use of insulin Status: Acute Assessment and Plan: * Glucose is stable at 203 * hold home Jardiance, metformin, and Ozempic * Continue home lantus * ISS * Hypoglycemia protocol * Trend glucose * Adjust therapy as indicated * stop D5 1/2 NS (6) Hypothyroidism (acquired): Code(s): E03.9 - Hypothyroidism, unspecified Status: Acute Assessment and Plan: * Continue home levothyroxine (7) Syncope and collapse: Code(s): R55 - Syncope and collapse Status: Acute Assessment and Plan: * Patient presented after syncopal episode * Echo EF of 65-70% with a grade 1 DD, and left ventricular wall thickness, mitral valve noted to have moderate calcification * She will need orthostatic blood pressures * Fall precautions * Chest x-ray with no acute findings Time Spent With Patient Time: 51 minutes Time with patient: Greater than 35 minutes Subjective Date/time seen: 10/10/24 1045 Interval history: 10/10/2024 Patient is doing better today. She does have some pain especially when she stands. She denies any chest pain, shortness a breath, nausea, vomiting, diarrhea constipation. Glucose has been doing well did also put on a regular diet as she stated that she denied any well due to the food choices. Patient is wanting to go to rehab of and she is stating that she was reaches at [place]. Spoke with care coordination about the plan. 10/09/2024 Patient states she is feeling better. Her pain is better controlled. With Dilaudid. She denies any chest pain, shortness a breath, nausea, vomiting, diarrhea constipation. She is concerned about her glucose. Did put her on D5 half-normal saline for now. Also patient did state that she had a syncopal episode and did wake up and was wondering what happened to her. Will get an echo after her surgery. 10/09/2024 74-year-old female presents on 10/08/2024 to [place] [facility] with right hip pain. She was standing at the side of her bed when she fell. Unclear if she lost consciousness. This was not witnessed by the who lives with her. She reports she hit her head but was not confused and she was clear minded shortly after. She has an existing history of a fracture of the greater trochanter of the right femur with mild displacement. She last followed up in the office with Dr. Gonzalez on 10/02/2024 in the were following non operative management. Head CT in ER without acute intracranial findings, pelvis CT demonstrates right greater trochanter. Assessed by Dr. Gonzalez. Will go for ORIF.v Review of Systems Review of Systems: All systems reviewed & are unremarkable except as noted in HPI and below Exam Narrative: General: well-nourished, 74-year-old female, sitting up in bed, comfortable, NARD Neuro: awake, alert and oriented x4, speech clear, no focal neuro deficits noted HEENMT: normocephalic, atraumatic, EOMI, sclerae anicteric, moist oral mucosa Respiratory: Clear to auscultation bilaterally without crackles, rhonchi or wheezes, nonlabored breathing Cardio: regular rate, regular rhythm with S1-S2 Abdomen: nondistended, normoactive bowel sounds, soft, nontender to palpation Extremities: Skin: no rashes or lesions, warm and dry Psych: appropriate mood and affect, judgment and insight intact Objective Data Vital Signs Vital Signs: Vital Signs - 24 hr 10/09/24 08:00 10/09/24 08:00 10/09/24 08:00 Temperature 97.3 F L Pulse Rate 64 67 Respiratory Rate 16 Blood Pressure 123/90 Pulse Oximetry 95 94 Oxygen Delivery Room Air Oxygen Flow Rate 10/09/24 09:00 10/09/24 12:00 10/09/24 13:00 Temperature 97.1 F L Pulse Rate 61 65 Respiratory Rate 16 Blood Pressure 123/69 Pulse Oximetry 95 94 Oxygen Delivery Room Air Room Air Oxygen Flow Rate 10/09/24 14:50 10/09/24 15:05 10/09/24 15:20 Temperature 97.0 F L Pulse Rate 73 75 73 Respiratory Rate 18 14 16 Blood Pressure 139/66 118/71 152/60 H Pulse Oximetry 94 95 96 Oxygen Delivery Simple Face Mask Simple Face Mask Simple Face Mask Oxygen Flow Rate 6 6 6 10/09/24 15:30 10/09/24 15:35 10/09/24 15:50 Temperature Pulse Rate 71 67 Respiratory Rate 16 16 Blood Pressure 143/68 H 131/62 Pulse Oximetry 90 96 Oxygen Delivery Room Air Nasal Cannula Nasal Cannula Oxygen Flow Rate 2 2 10/09/24 16:05 10/09/24 16:20 10/09/24 16:35 Temperature 97.0 F L 97.1 F L 96.9 F L Pulse Rate 60 71 67 Respiratory Rate 14 16 16 Blood Pressure 165/67 H 143/68 H 147/65 H Pulse Oximetry 97 99 98 Oxygen Delivery Nasal Cannula Oxygen Flow Rate 2 10/09/24 17:05 10/09/24 18:05 10/09/24 20:00 Temperature 97.1 F L 97.0 F L Pulse Rate 69 77 74 Respiratory Rate 16 16 Blood Pressure 130/60 102/75 Pulse Oximetry 98 96 Oxygen Delivery Oxygen Flow Rate 10/09/24 21:25 10/09/24 21:43 10/09/24 23:22 Temperature 98.6 F 97.6 F Pulse Rate 78 67 Respiratory Rate 18 16 Blood Pressure 122/63 108/88 Pulse Oximetry 96 97 93 Oxygen Delivery Nasal Cannula Oxygen Flow Rate 2 10/10/24 00:00 10/10/24 04:00 10/10/24 04:26 Temperature 98.6 F Pulse Rate 67 66 63 Respiratory Rate 14 Blood Pressure 130/61 Pulse Oximetry 97 Oxygen Delivery Oxygen Flow Rate Intake/Output Intake/Output: Intake & Output 10/07/24 10/08/24 10/09/24 10/10/24 23:59 23:59 23:59 23:59 Intake Total 1900 550 Output Total 775 1245 Balance 1125 -465 Meds/Results Medications: Active Medications Generic Name Dose Route Start Last Admin Trade Name Freq PRN Reason Stop Dose Admin Hydrocodone Bitart/Acetaminophen 1 tab 10/09/24 14:34 Hydrocodone/Acetaminophen (*Crx) 5-325 Mg Tablet PO Q4H PRN Pain Rated 4-6 Hydrocodone Bitart/Acetaminophen 1 tab 10/09/24 14:34 10/10/24 00:25 Hydrocodone/Acetaminophen (*Crx) 7.5-325 Mg Tablet PO 1 tab Q4H PRN Administration Pain Rated 7-10 Dextrose 12.5 gm 10/09/24 10:27 Dextrose 50% 25 Gm/50 Ml Syringe IV PUSH PRN PRN Hypoglycemia Protocol Fluticasone Propionate 2 spray 10/09/24 09:00 10/09/24 10:05 Fluticasone Propionate 0.05% Na Spr 16 Gm Btl (*Bkc) NASAL 2 spray DAILY INGRID Administration Glucagon 1 mg 10/09/24 10:27 Glucagon For Inj 1 Mg Vial IM PRN PRN Hypoglycemia Protocol Glucose 15 gm 10/09/24 10:27 Glucose Oral Gel 15 Gm Of Glucse In 37.5 Gm Tube PO PRN PRN Hypoglycemia Protocol Hydromorphone HCl 1 mg 10/09/24 17:05 10/10/24 05:12 Hydromorphone Hcl Inj (*Crx) 2 Mg/Ml Vial IV PUSH 1 mg Q2H PRN Administration Breakthrough Pain Rated 7-10 or NPO Hydromorphone HCl 0.5 mg 10/09/24 17:06 Hydromorphone Hcl Inj (*Crx) 2 Mg/Ml Vial IV PUSH Q2H PRN Breakthrough Pain Rated 4-6 or NPO Hydroxyzine Pamoate 50 mg 10/09/24 14:34 Hydroxyzine Pamoate 25 Mg Capsule PO Q4H PRN Itching Dextrose/Sodium Chloride 1,000 mls @ 100 mls/hr 10/09/24 10:30 10/10/24 01:14 Dextrose 5% Sodium Chloride 0.45% IV CONT 100 mls/hr .Q10H INGRID Administration Dextrose 1,000 mls @ 100 mls/hr 10/09/24 10:27 Dextrose 5% 1,000 Ml IVPB PRN PRN Hypoglycemia Protocol Dextrose 1,000 mls @ 40 mls/hr 10/09/24 13:33 10/09/24 14:50 Dextrose 5% 1,000 Ml IV CONT 10/10/24 13:32 40 mls/hr .Q24H ONE Administration Cefazolin Sodium 2 gm in 50 mls @ 100 mls/hr 10/09/24 22:00 10/10/24 05:15 Ancef 2 Gm/D5w 50 Ml IVPB 10/10/24 14:29 100 mls/hr Q8HR INGRID Administration Ibuprofen 800 mg in 200 mls @ 400 mls/hr 10/09/24 14:34 Caldolor 800 Mg/200 Ml IVPB Q6H PRN Breakthrough Pain Rated 1-3 or NPO Insulin Aspart 2 - 5 units 10/09/24 12:00 10/09/24 18:36 Insulin Aspart (*Bkc) 100 Units/Ml SUB-Q 2 units TIDWM INGRID Administration Protocol Insulin Aspart 1 - 2 units 10/09/24 21:00 10/09/24 21:52 Insulin Aspart (*Bkc) 100 Units/Ml SUB-Q 1 units HS INGRID Administration Protocol Naloxone HCl 0.1 mg 10/09/24 14:34 Naloxone Hcl 0.4 Mg/Ml Vial IV PUSH Q2M PRN Opiate Reversal Ondansetron HCl 4 mg 10/09/24 14:34 Ondansetron Inj 4 Mg/2 Ml Vial IV PUSH Q4H PRN Nausea And Vomiting Perflutren Lipid Microsphere 0 ml 10/09/24 12:02 Perflutren Lipid Microspheres 1.5 Ml Vial Diluted To 10 Ml Total Volume IV PUSH 10/12/24 12:02 ONCE PRN adequate visualization Protocol Polyethylene Glycol 17 gm 10/10/24 09:00 Polyethylene Glycol 3350 17 Gm Powd.Pack PO QAM [facility] Rivaroxaban 10 mg 10/10/24 17:00 Rivaroxaban 10 Mg Tablet PO DAILY@17 [facility] Senna/Docusate Sodium 2 tab 10/09/24 17:00 10/09/24 17:53 Senna/Docusate Sodium Tablet PO Not Given BID [facility] Tramadol HCl 50 mg 10/09/24 14:34 10/09/24 22:44 Tramadol Hcl (*Crx) 50 Mg Tablet PO 50 mg Q4H PRN Administration Pain Rated 4-6 Radiology Results: ITS Impressions Hip/Pelvis X-Ray 10/08/24 15:39 IMPRESSION: Highly suggestive right intertrochanteric fracture. CT confirmation is advised. Bilateral hip moderate osteoarthritic changes. Pelvis CT 10/08/24 17:53 IMPRESSION: Fracture in the area of the right greater trochanter with highly suggestive fracture in the lesser trochanter. Other appearances as described above. Head CT 10/08/24 19:09 IMPRESSION: No acute intracranial findings. Chest X-Ray 10/08/24 19:36 IMPRESSION: No acute cardiopulmonary pathology. Intraoperative X-Ray 10/09/24 17:23 IMPRESSION: 1. Fluoroscopy utilized during internal fixation of the proximal right femoral fracture which is in near-anatomic alignment. See procedure note for further detail. Labs Labs: Laboratory Results - last 24 hr 10/09/24 10/09/24 10/09/24 06:48 07:44 10:19 WBC 6.5 RBC 5.12 Hgb 15.0 Hct 47.6 H MCV 93.0 MCH 29.3 MCHC 31.5 L RDW 12.9 Plt Count 258 MPV 9.8 Immature Gran % (Auto) 0.5 Neut % (Auto) 72.5 Lymph % (Auto) 13.5 L [place] % (Auto) 11.8 H Eos % (Auto) 1.4 Baso % (Auto) 0.3 Lymph # (Auto) 0.88 L [place] # (Auto) 0.8 H Eos # (Auto) 0.1 Baso # (Auto) 0.0 Abs Immat Gran (auto) 0.03 Absolute Neuts (auto) 4.7 Absolute Nucleated RBC 0.000 Nucleated RBC % 0.0 PT 13.7 INR 1.0 Sodium 136 L Potassium 4.0 Chloride 103 Carbon Dioxide 27 Anion Gap 6 BUN 23 H Creatinine 0.45 L Estim Creat Clear Calc 64 Estimated GFR > 60 Glucose 93 POC Capillary Glucose 89 Calcium 8.9 Magnesium 2.1 10/09/24 10/09/24 10/09/24 11:59 14:56 18:26 WBC RBC Hgb Hct MCV MCH MCHC RDW Plt Count MPV Immature Gran % (Auto) Neut % (Auto) Lymph % (Auto) [place] % (Auto) Eos % (Auto) Baso % (Auto) Lymph # (Auto) [place] # (Auto) Eos # (Auto) Baso # (Auto) Abs Immat Gran (auto) Absolute Neuts (auto) Absolute Nucleated RBC Nucleated RBC % PT INR Sodium Potassium Chloride Carbon Dioxide Anion Gap BUN Creatinine Estim Creat Clear Calc Estimated GFR Glucose POC Capillary Glucose 105 93 242 H Calcium Magnesium 10/09/24 10/10/24 21:29 06:15 WBC 10.5 H RBC 4.06 L Hgb 11.9 L D Hct 37.7 MCV 92.9 MCH 29.3 MCHC 31.6 L RDW 12.8 Plt Count 234 MPV 10.1 Immature Gran % (Auto) 0.5 Neut % (Auto) 80.9 H Lymph % (Auto) 6.4 L [place] % (Auto) 9.4 H Eos % (Auto) 2.3 Baso % (Auto) 0.5 Lymph # (Auto) 0.67 L [place] # (Auto) 1.0 H Eos # (Auto) 0.2 Baso # (Auto) 0.1 Abs Immat Gran (auto) 0.05 H Absolute Neuts (auto) 8.5 H Absolute Nucleated RBC 0.000 Nucleated RBC % 0.0 PT INR Sodium 133 L Potassium 3.8 Chloride 98 Carbon Dioxide 30 Anion Gap 5 BUN 12 D Creatinine 0.43 L Estim Creat Clear Calc 67 Estimated GFR > 60 Glucose 203 H POC Capillary Glucose 243 H Calcium 8.3 L Magnesium
[2024-10-10 07:58] LABS: Glucose Point of Care 192 mg/dl (65-105)
[2024-10-10] MEDS: FLUTICASONE PROPIONATE 0.05% NA SPR 16 GM BTL (*BKC) 2 SPRAY NASAL (09:46)
[2024-10-10] MEDS: INSULIN ASPART (*BKC) 100 UNITS/ML SUB-Q ×4 (09:49→20:53)
[2024-10-10 11:48] LABS: Glucose Point of Care 292 mg/dl (65-105)
--- NOTE | 2024-10-10 12:35 | WPDANESPN ---
Anes - Prog Note Post-Op Date/Time: 10/10/24 12:35 Cardiovascular status: normal Respiratory status: normal Airway patency: baseline Mental status: baseline Post-Op hydration status: normal Vital Signs: Last Vital Signs Temp 36.2 C L 10/10/24 12:00 Pulse 83 10/10/24 12:00 Resp 16 10/10/24 12:00 BP 118/53 L 10/10/24 12:00 Pulse Ox 91 10/10/24 12:00 O2 Del Method Nasal Cannula 10/10/24 08:34 O2 Flow Rate 2 10/10/24 08:34 Pain Score (VAS): 2 I/O: Intake & Output 10/09/24 10/10/24 10/10/24 23:59 07:59 15:59 Intake Total 1350 550 280 Output Total 100 1245 Balance 1250 -695 280 Laboratory Tests 10/10/24 06:15 10/10/24 06:15 10/09/24 10/09/24 10/09/24 14:56 18:26 21:29 WBC RBC Hgb Hct MCV MCH MCHC RDW Plt Count MPV Immature Gran % (Auto) Neut % (Auto) Lymph % (Auto) [place] % (Auto) Eos % (Auto) Baso % (Auto) Lymph # (Auto) [place] # (Auto) Eos # (Auto) Baso # (Auto) Abs Immat Gran (auto) Absolute Neuts (auto) Absolute Nucleated RBC Nucleated RBC % Sodium Potassium Chloride Carbon Dioxide Anion Gap BUN Creatinine Estim Creat Clear Calc Estimated GFR Glucose POC Capillary Glucose 93 242 H 243 H Calcium 10/10/24 10/10/24 10/10/24 06:15 07:54 11:42 WBC 10.5 H RBC 4.06 L Hgb 11.9 L D Hct 37.7 MCV 92.9 MCH 29.3 MCHC 31.6 L RDW 12.8 Plt Count 234 MPV 10.1 Immature Gran % (Auto) 0.5 Neut % (Auto) 80.9 H Lymph % (Auto) 6.4 L [place] % (Auto) 9.4 H Eos % (Auto) 2.3 Baso % (Auto) 0.5 Lymph # (Auto) 0.67 L [place] # (Auto) 1.0 H Eos # (Auto) 0.2 Baso # (Auto) 0.1 Abs Immat Gran (auto) 0.05 H Absolute Neuts (auto) 8.5 H Absolute Nucleated RBC 0.000 Nucleated RBC % 0.0 Sodium 133 L Potassium 3.8 Chloride 98 Carbon Dioxide 30 Anion Gap 5 BUN 12 D Creatinine 0.43 L Estim Creat Clear Calc 67 Estimated GFR > 60 Glucose 203 H POC Capillary Glucose 192 H 292 H Calcium 8.3 L Post-procedural complaints: none Patient Feedback: Patient satisfied with anesthetic care.
[2024-10-10] MEDS: ONDANSETRON INJ 4 MG/2 ML VIAL IV PUSH (14:49)
[2024-10-10 16:52] LABS: Glucose Point of Care 215 mg/dl (65-105)
[2024-10-10] MEDS: RIVAROXABAN 10 MG TABLET PO (17:49)
--- NOTE | 2024-10-10 19:23 | PM.PNORT ---
Progress Note: A&P Assessment and Plan (1) Intertrochanteric fracture of right hip: Code(s): S72.141A - Displaced intertrochanteric fracture of right femur, initial encounter for closed fracture Status: Acute Assessment and Plan: S/P ORIF Right Intertrochanteric Fracture. Doing well. Mobilize as tolerated. Subjective Subjective Date/Time Seen: 10/10/24 19:23 Post Op day: 1 Principal diagnosis: S/P ORIF Right Hip Fracture Review of Systems Review of Systems: All systems reviewed & are unremarkable except as noted in HPI and below Exam Narrative: Dressing intact Wiggles toes Objective Data Vital Signs Vital Signs: Vital Signs - 24 hr 10/09/24 20:00 10/09/24 21:25 10/09/24 21:43 Temperature 98.6 F Pulse Rate 74 78 Respiratory Rate 18 Blood Pressure 122/63 Pulse Oximetry 96 97 Oxygen Delivery Nasal Cannula Oxygen Flow Rate 2 10/09/24 23:22 10/10/24 00:00 10/10/24 04:00 Temperature 97.6 F Pulse Rate 67 67 66 Respiratory Rate 16 Blood Pressure 108/88 Pulse Oximetry 93 Oxygen Delivery Oxygen Flow Rate 10/10/24 04:26 10/10/24 08:00 10/10/24 08:00 Temperature 98.6 F 97.6 F Pulse Rate 63 63 Respiratory Rate 14 16 Blood Pressure 130/61 125/49 L Pulse Oximetry 97 100 100 Oxygen Delivery Nasal Cannula Oxygen Flow Rate 2 10/10/24 08:00 10/10/24 08:12 10/10/24 08:34 Temperature Pulse Rate 63 Respiratory Rate Blood Pressure Pulse Oximetry 100 Oxygen Delivery Nasal Cannula Nasal Cannula Oxygen Flow Rate 2 2 10/10/24 12:00 10/10/24 12:19 10/10/24 15:32 Temperature 97.1 F L Pulse Rate 83 83 Respiratory Rate 16 Blood Pressure 118/53 L Pulse Oximetry 91 Oxygen Delivery Room Air Oxygen Flow Rate 10/10/24 16:00 Temperature 97.5 F L Pulse Rate 84 Respiratory Rate 16 Blood Pressure 128/98 H Pulse Oximetry 93 Oxygen Delivery Oxygen Flow Rate Intake/Output Intake/Output: Intake & Output 10/07/24 10/08/24 10/09/24 10/10/24 23:59 23:59 23:59 23:59 Intake Total 1900 1430 Output Total 774 1895 Balance 1125 -027 Meds/Results Medications: Active Medications Generic Name Dose Route Start Last Admin Trade Name Freq PRN Reason Stop Dose Admin Hydrocodone Bitart/Acetaminophen 1 tab 10/09/24 14:34 Hydrocodone/Acetaminophen (*Crx) 5-325 Mg Tablet PO Q4H PRN Pain Rated 4-6 Hydrocodone Bitart/Acetaminophen 1 tab 10/09/24 14:34 10/10/24 12:49 Hydrocodone/Acetaminophen (*Crx) 7.5-325 Mg Tablet PO 1 tab Q4H PRN Administration Pain Rated 7-10 Dextrose 12.5 gm 10/09/24 10:27 Dextrose 50% 25 Gm/50 Ml Syringe IV PUSH PRN PRN Hypoglycemia Protocol Fluticasone Propionate 2 spray 10/09/24 09:00 10/10/24 09:46 Fluticasone Propionate 0.05% Na Spr 16 Gm Btl (*Bkc) NASAL 2 spray DAILY INGRID Administration Glucagon 1 mg 10/09/24 10:27 Glucagon For Inj 1 Mg Vial IM PRN PRN Hypoglycemia Protocol Glucose 15 gm 10/09/24 10:27 Glucose Oral Gel 15 Gm Of Glucse In 37.5 Gm Tube PO PRN PRN Hypoglycemia Protocol Hydromorphone HCl 1 mg 10/09/24 17:05 10/10/24 09:40 Hydromorphone Hcl Inj (*Crx) 2 Mg/Ml Vial IV PUSH 1 mg Q2H PRN Administration Breakthrough Pain Rated 7-10 or NPO Hydromorphone HCl 0.5 mg 10/09/24 17:06 Hydromorphone Hcl Inj (*Crx) 2 Mg/Ml Vial IV PUSH Q2H PRN Breakthrough Pain Rated 4-6 or NPO Hydroxyzine Pamoate 50 mg 10/09/24 14:34 Hydroxyzine Pamoate 25 Mg Capsule PO Q4H PRN Itching Dextrose 1,000 mls @ 100 mls/hr 10/09/24 10:27 Dextrose 5% 1,000 Ml IVPB PRN PRN Hypoglycemia Protocol Ibuprofen 800 mg in 200 mls @ 400 mls/hr 10/09/24 14:34 Caldolor 800 Mg/200 Ml IVPB Q6H PRN Breakthrough Pain Rated 1-3 or NPO Insulin Aspart 2 - 5 units 10/09/24 12:00 10/10/24 17:48 Insulin Aspart (*Bkc) 100 Units/Ml SUB-Q 2 units TIDWM [facility] Administration Protocol Insulin Aspart 1 - 2 units 10/09/24 21:00 10/09/24 21:52 Insulin Aspart (*Bkc) 100 Units/Ml SUB-Q 1 units HS [facility] Administration Protocol Naloxone HCl 0.1 mg 10/09/24 14:34 Naloxone Hcl 0.4 Mg/Ml Vial IV PUSH Q2M PRN Opiate Reversal Ondansetron HCl 4 mg 10/09/24 14:34 10/10/24 14:49 Ondansetron Inj 4 Mg/2 Ml Vial IV PUSH 4 mg Q4H PRN Administration Nausea And Vomiting Perflutren Lipid Microsphere 0 ml 10/09/24 12:02 Perflutren Lipid Microspheres 1.5 Ml Vial Diluted To 10 Ml Total Volume IV PUSH 10/12/24 12:02 ONCE PRN adequate visualization Protocol Polyethylene Glycol 17 gm 10/10/24 09:00 10/10/24 09:46 Polyethylene Glycol 3350 17 Gm Powd.Pack PO Not Given QAM [facility] Rivaroxaban 10 mg 10/10/24 17:00 10/10/24 17:49 Rivaroxaban 10 Mg Tablet PO 10 mg DAILY@17 [facility] Administration Senna/Docusate Sodium 2 tab 10/09/24 17:00 10/10/24 17:48 Senna/Docusate Sodium Tablet PO Not Given BID [facility] Tramadol HCl 50 mg 10/09/24 14:34 10/09/24 22:44 Tramadol Hcl (*Crx) 50 Mg Tablet PO 50 mg Q4H PRN Administration Pain Rated 4-6 Radiology Results: ITS Impressions Hip/Pelvis X-Ray 10/08/24 15:39 IMPRESSION: Highly suggestive right intertrochanteric fracture. CT confirmation is advised. Bilateral hip moderate osteoarthritic changes. Pelvis CT 10/08/24 17:53 IMPRESSION: Fracture in the area of the right greater trochanter with highly suggestive fracture in the lesser trochanter. Other appearances as described above. Head CT 10/08/24 19:09 IMPRESSION: No acute intracranial findings. Chest X-Ray 10/08/24 19:36 IMPRESSION: No acute cardiopulmonary pathology. Intraoperative X-Ray 10/09/24 17:23 IMPRESSION: 1. Fluoroscopy utilized during internal fixation of the proximal right femoral fracture which is in near-anatomic alignment. See procedure note for further detail. Labs Labs: Laboratory Results - last 24 hr 10/09/24 10/10/24 10/10/24 21:29 06:15 07:54 WBC 10.5 H RBC 4.06 L Hgb 11.9 L D Hct 37.7 MCV 92.9 MCH 29.3 MCHC 31.6 L RDW 12.8 Plt Count 234 MPV 10.1 Immature Gran % (Auto) 0.5 Neut % (Auto) 80.9 H Lymph % (Auto) 6.4 L [place] % (Auto) 9.4 H Eos % (Auto) 2.3 Baso % (Auto) 0.5 Lymph # (Auto) 0.67 L [place] # (Auto) 1.0 H Eos # (Auto) 0.2 Baso # (Auto) 0.1 Abs Immat Gran (auto) 0.05 H Absolute Neuts (auto) 8.5 H Absolute Nucleated RBC 0.000 Nucleated RBC % 0.0 Sodium 133 L Potassium 3.8 Chloride 98 Carbon Dioxide 30 Anion Gap 5 BUN 12 D Creatinine 0.43 L Estim Creat Clear Calc 67 Estimated GFR > 60 Glucose 203 H POC Capillary Glucose 243 H 192 H Calcium 8.3 L 10/10/24 10/10/24 11:42 16:49 WBC RBC Hgb Hct MCV MCH MCHC RDW Plt Count MPV Immature Gran % (Auto) Neut % (Auto) Lymph % (Auto) [place] % (Auto) Eos % (Auto) Baso % (Auto) Lymph # (Auto) [place] # (Auto) Eos # (Auto) Baso # (Auto) Abs Immat Gran (auto) Absolute Neuts (auto) Absolute Nucleated RBC Nucleated RBC % Sodium Potassium Chloride Carbon Dioxide Anion Gap BUN Creatinine Estim Creat Clear Calc Estimated GFR Glucose POC Capillary Glucose 292 H 215 H Calcium
[2024-10-10 20:27] LABS: Glucose Point of Care 223 mg/dl (65-105)
[2024-10-11] VITALS (9 sets, daily range): BP systolic 101–142; BP diastolic 41–78; PULSE 67–94; RESP 16–24; TEMP 36.2–37; O2SAT 94–100
[2024-10-11] MEDS: HYDROmorphone HCL INJ (*CRX) 2 MG/ML VIAL 1 MG IV PUSH ×4 (01:15→22:19)
[2024-10-11 06:50] LABS: Basophils Absolute Auto 0.1 K/mm3 (0.0-0.1); Basophils Percent Auto 0.5 % (0.2-1.2); Eosinophils Absolute Auto 0.2 K/mm3 (0-0.3); Eosinophils Percent Auto 1.6 % (0-4.4); Hematocrit 34.6 % (37.0-47.0); Hemoglobin 11.1 g/dL (12.0-15.0); Immature Granulocyte Absolute 0.03 K/mm3 (0.00-0.031); Immature Granulocyte Percent A 0.3 % (0-0.5); Lymphocytes Absolute Auto 0.71 K/mm3 (0.9-3.2); Lymphocytes Percent Auto 7.1 % (18.3-44.2); Mean Corpuscular HGB Conc 32.1 g/dl (32-36); Mean Corpuscular Hemoglobin 29.8 pg (26-34); Mean Platelet Volume 10.6 fl (7.4-10.4); Monocytes Absolute Auto 0.9 K/mm3 (0.1-0.6); Monocytes Percent Auto 8.5 % (2.6-8.5); Neutrophils Absolute Auto 8.3 K/mm3 (1.3-6.7); Platelet Count Result 240 k/mm3 (150-375); Red Blood Count 3.72 M/mm3 (4.2-5.4); Red Cell Distribution Width 12.8 % (11.5-14.5); White Blood Count 10.1 K/mm3 (4.5-10.0)
[2024-10-11 07:05] LABS: Alanine Aminotransferase 16 U/L (6-35); Albumin Level 3.4 g/dL (3.5-5.1); Alkaline Phosphatase 60 U/L (38-126); Anion Gap 7 mmol/L (4-12); Aspartate Amino Transferase 29 U/L (14-36); Bilirubin,Total 0.6 mg/dL (0.2-1.3); Blood Urea Nitrogen 11 mg/dL (7-17); Calcium 8.8 mg/dL (8.4-10.2); Carbon Dioxide 30 mmol/L (22-30); Chloride 97 mmol/L (98-107); Estimated CRCL calculation 63 ml/min; Estimated Glomerular Filt Rate > 60; Glucose 252 mg/dL (65-110); Magnesium 1.9 mg/dL (1.6-2.3); Potassium 3.9 mmol/L (3.4-5.0); Sodium 134 mmol/L (137-145)
[2024-10-11 07:52] LABS: Glucose Point of Care 215 mg/dl (65-105)
[2024-10-11] MEDS: INSULIN ASPART (*BKC) 100 UNITS/ML SUB-Q ×4 (09:09→20:01)
[2024-10-11 12:20] LABS: Glucose Point of Care 367 mg/dl (65-105)
--- NOTE | 2024-10-11 13:14 | P.PNIM_ITS ---
Progress Note: A&P Assessment and Plan (1) Intertrochanteric fracture of right hip: Code(s): S72.141A - Displaced intertrochanteric fracture of right femur, initial encounter for closed fracture Status: Acute Assessment and Plan: * Patient with a fall and syncope * post op day 2 * S/P Open reduction internal fixation with a trochanteric nail * Post op care per ortho surgery * PT/OT continue (2) Anxiety disorder: Qualifiers: Anxiety disorder type: unspecified anxiety disorder Qualified Code(s): F41.9 - Anxiety disorder, unspecified Code(s): F41.9 - Anxiety disorder, unspecified Status: Acute Assessment and Plan: * Continue buspar and wellburtin * Continue Zoloft (3) Benign essential hypertension: Code(s): I10 - Essential (primary) hypertension Status: Acute Assessment and Plan: * BP is stable 130/61 * Continue home medications * Trend BP * Adjust therapy (4) Hyperlipidemia: Qualifiers: Hyperlipidemia type: mixed hyperlipidemia Qualified Code(s): E78.2 - Mixed hyperlipidemia Code(s): E78.5 - Hyperlipidemia, unspecified Status: Acute Assessment and Plan: * Continue home medications as ordered (5) Diabetes mellitus type 2, insulin dependent: Code(s): E11.9 - Type 2 diabetes mellitus without complications; Z79.4 - senior living (current) use of insulin Status: Acute Assessment and Plan: * Glucose is stable * hold home Jardiance, metformin, and Ozempic * Continue home lantus (6) Hypothyroidism (acquired): Code(s): E03.9 - Hypothyroidism, unspecified Status: Acute Assessment and Plan: * Continue home levothyroxine (7) Syncope and collapse: Code(s): R55 - Syncope and collapse Status: Acute Assessment and Plan: * Patient presented after syncopal episode * Echo EF of 65-70% with a grade 1 DD, and left ventricular wall thickness, mitral valve noted to have moderate calcification * continue tele and orthostatics Plan DC home with MARCIN BOWMAN on sunday Subjective Date/time seen: 10/11/24 13:14 Interval history: 10/11/2024 Pt sp R ORIF receiving PT in hospital. Home with home health [place] Pt mentions syncopal episodes to me When she gets dizzy and falls CT head is NL awaiting orthostatics place on tele order ECHO continue routine postop ORIF care. Post op day 2 10/10/2024 Patient is doing better today. She does have some pain especially when she stands. She denies any chest pain, shortness a breath, nausea, vomiting, diarrhea constipation. Glucose has been doing well did also put on a regular d iet as she stated that she denied any well due to the food choices. Patient is wanting to go to rehab of and she is stating that she was reaches at [place]. Spoke with care coordination about the plan. 10/09/2024 Patient states she is feeling better. Her pain is better controlled. With Dilaudid. She denies any chest pain, shortness a breath, nausea, vomiting, diarrhea constipation. She is concerned about her glucose. Did put her on D5 half-normal saline for now. Also patient did state that she had a syncopal episode and did wake up and was wondering what happened to her. Will get an echo after her surgery. 10/09/2024 74-year-old female presents on 10/08/2024 to [facility] with right hip pain. She was standing at the side of her bed when she fell. Unclear if she lost consciousness. This was not witnessed by the who lives with her. She reports she hit her head but was not confused and she was clear minded shortly after. She has an existing history of a fracture of the greater trochanter of the right femur with mild displacement. She last followed up in the office with Dr. Gonzalez on 10/02/2024 in the were following non operative management. Head CT in ER without acute intracranial findings, pelvis CT demonstrates right greater trochanter. Assessed by Dr. Gonzalez. Will go for ORIF.v Review of Systems Review of Systems: mentions syncope spells Exam Narrative: General: well-nourished, 74-year-old female, sitting up in bed, comfortable Neuro: awake, alert and oriented x4, speech clear, no focal neuro deficits noted HEENMT: normocephalic, atraumatic, EOMI, sclerae anicteric, moist oral mucosa Respiratory: Clear to auscultation bilaterally without crackles, rhonchi or wheezes, nonlabored breathing Cardio: regular rate, regular rhythm with S1-S2 Abdomen: nondistended, normoactive bowel sounds, soft, nontender to palpation Extremities: Skin: no rashes or lesions, warm and dry Psych: appropriate mood and affect, judgment and insight intact Objective Data Vital Signs Vital Signs: Vital Signs - 24 hr 10/10/24 15:32 10/10/24 16:00 10/10/24 20:00 Temperature 36.4 C L Pulse Rate 83 84 67 Respiratory Rate 16 Blood Pressure 128/98 H Pulse Oximetry 93 Oxygen Delivery 10/10/24 20:29 10/11/24 00:00 10/11/24 00:20 Temperature 36.8 C 37.0 C Pulse Rate 83 67 67 Respiratory Rate 18 16 Blood Pressure 154/65 H 127/41 L Pulse Oximetry 93 97 Oxygen Delivery 10/11/24 04:00 10/11/24 04:58 10/11/24 08:00 Temperature 36.2 C L 36.3 C L Pulse Rate 82 79 94 Respiratory Rate 20 16 Blood Pressure 126/64 101/78 Pulse Oximetry 96 94 Oxygen Delivery 10/11/24 08:00 10/11/24 08:00 Temperature Pulse Rate 94 Respiratory Rate Blood Pressure Pulse Oximetry Oxygen Delivery Room Air Intake/Output Intake/Output: Intake & Output 10/08/24 10/09/24 10/10/24 10/11/24 23:59 23:59 23:59 23:59 Intake Total 1900 1430 836 Output Total 775 1895 Balance 1125 -465 836 Meds/Results Medications: Active Medications Generic Name Dose Route Start Last Admin Trade Name Freq PRN Reason Stop Dose Admin Hydrocodone Bitart/Acetaminophen 1 tab 10/09/24 14:34 Hydrocodone/Acetaminophen (*Crx) 5-325 Mg Tablet PO Q4H PRN Pain Rated 4-6 Hydrocodone Bitart/Acetaminophen 1 tab 10/09/24 14:34 10/10/24 12:49 Hydrocodone/Acetaminophen (*Crx) 7.5-325 Mg Tablet PO 1 tab Q4H PRN Administration Pain Rated 7-10 Dextrose 12.5 gm 10/09/24 10:27 Dextrose 50% 25 Gm/50 Ml Syringe IV PUSH PRN PRN Hypoglycemia Protocol Fluticasone Propionate 2 spray 10/09/24 09:00 10/11/24 09:39 Fluticasone Propionate 0.05% Na Spr 16 Gm Btl (*Bkc) NASAL Not Given DAILY INGRID Glucagon 1 mg 10/09/24 10:27 Glucagon For Inj 1 Mg Vial IM PRN PRN Hypoglycemia Protocol Glucose 15 gm 10/09/24 10:27 Glucose Oral Gel 15 Gm Of Glucse In 37.5 Gm Tube PO PRN PRN Hypoglycemia Protocol Hydromorphone HCl 1 mg 10/09/24 17:05 10/11/24 04:53 Hydromorphone Hcl Inj (*Crx) 2 Mg/Ml Vial IV PUSH 1 mg Q2H PRN Administration Breakthrough Pain Rated 7-10 or NPO Hydromorphone HCl 0.5 mg 10/09/24 17:06 Hydromorphone Hcl Inj (*Crx) 2 Mg/Ml Vial IV PUSH Q2H PRN Breakthrough Pain Rated 4-6 or NPO Hydroxyzine Pamoate 50 mg 10/09/24 14:34 Hydroxyzine Pamoate 25 Mg Capsule PO Q4H PRN Itching Dextrose 1,000 mls @ 100 mls/hr 10/09/24 10:27 Dextrose 5% 1,000 Ml IVPB PRN PRN Hypoglycemia Protocol Ibuprofen 800 mg in 200 mls @ 400 mls/hr 10/09/24 14:34 Caldolor 800 Mg/200 Ml IVPB Q6H PRN Breakthrough Pain Rated 1-3 or NPO Insulin Aspart 2 - 5 units 10/09/24 12:00 10/11/24 12:39 Insulin Aspart (*Bkc) 100 Units/Ml SUB-Q 5 units TIDWM [facility] Administration Protocol Insulin Aspart 1 - 2 units 10/09/24 21:00 10/10/24 20:53 Insulin Aspart (*Bkc) 100 Units/Ml SUB-Q 1 units HS [facility] Administration Protocol Naloxone HCl 0.1 mg 10/09/24 14:34 Naloxone Hcl 0.4 Mg/Ml Vial IV PUSH Q2M PRN Opiate Reversal Ondansetron HCl 4 mg 10/09/24 14:34 10/10/24 14:49 Ondansetron Inj 4 Mg/2 Ml Vial IV PUSH 4 mg Q4H PRN Administration Nausea And Vomiting Perflutren Lipid Microsphere 0 ml 10/09/24 12:02 Perflutren Lipid Microspheres 1.5 Ml Vial Diluted To 10 Ml Total Volume IV PUSH 10/12/24 12:02 ONCE PRN adequate visualization Protocol Polyethylene Glycol 17 gm 10/10/24 09:00 10/11/24 09:39 Polyethylene Glycol 3350 17 Gm Powd.Pack PO Not Given QAM INGRID Rivaroxaban 10 mg 10/10/24 17:00 10/10/24 17:49 Rivaroxaban 10 Mg Tablet PO 10 mg DAILY@17 [facility] Administration Senna/Docusate Sodium 2 tab 10/09/24 17:00 10/11/24 09:39 Senna/Docusate Sodium Tablet PO Not Given BID INGRID Tramadol HCl 50 mg 10/09/24 14:34 10/09/24 22:44 Tramadol Hcl (*Crx) 50 Mg Tablet PO 50 mg Q4H PRN Administration Pain Rated 4-6 Radiology Results: ITS Impressions Hip/Pelvis X-Ray 10/08/24 15:39 IMPRESSION: Highly suggestive right intertrochanteric fracture. CT confirmation is advised. Bilateral hip moderate osteoarthritic changes. Pelvis CT 10/08/24 17:53 IMPRESSION: Fracture in the area of the right greater trochanter with highly suggestive fracture in the lesser trochanter. Other appearances as described above. Head CT 10/08/24 19:09 IMPRESSION: No acute intracranial findings. Chest X-Ray 10/08/24 19:36 IMPRESSION: No acute cardiopulmonary pathology. Intraoperative X-Ray 10/09/24 17:23 IMPRESSION: 1. Fluoroscopy utilized during internal fixation of the proximal right femoral fracture which is in near-anatomic alignment. See procedure note for further detail. Labs Labs: Laboratory Results - last 24 hr 10/10/24 10/10/24 10/11/24 16:49 19:30 05:43 WBC 10.1 H RBC 3.72 L Hgb 11.1 L Hct 34.6 L MCV 93.0 MCH 29.8 MCHC 32.1 RDW 12.8 Plt Count 240 MPV 10.6 H Immature Gran % (Auto) 0.3 Neut % (Auto) 82.0 H Lymph % (Auto) 7.1 L [place] % (Auto) 8.5 Eos % (Auto) 1.6 Baso % (Auto) 0.5 Lymph # (Auto) 0.71 L [place] # (Auto) 0.9 H Eos # (Auto) 0.2 Baso # (Auto) 0.1 Abs Immat Gran (auto) 0.03 Absolute Neuts (auto) 8.3 H Absolute Nucleated RBC 0.000 Nucleated RBC % 0.0 Sodium 134 L Potassium 3.9 Chloride 97 L Carbon Dioxide 30 Anion Gap 7 BUN 11 Creatinine 0.46 L Estim Creat Clear Calc 63 Estimated GFR > 60 Glucose 252 H POC Capillary Glucose 215 H 223 H Calcium 8.8 Magnesium 1.9 Total Bilirubin 0.6 AST 29 ALT 16 Alkaline Phosphatase 60 Total Protein 6.0 L Albumin 3.4 L 10/11/24 10/11/24 07:49 12:11 WBC RBC Hgb Hct MCV MCH MCHC RDW Plt Count MPV Immature Gran % (Auto) Neut % (Auto) Lymph % (Auto) [place] % (Auto) Eos % (Auto) Baso % (Auto) Lymph # (Auto) [place] # (Auto) Eos # (Auto) Baso # (Auto) Abs Immat Gran (auto) Absolute Neuts (auto) Absolute Nucleated RBC Nucleated RBC % Sodium Potassium Chloride Carbon Dioxide Anion Gap BUN Creatinine Estim Creat Clear Calc Estimated GFR Glucose POC Capillary Glucose 215 H 367 H Calcium Magnesium Total Bilirubin AST ALT Alkaline Phosphatase Total Protein Albumin
[2024-10-11 16:57] LABS: Glucose Point of Care 226 mg/dl (65-105)
[2024-10-11] MEDS: RIVAROXABAN 10 MG TABLET PO (17:09)
[2024-10-11] MEDS: HYDROcodone/acetaminophen (*CRX) 7.5-325 MG TABLET 1 TAB PO (18:32)
[2024-10-12] VITALS (12 sets, daily range): BP systolic 112–146; BP diastolic 52–81; PULSE 67–90; RESP 18–20; TEMP 36.2–36.9; O2SAT 97–100
[2024-10-12] MEDS: HYDROmorphone HCL INJ (*CRX) 2 MG/ML VIAL 1 MG IV PUSH ×3 (01:05→21:54)
[2024-10-12] MEDS: HYDROcodone/acetaminophen (*CRX) 7.5-325 MG TABLET 1 TAB PO ×2 (04:29→22:43)
[2024-10-12 05:51] LABS: Glucose Point of Care 306 mg/dl (65-105)
[2024-10-12 06:11] LABS: Hematocrit 33.7 % (37.0-47.0); Hemoglobin 10.7 g/dL (12.0-15.0); Mean Corpuscular HGB Conc 31.8 g/dl (32-36); Mean Corpuscular Hemoglobin 29.7 pg (26-34); Mean Corpuscular Volume 93.6 fl (80-100); Mean Platelet Volume 10.6 fl (7.4-10.4); Platelet Count Result 267 k/mm3 (150-375); White Blood Count 9.9 K/mm3 (4.5-10.0)
[2024-10-12 06:23] LABS: Anion Gap 10 mmol/L (4-12); Blood Urea Nitrogen 18 mg/dL (7-17); Calcium 9.4 mg/dL (8.4-10.2); Carbon Dioxide 30 mmol/L (22-30); Chloride 97 mmol/L (98-107); Estimated CRCL calculation 50 ml/min; Estimated Glomerular Filt Rate > 60; Glucose 257 mg/dL (65-110); Potassium 3.4 mmol/L (3.4-5.0); Sodium 137 mmol/L (137-145)
[2024-10-12 07:50] LABS: Glucose Point of Care 265 mg/dl (65-105)
[2024-10-12] MEDS: HYDROcodone/acetaminophen (*CRX) 5-325 MG TABLET 1 TAB PO (08:44)
[2024-10-12] MEDS: SENNA/DOCUSATE SODIUM TABLET 2 TAB PO ×2 (08:44→16:11)
[2024-10-12] MEDS: FLUTICASONE PROPIONATE 0.05% NA SPR 16 GM BTL (*BKC) 2 SPRAY NASAL (08:45)
[2024-10-12] MEDS: INSULIN ASPART (*BKC) 100 UNITS/ML SUB-Q ×2 (08:45→12:20)
[2024-10-12 11:48] LABS: Glucose Point of Care 216 mg/dl (65-105)
[2024-10-12] MEDS: RIVAROXABAN 10 MG TABLET PO (16:11)
[2024-10-12 16:59] LABS: Glucose Point of Care 141 mg/dl (65-105)
--- NOTE | 2024-10-12 20:59 | PM.IMPN ---
Progress Note: A&P Assessment and Plan (1) Intertrochanteric fracture of right hip: Code(s): S72.141A - Displaced intertrochanteric fracture of right femur, initial encounter for closed fracture Status: Acute Assessment and Plan: Patient with a fall and syncope post op day 3 S/P Open reduction internal fixation with a trochanteric nail Post op care per ortho surgery PT/OT continue (2) Anxiety disorder: Qualifiers: Anxiety disorder type: unspecified anxiety disorder Qualified Code(s): F41.9 - Anxiety disorder, unspecified Code(s): F41.9 - Anxiety disorder, unspecified Status: Acute Assessment and Plan: Continue buspar and wellburtin Continue Zoloft (3) Benign essential hypertension: Code(s): I10 - Essential (primary) hypertension Status: Acute Assessment and Plan: BP is stable Continue home medications (4) Hyperlipidemia: Qualifiers: Hyperlipidemia type: mixed hyperlipidemia Qualified Code(s): E78.2 - Mixed hyperlipidemia Code(s): E78.5 - Hyperlipidemia, unspecified Status: Acute Assessment and Plan: Continue home medications as ordered (5) Diabetes mellitus type 2, insulin dependent: Code(s): E11.9 - Type 2 diabetes mellitus without complications; Z79.4 - [facility] (current) use of insulin Status: Acute Assessment and Plan: Glucose is stable hold home Jardiance, metformin, and Ozempic Continue home lantus (6) Hypothyroidism (acquired): Code(s): E03.9 - Hypothyroidism, unspecified Status: Acute Assessment and Plan: Continue home levothyroxine (7) Syncope and collapse: Code(s): R55 - Syncope and collapse Status: Acute Assessment and Plan: Patient presented after syncopal episode Echo EF of 65-70% with a grade 1 DD, and left ventricular wall thickness, mitral valve noted to have moderate calcification continue tele and orthostatics orthostatics are positive Plan dc to [facility] in am Subjective Date/time seen: 10/12/24 20:59 Interval history: 10/12/2024 orthostatics are positive will start fluids and midodrine and recheck orthostatics [facility] post op day 3 otherwise unremarkable opt awaiting [place] 10/11/2024 Pt sp R ORIF receiving PT in hospital. Home with home health [place] Pt mentions syncopal episodes to me When she gets dizzy and falls CT head is NL awaiting orthostatics place on tele order ECHO continue routine postop ORIF care. Post op day 2 10/10/2024 Patient is doing better today. She does have some pain especially when she stands. She denies any chest pain, shortness a breath, nausea, vomiting, diarrhea constipation. Glucose has been doing well did also put on a regular diet as she stated that she denied any well due to the food choices. Patient is wanting to go to rehab of and she is stating that she was reaches at [employer]. Spoke with care coordination about the plan. 10/09/2024 Patient states she is feeling better. Her pain is better controlled. With Dilaudid. She denies any chest pain, shortness a breath, nausea, vomiting, diarrhea constipation. She is concerned about her glucose. Did put her on D5 half-normal saline for now. Also patient did state that she had a syncopal episode and did wake up and was wondering what happened to her. Will get an echo after her surgery. 10/09/2024 74-year-old female presents on 10/08/2024 to [facility] with right hip pain. She was standing at the side of her bed when she fell. Unclear if she lost consciousness. This was not witnessed by the who lives with her. She reports she hit her head but was not confused and she was clear minded shortly after. She has an existing history of a fracture of the greater trochanter of the right femur with mild displacement. She last followed up in the office with Dr. Gonzalez on 10/02/2024 in the were following non operative management. Head CT in ER without acute intracranial findings, pelvis CT demonstrates right greater trochanter. Assessed by Dr. Gonzalez. Will go for ORIF.v Review of Systems Review of Systems: ongoing dizziness on standing Exam Narrative: General: well-nourished, 74-year-old female, sitting up in bed, comfortable Neuro: awake, alert and oriented x4, speech clear, no focal neuro deficits noted HEENMT: normocephalic, atraumatic, EOMI, sclerae anicteric, moist oral mucosa Respiratory: Clear to auscultation bilaterally without crackles, rhonchi or wheezes, nonlabored breathing Cardio: regular rate, regular rhythm with S1-S2 Abdomen: nondistended, normoactive bowel sounds, soft, nontender to palpation Extremities: Skin: no rashes or lesions, warm and dry Psych: appropriate mood and affect, judgment and insight intact Objective Data Vital Signs Vital Signs: Vital Signs - 24 hr 10/11/24 21:07 10/12/24 00:00 10/12/24 04:00 Temperature 36.2 C L Pulse Rate 73 80 Respiratory Rate 20 Blood Pressure 140/54 L Pulse Oximetry 98 99 Oxygen Delivery Room Air Fraction of Inspired Oxygen 10/12/24 04:00 10/12/24 08:00 10/12/24 08:00 Temperature Pulse Rate 90 71 Respiratory Rate Blood Pressure Pulse Oximetry Oxygen Delivery Room Air Fraction of Inspired Oxygen 10/12/24 12:00 10/12/24 14:00 10/12/24 16:00 Temperature 36.9 C Pulse Rate 72 87 67 Respiratory Rate 18 Blood Pressure 115/63 Pulse Oximetry 100 Oxygen Delivery Fraction of Inspired Oxygen 10/12/24 16:55 10/12/24 17:00 10/12/24 17:05 Temperature Pulse Rate 70 Respiratory Rate Blood Pressure 146/66 H 117/52 L 112/74 Pulse Oximetry 99 Oxygen Delivery Fraction of Inspired Oxygen 10/12/24 19:37 Temperature Pulse Rate 73 Respiratory Rate 20 Blood Pressure Pulse Oximetry 97 Oxygen Delivery Room Air Fraction of Inspired Oxygen 21 Intake/Output Intake/Output: Intake & Output 10/09/24 10/10/24 10/11/24 10/12/24 23:59 23:59 23:59 23:59 Intake Total 1900 1430 836 480 Output Total 775 1895 Balance 1125 -465 836 480 Meds/Results Medications: Active Medications Generic Name Dose Route Start Last Admin Trade Name Freq PRN Reason Stop Dose Admin Hydrocodone Bitart/Acetaminophen 1 tab 10/09/24 14:34 10/12/24 08:44 Hydrocodone/Acetaminophen (*Crx) 5-325 Mg Tablet PO 1 tab Q4H PRN Administration Pain Rated 4-6 Hydrocodone Bitart/Acetaminophen 1 tab 10/09/24 14:34 10/12/24 04:29 Hydrocodone/Acetaminophen (*Crx) 7.5-325 Mg Tablet PO 1 tab Q4H PRN Administration Pain Rated 7-10 Dextrose 12.5 gm 10/09/24 10:27 Dextrose 50% 25 Gm/50 Ml Syringe IV PUSH PRN PRN Hypoglycemia Protocol Fluticasone Propionate 2 spray 10/09/24 09:00 10/12/24 08:45 Fluticasone Propionate 0.05% Na Spr 16 Gm Btl (*Bkc) NASAL 2 spray DAILY INGRID Administration Glucagon 1 mg 10/09/24 10:27 Glucagon For Inj 1 Mg Vial IM PRN PRN Hypoglycemia Protocol Glucose 15 gm 10/09/24 10:27 Glucose Oral Gel 15 Gm Of Glucse In 37.5 Gm Tube PO PRN PRN Hypoglycemia Protocol Hydromorphone HCl 1 mg 10/09/24 17:05 10/12/24 10:18 Hydromorphone Hcl Inj (*Crx) 2 Mg/Ml Vial IV PUSH 1 mg Q2H PRN Administration Breakthrough Pain Rated 7-10 or NPO Hydromorphone HCl 0.5 mg 10/09/24 17:06 Hydromorphone Hcl Inj (*Crx) 2 Mg/Ml Vial IV PUSH Q2H PRN Breakthrough Pain Rated 4-6 or NPO Hydroxyzine Pamoate 50 mg 10/09/24 14:34 Hydroxyzine Pamoate 25 Mg Capsule PO Q4H PRN Itching Dextrose 1,000 mls @ 100 mls/hr 10/09/24 10:27 Dextrose 5% 1,000 Ml IVPB PRN PRN Hypoglycemia Protocol Ibuprofen 800 mg in 200 mls @ 400 mls/hr 10/09/24 14:34 Caldolor 800 Mg/200 Ml IVPB Q6H PRN Breakthrough Pain Rated 1-3 or NPO Insulin Aspart 2 - 5 units 10/09/24 12:00 10/12/24 17:14 Insulin Aspart (*Bkc) 100 Units/Ml SUB-Q Not Given TIDWM [facility] Protocol Insulin Aspart 1 - 2 units 10/09/24 21:00 10/11/24 20:01 Insulin Aspart (*Bkc) 100 Units/Ml SUB-Q 2 units HS INGRID Administration Protocol Naloxone HCl 0.1 mg 10/09/24 14:34 Naloxone Hcl 0.4 Mg/Ml Vial IV PUSH Q2M PRN Opiate Reversal Ondansetron HCl 4 mg 10/09/24 14:34 10/10/24 14:49 Ondansetron Inj 4 Mg/2 Ml Vial IV PUSH 4 mg Q4H PRN Administration Nausea And Vomiting Polyethylene Glycol 17 gm 10/10/24 09:00 10/12/24 08:45 Polyethylene Glycol 3350 17 Gm Powd.Pack PO Not Given QAM [facility] Rivaroxaban 10 mg 10/10/24 17:00 10/12/24 16:11 Rivaroxaban 10 Mg Tablet PO 10 mg DAILY@17 [facility] Administration Senna/Docusate Sodium 2 tab 10/09/24 17:00 10/12/24 16:11 Senna/Docusate Sodium Tablet PO 2 tab BID [facility] Administration Tramadol HCl 50 mg 10/09/24 14:34 10/09/24 22:44 Tramadol Hcl (*Crx) 50 Mg Tablet PO 50 mg Q4H PRN Administration Pain Rated 4-6 Radiology Results: ITS Impressions Hip/Pelvis X-Ray 10/08/24 15:39 IMPRESSION: Highly suggestive right intertrochanteric fracture. CT confirmation is advised. Bilateral hip moderate osteoarthritic changes. Pelvis CT 10/08/24 17:53 IMPRESSION: Fracture in the area of the right greater trochanter with highly suggestive fracture in the lesser trochanter. Other appearances as described above. Head CT 10/08/24 19:09 IMPRESSION: No acute intracranial findings. Chest X-Ray 10/08/24 19:36 IMPRESSION: No acute cardiopulmonary pathology. Intraoperative X-Ray 10/09/24 17:23 IMPRESSION: 1. Fluoroscopy utilized during internal fixation of the proximal right femoral fracture which is in near-anatomic alignment. See procedure note for further detail. Labs Labs: Laboratory Results - last 24 hr 10/11/24 10/12/24 10/12/24 19:56 05:33 07:46 WBC 9.9 RBC 3.60 L Hgb 10.7 L Hct 33.7 L MCV 93.6 MCH 29.7 MCHC 31.8 L RDW 13.0 Plt Count 267 MPV 10.6 H Sodium 137 Potassium 3.4 Chloride 97 L Carbon Dioxide 30 Anion Gap 10 BUN 18 H Creatinine 0.59 L Estim Creat Clear Calc 50 Estimated GFR > 60 Glucose 257 H POC Capillary Glucose 306 H 265 H Calcium 9.4 10/12/24 10/12/24 11:45 16:53 WBC RBC Hgb Hct MCV MCH MCHC RDW Plt Count MPV Sodium Potassium Chloride Carbon Dioxide Anion Gap BUN Creatinine Estim Creat Clear Calc Estimated GFR Glucose POC Capillary Glucose 216 H 141 H Calcium
[2024-10-12] MEDS: SODIUM CHLORIDE 0.9% IV 1,000 ML 70 ML IV CONT (21:59)
[2024-10-12 22:20] LABS: Glucose Point of Care 195 mg/dl (65-105)
[2024-10-13] VITALS (17 sets, daily range): BP systolic 109–151; BP diastolic 56–90; PULSE 59–90; RESP 14–20; TEMP 36–36.2; O2SAT 91–99
[2024-10-13] MEDS: HYDROcodone/acetaminophen (*CRX) 7.5-325 MG TABLET 1 TAB PO ×3 (06:20→20:45)
--- NOTE | 2024-10-13 06:47 | PM.PNORT ---
Progress Note: A&P Assessment and Plan (1) Intertrochanteric fracture of right hip: Code(s): S72.141A - Displaced intertrochanteric fracture of right femur, initial encounter for closed fracture Status: Acute Subjective Subjective Date/Time Seen: 10/13/24 06:47 Objective Data Vital Signs Vital Signs: Vital Signs - 24 hr 10/12/24 08:00 10/12/24 08:00 10/12/24 12:00 Temperature Pulse Rate 71 72 Respiratory Rate Blood Pressure Pulse Oximetry Oxygen Delivery Room Air Fraction of Inspired Oxygen 10/12/24 14:00 10/12/24 16:00 10/12/24 16:55 Temperature 98.5 F Pulse Rate 87 67 70 Respiratory Rate 18 Blood Pressure 115/63 146/66 H Pulse Oximetry 100 99 Oxygen Delivery Fraction of Inspired Oxygen 10/12/24 17:00 10/12/24 17:05 10/12/24 19:37 Temperature Pulse Rate 73 Respiratory Rate 20 Blood Pressure 117/52 L 112/74 Pulse Oximetry 97 Oxygen Delivery Room Air Fraction of Inspired Oxygen 10/12/24 20:03 10/12/24 21:43 10/12/24 21:54 Temperature 97.1 F L Pulse Rate 71 70 Respiratory Rate 20 Blood Pressure 144/81 H Pulse Oximetry 98 Oxygen Delivery Room Air Fraction of Inspired Oxygen 10/13/24 00:01 10/13/24 04:03 10/13/24 06:00 Temperature 96.8 F L Pulse Rate 67 60 59 L Respiratory Rate 20 Blood Pressure 142/67 H Pulse Oximetry 96 Oxygen Delivery Fraction of Inspired Oxygen Intake/Output Intake/Output: Intake & Output 10/10/24 10/11/24 10/12/24 10/13/24 23:59 23:59 23:59 23:59 Intake Total 1430 836 480 Output Total 1895 Balance -465 836 480 Meds/Results Medications: Active Medications Generic Name Dose Route Start Last Admin Trade Name Freq PRN Reason Stop Dose Admin Hydrocodone Bitart/Acetaminophen 1 tab 10/09/24 14:34 10/12/24 08:44 Hydrocodone/Acetaminophen (*Crx) 5-325 Mg Tablet PO 1 tab Q4H PRN Administration Pain Rated 4-6 Hydrocodone Bitart/Acetaminophen 1 tab 10/09/24 14:34 10/13/24 06:20 Hydrocodone/Acetaminophen (*Crx) 7.5-325 Mg Tablet PO 1 tab Q4H PRN Administration Pain Rated 7-10 Dextrose 12.5 gm 10/09/24 10:27 Dextrose 50% 25 Gm/50 Ml Syringe IV PUSH PRN PRN Hypoglycemia Protocol Fluticasone Propionate 2 spray 10/09/24 09:00 10/12/24 08:45 Fluticasone Propionate 0.05% Na Spr 16 Gm Btl (*Bkc) NASAL 2 spray DAILY [facility] Administration Glucagon 1 mg 10/09/24 10:27 Glucagon For Inj 1 Mg Vial IM PRN PRN Hypoglycemia Protocol Glucose 15 gm 10/09/24 10:27 Glucose Oral Gel 15 Gm Of Glucse In 37.5 Gm Tube PO PRN PRN Hypoglycemia Protocol Hydromorphone HCl 1 mg 10/09/24 17:05 10/12/24 21:54 Hydromorphone Hcl Inj (*Crx) 2 Mg/Ml Vial IV PUSH 1 mg Q2H PRN Administration Breakthrough Pain Rated 7-10 or NPO Hydromorphone HCl 0.5 mg 10/09/24 17:06 Hydromorphone Hcl Inj (*Crx) 2 Mg/Ml Vial IV PUSH Q2H PRN Breakthrough Pain Rated 4-6 or NPO Hydroxyzine Pamoate 50 mg 10/09/24 14:34 Hydroxyzine Pamoate 25 Mg Capsule PO Q4H PRN Itching Dextrose 1,000 mls @ 100 mls/hr 10/09/24 10:27 Dextrose 5% 1,000 Ml IVPB PRN PRN Hypoglycemia Protocol Ibuprofen 800 mg in 200 mls @ 400 mls/hr 10/09/24 14:34 Caldolor 800 Mg/200 Ml IVPB Q6H PRN Breakthrough Pain Rated 1-3 or NPO Sodium Chloride 1,000 mls @ 70 mls/hr 10/12/24 21:05 10/12/24 21:59 Normal Saline Iv IV CONT 70 mls/hr .[id number] INGRID Administration Insulin Aspart 2 - 5 units 10/09/24 12:00 10/12/24 17:14 Insulin Aspart (*Bkc) 100 Units/Ml SUB-Q Not Given TIDWM [facility] Protocol Insulin Aspart 1 - 2 units 10/09/24 21:00 10/12/24 22:30 Insulin Aspart (*Bkc) 100 Units/Ml SUB-Q Not Given HS [facility] Protocol Midodrine 2.5 mg 10/13/24 09:00 Midodrine Hcl 2.5 Mg Tablet PO BID [facility] Naloxone HCl 0.1 mg 10/09/24 14:34 Naloxone Hcl 0.4 Mg/Ml Vial IV PUSH Q2M PRN Opiate Reversal Ondansetron HCl 4 mg 10/09/24 14:34 10/10/24 14:49 Ondansetron Inj 4 Mg/2 Ml Vial IV PUSH 4 mg Q4H PRN Administration Nausea And Vomiting Polyethylene Glycol 17 gm 10/10/24 09:00 10/12/24 08:45 Polyethylene Glycol 3350 17 Gm Powd.Pack PO Not Given QAM [facility] Rivaroxaban 10 mg 10/10/24 17:00 10/12/24 16:11 Rivaroxaban 10 Mg Tablet PO 10 mg DAILY@17 [facility] Administration Senna/Docusate Sodium 2 tab 10/09/24 17:00 10/12/24 16:11 Senna/Docusate Sodium Tablet PO 2 tab BID [facility] Administration Tramadol HCl 50 mg 10/09/24 14:34 10/09/24 22:44 Tramadol Hcl (*Crx) 50 Mg Tablet PO 50 mg Q4H PRN Administration Pain Rated 4-6 Radiology Results: ITS Impressions Hip/Pelvis X-Ray 10/08/24 15:39 IMPRESSION: Highly suggestive right intertrochanteric fracture. CT confirmation is advised. Bilateral hip moderate osteoarthritic changes. Pelvis CT 10/08/24 17:53 IMPRESSION: Fracture in the area of the right greater trochanter with highly suggestive fracture in the lesser trochanter. Other appearances as described above. Head CT 10/08/24 19:09 IMPRESSION: No acute intracranial findings. Chest X-Ray 10/08/24 19:36 IMPRESSION: No acute cardiopulmonary pathology. Intraoperative X-Ray 10/09/24 17:23 IMPRESSION: 1. Fluoroscopy utilized during internal fixation of the proximal right femoral fracture which is in near-anatomic alignment. See procedure note for further detail. Labs Labs: Laboratory Results - last 24 hr 10/12/24 10/12/24 10/12/24 07:46 11:45 16:53 POC Capillary Glucose 265 H 216 H 141 H 10/12/24 22:17 POC Capillary Glucose 195 H
[2024-10-13 08:37] LABS: Glucose Point of Care 154 mg/dl (65-105)
[2024-10-13] MEDS: MIDODRINE HCL 2.5 MG TABLET PO (09:11)
[2024-10-13] MEDS: FLUTICASONE PROPIONATE 0.05% NA SPR 16 GM BTL (*BKC) 2 SPRAY NASAL (09:14)
--- NOTE | 2024-10-13 11:25 | PCNFU ---
Nutrition Follow-Up Complete: Inadequate energy intake related to NPO status as evidenced by current diet order Goal:Diet order Pt current nutrition is NPO today for procedure, was Diabetic with fair to good intake. Nutrition recommendation: resume Diabetic diet post procedure Last recorded weight is 49.8 kg. Bowel Motility: +BM 10/12 Labs Reviewed: Hgb:10.7, HCT:33.7, Alb:3.4, BUN:18, Cr:0.59, Glu:257 Meds Noted: miralax, novolog Skin: WNL Additional Notes: Pt was on a diabetic diet, intake 50-75%, NPO today for a procedure. Will monitor. monitor diet order, intake, wt, labs. Follow up in 3 days.
[2024-10-13 12:02] LABS: Glucose Point of Care 176 mg/dl (65-105)
--- NOTE | 2024-10-13 13:11 | P.PNIM_ITS ---
Progress Note: A&P Assessment and Plan (1) Intertrochanteric fracture of right hip: Code(s): S72.141A - Displaced intertrochanteric fracture of right femur, initial encounter for closed fracture Status: Acute Assessment and Plan: * Patient with a fall and syncope * post op day 4 * S/P Open reduction internal fixation with a trochanteric nail * Post op care per ortho surgery * PT/OT continue (2) Anxiety disorder: Qualifiers: Anxiety disorder type: unspecified anxiety disorder Qualified Code(s): F41.9 - Anxiety disorder, unspecified Code(s): F41.9 - Anxiety disorder, unspecified Status: Acute Assessment and Plan: * Continue buspar and wellburtin * Continue Zoloft (3) Benign essential hypertension: Code(s): I10 - Essential (primary) hypertension Status: Acute Assessment and Plan: * BP is stable * Continue home medications (4) Hyperlipidemia: Qualifiers: Hyperlipidemia type: mixed hyperlipidemia Qualified Code(s): E78.2 - Mixed hyperlipidemia Code(s): E78.5 - Hyperlipidemia, unspecified Status: Acute Assessment and Plan: * Continue home medications as ordered (5) Diabetes mellitus type 2, insulin dependent: Code(s): E11.9 - Type 2 diabetes mellitus without complications; 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 Status: Acute Assessment and Plan: * Glucose is stable * hold home Jardiance, metformin, and Ozempic * Continue home lantus (6) Hypothyroidism (acquired): Code(s): E03.9 - Hypothyroidism, unspecified Status: Acute Assessment and Plan: * Continue home levothyroxine (7) Syncope and collapse: Code(s): R55 - Syncope and collapse Status: Acute Assessment and Plan: * Patient presented after syncopal episode * Echo EF of 65-70% with a grade 1 DD, and left ventricular wall thickness, mitral valve noted to have moderate calcification * continue tele and orthostatics * orthostatics are positive * increase midodrine dosing * can dc fluids today * bid orthostatics Plan dc to [place] jerrod watch orthostatics are better Subjective Date/time seen: 10/13/24 13:11 Interval history: 10/13/2024 Pt orthostatic bp is positive, plan to increase midodrine today DC to [place] when orthostatics are better, post op day 4 10/12/2024 orthostatics are positive will start fluids and midodrine and recheck orthostatics jerrod post op day 3, pt still complains of dizziness on standing, pt awaiting AR 10/11/2024 Pt sp R ORIF receiving PT in hospital. Home with home health V [place] Pt mentions syncopal episodes to me When she gets dizzy and falls CT head is NL awaiting orthostatics place on tele order ECHO continue routine postop ORIF care. Post op day 2 10/10/2024 Patient is doing better today. She does have some pain especially when she stands. She denies any chest pain, shortness a breath, nausea, vomiting, diarrhea constipation. Glucose has been doing well did also put on a regular diet as she stated that she denied any well due to the food choices. Patient is wanting to go to rehab of and she is stating that she was reaches at [place]. Spoke with care coordination about the plan. 10/09/2024 Patient states she is feeling better. Her pain is better controlled. With Dilaudid. She denies any chest pain, shortness a breath, nausea, vomiting, diarrhea constipation. She is concerned about her glucose. Did put her on D5 half-normal saline for now. Also patient did state that she had a syncopal episode and did wake up and was wondering what happened to her. Will get an echo after her surgery. 10/09/2024 74-year-old female presents on 10/08/2024 to [facility] with right hip pain. She was standing at the side of her bed when she fell. Unclear if she lost consciousness. This was not witnessed by the who lives with her. She reports she hit her head but was not confused and she was clear minded shortly after. She has an existing history of a fracture of the greater trochanter of the right femur with mild displacement. She last followed up in the office with Dr. Gonzalez on 10/02/2024 in the were following non operative management. Head CT in ER without acute intracranial findings, pelvis CT demonstrates right greater trochanter. Assessed by Dr. Gonzalez. Will go for ORIF Review of Systems Review of Systems: Dizziness on standing Exam Narrative: General: well-nourished, pleasant talkative lady Neuro: awake, alert and oriented x4, speech clear, no focal neuro deficits noted HEENMT: normocephalic, atraumatic, EOMI, sclerae anicteric, moist oral mucosa Respiratory: Clear to auscultation bilaterally without crackles, rhonchi or wheezes, nonlabored breathing Cardio: regular rate, regular rhythm with S1-S2 Abdomen: nondistended, normoactive bowel sounds, soft, nontender to palpation Extremities: Skin: no rashes or lesions, warm and dry Psych: appropriate mood and affect, judgment and insight intact Objective Data Vital Signs Vital Signs: Vital Signs - 24 hr 10/12/24 14:00 10/12/24 16:00 10/12/24 16:55 Temperature 36.9 C Pulse Rate 87 67 70 Respiratory Rate 18 Blood Pressure 115/63 146/66 H Pulse Oximetry 100 99 Oxygen Delivery Fraction of Inspired Oxygen 10/12/24 17:00 10/12/24 17:05 10/12/24 19:37 Temperature Pulse Rate 73 Respiratory Rate 20 Blood Pressure 117/52 L 112/74 Pulse Oximetry 97 Oxygen Delivery Room Air Fraction of Inspired Oxygen 21 10/12/24 20:03 10/12/24 21:43 10/12/24 21:54 Temperature 36.2 C L Pulse Rate 71 70 Respiratory Rate 20 Blood Pressure 144/81 H Pulse Oximetry 98 Oxygen Delivery Room Air Fraction of Inspired Oxygen 10/13/24 00:01 10/13/24 04:03 10/13/24 05:48 Temperature 36.0 C L Pulse Rate 67 60 59 L Respiratory Rate 20 Blood Pressure 142/67 H Pulse Oximetry 96 Oxygen Delivery Fraction of Inspired Oxygen 10/13/24 05:50 10/13/24 05:52 10/13/24 06:00 Temperature 36.0 C L Pulse Rate 78 88 59 L Respiratory Rate 20 Blood Pressure 136/64 127/56 L 142/67 H Pulse Oximetry 96 Oxygen Delivery Fraction of Inspired Oxygen 10/13/24 08:00 10/13/24 08:00 10/13/24 10:42 Temperature Pulse Rate 70 Respiratory Rate Blood Pressure 151/74 H Pulse Oximetry Oxygen Delivery Room Air Fraction of Inspired Oxygen 10/13/24 10:42 10/13/24 10:44 10/13/24 12:00 Temperature Pulse Rate 65 Respiratory Rate Blood Pressure 137/78 109/78 Pulse Oximetry Oxygen Delivery Fraction of Inspired Oxygen Intake/Output Intake/Output: Intake & Output 10/10/24 10/11/24 10/12/24 10/13/24 23:59 23:59 23:59 23:59 Intake Total 1430 836 480 240 Output Total 1895 Balance -465 836 480 240 Meds/Results Medications: Active Medications Generic Name Dose Route Start Last Admin Trade Name Freq PRN Reason Stop Dose Admin Hydrocodone Bitart/Acetaminophen 1 tab 10/09/24 14:34 10/12/24 08:44 Hydrocodone/Acetaminophen (*Crx) 5-325 Mg Tablet PO 1 tab Q4H PRN Administration Pain Rated 4-6 Hydrocodone Bitart/Acetaminophen 1 tab 10/09/24 14:34 10/13/24 06:20 Hydrocodone/Acetaminophen (*Crx) 7.5-325 Mg Tablet PO 1 tab Q4H PRN Administration Pain Rated 7-10 Dextrose 12.5 gm 10/09/24 10:27 Dextrose 50% 25 Gm/50 Ml Syringe IV PUSH PRN PRN Hypoglycemia Protocol Fluticasone Propionate 2 spray 10/09/24 09:00 10/13/24 09:14 Fluticasone Propionate 0.05% Na Spr 16 Gm Btl (*Bkc) NASAL 2 spray DAILY [facility] Administration Glucagon 1 mg 10/09/24 10:27 Glucagon For Inj 1 Mg Vial IM PRN PRN Hypoglycemia Protocol Glucose 15 gm 10/09/24 10:27 Glucose Oral Gel 15 Gm Of Glucse In 37.5 Gm Tube PO PRN PRN Hypoglycemia Protocol Hydromorphone HCl 1 mg 10/09/24 17:05 10/12/24 21:54 Hydromorphone Hcl Inj (*Crx) 2 Mg/Ml Vial IV PUSH 1 mg Q2H PRN Administration Breakthrough Pain Rated 7-10 or NPO Hydromorphone HCl 0.5 mg 10/09/24 17:06 Hydromorphone Hcl Inj (*Crx) 2 Mg/Ml Vial IV PUSH Q2H PRN Breakthrough Pain Rated 4-6 or NPO Hydroxyzine Pamoate 50 mg 10/09/24 14:34 Hydroxyzine Pamoate 25 Mg Capsule PO Q4H PRN Itching Dextrose 1,000 mls @ 100 mls/hr 10/09/24 10:27 Dextrose 5% 1,000 Ml IVPB PRN PRN Hypoglycemia Protocol Ibuprofen 800 mg in 200 mls @ 400 mls/hr 10/09/24 14:34 Caldolor 800 Mg/200 Ml IVPB Q6H PRN Breakthrough Pain Rated 1-3 or NPO Insulin Aspart 2 - 5 units 10/09/24 12:00 10/13/24 13:03 Insulin Aspart (*Bkc) 100 Units/Ml SUB-Q Not Given TIDWM [facility] Protocol Insulin Aspart 1 - 2 units 10/09/24 21:00 10/12/24 22:30 Insulin Aspart (*Bkc) 100 Units/Ml SUB-Q Not Given HS [facility] Protocol Midodrine 2.5 mg 10/13/24 09:00 10/13/24 09:11 Midodrine Hcl 2.5 Mg Tablet PO 2.5 mg BID [facility] Administration Naloxone HCl 0.1 mg 10/09/24 14:34 Naloxone Hcl 0.4 Mg/Ml Vial IV PUSH Q2M PRN Opiate Reversal Ondansetron HCl 4 mg 10/09/24 14:34 10/10/24 14:49 Ondansetron Inj 4 Mg/2 Ml Vial IV PUSH 4 mg Q4H PRN Administration Nausea And Vomiting Polyethylene Glycol 17 gm 10/10/24 09:00 10/13/24 09:11 Polyethylene Glycol 3350 17 Gm Powd.Pack PO Not Given QAM [facility] Rivaroxaban 10 mg 10/10/24 17:00 10/12/24 16:11 Rivaroxaban 10 Mg Tablet PO 10 mg DAILY@17 [facility] Administration Senna/Docusate Sodium 2 tab 10/09/24 17:00 10/13/24 09:11 Senna/Docusate Sodium Tablet PO Not Given BID [facility] Tramadol HCl 50 mg 10/09/24 14:34 10/09/24 22:44 Tramadol Hcl (*Crx) 50 Mg Tablet PO 50 mg Q4H PRN Administration Pain Rated 4-6 Radiology Results: ITS Impressions Hip/Pelvis X-Ray 10/08/24 15:39 IMPRESSION: Highly suggestive right intertrochanteric fracture. CT confirmation is advised. Bilateral hip moderate osteoarthritic changes. Pelvis CT 10/08/24 17:53 IMPRESSION: Fracture in the area of the right greater trochanter with highly suggestive fracture in the lesser trochanter. Other appearances as described above. Head CT 10/08/24 19:09 IMPRESSION: No acute intracranial findings. Chest X-Ray 10/08/24 19:36 IMPRESSION: No acute cardiopulmonary pathology. Intraoperative X-Ray 10/09/24 17:23 IMPRESSION: 1. Fluoroscopy utilized during internal fixation of the proximal right femoral fracture which is in near-anatomic alignment. See procedure note for further detail. Labs Labs: Laboratory Results - last 24 hr 10/12/24 10/12/24 10/13/24 16:53 22:17 08:30 POC Capillary Glucose 141 H 195 H 154 H 10/13/24 11:40 POC Capillary Glucose 176 H
[2024-10-13 13:52] LABS: Hematocrit 31.5 % (37.0-47.0); Hemoglobin 9.9 g/dL (12.0-15.0); Mean Corpuscular HGB Conc 31.4 g/dl (32-36); Mean Corpuscular Hemoglobin 29.5 pg (26-34); Mean Corpuscular Volume 93.8 fl (80-100); Mean Platelet Volume 9.9 fl (7.4-10.4); Platelet Count Result 274 k/mm3 (150-375); Red Blood Count 3.36 M/mm3 (4.2-5.4); Red Cell Distribution Width 13.2 % (11.5-14.5); White Blood Count 7.6 K/mm3 (4.5-10.0)
[2024-10-13 14:02] LABS: Anion Gap 6 mmol/L (4-12); Blood Urea Nitrogen 23 mg/dL (7-17); Calcium 9.2 mg/dL (8.4-10.2); Carbon Dioxide 30 mmol/L (22-30); Chloride 103 mmol/L (98-107); Estimated CRCL calculation 59 ml/min; Estimated Glomerular Filt Rate > 60; Glucose 229 mg/dL (65-110); Potassium 3.9 mmol/L (3.4-5.0); Sodium 139 mmol/L (137-145)
[2024-10-13] MEDS: SENNA/DOCUSATE SODIUM TABLET 2 TAB PO (16:44)
[2024-10-13] MEDS: RIVAROXABAN 10 MG TABLET PO (16:45)
[2024-10-13] MEDS: MIDODRINE HCL 2.5 MG TABLET 5 MG PO (16:45)
[2024-10-13 17:05] LABS: Glucose Point of Care 208 mg/dl (65-105)
[2024-10-13] MEDS: INSULIN ASPART (*BKC) 100 UNITS/ML SUB-Q (17:13)
[2024-10-13 20:29] LABS: Glucose Point of Care 127 mg/dl (65-105)
[2024-10-13] MEDS: HYDROmorphone HCL INJ (*CRX) 2 MG/ML VIAL 1 MG IV PUSH (22:26)
[2024-10-13] MEDS: hydrOXYzine pamoate 25 MG CAPSULE 50 MG PO (22:36)
[2024-10-14] VITALS (13 sets, daily range): BP systolic 119–155; BP diastolic 56–69; PULSE 59–99; RESP 14–18; TEMP 35.9–36.4; O2SAT 95–100
[2024-10-14 07:21] LABS: Glucose Point of Care 202 mg/dl (65-105)
[2024-10-14] MEDS: HYDROcodone/acetaminophen (*CRX) 7.5-325 MG TABLET 1 TAB PO ×2 (09:43→23:58)
[2024-10-14] MEDS: FLUTICASONE PROPIONATE 0.05% NA SPR 16 GM BTL (*BKC) 2 SPRAY NASAL (09:45)
[2024-10-14] MEDS: INSULIN ASPART (*BKC) 100 UNITS/ML SUB-Q (09:45)
[2024-10-14] MEDS: MIDODRINE HCL 2.5 MG TABLET 5 MG PO ×3 (09:45→17:45)
[2024-10-14] MEDS: polyethylene glycoL 3350 17 GM POWD.PACK PO (09:45)
[2024-10-14 11:21] LABS: Glucose Point of Care 153 mg/dl (65-105)
--- NOTE | 2024-10-14 16:10 | P.PNIM_ITS ---
Progress Note: A&P Assessment and Plan (1) Intertrochanteric fracture of right hip: Code(s): S72.141A - Displaced intertrochanteric fracture of right femur, initial encounter for closed fracture Status: Acute Assessment and Plan: * Patient with a fall and syncope * post op day 5 * S/P Open reduction internal fixation with a trochanteric nail * Post op care per ortho surgery * PT/OT continue (2) Anxiety disorder: Qualifiers: Anxiety disorder type: unspecified anxiety disorder Qualified Code(s): F41.9 - Anxiety disorder, unspecified Code(s): F41.9 - Anxiety disorder, unspecified Status: Acute Assessment and Plan: * Continue buspar and wellburtin * Continue Zoloft (3) Benign essential hypertension: Code(s): I10 - Essential (primary) hypertension Status: Acute Assessment and Plan: * BP is stable * Continue home medications (4) Hyperlipidemia: Qualifiers: Hyperlipidemia type: mixed hyperlipidemia Qualified Code(s): E78.2 - Mixed hyperlipidemia Code(s): E78.5 - Hyperlipidemia, unspecified Status: Acute Assessment and Plan: * Continue home medications as ordered (5) Diabetes mellitus type 2, insulin dependent: Code(s): E11.9 - Type 2 diabetes mellitus without complications; 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 Status: Acute Assessment and Plan: * Glucose is stable * hold home Jardiance, metformin, and Ozempic * Continue home lantus (6) Hypothyroidism (acquired): Code(s): E03.9 - Hypothyroidism, unspecified Status: Acute Assessment and Plan: * Continue home levothyroxine (7) Syncope and collapse: Code(s): R55 - Syncope and collapse Status: Acute Assessment and Plan: * Patient presented after syncopal episode * Echo EF of 65-70% with a grade 1 DD, and left ventricular wall thickness, mitral valve noted to have moderate calcification * continue tele and orthostatics * orthostatics are positive * increase midodrine dosing * IV fluid discontinued * bid orthostatics * Plan Inpatient rehab denied by insurance Discussed with patient regarding jail placement rather than going home. She is agreeable and care coordination will send more referrals out in a.m. Subjective Date/time seen: 10/14/24 16:10 Interval history: No overnight events. Working with therapy. Orthostatic still positive some. Improving. Peer to peer for [facility] denied Review of Systems Review of Systems: All systems reviewed & are unremarkable except as noted in HPI and below Exam Narrative: General: well-nourished, pleasant not in acute distress Neuro: awake, alert and oriented x4, speech clear, no focal neuro deficits noted HEENMT: normocephalic, atraumatic, EOMI, sclerae anicteric, moist oral mucosa Respiratory: Clear to auscultation bilaterally without crackles, rhonchi or wheezes, nonlabored breathing Cardio: regular rate, regular rhythm with S1-S2 Abdomen: nondistended, normoactive bowel sounds, soft, nontender to palpation Extremities: Right hip with surgical jacob clean dry and intact Skin: no rashes or lesions, warm and dry Psych: appropriate mood and affect, judgment and insight intact Objective Data Vital Signs Vital Signs: Vital Signs - 24 hr 10/13/24 20:00 10/13/24 20:00 10/13/24 20:45 Temperature 97.1 F L Pulse Rate 62 64 Respiratory Rate 14 Blood Pressure 129/67 Pulse Oximetry 95 Oxygen Delivery Room Air Fraction of Inspired Oxygen 10/13/24 21:52 10/13/24 21:53 10/13/24 21:54 Temperature 97.1 F L Pulse Rate 79 90 62 Respiratory Rate 14 Blood Pressure 112/90 138/72 129/67 Pulse Oximetry 98 99 95 Oxygen Delivery Fraction of Inspired Oxygen 10/13/24 22:56 10/14/24 00:00 10/14/24 04:00 Temperature Pulse Rate 60 64 Respiratory Rate Blood Pressure Pulse Oximetry 95 Oxygen Delivery Room Air Fraction of Inspired Oxygen 10/14/24 05:48 10/14/24 08:00 10/14/24 08:00 Temperature 97.1 F L 97.1 F L Pulse Rate 64 64 64 Respiratory Rate 14 14 14 Blood Pressure 151/56 H 151/56 H Pulse Oximetry 95 95 95 Oxygen Delivery Room Air Fraction of Inspired Oxygen 21 10/14/24 08:00 10/14/24 09:33 10/14/24 09:34 Temperature 97.5 F L 97.5 F L Pulse Rate 64 74 84 Respiratory Rate 14 14 Blood Pressure 155/63 H 144/65 H Pulse Oximetry 98 99 Oxygen Delivery Fraction of Inspired Oxygen 10/14/24 09:34 Temperature 97.5 F L Pulse Rate 99 Respiratory Rate 14 Blood Pressure 119/61 Pulse Oximetry 100 Oxygen Delivery Fraction of Inspired Oxygen Intake/Output Intake/Output: Intake & Output 10/11/24 10/12/24 10/13/24 10/14/24 23:59 23:59 23:59 23:59 Intake Total 836 480 720 418 Balance 836 480 720 418 Meds/Results Medications: Active Medications Generic Name Dose Route Start Last Admin Trade Name Freq PRN Reason Stop Dose Admin Hydrocodone Bitart/Acetaminophen 1 tab 10/09/24 14:34 10/12/24 08:44 Hydrocodone/Acetaminophen (*Crx) 5-325 Mg Tablet PO 1 tab Q4H PRN Administration Pain Rated 4-6 Hydrocodone Bitart/Acetaminophen 1 tab 10/09/24 14:34 10/14/24 09:43 Hydrocodone/Acetaminophen (*Crx) 7.5-325 Mg Tablet PO 1 tab Q4H PRN Administration Pain Rated 7-10 Dextrose 12.5 gm 10/09/24 10:27 Dextrose 50% 25 Gm/50 Ml Syringe IV PUSH PRN PRN Hypoglycemia Protocol Fluticasone Propionate 2 spray 10/09/24 09:00 10/14/24 09:45 Fluticasone Propionate 0.05% Na Spr 16 Gm Btl (*Bkc) NASAL 2 spray DAILY INGR[facility] Administration Glucagon 1 mg 10/09/24 10:27 Glucagon For Inj 1 Mg Vial IM PRN PRN Hypoglycemia Protocol Glucose 15 gm 10/09/24 10:27 Glucose Oral Gel 15 Gm Of Glucse In 37.5 Gm Tube PO PRN PRN Hypoglycemia Protocol Hydromorphone HCl 1 mg 10/09/24 17:05 10/13/24 22:26 Hydromorphone Hcl Inj (*Crx) 2 Mg/Ml Vial IV PUSH 1 mg Q2H PRN Administration Breakthrough Pain Rated 7-10 or NPO Hydromorphone HCl 0.5 mg 10/09/24 17:06 Hydromorphone Hcl Inj (*Crx) 2 Mg/Ml Vial IV PUSH Q2H PRN Breakthrough Pain Rated 4-6 or NPO Hydroxyzine Pamoate 50 mg 10/09/24 14:34 10/13/24 22:36 Hydroxyzine Pamoate 25 Mg Capsule PO 50 mg Q4H PRN Administration Itching Dextrose 1,000 mls @ 100 mls/hr 10/09/24 10:27 Dextrose 5% 1,000 Ml IVPB PRN PRN Hypoglycemia Protocol Ibuprofen 800 mg in 200 mls @ 400 mls/hr 10/09/24 14:34 Caldolor 800 Mg/200 Ml IVPB Q6H PRN Breakthrough Pain Rated 1-3 or NPO Insulin Aspart 2 - 5 units 10/09/24 12:00 10/14/24 12:03 Insulin Aspart (*Bkc) 100 Units/Ml SUB-Q Not Given TIDWM INGRID Protocol Insulin Aspart 1 - 2 units 10/09/24 21:00 10/13/24 20:50 Insulin Aspart (*Bkc) 100 Units/Ml SUB-Q Not Given HS [facility] Protocol Midodrine 5 mg 10/13/24 17:00 10/14/24 09:45 Midodrine Hcl 2.5 Mg Tablet PO 5 mg TID INGR[facility] Administration Naloxone HCl 0.1 mg 10/09/24 14:34 Naloxone Hcl 0.4 Mg/Ml Vial IV PUSH Q2M PRN Opiate Reversal Ondansetron HCl 4 mg 10/09/24 14:34 10/10/24 14:49 Ondansetron Inj 4 Mg/2 Ml Vial IV PUSH 4 mg Q4H PRN Administration Nausea And Vomiting Polyethylene Glycol 17 gm 10/10/24 09:00 10/14/24 09:45 Polyethylene Glycol 3350 17 Gm Powd.Pack PO 17 gm QAM INGRID Administration Rivaroxaban 10 mg 10/10/24 17:00 10/13/24 16:45 Rivaroxaban 10 Mg Tablet PO 10 mg DAILY@17 [facility] Administration Senna/Docusate Sodium 2 tab 10/09/24 17:00 10/14/24 09:44 Senna/Docusate Sodium Tablet PO Not Given BID IN[facility] Tramadol HCl 50 mg 10/09/24 14:34 10/09/24 22:44 Tramadol Hcl (*Crx) 50 Mg Tablet PO 50 mg Q4H PRN Administration Pain Rated 4-6 Radiology Results: ITS Impressions Hip/Pelvis X-Ray 10/08/24 15:39 IMPRESSION: Highly suggestive right intertrochanteric fracture. CT confirmation is advised. Bilateral hip moderate osteoarthritic changes. Pelvis CT 10/08/24 17:53 IMPRESSION: Fracture in the area of the right greater trochanter with highly suggestive fracture in the lesser trochanter. Other appearances as described above. Head CT 10/08/24 19:09 IMPRESSION: No acute intracranial findings. Chest X-Ray 10/08/24 19:36 IMPRESSION: No acute cardiopulmonary pathology. Intraoperative X-Ray 10/09/24 17:23 IMPRESSION: 1. Fluoroscopy utilized during internal fixation of the proximal right femoral fracture which is in near-anatomic alignment. See procedure note for further detail. Labs Labs: Laboratory Results - last 24 hr 10/13/24 10/13/24 10/14/24 16:57 20:07 07:18 POC Capillary Glucose 208 H 127 H 202 H 10/14/24 11:19 POC Capillary Glucose 153 H
[2024-10-14 16:41] LABS: Glucose Point of Care 112 mg/dl (65-105)
[2024-10-14] MEDS: RIVAROXABAN 10 MG TABLET PO (17:45)
[2024-10-14 21:04] LABS: Glucose Point of Care 91 mg/dl (65-105)
[2024-10-14] MEDS: HYDROmorphone HCL INJ (*CRX) 2 MG/ML VIAL 1 MG IV PUSH (21:53)
[2024-10-14] MEDS: hydrOXYzine pamoate 25 MG CAPSULE 50 MG PO (21:53)
[2024-10-14 22:49] LABS: Glucose Point of Care 76 mg/dl (65-105)
[2024-10-15 00:05] VITALS: PULSE 84
[2024-10-15 04:01] VITALS: PULSE 55
[2024-10-15 04:40] LABS: Glucose Point of Care 93 mg/dl (65-105)
[2024-10-15 06:00] VITALS: BP 137/49; PULSE 81; RESP 16; TEMP 36.6; O2SAT 98
--- NOTE | 2024-10-15 06:58 | P.PNIM_ITS ---
Progress Note: A&P Assessment and Plan (1) Intertrochanteric fracture of right hip: Code(s): S72.141A - Displaced intertrochanteric fracture of right femur, initial encounter for closed fracture Status: Acute Assessment and Plan: * Patient with a fall and syncope * post op day 6 * S/P Open reduction internal fixation with a trochanteric nail * Post op care per ortho surgery * PT/OT continue * SNF placement (2) Anxiety disorder: Qualifiers: Anxiety disorder type: unspecified anxiety disorder Qualified Code(s): F41.9 - Anxiety disorder, unspecified Code(s): F41.9 - Anxiety disorder, unspecified Status: Acute Assessment and Plan: * Continue buspar and wellburtin * Continue Zoloft (3) Benign essential hypertension: Code(s): I10 - Essential (primary) hypertension Status: Acute Assessment and Plan: * BP is stable * Continue home medications (4) Hyperlipidemia: Qualifiers: Hyperlipidemia type: mixed hyperlipidemia Qualified Code(s): E78.2 - Mixed hyperlipidemia Code(s): E78.5 - Hyperlipidemia, unspecified Status: Acute Assessment and Plan: * Continue home medications as ordered (5) Diabetes mellitus type 2, insulin dependent: Code(s): E11.9 - Type 2 diabetes mellitus without complications; 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 Status: Acute Assessment and Plan: * Glucose is stable * hold home Jardiance, metformin, and Ozempic * Continue home lantus (6) Hypothyroidism (acquired): Code(s): E03.9 - Hypothyroidism, unspecified Status: Acute Assessment and Plan: * Continue home levothyroxine (7) Syncope and collapse: Code(s): R55 - Syncope and collapse Status: Acute Assessment and Plan: * Patient presented after syncopal episode * Echo EF of 65-70% with a grade 1 DD, and left ventricular wall thickness, mitral valve noted to have moderate calcification * continue tele and orthostatics * orthostatics are positive * increase midodrine dosing * IV fluid discontinued * BID orthostatics Plan Inpatient rehab denied by insurance Discussed with patient regarding [facility] placement rather than going home. She is agreeable and care coordination will send more referrals Subjective Date/time seen: 10/15/24 06:58 Interval history: 74-year-old female presents on 10/08/2024 to [facility] with right hip pain. She was standing at the side of her bed when she fell. Unclear if she lost consciousness. 10/15/2024 Working with CC today regarding SNF placement. Review of Systems Review of Systems: Dizziness on standing All systems reviewed & are unremarkable except as noted in HPI and below Exam Narrative: General: well-nourished, pleasant not in acute distress Neuro: awake, alert and oriented x4, speech clear, no focal neuro deficits noted HEENMT: normocephalic, atraumatic, EOMI, sclerae anicteric, moist oral mucosa Respiratory: Clear to auscultation bilaterally without crackles, rhonchi or wheezes, nonlabored breathing Cardio: regular rate, regular rhythm with S1-S2 Abdomen: nondistended, normoactive bowel sounds, soft, nontender to palpation Extremities: Right hip with surgical jacob clean dry and intact Skin: no rashes or lesions, warm and dry Psych: appropriate mood and affect, judgment and insight intact Const: General: comfortable and no acute distress HENMT: Mouth: Yes moist mucous membranes Eyes: Pupils: Equal, round and reactive pupils present Neck: Neck: supple Resp: Effort & Inspection: normal respiratory effort Auscultation: clear to auscultation bilaterally Cardio: Rate: regular rate Rhythm: regular rhythm GI: Inspection: non-distended : General: Yes bladder normal to palpation Bimanual exam- vagina & uterus: bladder normal to palpation Neuro: Cranial nerves: Yes Equal, round and reactive pupils present Motor exam (neuro): 5/5 motor strength present throughout Sensory Exam: normal sensation Extrem: General: no edema Objective Data Vital Signs Vital Signs: Vital Signs - 24 hr 10/14/24 08:00 10/14/24 08:00 10/14/24 08:00 Temperature 97.1 F L Pulse Rate 64 64 81 Respiratory Rate 14 14 Blood Pressure 151/56 H Pulse Oximetry 95 95 Oxygen Delivery Room Air Fraction of Inspired Oxygen 21 10/14/24 09:33 10/14/24 09:34 10/14/24 09:34 Temperature 97.5 F L 97.5 F L 97.5 F L Pulse Rate 74 84 99 Respiratory Rate 14 14 14 Blood Pressure 155/63 H 144/65 H 119/61 Pulse Oximetry 98 99 100 Oxygen Delivery Fraction of Inspired Oxygen 10/14/24 12:00 10/14/24 14:00 10/14/24 16:00 Temperature 96.7 F L Pulse Rate 81 65 65 Respiratory Rate 15 Blood Pressure 125/56 L Pulse Oximetry 98 Oxygen Delivery Fraction of Inspired Oxygen 10/14/24 20:00 10/14/24 20:01 10/14/24 21:15 Temperature 97.3 F L 97.3 F L Pulse Rate 63 59 L 63 Respiratory Rate 18 18 Blood Pressure 129/66 129/66 Pulse Oximetry 98 98 Oxygen Delivery Fraction of Inspired Oxygen 10/14/24 21:16 10/14/24 21:16 10/14/24 21:53 Temperature 97.3 F L 97.3 F L Pulse Rate 68 86 Respiratory Rate 18 18 Blood Pressure 128/69 126/66 Pulse Oximetry 99 100 Oxygen Delivery Room Air Fraction of Inspired Oxygen 10/15/24 00:05 10/15/24 04:01 10/15/24 06:00 Temperature 97.8 F Pulse Rate 84 55 L 81 Respiratory Rate 16 Blood Pressure 137/49 L Pulse Oximetry 98 Oxygen Delivery Fraction of Inspired Oxygen Intake/Output Intake/Output: Intake & Output 10/12/24 10/13/24 10/14/24 10/15/24 23:59 23:59 23:59 23:59 Intake Total 591 765 8870 Balance 562 345 6975 Meds/Results Medications: Active Medications Generic Name Dose Route Start Last Admin Trade Name Freq PRN Reason Stop Dose Admin Hydrocodone Bitart/Acetaminophen 1 tab 10/09/24 14:34 10/12/24 08:44 Hydrocodone/Acetaminophen (*Crx) 5-325 Mg Tablet PO 1 tab Q4H PRN Administration Pain Rated 4-6 Hydrocodone Bitart/Acetaminophen 1 tab 10/09/24 14:34 10/14/24 23:58 Hydrocodone/Acetaminophen (*Crx) 7.5-325 Mg Tablet PO 1 tab Q4H PRN Administration Pain Rated 7-10 Dextrose 12.5 gm 10/09/24 10:27 Dextrose 50% 25 Gm/50 Ml Syringe IV PUSH PRN PRN Hypoglycemia Protocol Fluticasone Propionate 2 spray 10/09/24 09:00 10/14/24 09:45 Fluticasone Propionate 0.05% Na Spr 16 Gm Btl (*Bkc) NASAL 2 spray DAILY INGRID Administration Glucagon 1 mg 10/09/24 10:27 Glucagon For Inj 1 Mg Vial IM PRN PRN Hypoglycemia Protocol Glucose 15 gm 10/09/24 10:27 Glucose Oral Gel 15 Gm Of Glucse In 37.5 Gm Tube PO PRN PRN Hypoglycemia Protocol Hydromorphone HCl 1 mg 10/09/24 17:05 10/14/24 21:53 Hydromorphone Hcl Inj (*Crx) 2 Mg/Ml Vial IV PUSH 1 mg Q2H PRN Administration Breakthrough Pain Rated 7-10 or NPO Hydromorphone HCl 0.5 mg 10/09/24 17:06 Hydromorphone Hcl Inj (*Crx) 2 Mg/Ml Vial IV PUSH Q2H PRN Breakthrough Pain Rated 4-6 or NPO Hydroxyzine Pamoate 50 mg 10/09/24 14:34 10/14/24 21:53 Hydroxyzine Pamoate 25 Mg Capsule PO 50 mg Q4H PRN Administration Itching Dextrose 1,000 mls @ 100 mls/hr 10/09/24 10:27 Dextrose 5% 1,000 Ml IVPB PRN PRN Hypoglycemia Protocol Ibuprofen 800 mg in 200 mls @ 400 mls/hr 10/09/24 14:34 Caldolor 800 Mg/200 Ml IVPB Q6H PRN Breakthrough Pain Rated 1-3 or NPO Insulin Aspart 2 - 5 units 10/09/24 12:00 10/14/24 17:17 Insulin Aspart (*Bkc) 100 Units/Ml SUB-Q Not Given TIDWM [facility] Protocol Insulin Aspart 1 - 2 units 10/09/24 21:00 10/14/24 21:53 Insulin Aspart (*Bkc) 100 Units/Ml SUB-Q Not Given HS [facility] Protocol Midodrine 5 mg 10/13/24 17:00 10/14/24 17:45 Midodrine Hcl 2.5 Mg Tablet PO 5 mg TID INGRID Administration Naloxone HCl 0.1 mg 10/09/24 14:34 Naloxone Hcl 0.4 Mg/Ml Vial IV PUSH Q2M PRN Opiate Reversal Ondansetron HCl 4 mg 10/09/24 14:34 10/10/24 14:49 Ondansetron Inj 4 Mg/2 Ml Vial IV PUSH 4 mg Q4H PRN Administration Nausea And Vomiting Polyethylene Glycol 17 gm 10/10/24 09:00 10/14/24 09:45 Polyethylene Glycol 3350 17 Gm Powd.Pack PO 17 gm QAM INGRID Administration Rivaroxaban 10 mg 10/10/24 17:00 10/14/24 17:45 Rivaroxaban 10 Mg Tablet PO 10 mg DAILY@17 [facility] Administration Senna/Docusate Sodium 2 tab 10/09/24 17:00 10/14/24 17:17 Senna/Docusate Sodium Tablet PO Not Given BID [facility] Tramadol HCl 50 mg 10/09/24 14:34 10/09/24 22:44 Tramadol Hcl (*Crx) 50 Mg Tablet PO 50 mg Q4H PRN Administration Pain Rated 4-6 Radiology Results: ITS Impressions Hip/Pelvis X-Ray 10/08/24 15:39 IMPRESSION: Highly suggestive right intertrochanteric fracture. CT confirmation is advised. Bilateral hip moderate osteoarthritic changes. Pelvis CT 10/08/24 17:53 IMPRESSION: Fracture in the area of the right greater trochanter with highly suggestive fracture in the lesser trochanter. Other appearances as described above. Head CT 10/08/24 19:09 IMPRESSION: No acute intracranial findings. Chest X-Ray 10/08/24 19:36 IMPRESSION: No acute cardiopulmonary pathology. Intraoperative X-Ray 10/09/24 17:23 IMPRESSION: 1. Fluoroscopy utilized during internal fixation of the proximal right femoral fracture which is in near-anatomic alignment. See procedure note for further detail. Labs Labs: Laboratory Results - last 24 hr 10/14/24 10/14/24 10/14/24 07:18 11:19 16:37 POC Capillary Glucose 202 H 153 H 112 H 10/14/24 10/14/24 10/15/24 20:17 22:46 04:37 POC Capillary Glucose 91 76 93 Quality VTE Prophylaxis VTE prophylaxis: mechanical ordered
[2024-10-15 08:00] VITALS: PULSE 73
[2024-10-15 08:08] LABS: Glucose Point of Care 195 mg/dl (65-105)
[2024-10-15] MEDS: FLUTICASONE PROPIONATE 0.05% NA SPR 16 GM BTL (*BKC) 2 SPRAY NASAL (10:06)
[2024-10-15] MEDS: MIDODRINE HCL 2.5 MG TABLET 5 MG PO (10:11)
[2024-10-15] MEDS: SENNA/DOCUSATE SODIUM TABLET 2 TAB PO (10:11)
[2024-10-15] MEDS: HYDROcodone/acetaminophen (*CRX) 7.5-325 MG TABLET 1 TAB PO (10:14)
--- NOTE | 2024-10-15 11:27 | P.DS_ITS ---
DS: Admitting Diagnosis Discharge Date 10/15/2024 Admitting Diagnosis Intertrochanteric fracture of right hip DS: Discharge Diagnosis Discharge Diagnosis (1) Intertrochanteric fracture of right hip: Code(s): S72.141A - Displaced intertrochanteric fracture of right femur, initial encounter for closed fracture Status: Acute (2) Anxiety disorder: Qualifiers: Anxiety disorder type: unspecified anxiety disorder Qualified Code(s): F41.9 - Anxiety disorder, unspecified Code(s): F41.9 - Anxiety disorder, unspecified Status: Acute (3) Benign essential hypertension: Code(s): I10 - Essential (primary) hypertension Status: Acute (4) Hyperlipidemia: Qualifiers: Hyperlipidemia type: mixed hyperlipidemia Qualified Code(s): E78.2 - Mixed hyperlipidemia Code(s): E78.5 - Hyperlipidemia, unspecified Status: Acute (5) Diabetes mellitus type 2, insulin dependent: Code(s): E11.9 - Type 2 diabetes mellitus without complications; 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 She was standing at the side of her bed when she fell. Unclear if she lost consciousness. This was not witnessed by the who lives with her. She reports she hit her head but was not confused and she was clear minded shortly after. She has an existing history of a fracture of the greater trochanter of the right femur with mild displacement. She last followed up in the office with Dr. Gonzalez on 10/02/2024 in the were following non operative management. Head CT in ER without acute intracranial findings, pelvis CT demonstrates right greater trochanter. Assessed by Dr. Gonzalez. Will go for ORIF. Patient then proceeded to have surgery for displaced intertrochanteric fracture of right femur and had appropriate PT/OT follow-up in the next several days during her hospitalization. She did present after a syncopal episode and had a echo done which showed grade 1 DD, and left ventricular wall thickness, mitral valve noted to have moderate calcification. She was found to be orthostatic and was given IVF and midodrine. She continued to improve over the next few days and eventually was stable to be discharged to home health. Pt is amenable to this and will be instructed to monitor her BP at home and to make additional changes with care to prevent any further syncopal episodes. Status at Discharge Functional status at discharge: uses cane/walker Overall status at discharge: patient is progressing back to baseline Time Spent with Patient Time attestation: Total time spent providing and/or coordinating discharge services: 35 Exam Narrative: General: well-nourished, pleasant not in acute distress Neuro: awake, alert and oriented x4, speech clear, no focal neuro deficits noted HEENMT: normocephalic, atraumatic, EOMI, sclerae anicteric, moist oral mucosa Respiratory: Clear to auscultation bilaterally without crackles, rhonchi or wheezes, nonlabored breathing Cardio: regular rate, regular rhythm with S1-S2 Abdomen: nondistended, normoactive bowel sounds, soft, nontender to palpation Extremities: Right hip with surgical jacob clean dry and intact Skin: no rashes or lesions, warm and dry Psych: appropriate mood and affect, judgment and insight intact DS: Data Data Completed and Pending Labs on day of discharge: Labs from last 24 hours 10/15/24 10/15/24 10/14/24 08:05 04:37 22:46 POC Capillary Glucose 195 H 93 76 10/14/24 10/14/24 20:17 16:37 POC Capillary Glucose 91 112 H Discharge Plan Discharge Attending physician on discharge: Gaurav Cadet Consulting providers: Kaz Gonzalez; Bg Wyatt Discharging Clinician: Bg Wyatt Anticipated Discharge Date/Time: 10/15/24 11:26 Patient Disposition: Home with Home Health Service Activity: as tolerated Diet: as tolerated Discharge Instructions: Dr. Kaz Gonzalez M.D [id number] [address] POST-OPERATIVE DISCHARGE INSTRUCTIONS HIP Fracture 1. Move toes/feet up and down every hour while awake. 2. Be up walking every hour while awake. 3. 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 4. When resting, do not rest in the chair. Rather, lie on your back, with back flat, and the leg elevated above heart to minimize swelling. You may put a pillow under your head. Do not rest in a chair. Resting in the chair results in swelling in the leg. Significant swelling could indicate a blood clot and if this occurs, call the office (or go to the ER) to have a venous ultrasound perf ormed. Its ok to sit in the chair to eat and use the toilet and to receive a guest but sitting in a chair will cause your leg to swell. so try to minimize sitting in a chair. 5. Wound Care: Apply a folded 4x4 sponge to incision and hold with crossing strips of 1 inch Transpore tape. 6. Follow weight bearing status as instructed: 7. May shower. Remove dressing before shower and reapply dressing after shower. Care Coordination: Patient to have [facility] for PT/OT eval and treat, and long term. Their phone number is [phone] if you have any questions; they will contact you to schedule their first visit. Patient Instructions: Antibiotic Form, Rivaroxaban (By mouth) Patient Language: Bengali Stand Alone Forms: General Discharge Information Follow-up/Referrals: Kaz Gonzalez MD [Physician] - Discharge Medications: New hydrocodone-acetaminophen 5-325 mg tablet 1 tablet PO Q4H PRN (Reason: pain) Qty: 30 0RF midodrine 5 mg tablet 5 mg PO TID 21 Days Qty: 63 0RF Rx Instructions: do not give last dose of day after 6PM or within 4 hrs of bedtime Continued calcium carbonate [Calcium 600] 600 mg calcium (1,500 mg) tablet 600 mg PO DAILY mecobalamin (vitamin B12) 1,000 mcg tablet,disintegrating 1,000 mcg SUBLINGUAL DAILY Rx Instructions: place tablet under tongue and allow to dissolve for at least30 secs before swallowing Centrum Silver Women 8 mg iron-400 mcg-300 mcg tablet 1 tablet PO DAILY omega-3 fatty acids [Fish Oil Concentrate] 1,000 mg capsule 2,000 mg PO DAILY melatonin 5 mg capsule 5 mg PO HS alendronate [Fosamax] 70 mg tablet 70 mg PO WEEKLY Qty: 12 1RF Patient Comments: TAKES ON SUNDAYS Nexlizet 180-10 mg tablet 1 tablet PO DAILY Qty: 90 1RF bupropion HCl [Wellbutrin XL] 150 mg tablet extended release 24 hr 150 mg PO QAM Qty: 90 1RF furosemide 20 mg tablet See Rx Instructions .ROUTE .COMPLEX Qty: 90 1RF Dose Instruction: TAKE 1 TABLET EVERY MORNING NEEDED FOR WEIGHT GAIN Rx Instructions: TAKE 1 TABLET EVERY MORNING NEEDED FOR WEIGHT GAIN Jardiance 25 mg tablet 25 mg PO QAM Qty: 30 2RF Rx Instructions: TAKE 1 TABLET BY MOUTH ONCE DAILY IN THE MORNING metformin 1,000 mg tablet See Rx Instructions .ROUTE .COMPLEX Qty: 180 1RF Dose Instruction: TAKE 1 TABLET TWICE DAILY Rx Instructions: TAKE 1 TABLET TWICE DAILY mirabegron [Myrbetriq] 50 mg tablet extended release 24 hr 50 mg PO DAILY Qty: 90 1RF Rx Instructions: . sertraline 100 mg tablet See Rx Instructions .ROUTE .COMPLEX Qty: 180 1RF Dose Instruction: TAKE 2 TABLETS EVERY DAY Rx Instructions: TAKE 2 TABLETS EVERY DAY levothyroxine [Synthroid] 150 mcg tablet See Rx Instructions .ROUTE .COMPLEX Qty: 90 1RF Dose Instruction: TAKE 1 TABLET EVERY MORNING Rx Instructions: TAKE 1 TABLET EVERY MORNING trazodone 50 mg tablet See Rx Instructions .ROUTE .COMPLEX Qty: 180 1RF Dose Instruction: TAKE 1 TO 2 TABLETS AT BEDTIME FOR SLEEP (TAKE WITH 100MG TABLET FOR TOTAL OF 150 TO 300MG) Rx Instructions: TAKE 1 TO 2 TABLETS AT BEDTIME FOR SLEEP (TAKE WITH 100MG TABLET FOR TOTAL OF 150 TO 300MG) trazodone 100 mg tablet See Rx Instructions .ROUTE .COMPLEX Qty: 180 1RF Dose Instruction: TAKE 1 TO 2 TABLETS EVERY NIGHT FOR SLEEP. TAKE WITH 50MG TABLET FOR TOTAL OF 150 - 300MG Rx Instructions: TAKE 1 TO 2 TABLETS EVERY NIGHT FOR SLEEP. TAKE WITH 50MG TABLET FOR TOTAL OF 150 - 300MG triamcinolone acetonide 0.5 % cream See Rx Instructions .ROUTE .COMPLEX Qty: 60 0RF Dose Instruction: APPLY TOPICALLY THREE TIMES DAILY NEEDED FOR ITCHING Rx Instructions: APPLY TOPICALLY THREE TIMES DAILY NEEDED FOR ITCHING insulin glargine [Lantus U-100 Insulin] 100 unit/mL solution See Rx Instructions .ROUTE .COMPLEX Rx Instructions: INJECT 26-27 UNITS SUBCUTANEOUSLY ONCE IN THE EVENING IF GLUCOSE IS HIGH. IF NOT, WILL TAKE IN AM. DISCARD VIAL 28 DAYS AFTER OPENING. omeprazole 40 mg capsule,delayed release(DR/EC) 40 mg PO QHS buspirone 15 mg tablet 15 mg PO .COMPLEX Rx Instructions: 15 mg orally Take 1 tablet in AM and 2 tablets in PM; tramadol 50 mg tablet 50 mg PO QID PRN (Reason: pain) FreeStyle Sandy 14 Day [place] Misc See Rx Instructions .ROUTE .COMPLEX Qty: 1 0RF Dose Instruction: USE TO CONTINUOUSLY MONITOR BLOOD SUGAR Rx Instructions: USE TO CONTINUOUSLY MONITOR BLOOD SUGAR cholecalciferol (vitamin D3) 125 mcg (5,000 unit) capsule 125 mcg PO DAILY (DME) FreeStyle Sandy 3 [place] Misc See Rx Instructions .Route Qty: 1 0RF Rx Instructions: As directed fluticasone propionate 50 mcg/actuation spray,suspension See Rx Instructions .ROUTE .COMPLEX Qty: 48 1RF Dose Instruction: USE 2 SPRAYS IN EACH NOSTRIL EVERY DAY Rx Instructions: USE 2 SPRAYS IN EACH NOSTRIL EVERY DAY (DME) FreeStyle Sandy 3 Sensor Device See Rx Instructions .ROUTE .COMPLEX Qty: 2 5RF Dose Instruction: USE DIRECTED Rx Instructions: USE DIRECTED; FREE STYLE SANDY 3 PLUS DENSOR (DME) insulin syringe-needle U-100 1 mL 31 gauge x 5/16 syringe See Rx Instructions .ROUTE .COMPLEX Qty: 100 2RF Dose Instruction: USE 4 SYRINGE DAILY WITH INSULIN Rx Instructions: USE 4 SYRINGE DAILY WITH INSULIN levocetirizine 5 mg tablet See Rx Instructions .ROUTE .COMPLEX Qty: 90 1RF Dose Instruction: TAKE 1 TABLET ONE TIME DAILY IN THE EVENING IF LUIZA D NOT WORKING ( NEEDED FOR CONGESTION) Rx Instructions: TAKE 1 TABLET ONE TIME DAILY IN THE EVENING IF LUIZA D NOT WORKING ( NEEDED FOR CONGESTION) fexofenadine-pseudoephedrine [Luiza-D 24 Hour] 180-240 mg tablet extended release 24 hr See Rx Instructions .ROUTE .COMPLEX Qty: 31 1RF Dose Instruction: Take 1 tablet by mouth once daily Rx Instructions: Take 1 tablet by mouth once daily Ozempic 2 mg/dose (8 mg/3 mL) pen injector 2 mg subcut WEEKLY Qty: 3 0RF Patient Comments: Takes on Sunday Date of admission: 10/08/24 20:52 Primary Care Provider: Fredy Puri Admitting Provider: Radha Paniagua Attending physician on admission: Radha Paniagua Condition: Stable
[2024-10-15 12:06] LABS: Glucose Point of Care 106 mg/dl (65-105)
== END 2024-10-15 13:30 | disposition home health service (06) | DRG 482 ==
LOC: ANHED 19:42 → ANH3MEDSUR 22:14
PROVIDERS: Family Medicine; Nurse Practitioner; Orthopaedic Surgery; Admitting Provider General Practice; Emergency Provider Emergency Medicine; PCP Internal Medicine; Visit Provider Physician Assistant
PROC: 0QS634Z Reposition Right Upper Femur with Internal Fixation Device, Percutaneous Approach (ICD-10-PCS; CPT 27245; principal; 2024-10-09 15:00)
DX: S72.141A Displaced intertrochanteric fracture of right femur, initial encounter for closed fracture (principal); W19.XXXA Unspecified fall, initial encounter; E78.2 Mixed hyperlipidemia; E03.9 Hypothyroidism, unspecified; E11.9 Type 2 diabetes mellitus without complications; E55.9 Vitamin D deficiency, unspecified; F41.9 Anxiety disorder, unspecified; G47.33 Obstructive sleep apnea (adult) (pediatric); I10 Essential (primary) hypertension; K21.9 Gastro-esophageal reflux disease without esophagitis; M85.80 Other specified disorders of bone density and structure, unspecified site; M81.0 Age-related osteoporosis without current pathological fracture; R29.6 Repeated falls; R55 Syncope and collapse; Z99.89 Dependence on other enabling machines and devices; Z98.84 Bariatric surgery status; Z90.49 Acquired absence of other specified parts of digestive tract; Z87.891 Personal history of nicotine dependence; Z79.4 Long term (current) use of insulin; Z79.84 Long term (current) use of oral hypoglycemic drugs; Z79.85 Long-term (current) use of injectable non-insulin antidiabetic drugs; Z79.01 Long term (current) use of anticoagulants
CPT/HCPCS: 36415; 70450; 71045; 72192; 73502; 80048; 80053; 81003; 82948; 83735; 83880; 84484; 85025; 85027; 85610; 93005; 93306; 97110; 97116; 97161; 97166; 97530; 97535; 99199; 99285; A9270; C1713; J0690; J1171; J1815; J2003; J2405; J2704; J3010; J7030; J7070; J7120

== ENCOUNTER 2025-03-01 08:41 | Observation (INO) | payer MEDICARE, SELFPAY ==
--- OUTSIDE RECORDS SUMMARY | 2003-05-18 04:30 | XMS_ITS | Continuity of Care Document ---
Author Organization [facility] Address [id number] [place] [address] [address] [place] [address] Phone Care Team Providers Care Pediatric Nephrologist Name Role Phone Jonny Fuchs DO Unavailable Unavailable Advance Directives Directive Yes / No Effective Date File Name No Information Encounters Encounter Description Practice Location Reason(s) For Visit Diagnoses Date Provider Providers Copied on Encounter [facility], [address], [place], [place], [id number], [place] tel:[phone] [facility] No Information Shila Fabian. [address] [place], [address], [place]. tel: [phone] Family History Family Member Type Diagnosis Age At Onset No Information Payers Payer name Insurance type Covered green party ID Authoriza tion(s) No Information Social History Type Description Quantity Date Captured Comments Sex Female Smoking Status No Information Chief Complaint And Reason For Visit No Information Reason For Referral Reason For Referral No Information History Of Present Illness Encounter Date Complaint History Of Prese nt Illness No Information Functional Status Date Functional Assessmen t No Information Instructions Date Instruction Additional Infor mation No Information Assessments Type Assessment Date No Information Patient Care Teams Name Effective Dates (start - stop) Status Members No Information
--- OUTSIDE RECORDS SUMMARY | 2014-06-24 03:05 | XMS_ITS | Continuity of Care Document ---
Author Organization [facility] Address [id number] [place] [address] [address] [place] [address] Phone Care Team Providers Care Radial Saw Operator Name Role Phone Panfilo Cullen MD, MD Unavailable Unavailable Medications Medication Instructions Dosage Effective Dates (start - stop) Status Comments Restasis 0.05 % eye drops in a dropperette instill 1 drop by ophthalmic route every 12 hours into affected eye(s) 1.00 drop - Active 90 day supply Procedures Procedure Date AFTER CATARACT LASER SURGERY AFTER CATARACT LASER SURGERY OFFICE/OUTPATIENT VISIT, EST DILATED EXAM RIGHT EYE DILATED EXAM LEFT EYE Studies POSTOP FOLLOW-UP VISIT CATARACT SURG W/IOL, 1 STAGE DILATED FUNDUS EVAL DONE PRE-SURG EYE MEASURES DOC'D Studies POSTOP FOLLOW-UP VISIT CATARACT SURG W/IOL, 1 STAGE DILATED FUNDUS EVAL DONE PRE-SURG EYE MEASURES DOC'D Studies OFFICE/OUTPATIENT VISIT, NEW OPHTHALMIC BIOMETRY OPHTHALMIC BIOMETRY SPECIAL EYE EXAM, INITIAL SPECIAL EYE EXAM, INITIAL Advance Directives Directive Yes / No Effective Date File Name No Information Encounters Encounter Description Practice Location Reason(s) For Visit Diagnoses Date Provider Providers Copied on Encounter [facility], [id number] [place], [place] [address], [place], [place], [id number], [place] tel:[phone] [facility] No Information 5 Subhash Whittaker. [address], [address], [place], [place], [id number], [place]. tel:[phone] Referring Provider: Panfilo Parnell, [address], [place], [address] . tel:[phone] [facility], [address] [place] [address], [id number], tel:[phone] [facility] [place] No Information 5 Subhash Whittaker. [address], [address], [place], [place], [id number], [place]. tel:[phone] Referring Provider: Panfilo Parnell, [address], [place], [address] . tel:[phone] OFFICE/OUTPA TIENT VISIT, [facility], [address] [place] [address], [id number], [place] tel:[phone] [facility] No Information 5 Subhash Whittaker. [address], [address], [place], [place], [id number], [place]. tel:[phone] Referring Provider: Panfilo Parnell, [address], [place], [address] . tel:[phone] [facility], [address] [place] [address], [id number], [place] tel:[phone] [facility] No Information 4 Ale Reyes. [address], [address], [place], [place], [id number], [place]. tel:[phone] Referring Provider: Haydee Pichardo, [address], [place], [address] . tel:[phone] [facility], [address] [place] [address], [id number], [place] tel:[phone] [facility] No Information 4 Jose Hubbard. [address], [address], [place], [place], [id number], [place]. tel:[phone] Referring Provider: Haydee Pichardo, [address], [place], [address] . tel:[phone] [facility], [address] [place] [address], [id number], tel:[phone] [facility] vision is improved, but still blurry OS (chief complaint)n o sharp pain, irritation off and on OS (chief complaint) No Information 4 Jose Hubbard. [address], [address], [place], [place], [id number], [place]. tel:[phone] Referring Provider: Haydee Pichardo, [address], [place], [address] . tel:[phone] [facility], [address] [place] [address], [id number], tel:[phone] [facility] No Information 4 Subhash Whittaker. [address], [address], [place], [place], [address], [place]. tel:[phone] Referring Provider: Panfilo Cullen MD P, [address], [place], [address] . tel:[phone] [facility], [address] [place] [address], [id number], [place] tel:[phone] [facility] foreign body sensation OD (chief complaint) No Information 4 Sowmya OD Lucy. [address], [address], [place], [place], [id number], [place]. tel:[phone] Referring Provider: Lucy Deng OD, [address], [place], [address] . tel:[phone] [facility], [address] [place] [address], [id number], tel:[phone] [facility] No Information 4 Sowmya OD Lucy. [address], [address], [place], [place], [address], [place]. tel:[phone] Referring Provider: Lucy Mcnealdeepa OD, [address], [place], [address] . tel:[phone] [facility], [address] [place] [address], [id number], tel:[phone] [facility] [place] No Information 4 Subhash Whittaker. [address], [address], [address], [place]. tel:[phone] Referring Provider: Panfilo Cullen MD P, [address], [place], [address] . tel:[phone] [facility], [address] [place] [id number], tel:[phone] [facility] No Information 4 Subhash Whittaker. [address], [address], [place], [place], [id number], [place]. tel:[phone] Referring Provider: Panfilo Cullen MD P, [address], [place], [address] . tel:[phone] OFFICE/OUTPA TIENT VISIT, [facility], [address] [place] [address], [id number], [place] tel:[phone] [facility] No Information 4 Subhash Whittaker. [address], [address], [id number], [place]. tel:[phone] Referring Provider: Panfilo Cullen MD P, [address] [facility] [address], [place], [address] . tel:[phone] Family History Family Member Type Diagnosis Age At Onset No Information Payers Payer name Insurance type Covered alliance party ID Authoriza titerry(s) [facility] [id number] Medicare SECONDARY MB [id number] Social History Type Description Quantity Date Captured Comments Sex Female Smoking Status No Information Chief Complaint And Reason For Visit No Information Reason For Referral Reason For Referral No Information History Of Present Illness Encounter Date Complaint History Of Prese nt Illness vision is improved, but still blurry vision is improved, but still blurry OS no sharp pain, irrit ation off and on no sharp pain, irritation off and on OS foreign body sensation foreign b eimly sensation OD Functional Status Date Functional Assessmen t No Information Instructions Date Instruction Additional Infor mation - RTO 1 month for final refracti on Related to Cataract 1 day, 2nd eye - Refer by Dr. Christopher sood [facility].Standard lens: mild mono-OS Related to Cataract 1 day, 2nd eye Assessments Type Assessment Date No Information Patient Care Teams Name Effective Dates (start - stop) Status Members No Information
--- NOTE | ~2025-03-01 | CT_ITS ---
Clinical history:Left hip fracture EXAM:CT hip left without contrast TECHNIQUE:Multiple contiguous axial images of the left hip were obtained. Sagittal and coronal reformatted images were obtained. Comparisons:Left hip x-ray 03/01/2025 FINDINGS: Bones appear osteopenic. Mild degenerative change in the left hip. Moderate degenerative change in the pubic symphysis. Subtle lucency in the greater trochanter of the proximal left femur. No other possible fracture identified by CT. Evaluation of the musculotendinous structures is limited due to CT te chnique. IMPRESSION: 1. Subtle lucency in the greater trochanter of the proximal left femur. Differential includes acute/subacute fracture or sequelae from degenerative change. Correlate for point tenderness. If continued concern, consider an MRI for further assessment. 2. No other possible fracture identified by CT. Reviewed, dictated and finalized at location Q. IMPRESSION: 1. Subtle lucency in the greater trochanter of the proximal left femur. Differe ntial includes acute/subacute fracture or sequelae from degenerative change. Co rrelate for point tenderness. If continued concern, consider an MRI for further assessment. 2. No other possible fracture identified by CT.
--- NOTE | ~2025-03-01 | XR_ITS ---
Examination: XR hip LT 2V w AP pelvis Clinical History: fall Comparison: None Technique: 2 views left hip with AP pelvis Findings/impression: 1. Nondisplaced avulsion fracture left femur greater trochanter. 2. No dislocation. 3. No pelvic fracture noted. Reviewed, dictated and finalized at location R.
--- NOTE | ~2025-03-01 | XR_ITS ---
Examination: XR shoulder LT min 2V Clinical History: Fall Comparison: None Technique: 4 views left shoulder Findings/impression: 1. No fracture or dislocation left shoulder. 2. Mild degenerative changes shoulder joint and AC joint. Reviewed, dictated and finalized at location R.
--- NOTE | ~2025-03-01 | CT_ITS ---
CT HEAD NON-CONTRAST Clinical History: trauma Comparison: 10/08/2024 Technique: Unenhanced axial images skull base to vertex Coronal, sagittal reformats CT images acquired with automatic exposure control for dose reduction DLP: 605 mGy-cm Findings: Age-related atrophy. White matter changes, typically chronic microvascular ischemic disease. Sulci, ventricles: Unremarkable. No intracerebral hemorrhage. No evidence acute territorial infarct. No mass effect, midline shift. Bony calvarium intact. Visualized paranasal sinuses: Left maxillary disease; question bony fragment or tooth. Mastoid air cells: Clear. IMPRESSION: 1. No acute intracranial findings. Reviewed, dictated and finalized at location R.
--- NOTE | ~2025-03-01 | XR_ITS ---
Examination: XR chest 2V Clinical History: syncope Comparison: 10/08/2024 Technique: PA and Lateral Findings: Cardiomediastinal silhouette normal size and configuration. Subtle right basilar opacity. No acute bony abnormality. IMPRESSION: 1. Mild right basilar atelectasis and/or airspace disease. Reviewed, dictated and finalized at location R.
[2025-03-01 08:46] VITALS: BP 122/60; PULSE 82; RESP 18; TEMP 36.4; O2SAT 99
[2025-03-01 10:31] VITALS: BP 132/70; PULSE 64; RESP 20; O2SAT 97
--- NOTE | 2025-03-01 11:13 | ED.GENADULT ---
HPI - General Adult General Chief complaint: Fall Stated complaint: fall Time Seen by Provider: 03/01/25 10:21 History of Present Illness HPI narrative: 75-year-old female with history of orthostatic hypotension presents to the emergency department for evaluation after she had a ground level fall on Sunday night. Patient reports she was walking to the bathroom and had a syncopal episode. Patient does not recall if she hit her head but patient's primary complaint is left shoulder left hip pain. Patient states she is having severe pain in and is unable to ambulate at home. Patient does have a prior history of similar fall and injury resulting in an intertroch fracture on the right. Related Data Home Medications ?Medication ?Instructions ?Recorded ?Confirmed ?Last Taken ?Type calcium carbonate (Calcium 600) 600 mg PO DAILY 07/09/19 02/24/25 10/07/24 History mecobalamin (vitamin B12) 1,000 1,000 mcg sublingual DAILY 07/09/19 02/24/25 10/08/24 History mcg disintegrating tablet,sublingual tchhdbld-ksen-ccyk 8 mg-folic 400 1 tablet PO DAILY 07/09/19 02/24/25 10/08/24 History mcg-K 50 mcg-lutein 300 mcg tablet (Centrum Silver Women) omega-3 fatty acids 1,000 mg 2,000 mg PO DAILY 07/09/19 02/24/25 10/07/24 History capsule (Fish Oil Concentrate) cholecalciferol (vitamin D3) 125 125 mcg PO DAILY 03/22/22 02/24/25 10/08/24 History mcg (5,000 unit) capsule melatonin 5 mg capsule 5 mg PO HS 02/07/24 02/24/25 10/07/24 History Allergies Allergy/AdvReac Type Severity Reaction Status Date / Time morphine AdvReac Severe NAUSEA AND Verified 03/01/25 08:45 VOMITING Sulfa (Sulfonamide AdvReac Intermediate Diarrhea Verified 03/01/25 08:45 Antibiotics) Review of Systems Review of Systems: All systems reviewed & are unremarkable except as noted in HPI and below PMFSH Past Medical History Medical History Adult BMI 19-24 kg/sq m Post-menopausal Osteopenia Osteoporosis Lesion of skin of foot Frequent sinus infections Multiple falls Polycythemia Right hip pain Encounter for weight management External hemorrhoid Urinary incontinence BMI 26.0-26.9,adult Chest discomfort Trigger index finger of left hand Cheilitis Iron deficiency anemia Left-sided chest pain Trigger finger of left hand BMI 25.0-25.9,adult Body mass index (BMI) of 50-59.9 in adult (03/13/17) Left arm numbness History of obstructive sleep apnea GILMAN (dyspnea on exertion) Dependence on other enabling machines and devices BMI 45.0-49.9, adult BMI 40.0-44.9, adult Amaurosis fugax Acute renal failure Mild sleep apnea Fatigue Abdominal pain GERD (gastroesophageal reflux disease) Diverticular disease BMI 22.0-22.9, adult Change in bowel habit BMI 21.0-21.9, adult Encounter for routine adult health examination with abnormal findings Constipation Elevated LFTs Grade I diastolic dysfunction Bunion Sinus mucosal thickening Facial pain, acute Traumatic ecchymosis of face BMI 23.0-23.9, adult Syncope Frequent falls Colon cancer screening BMI 24.0-24.9, adult Seasonal allergies Vitamin D deficiency Insomnia BMI 27.0-27.9,adult Excessive and redundant skin and subcutaneous tissue Encounter for routine adult health examination without abnormal findings BMI 31.0-31.9,adult Urticaria BMI 33.0-33.9,adult Follow up Encounter for Medicare annual wellness exam Hearing loss Abnormal finding of blood chemistry, unspecified Orthostatic hypotension Hx of small bowel obstruction Carotid disease, bilateral BMI 34.0-34.9,adult Benign essential hypertension On detention drug therapy MATTHIAS on CPAP Hypothyroidism (acquired) Hyperlipidemia Diabetes mellitus type 2, insulin dependent Dependent edema Depression IDDM (insulin dependent diabetes mellitus) Hypothyroidism Left wrist fracture Arm fracture, left Arthritis HTN (hypertension) Neuropathy Surgical History Surgical History History of hemorrhoidectomy Rectal exam under anesthesia with internal hemorrhoid rubber-band ligation x3 History of dental surgery History of bunionectomy History of total bilateral knee replacement (TKR) S/P gastric bypass S/P right knee arthroscopy History of surgery on left wrist History of appendectomy H/O: hysterectomy H/O section History of Ivy-en-Y gastric bypass Family History Family History Mother Family history of diabetes mellitus in first degree relative Diabetes mellitus Father Family history of heart disease in male family member before age 55 Family history of cardiovascular disease Sibling FHx: thyroid cancer Papillary thyroid cancer Social History Social History Smoking packs per day: 1 Smoking cigarettes per day: 20.0 Years smoked: 30 Smoking pack-years: 30.00 Smoking status: Former smoker Tobacco type: cigarettes Second hand tobacco smoke exposure: No Smoking end date: 09/11/89 Additional smoking assessment comments: STATES 1 TO 1 1/2PK/DAY/30YRS-QUIT 1996 Alcohol intake: never Substance use: never Substance use type: does not use Current Housing: Decline to Answer Concerned About Future Housing: Decline to Answer Difficulty Paying Gas/Electric Bills: Decline to Answer Difficulty Paying for Meds: Decline to Answer Currently Unemployed: Decline to Answer Education: Decline to Answer Difficulty w/ Childcare or Family Care: Decline to Answer Living arrangements: with family Additional living arrangements comments: Occupation/Education: retired Gender identity (if verbalized by the patient): Female Spiritual care concerns: No Exam Narrative: APPEARANCE: Well appearing, no pain, no distress, well-nourished. HEAD: normocephalic, atraumatic. EYES: PERRLA/EOMI, conjunctivae clear. NOSE: Normal no drainage EARS:TMS clear with good light reflex. THROAT: Pharynx clear, no exudate. NECK: Supple. No adenopathy, no masses. RESPIRATORY: Airway patent, respirations nonlabored. Clear to auscultation bilaterally, no rales, rhonchi, wheezing. CARDIOVASCULAR: Regular rate and rhythm without murmurs rubs or gallops. ABDOMINAL: Soft, nontender, nondistended, normal bowel sounds MUSCULOSKELETAL: Moves all extremities. Strength/ROM intact, No edema, No calf tenderness. NEURO: Alert. Cranial nerves II through XII intact. Good gait. Good coordination SKIN: Warm, dry. Normal Color Course Vital Signs Vital signs: Vital Signs Temperature 97.6 F 03/01/25 08:46 Pulse Rate 82 03/01/25 08:46 Respiratory Rate 18 03/01/25 08:46 Blood Pressure 122/60 03/01/25 08:46 Pulse Oximetry 99 03/01/25 08:46 Oxygen Delivery Room Air 03/01/25 08:46 Temperature 97.6 F 03/01/25 08:46 Pulse Rate 62 03/01/25 15:49 Respiratory Rate 17 03/01/25 15:49 Blood Pressure 120/60 03/01/25 15:49 Pulse Oximetry 94 03/01/25 15:49 Oxygen Delivery Room Air 03/01/25 08:46 Medical Decision Making MDM Narrative Medical decision making narrative: 75-year-old female presents to the emergency department for evaluation for right hip injury. Nondisplaced avulsion fracture left femur greater trochanter. Patient does have significant discomfort and patient will be admitted for pain control and PT OT. I did consult Orthopedics and they felt the patient would be suitable for weight-bearing as tolerated. Patient was updated on the results of workup and plan for admission. Patient was afebrile with no leukocytosis hemoglobin of 13.7. Patient has INR of 1.0. No significant abnormalities on her CMP. Patient was negative and his RSV and for COVID. Chest x-ray does show bilateral atelectasis. Head CT shows no acute intracranial abnormality. Shoulder x-ray is negative. Hip x-ray does show evidence of a greater trochanter avulsion fracture. Differential Diagnosis Differential Diagnosis: Hip fracture, pelvic fracture, subdural hematoma, subarachnoid hemorrhage, syncope, COVID, RSV, influenza, UTI Vital Signs Vital Signs: Vital Signs Temperature 97.6 F 03/01/25 08:46 Pulse Rate 82 03/01/25 08:46 Respiratory Rate 18 03/01/25 08:46 Blood Pressure 122/60 03/01/25 08:46 Pulse Oximetry 99 03/01/25 08:46 Oxygen Delivery Room Air 03/01/25 08:46 Temperature 97.6 F 03/01/25 08:46 Pulse Rate 62 03/01/25 15:49 Respiratory Rate 17 03/01/25 15:49 Blood Pressure 120/60 03/01/25 15:49 Pulse Oximetry 94 03/01/25 15:49 Oxygen Delivery Room Air 03/01/25 08:46 Lab Data Lab results reviewed: Yes I reviewed the patient's lab results. 03/01/25 11:37 03/01/25 11:37 Labs: Lab Results 03/01/25 03/01/25 Range/Units 11:37 11:37 WBC 9.7 (4.5-10.0) K/mm3 RBC 4.72 (4.2-5.4) M/mm3 Hgb 13.7 D (12.0-15.0) g/dL Hct 42.7 (37.0-47.0) % MCV 90.5 (80-100) fl MCH 29.0 (26-34) pg MCHC 32.1 (32-36) g/dl RDW 14.6 H (11.5-14.5) % Plt Count 282 (150-375) k/mm3 MPV 9.6 (7.4-10.4) fl Immature Gran % (Auto) 0.6 H (0-0.5) % Neut % (Auto) 77.8 H (45.5-73.1) % Lymph % (Auto) 10.6 L (18.3-44.2) % [place] % (Auto) 9.3 H (2.6-8.5) % Eos % (Auto) 1.4 (0-4.4) % Baso % (Auto) 0.3 (0.2-1.2) % Lymph # (Auto) 1.03 (0.9-3.2) K/mm3 [place] # (Auto) 0.9 H (0.1-0.6) K/mm3 Eos # (Auto) 0.1 (0-0.3) K/mm3 Baso # (Auto) 0.0 (0.0-0.1) K/mm3 Abs Immat Gran (auto) 0.06 H (0.00-0.031) K/mm3 Absolute Neuts (auto) 7.5 H (1.3-6.7) K/mm3 Absolute Nucleated RBC 0.000 (0.0-0.012) K/mm3 Nucleated RBC % 0.0 (0.0-0.2) % PT 13.6 (11.1-14.7) Seconds INR 1.0 APTT 29.7 (22.3-36.8) Seconds Sodium 137 (137-145) mmol/L Potassium 4.1 (3.4-5.0) mmol/L Chloride 98 (98-107) mmol/L Carbon Dioxide 32 H (22-30) mmol/L Anion Gap 7 (4-12) mmol/L BUN 31 H (7-17) mg/dL Creatinine 0.61 L (0.7-1.0) mg/dL Estim Creat Clear Calc 48 ml/min Estimated GFR > 60 (59 - ) Glucose 125 H (65-110) mg/dL Calcium 9.4 (8.4-10.2) mg/dL Magnesium 2.1 Cancelled (1.6-2.3) mg/dL Total Bilirubin 0.7 (0.2-1.3) mg/dL AST 32 (14-36) U/L ALT 22 (6-35) U/L Alkaline Phosphatase 55 (38-126) U/L Total Protein 7.2 (6.3-8.2) g/dL Albumin 4.1 (3.5-5.1) g/dL TSH (Reflex) 0.424 L (0.465-4.68) uIU/mL Free T4 1.52 (0.78-2.19) ng/dL Total T3 2.02 H (0.82-1.58) NG/ML Influenza A (RT-PCR) Negative (Negative) Influenza B (RT-PCR) Negative (Negative) RSV (RT-PCR) Negative (Negative) SARS-CoV-2 RNA (RT-PCR) Negative (Negative) Imaging Data Radiologist's impression: Impressions Head CT 03/01/25 11:28 IMPRESSION: 1. No acute intracranial findings. Chest X-Ray 03/01/25 11:32 IMPRESSION: 1. Mild right basilar atelectasis and/or airspace disease. Discharge Plan Discharge Clinical Impression: Syncope Closed avulsion fracture of greater trochanter of femur Qualifiers: Encounter type: initial encounter Laterality: left Qualified Code(s): S72.112A - Displaced fracture of greater trochanter of left femur, initial encounter for closed fracture Patient Disposition: Still a Patient Condition: Stable
[2025-03-01] MEDS: HYDROmorphone HCL INJ (*CRX) 1 MG/ML SYR 0.5 MG IV PUSH ×2 (11:42→18:50)
[2025-03-01 11:44] LABS: Hematocrit 42.7 % (37.0-47.0); Hemoglobin 13.7 g/dL (12.0-15.0); Immature Granulocyte Percent A 0.6 % (0-0.5); Lymphocytes Absolute Auto 1.03 K/mm3 (0.9-3.2); Mean Corpuscular HGB Conc 32.1 g/dl (32-36); Mean Corpuscular Hemoglobin 29.0 pg (26-34); Mean Corpuscular Volume 90.5 fl (80-100); Nucleated Red Blood Cells Absolute Auto 0.000 K/mm3 (0.0-0.012); Nucleated Red Blood Cells Perc 0.0 % (0.0-0.2); Platelet Count Result 282 k/mm3 (150-375); Red Blood Count 4.72 M/mm3 (4.2-5.4); White Blood Count 9.7 K/mm3 (4.5-10.0)
[2025-03-01 11:48] VITALS: BP 122/80; PULSE 63; RESP 17; O2SAT 97
[2025-03-01 11:56] LABS: INR 1.0; Prothrombin Time 13.6 Seconds (11.1-14.7)
[2025-03-01 11:57] LABS: Partial Thromboplastin Time 29.7 Seconds (22.3-36.8)
[2025-03-01 12:04] LABS: Alanine Aminotransferase 22 U/L (6-35); Albumin Level 4.1 g/dL (3.5-5.1); Alkaline Phosphatase 55 U/L (38-126); Anion Gap 7 mmol/L (4-12); Aspartate Amino Transferase 32 U/L (14-36); Bilirubin,Total 0.7 mg/dL (0.2-1.3); Blood Urea Nitrogen 31 mg/dL (7-17); Calcium 9.4 mg/dL (8.4-10.2); Carbon Dioxide 32 mmol/L (22-30); Chloride 98 mmol/L (98-107); Estimated CRCL calculation 48 ml/min; Estimated Glomerular Filt Rate > 60; Glucose 125 mg/dL (65-110); Magnesium 2.1 mg/dL (1.6-2.3); Potassium 4.1 mmol/L (3.4-5.0); Sodium 137 mmol/L (137-145); Total Protein 7.2 g/dL (6.3-8.2)
[2025-03-01 12:19] LABS: Influenza A QL RT-PCR Negative (Negative); Influenza B QL RT-PCR Negative (Negative); RSV RNA, RT-PCR Negative (Negative); SARS-CoV-2 RNA PCR Negative (Negative)
[2025-03-01 12:34] LABS: Thyroid Stimulating Hormone Reflex 0.424 uIU/mL (0.465-4.68)
[2025-03-01 13:05] LABS: Free T4 Free Thyroxine Reflex 1.52 ng/dL (0.78-2.19)
[2025-03-01 13:45] LABS: Total Triiodothyronine (T3) 2.02 NG/ML (0.82-1.58)
--- NOTE | 2025-03-01 14:56 | PM.IMHP ---
H&P: HPI History of Present Illness Date/Time: 03/01/25 14:56 Chief Complaint: Fall Narrative: 75-year-old female with a past medical history of orthostatic hypotension with syncopal episodes, osteoporosis, GERD, HTN, hypothyroidism, hyperlipidemia, DM 2, neuropathy presents to ED on 03/01/2025 with complaints of a fall happened on the evening of 02/27. Patient states she was in a hurry to get to the bathroom and it was dark. She remembers running into the wall and her helping her up from the floor. The patient does not remember if she hit her head but had last hip and shoulder pain immediately after the fall. Denies feeling dizzy before running into the wall but is unable to say if she lost consciousness or not. She wanted to wait to see if she was only sore from falling before coming to the ER. The pain continued, prompting her to present to the ED. Prior history of similar fall and injury resulting in an intertroch fracture on the right. She describes the pain as constant and sharp sharp rated as high as 8/10, worse with movement. She uses a walker at baseline and has been able to ambulate at home with her walker but has not been up as much since the fall. Denies any recent illness, chest pain, shortness a breath, cough, fever. Vital signs within normal limits on arrival to ED. 99% on room air. No electrolyte derangement. Carbon dioxide 32, BUN 31, creatinine 0.61. TSH 0.424 with free T4 1.52 and total T3 2.02 Chest x-ray with mild bibasilar atelectasis and/or airspace disease. Head CT with no acute intracranial findings. Left shoulder x-ray with no acute findings, no fracture Left hip and pelvic x-ray revealed nondisplaced avulsion fracture of the left femur greater trochanter, no dislocation, no pelvic fracture Review of Systems Review of Systems: All systems reviewed & are unremarkable except as noted in HPI and below [facility] Past Medical History Medical History Adult BMI 19-24 kg/sq m Post-menopausal Osteopenia Osteoporosis Lesion of skin of foot Frequent sinus infections Multiple falls Polycythemia Right hip pain Encounter for weight management External hemorrhoid Urinary incontinence BMI 26.0-26.9,adult Chest discomfort Trigger index finger of left hand Cheilitis Iron deficiency anemia Left-sided chest pain Trigger finger of left hand BMI 25.0-25.9,adult Body mass index (BMI) of 50-59.9 in adult (03/13/17) Left arm numbness History of obstructive sleep apnea GILMAN (dyspnea on exertion) Dependence on other enabling machines and devices BMI 45.0-49.9, adult BMI 40.0-44.9, adult Amaurosis fugax Acute renal failure Mild sleep apnea Fatigue Abdominal pain GERD (gastroesophageal reflux disease) Diverticular disease BMI 22.0-22.9, adult Change in bowel habit BMI 21.0-21.9, adult Encounter for routine adult health examination with abnormal findings Constipation Elevated LFTs Grade I diastolic dysfunction Bunion Sinus mucosal thickening Facial pain, acute Traumatic ecchymosis of face BMI 23.0-23.9, adult Syncope Frequent falls Colon cancer screening BMI 24.0-24.9, adult Seasonal allergies Vitamin D deficiency Insomnia BMI 27.0-27.9,adult Excessive and redundant skin and subcutaneous tissue Encounter for routine adult health examination without abnormal findings BMI 31.0-31.9,adult Urticaria BMI 33.0-33.9,adult Follow up Encounter for Medicare annual wellness exam Hearing loss Abnormal finding of blood chemistry, unspecified Orthostatic hypotension Hx of small bowel obstruction Carotid disease, bilateral BMI 34.0-34.9,adult Benign essential hypertension 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 MATTHIAS on CPAP Hypothyroidism (acquired) Hyperlipidemia Diabetes mellitus type 2, insulin dependent Dependent edema Depression IDDM (insulin dependent diabetes mellitus) Hypothyroidism Left wrist fracture Arm fracture, left Arthritis HTN (hypertension) Neuropathy Surgical History Surgical History History of hemorrhoidectomy Rectal exam under anesthesia with internal hemorrhoid rubber-band ligation x3 History of dental surgery History of bunionectomy History of total bilateral knee replacement (TKR) S/P gastric bypass S/P right knee arthroscopy History of surgery on left wrist History of appendectomy H/O: hysterectomy H/O section History of Ivy-en-Y gastric bypass Family History Family History Mother Family history of diabetes mellitus in first degree relative Diabetes mellitus Father Family history of heart disease in male family member before age 55 Family history of cardiovascular disease Sibling FHx: thyroid cancer Papillary thyroid cancer Social History Social History Smoking packs per day: 1 Smoking cigarettes per day: 20.0 Years smoked: 30 Smoking pack-years: 30.00 Smoking status: Former smoker Tobacco type: cigarettes Second hand tobacco smoke exposure: No Smoking end date: 09/11/89 Additional smoking assessment comments: STATES 1 TO 1 1/2PK/DAY/30YRS-QUIT 1996 Alcohol intake: never Substance use: never Substance use type: does not use Current Housing: Decline to Answer Concerned About Future Housing: Decline to Answer Difficulty Paying Gas/Electric Bills: Decline to Answer Difficulty Paying for Meds: Decline to Answer Currently Unemployed: Decline to Answer Education: Decline to Answer Difficulty w/ Childcare or Family Care: Decline to Answer Living arrangements: with family Additional living arrangements comments: Occupation/Education: retired Gender identity (if verbalized by the patient): Female Spiritual care concerns: No Meds Home Medications and Allergies Home Medications ?Medication ?Instructions ?Recorded ?Confirmed ?Type calcium carbonate (Calcium 600) 600 mg PO DAILY 07/09/19 02/24/25 History mecobalamin (vitamin B12) 1,000 1,000 mcg sublingual DAILY 07/09/19 02/24/25 History mcg disintegrating tablet,sublingual cduftbpv-jbbi-eodz 8 mg-folic 400 1 tablet PO DAILY 07/09/19 02/24/25 History mcg-K 50 mcg-lutein 300 mcg tablet (Centrum Silver Women) omega-3 fatty acids 1,000 mg 2,000 mg PO DAILY 07/09/19 02/24/25 History capsule (Fish Oil Concentrate) cholecalciferol (vitamin D3) 125 125 mcg PO DAILY 03/22/22 02/24/25 History mcg (5,000 unit) capsule melatonin 5 mg capsule 5 mg PO HS 02/07/24 02/24/25 History fluticasone propionate 50 See Rx Instructions .Route 05/22/24 02/24/25 Rx mcg/actuation nasal .COMPLEX #48 grams spray,suspension insulin syringe-needle U-100 1 mL #100 ea 07/31/24 02/24/25 Rx 31 gauge x 16 bempedoic acid 180 mg-ezetimibe 10 1 tablet PO DAILY #90 tabs 08/20/24 02/24/25 Rx mg tablet (Nexlizet) furosemide 20 mg tablet See Rx Instructions .Route 08/20/24 02/24/25 Rx .COMPLEX #90 tabs mirabegron 50 mg tablet,extended 50 mg PO DAILY #90 tabs 08/20/24 02/24/25 Rx release 24 hr (Myrbetriq) hydrocodone 5 mg-acetaminophen 325 1 tablet PO Q4H PRN pain #30 tabs 10/13/24 02/24/25 Rx mg tablet tramadol 50 mg tablet 50 mg PO QID PRN pain #30 tabs 10/27/24 02/24/25 Rx triamcinolone acetonide 0.5 % See Rx Instructions .Route 10/27/24 02/24/25 Rx topical cream .COMPLEX #60 grams omeprazole 40 mg capsule,delayed See Rx Instructions .Route 11/20/24 02/24/25 Rx release .COMPLEX #90 caps blood-glucose sensor (FreeStyle #2 ea 12/11/24 02/24/25 Rx Sandy 3 Sensor device) blood-glucose,stonecutter assistant,cont #1 ea 12/11/24 02/24/25 Rx (FreeStyle Sandy 3 [place]) Jardiance 25 mg tablet See Rx Instructions .Route 02/04/25 02/24/25 Rx (empagliflozin) .COMPLEX #30 tabs Synthroid 150 mcg tablet See Rx Instructions .Route 02/04/25 02/24/25 Rx (levothyroxine) .COMPLEX #90 tabs alendronate 70 mg tablet (Fosamax) 70 mg PO WEEKLY #12 tabs 02/04/25 02/24/25 Rx bupropion HCl 150 mg 24 hr tablet, 150 mg PO QAM #90 tabs 02/04/25 02/24/25 Rx extended release (Wellbutrin XL) buspirone 15 mg tablet See Rx Instructions .Route 02/04/25 02/24/25 Rx .COMPLEX #90 tabs fexofenadine-pseudoephedrine ER See Rx Instructions .Route 02/04/25 02/24/25 Rx 180 mg-240 mg tablet,ext.release .COMPLEX #31 tabs 24 hr (Laurence-D 24 Hour) flash glucose scanning reader See Rx Instructions .Route 02/04/25 02/24/25 Rx (FreeStyle Sandy 14 Day [place]) .COMPLEX #1 ea insulin glargine 100 unit/mL See Rx Instructions .Route 02/04/25 02/24/25 Rx subcutaneous solution (Lantus .COMPLEX #40 mL U-100 Insulin) levocetirizine 5 mg tablet See Rx Instructions .Route 02/04/25 02/24/25 Rx .COMPLEX #90 tabs metformin 1,000 mg tablet See Rx Instructions .Route 02/04/25 02/24/25 Rx .COMPLEX #180 tabs midodrine 10 mg tablet 10 mg PO TID #90 tabs 02/04/25 02/24/25 Rx sertraline 100 mg tablet See Rx Instructions .Route 02/04/25 02/24/25 Rx .COMPLEX #180 tabs trazodone 100 mg tablet See Rx Instructions .Route 02/04/25 02/24/25 Rx .COMPLEX #180 tabs trazodone 50 mg tablet See Rx Instructions .Route 02/04/25 02/24/25 Rx .COMPLEX #180 tabs semaglutide 0.25 mg or 0.5 mg (2 0.25 mg (0.368 mL) subcut WEEKLY 02/05/25 02/24/25 Rx mg/3 mL) subcutaneous pen injector #3 mL (Ozempic) Allergies Allergy/AdvReac Type Severity Reaction Status Date / Time morphine AdvReac Severe NAUSEA AND Verified 03/01/25 08:45 VOMITING Sulfa (Sulfonamide AdvReac Intermediate Diarrhea Verified 03/01/25 08:45 Antibiotics) Vital Signs Vital Signs - 24 hr 03/01/25 08:46 03/01/25 10:31 03/01/25 11:48 Temperature 97.6 F Pulse Rate 82 64 63 Respiratory Rate 18 20 17 Blood Pressure 122/60 132/70 122/80 Pulse Oximetry 99 97 97 Oxygen Delivery Room Air Exam Narrative: GENERAL: non-toxic appearing, in no acute distress. HEAD: Normocephalic, atraumatic. EYES: PERRLA. Conjunctivae clear. NOSE: Normal no drainage. THROAT: Pharynx clear, no exudate. NECK: Trachea midline. No adenopathy, no masses. RESPIRATORY: Airway patent, respirations nonlabored. CTA. CARDIOVASCULAR: Regular rate and rhythm BREASTS: Defer GASTROINTESTINAL: Abdomen is soft and nontender. No organomegaly. Bowel sounds normal in all quadrants. GENITOURINARY: Defer MUSCULOSKELETAL: Moves all extremities. No gross deformities. No calf tenderness. Tenderness to the left hip area SKIN: Warm, dry, normal color. NEURO: A&O X4. Speech clear PSYCHIATRIC: Normal interaction H&P: Results Labs Labs: Short CBC 03/01/25 Range/Units 11:37 WBC 9.7 (4.5-10.0) K/mm3 Hgb 13.7 D (12.0-15.0) g/dL Hct 42.7 (37.0-47.0) % Plt Count 282 (150-375) k/mm3 BMP 03/01/25 11:37 Sodium 137 Potassium 4.1 Chloride 98 Carbon Dioxide 32 H BUN 31 H Creatinine 0.61 L Glucose 125 H Calcium 9.4 Liver Function 03/01/25 Range/Units 11:37 Total Bilirubin 0.7 (0.2-1.3) mg/dL AST 32 (14-36) U/L ALT 22 (6-35) U/L Alkaline Phosphatase 55 (38-126) U/L Albumin 4.1 (3.5-5.1) g/dL Assessment and Plan Assessment and plan (1) Nondisplaced fracture of greater trochanter of femur: Qualifiers: Encounter type: initial encounter Fracture type: closed Laterality: left Qualified Code(s): S72.115A - Nondisplaced fracture of greater trochanter of left femur, initial encounter for closed fracture Code(s): S72.116A - Nondisplaced fracture of greater trochanter of unspecified femur, initial encounter for closed fracture Status: Acute Assessment and Plan: S/p post fall on 02/27 with history of similar fall and injury resulting in an intertroch fracture on the right in September 2024. Left hip and pelvic x-ray revealed nondisplaced avulsion fracture of the left femur greater trochanter, no dislocation, no pelvic fracture. 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 Labs currently indicate subclinical hyperthyroidism with TSH 0.424, free T4 1.52, total T3 2.02 -recommend holding Synthroid while inpatient and follow-up with primary care for adjustment in setting of osteoporosis (4) Osteoporosis: Qualifiers: Osteoporosis type: age-related Presence of current pathological fracture: unspecified Qualified Code(s): M81.0 - Age-related osteoporosis without current pathological fracture Code(s): M81.0 - Age-related osteoporosis without current pathological fracture Status: Chronic Assessment and Plan: DEXA scan dated 03/17/2022 indicates osteoporosis. Patient currently taking Fosamax weekly. Last dose today, 03/01/25 Plan Diet: Heart healthy GI prophylaxis: NA DVT prophylaxis: SCDs lines/drains: PIV Fluids: None Code status: Full Quality VTE Prophylaxis VTE prophylaxis: mechanical ordered Hospitalist [facility] Advance Care Plan I have confirmed that the patient's Advanced Care Plan is present, code status is documented, or surrogate decision maker is listed in patient medical record.: Yes Medication Reconciliation I have utilized all available resources to obtain, update and review the patients current medications (includes all prescriptions, OTC, herbals, cannabis, and nutritional supplements).: Yes
[2025-03-01 15:49] VITALS: BP 120/60; PULSE 62; RESP 17; O2SAT 94
--- NOTE | 2025-03-01 16:15 | PC.NURSE ---
Dinner tray ordered.
--- OUTSIDE RECORDS SUMMARY | 2025-03-01 16:42 | XMS_ITS | Patient Health Record ---
Author Organization [facility] Address [address] [facility] [address] [facility] [address] [place] [address] Care Team Providers Care Weaving Instructor Name Role Phone Tan Subramanian Unavailable [phone] Reason For Referral No Information Plan Of Treatment No Information
--- OUTSIDE RECORDS SUMMARY | 2025-03-01 16:42 | XMS_ITS | Encounter Summary ---
Author Organization [facility] Address [address] [place] [address] Care Team Providers Care Real Estate Sales Supervisor Name Role Phone Unavailable Primary Care Provider Unavailabl e Encounter Details Date Type Department Care Team (Late st Contact Info) Description 11/27/2002 Outpatient [facility] [address] 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
--- OUTSIDE RECORDS SUMMARY | 2025-03-01 16:42 | XMS_ITS | Clinical Summary ---
Author Organization [facility] Address [address] [place] [address] Care Team Providers Care Agricultural Education Teacher Name Role Phone Fredy Puri MD Primary Care Provider [phone] Social History Tobacco Use Types Packs/Day Years Used Date Smoking Tobacco: Never Assessed Comments Unknown Sex and Gender Information Value Date Recorded Sex Assigned at Not on file Legal Sex Female 2:32 PM CDT Gender Identity Not on file Sexual Orientation Not on file Plan of Treatment Health Maintenance Due Date Last Done Comments Hepatitis C 1968 DTaP, Tdap and Td Vaccines (1 - Tdap) 01/14/1968 Annual Medicare Wellness Visit 2014 Dexa Scan (General) 2014 Zoster Vaccines (2 of 3) 04/08/2015 02/11/2015 COVID-19 Vaccine ( season) 2025 02/03/2022, 01/21/2022, 08/27/2021, Additional history exists Influenza Adult (#1) 2025 01/06/2024, 01/27/2023, 08/03/2021, Additional history exists Pneumococcal Vaccine: 50+ Years Completed 03/19/2018, 03/15/2017 RSV Immunization or 60+ Years Completed 01/06/2024, 02/04/2023 Hepatitis A Vaccines Aged Out No long er eligible based on patient's age to complete this topic Meningococcal B Vaccine Aged Out No l onger eligible based on patient's age to complete this topic Meningococcal Vaccine Aged Out No edgar tima eligible based on patient's age to complete this topic RSV Immunizations Under 20 Months Aged Out No longer eligible based on patient's age to complete this topic Insurance [facility] MEDICARE Member Subscriber Plan / Payer (Ef fective 2023-Present) Name:Natasha Edouard Relation to Subscriber:Self Name:Natasha Edouard Payer ID:[id number] (NAIC) Type:Not on file Address: [place] [id number] MEDICARE Care Teams Agricultural Education Teacher Relationship Specialty Start Date End Date Fredy Puri MD [address] [place] [id number] PCP - General INTERNAL MEDICINE 02/08/24
--- OUTSIDE RECORDS SUMMARY | 2025-03-01 16:42 | XMS_ITS | Encounter Summary ---
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
--- OUTSIDE RECORDS SUMMARY | 2025-03-01 16:42 | XMS_ITS | Clinical Summary ---
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
--- OUTSIDE RECORDS SUMMARY | 2025-03-01 16:42 | XMS_ITS | Clinical Summary ---
Author Organization [facility] Address [facility] access [facility] [place] [address] Care Team Providers Care Rate Examiner Name Role Phone Fredy Puri MD Primary Care Provider [phone] Allergies Active Allergy Reactions Criticality Noted Date [...] times a day 10/25/19 20 Active omega 0-cjz-pdd-fish oil 1,200 (144-216) mg capsuleIndicatio ns:hypertriglyce ridemia Take 1 capsule by mouth iron piler before breakfast 09/11/19 20 Active multivitamin-iro n-folic acid (Centrum Complete) 18-400 mg-mcg tabletIndication s:Vitamin Deficiency Prevention Take 1 tablet by mouth iron piler before breakfast 05/14/19 20 Active furosemide (LASIX) 20 mg tabletIndication s:Edema Take 20 mg by mouth as needed 11/10/19 20 Active Synthroid 150 mcg tabletIndication s:hypothyroidism Take 150 mcg by mouth iron piler before breakfast 11/29/19 20 Active Jardiance 25 mg tabletIndication s:type 2 diabetes mellitus Take 25 mg by mouth iron piler before breakfast 01/20/20 20 Active insulin aspart [...] (08/11/2021): Added automatically from request for surgery [id number] Regurgitation of food 08/11/2021 Overview (08/11/2021): Added automatically from request for surgery [id number] Status post gastric bypass for obesity Overview (07/18/2020): Added automatically from request for surgery [id number] Abdominal pannus 03/30/2020 Overview (03/30/2020): Added automatically from request for surgery [id number] Encounter for long-term (current) use of other m edications 12/17/2019 Urinary tract infection 12/17/2019 Epigastric pain 05/31/2019 Overview (06/01/2019): Added automatically from request for surgery [id number] MYESHA (acute kidney injury) ([facility]) 02/28/2019 Type 2 diabetes mellitus 02/28/2019 Severe malnutrition 02/21/2019 Nausea and vomiting 02/20/2019 Overview (02/21/2019): Added automatically from request for surgery [id number] Morbid obesity 09/11/2018 Benign essential hypertension 04/15/2010 [...] (11/01/2018): Added automatically from request for surgery [id number] Immunizations Immunization Administration Dates Next Due Influenza, [...] History Date Comments Type 2 diabetes mellitus Dxd 197 7 Sleep apnea Hyperlipidemia Treated with sta tin [...] on file Legal Sex Female 8:10 PM ELEVATORS INSPECTOR Gender Identity Not on file Sexual Orientation [...] Done Comments Albumin Creatinine Ratio, Urine 1950 Hepatitis C Screening 1950 Osteoporosis Screening-Bone [...] Risk Assessment 08/31/2022 08/31/2021 Influenza Vaccine (#1) 2025 9, 02/11/2018, 02/14/2017, Additional history exists Pneumococcal vaccine 65+ Completed 03/19/2018, 06/2016 Medical Devices Implanted Type Area Photo Journalist Device Identifier Shelf Expiration Date Model / Serial / Lot Other - See Comments Other - see comments Bilatera l: Knee Description:Double knee repl acement Procedures Procedure Name Priority Date/Time Associated Diagnosis Comments HEMOGLOBIN A1C Timed 06/01/2019 3:42 AM ELEVATORS INSPECTOR LIPID PANEL Timed 06/01/2019 3:42 AM ELEVATORS INSPECTOR EGFR Routine 01/21/2019 2:50 AM CDT from Last 3 Months or Most Recently Relevant to Health Maintenance Results * (ABNORMAL) Hemoglobin A1c (06/01/2019 3:42 AM ELEVATORS INSPECTOR) Hgb A1C 7.3(H) 4.0 - 5.6 % [facility] Estimated Average Glucose 163 mg/dL [facility] Comment: The ADA recommends reporting an estimated Average Glucose (eAG) with all Hemoglobin A1c results using the equation derived from a study of 507 normal and diabetic adults. Minority populations were underrepresented and children were not included. (Diabetes Care 31:2837-6655, 2008). The eAG is not equivalent to a fasting glucose. Blood specimen (specimen) 06/01/2019 3:42 AM ELEVATORS INSPECTOR 06/01/2019 4:24 AM ELEVATORS INSPECTOR us Jesus Gallegos MD LAB BLOOD ORDERABLES [facility] Department [place] [address] * Lipid panel (06/01/2019 3:42 AM ELEVATORS INSPECTOR) Cholesterol 88 30 - 199 mg/dL [facility] Comment: Interpretive Data Ages < or [...] revised on 2018. Triglycerides 117 <=149 mg/dL [facility] Comment: Interpretive Data Ages < or [...] on 2018. HDL 44 >=40 mg/dL [facility] Comment: Interpretive Data Ages < or [...] 2018. LDL, calculated 21 <=129 mg/dL [facility] Comment: Interpretive Data Ages < or [...] on 2018. Non-HDL Cholesterol 44 mg/dL [facility] Comment: Interpretive Data Ages < or [...] last revised on 2018. Chol/HDL ratio 2 [facility] Blood specimen (specimen) 06/01/2019 3:42 AM ELEVATORS INSPECTOR 06/01/2019 4:21 AM ELEVATORS INSPECTOR us Jesus Gallegos MD LAB BLOOD ORDERABLES Final Res ult [facility] Department [place] [address] * eGFR (01/21/2019 2:50 AM CDT) eGFR >60 mL/min/1.7 3 m2 [facility] Comment: Interpretive Data Reference Interval Normal >/= 90 mL/min/1.73m2 Mildly decreased* 60 - 89 mL/min/1.73m2 Mildly to moderately decreased 45 - 59 mL/min/1.73m2 Moderately to severely decreased 30 - 44 mL/min/1.73m2 Severely decreased 15 - 29 mL/min/1.73m2 Kidney Failure < 15 mL/min/1.73m2 *Relative to young adult level If -Swiss multiply value by 1.16. Estimated glomerular filtration [...] BLOOD ORDERABLES Final Resu lt [facility] [id number] [place] [id number] from Last 3 Months or Most Recently Relevant to Health Maintenance Insurance [employer] MED[employer] PPO [employer] PPO [employer] MEDICARE PPO Advance Directives For more information, please contact: [phone] * Full Code (Latest Code Status on [...] 2:11 PM 01/22/2019 9:34 PM Care Teams Rate Examiner Relationship Specialty Start Date End Date Fredy Puri MD PCP - General 10/17/12
[2025-03-01 18:50] VITALS: BP 131/71; PULSE 63; RESP 20; O2SAT 94
[2025-03-01 18:57] VITALS: BMI 20.9
--- NOTE | 2025-03-01 19:16 | ADMGEN ---
This patient, Natasha Edouard, was admitted to [facility] Surg Room 322-02. Patient/family oriented to hospital policies and general routines including ID bracelet, bed and alarms, visiting hours, pain management, procedures, bathroom and other care routines, personal items, smoking policy, room service/diet, and visiting hours. Information on how to activate the Rapid Response Team has been discussed. Patient/Family are encouraged to report perceived risks to care and to ask questions if they do not understand what they are told or what they should do.
[2025-03-01 20:15] VITALS: BP 111/74; PULSE 61; PULSE 65; RESP 16; TEMP 36.4; O2SAT 93
[2025-03-02] VITALS (11 sets, daily range): BP systolic 119–150; BP diastolic 64–71; PULSE 49–72; RESP 16–20; TEMP 36–36.2; O2SAT 94
[2025-03-02] MEDS: HYDROmorphone HCL INJ (*CRX) 1 MG/ML SYR 0.5 MG IV PUSH ×3 (01:43→09:05)
--- NOTE | 2025-03-02 05:43 | PC.NURSE ---
Pt does not remember the Meds she takes. Said daughter forgot to picker operator her med list from home. Per pt, she will try to get someone to send her a picture of her med list later today.
--- NOTE | 2025-03-02 07:31 | PM.IMPN ---
Progress Note: A&P Assessment and Plan (1) Nondisplaced fracture of greater trochanter of femur: Qualifiers: Encounter type: initial encounter Fracture type: closed Laterality: left Qualified Code(s): S72.115A - Nondisplaced fracture of greater trochanter of left femur, initial encounter for closed fracture Code(s): S72.116A - Nondisplaced fracture of greater trochanter of unspecified femur, initial encounter for closed fracture Status: Acute Assessment and Plan: S/p post fall on 02/27 with history of similar fall and injury resulting in an intertroch fracture on the right in September 2024. Left hip and pelvic x-ray revealed nondisplaced avulsion fracture of the left femur greater trochanter, no dislocation, no pelvic fracture. -ortho consult -pain control with acetaminophen and hydromorphone -PT OT 03/02: Pt reports that her pain is controlled on current regimen (acetaminophen, Dilaudid) added oxy PO today PRN -Pending ortho -Bedrest order until ortho recs -Eventual PT/OT (2) Diabetes mellitus type 2, insulin dependent: Code(s): E11.9 - Type 2 diabetes mellitus without complications; Z79.4 - retirement (current) use of insulin Status: Chronic Assessment and Plan: - hypoglycemia protocol - POC blood glucose ACHS - home medication: Lantus 40 units, Jardiance, Ozempic, metformin - correct regimen ordered: Low-dose corrective scale - A1C 6.3 on 11/26 03/02: -FBS 121 -Continue to hold orals -Confirmed pt takes 30 U lantus in the AM at home, last took it 03/01 AM. FBS 120's last x2 days, will continue to trend and re-eval her lantus need tomorrow (3) Hypothyroidism (acquired): Code(s): E03.9 - Hypothyroidism, unspecified Status: Chronic Assessment and Plan: Takes Synthroid 150 mcg at home. Labs currently indicate subclinical hyperthyroidism with TSH 0.424, free T4 1.52, total T3 2.02 -recommend holding Synthroid while inpatient and follow-up with primary care for adjustment in setting of osteoporosis (4) Osteoporosis: Qualifiers: Osteoporosis type: age-related Presence of current pathological fracture: unspecified Qualified Code(s): M81.0 - Age-related osteoporosis without current pathological fracture Code(s): M81.0 - Age-related osteoporosis without current pathological fracture Status: Chronic Assessment and Plan: DEXA scan dated 03/17/2022 indicates osteoporosis. Patient currently taking Fosamax weekly. 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 Pt reports L hip pain and no other sx. Pt eager to go home, but discussed plan for orthopedics consults as well as waiting for their plan / therapy. Pt agreeable. Review of Systems Review of Systems: All systems reviewed & are unremarkable except as noted in HPI and below Exam Narrative: GENERAL: non-toxic appearing, in no acute distress. HEAD: Normocephalic, atraumatic. EYES: PERRLA. Conjunctivae clear. NOSE: Normal no drainage. THROAT: Pharynx clear, no exudate. NECK: Trachea midline. No adenopathy, no masses. RESPIRATORY: Airway patent, respirations nonlabored. CTA. CARDIOVASCULAR: Regular rate and rhythm BREASTS: Defer GASTROINTESTINAL: Abdomen is soft and nontender. No organomegaly. Bowel sounds normal in all quadrants. GENITOURINARY: Defer MUSCULOSKELETAL: Moves all extremities. No gross deformities. No calf tenderness. Tenderness to L lateral hip SKIN: Warm, dry, normal color. NEURO: A&O X4. Speech clear PSYCHIATRIC: Normal interaction Objective Data Vital Signs Vital Signs: Vital Signs - 24 hr 03/01/25 08:46 03/01/25 10:31 03/01/25 11:48 Temperature 97.6 F Pulse Rate 82 64 63 Respiratory Rate 18 20 17 Blood Pressure 122/60 132/70 122/80 Pulse Oximetry 99 97 97 Oxygen Delivery Room Air 03/01/25 15:49 03/01/25 18:50 03/01/25 19:00 Temperature Pulse Rate 62 63 Respiratory Rate 17 20 Blood Pressure 120/60 131/71 Pulse Oximetry 94 94 Oxygen Delivery Room Air 03/01/25 20:15 03/01/25 20:15 03/02/25 00:00 Temperature 97.5 F L Pulse Rate 61 65 49 L Respiratory Rate 16 Blood Pressure 111/74 Pulse Oximetry 93 Oxygen Delivery 03/02/25 04:00 03/02/25 04:45 Temperature 96.8 F L Pulse Rate 59 L 55 L Respiratory Rate 18 Blood Pressure 150/66 H Pulse Oximetry 94 Oxygen Delivery Intake/Output Intake/Output: Intake & Output 02/27/25 02/28/25 03/01/25 03/02/25 23:59 23:59 23:59 23:59 Intake Total 200 Balance 200 Meds/Results Medications: Active Medications Generic Name Dose Route Start Last Admin Trade Name Freq PRN Reason Stop Dose Admin Acetaminophen 650 mg 03/01/25 15:32 Acetaminophen 325 Mg Tablet PO Q4H PRN Pain Rated 1-3, or fever Dextrose 12.5 gm 03/01/25 16:38 Dextrose 50% 25 Gm/50 Ml Syringe IV PUSH PRN PRN Hypoglycemia Protocol Glucagon 1 mg 03/01/25 16:38 Glucagon For Inj 1 Mg Vial IM PRN PRN Hypoglycemia Protocol Glucose 15 gm 03/01/25 16:38 Glucose Oral Gel 15 Gm Of Glucse In 37.5 Gm Tube PO PRN PRN Hypoglycemia Protocol Hydromorphone HCl 0.5 mg 03/01/25 15:33 03/02/25 05:17 Hydromorphone Hcl Inj (*Crx) 1 Mg/Ml Syr IV PUSH 0.5 mg Q3H PRN Administration Pain Rated 7-10 Hydromorphone HCl 0.2 mg 03/01/25 15:35 Hydromorphone Hcl Inj (*Crx) 1 Mg/Ml Syr IV PUSH Q3H PRN Pain Rated 7-10 Dextrose 1,000 mls @ 100 mls/hr 03/01/25 16:38 Dextrose 5% 1,000 Ml IVPB PRN PRN Hypoglycemia Protocol Insulin Aspart 2 - 5 units 03/02/25 08:00 03/02/25 07:29 Insulin Aspart (*Bkc) 100 Units/Ml SUB-Q Not Given [facility] Protocol Radiology Results: ITS Impressions Head CT 03/01/25 11:28 IMPRESSION: 1. No acute intracranial findings. Chest X-Ray 03/01/25 11:32 IMPRESSION: 1. Mild right basilar atelectasis and/or airspace disease. Labs Labs: Laboratory Results - last 24 hr 03/01/25 03/01/25 03/01/25 11:37 11:37 20:19 WBC 9.7 RBC 4.72 Hgb 13.7 D Hct 42.7 MCV 90.5 MCH 29.0 MCHC 32.1 RDW 14.6 H Plt Count 282 MPV 9.6 Immature Gran % (Auto) 0.6 H Neut % (Auto) 77.8 H Lymph % (Auto) 10.6 L [place] % (Auto) 9.3 H Eos % (Auto) 1.4 Baso % (Auto) 0.3 Lymph # (Auto) 1.03 [place] # (Auto) 0.9 H Eos # (Auto) 0.1 Baso # (Auto) 0.0 Abs Immat Gran (auto) 0.06 H Absolute Neuts (auto) 7.5 H Absolute Nucleated RBC 0.000 Nucleated RBC % 0.0 PT 13.6 INR 1.0 APTT 29.7 Sodium 137 Potassium 4.1 Chloride 98 Carbon Dioxide 32 H Anion Gap 7 BUN 31 H Creatinine 0.61 L Estim Creat Clear Calc 48 Estimated GFR > 60 Glucose 125 H POC Capillary Glucose 193 H Calcium 9.4 Magnesium 2.1 Cancelled Total Bilirubin 0.7 AST 32 ALT 22 Alkaline Phosphatase 55 Total Protein 7.2 Albumin 4.1 TSH (Reflex) 0.424 L Free T4 1.52 Total T3 2.02 H Influenza A (RT-PCR) Negative Influenza B (RT-PCR) Negative RSV (RT-PCR) Negative SARS-CoV-2 RNA (RT-PCR) Negative 03/02/25 07:18 WBC RBC Hgb Hct MCV MCH MCHC RDW Plt Count MPV Immature Gran % (Auto) Neut % (Auto) Lymph % (Auto) [place] % (Auto) Eos % (Auto) Baso % (Auto) Lymph # (Auto) [place] # (Auto) Eos # (Auto) Baso # (Auto) Abs Immat Gran (auto) Absolute Neuts (auto) Absolute Nucleated RBC Nucleated RBC % PT INR APTT Sodium Potassium Chloride Carbon Dioxide Anion Gap BUN Creatinine Estim Creat Clear Calc Estimated GFR Glucose POC Capillary Glucose 121 H Calcium Magnesium Total Bilirubin AST ALT Alkaline Phosphatase Total Protein Albumin TSH (Reflex) Free T4 Total T3 Influenza A (RT-PCR) Influenza B (RT-PCR) RSV (RT-PCR) SARS-CoV-2 RNA (RT-PCR) Quality VTE Prophylaxis VTE prophylaxis: mechanical ordered and pharmacologic ordered
[2025-03-02] MEDS: SERTRALINE HCL 50 MG TABLET 200 MG BY MOUTH (08:47)
[2025-03-02] MEDS: buPROPion HCL XL (24 HR) 150 MG TABCR PO (08:47)
[2025-03-02] MEDS: PANTOPRAZOLE 40 MG TABLET PO ×2 (08:50→21:45)
[2025-03-02] MEDS: OMEGA 3 POLYUNSAT FATTY ACIDS 1 GM CAP 2 GM PO (08:51)
[2025-03-02] MEDS: MIRABEGRON 50 MG ER TABLET PO (08:51)
[2025-03-02] MEDS: MULTIVITAMINS /C LUTEIN (CENTRUM SILVER) TABLET *BKC 1 TAB PO (08:51)
[2025-03-02] MEDS: MIDODRINE HCL 10 MG TABLET PO ×3 (08:51→17:45)
[2025-03-02] MEDS: FLUTICASONE PROPIONATE 0.05% NA SPR 16 GM BTL (*BKC) 2 SPRAY NASAL (08:52)
[2025-03-02] MEDS: CALCIUM CARBONATE (OSCAL) 500 MG TABLET PO (08:54)
[2025-03-02] MEDS: CYANOCOBALAMIN 1,000 MCG TABLET 1000 MCG PO (08:54)
[2025-03-02] MEDS: CHOLECALCIFEROL (VITAMIN D3) 125 MCG (5,000 UNITS) TABLET PO (08:54)
[2025-03-02] MEDS: ENOXAPARIN 40 MG/0.4 ML SYRINGE SUB-Q (08:55)
[2025-03-02] MEDS: INSULIN ASPART (*BKC) 100 UNITS/ML SUB-Q (11:48)
--- NOTE | 2025-03-02 12:41 | PM.CNOR ---
Assessment and Plan Assessment and plan (1) Nondisplaced fracture of greater trochanter of femur: Qualifiers: Encounter type: initial encounter Fracture type: closed Laterality: left Qualified Code(s): S72.115A - Nondisplaced fracture of greater trochanter of left femur, initial encounter for closed fracture Code(s): S72.116A - Nondisplaced fracture of greater trochanter of unspecified femur, initial encounter for closed fracture Status: Acute Assessment and Plan: New patient evaluation status post injury Left hip. The history, physical exam and radiographs reviewed with the patient. fall at home on left side. Type of fracture discussed in detail. Fracture greater trochanter left hip. Treatment options including operative and non operative treatment reviewed. Risks, benefits and alternatives of each treatment discussed in detail. The patient has Opted for non surgical treatment. Risks of treatment decision discussed in detail. Potential problems with displacement of the fracture, loss of alignment, nonunion, malunion and dysfunction discussed in detail. The patient's questions were answered. They verbalized understanding and agreement. Conservative treatment with immobilization, ice, pain control, DVT prophylaxis weight-bearing as tolerated. PT/OT. Recommend CT scan to evaluate left hip for any extension of the fracture into the intertrochanteric region. History of Present Illness HPI Consult date: 03/02/25 Requesting physician: Jovani Griffith MD Chief complaint: Avulsion fracture left greater trochanter Narrative: 75-year-old with history of orthostatic hypotension and syncope with multiple falls including fall on the right side 6 months ago with right hip fracture. Fell at home 4 days ago. Increasing pain and inability to bear weight and presented to the emergency room. Found to have left hip fracture. Admitted for further care. Complains of pain in the left hip, worse with movement. Review of Systems Constitutional: Constitutional: Denies fever(s) Eyes: Eyes: Denies blurry vision ENT: Reports Normal hearing present Cardiovascular: Cardiovascular: Denies chest pain and Denies dyspnea Respiratory: Respiratory: Denies dyspnea and Denies wheezing Gastrointestinal: Gastrointestinal: Denies abdominal pain Genitourinary: Genitourinary: Denies urinary urgency Musculoskeletal: Musculoskeletal: Reports as per HPI and Denies numbness Integumentary/Breasts: Skin/Breast: Denies changing lesions and Denies sores Neurologic: Reports Normal hearing present, Denies behavioral changes, Denies confusion, Denies numbness and Denies convulsions Psychiatric: Psychiatric: Denies behavioral changes, Denies confusion and Denies hallucinations Endocrine: Endocrine: Denies heat intolerance Hematologic/Lymphatic: Hematologic/Lymphatic: Denies easy bleeding Allergic/Immunologic: Allergic/Immunologic: Denies wheezing PMFSH Past Medical History Medical History Adult BMI 19-24 kg/sq m Post-menopausal Osteopenia Osteoporosis Lesion of skin of foot Frequent sinus infections Multiple falls Polycythemia Right hip pain Encounter for weight management External hemorrhoid Urinary incontinence BMI 26.0-26.9,adult Chest discomfort Trigger index finger of left hand Cheilitis Iron deficiency anemia Left-sided chest pain Trigger finger of left hand BMI 25.0-25.9,adult Body mass index (BMI) of 50-59.9 in adult (03/13/17) Left arm numbness History of obstructive sleep apnea GILMAN (dyspnea on exertion) Dependence on other enabling machines and devices BMI 45.0-49.9, adult BMI 40.0-44.9, adult Amaurosis fugax Acute renal failure Mild sleep apnea Fatigue Abdominal pain GERD (gastroesophageal reflux disease) Diverticular disease BMI 22.0-22.9, adult Change in bowel habit BMI 21.0-21.9, adult Encounter for routine adult health examination with abnormal findings Constipation Elevated LFTs Grade I diastolic dysfunction Bunion Sinus mucosal thickening Facial pain, acute Traumatic ecchymosis of face BMI 23.0-23.9, adult Syncope Frequent falls Colon cancer screening BMI 24.0-24.9, adult Seasonal allergies Vitamin D deficiency Insomnia BMI 27.0-27.9,adult Excessive and redundant skin and subcutaneous tissue Encounter for routine adult health examination without abnormal findings BMI 31.0-31.9,adult Urticaria BMI 33.0-33.9,adult Follow up Encounter for Medicare annual wellness exam Hearing loss Abnormal finding of blood chemistry, unspecified Orthostatic hypotension Hx of small bowel obstruction Carotid disease, bilateral BMI 34.0-34.9,adult Benign essential hypertension On buttermaker helper drug therapy MATTHIAS on CPAP Hypothyroidism (acquired) Hyperlipidemia Diabetes mellitus type 2, insulin dependent Dependent edema Depression IDDM (insulin dependent diabetes mellitus) Hypothyroidism Left wrist fracture Arm fracture, left Arthritis HTN (hypertension) Neuropathy Surgical History Surgical History History of hemorrhoidectomy Rectal exam under anesthesia with internal hemorrhoid rubber-band ligation x3 History of dental surgery History of bunionectomy History of total bilateral knee replacement (TKR) S/P gastric bypass S/P right knee arthroscopy History of surgery on left wrist History of appendectomy H/O: hysterectomy H/O section History of Ivy-en-Y gastric bypass Family History Family History Mother Family history of diabetes mellitus in first degree relative Diabetes mellitus Father Family history of heart disease in male family member before age 55 Family history of cardiovascular disease Sibling FHx: thyroid cancer Papillary thyroid cancer Social History Social History Smoking packs per day: 1 Smoking cigarettes per day: 20.0 Years smoked: 30 Smoking pack-years: 30.00 Smoking status: Former smoker Tobacco type: cigarettes Second hand tobacco smoke exposure: No Smoking end date: 03/01/97 Additional smoking assessment comments: STATES 1 TO 1 1/2PK/DAY/30YRS-QUIT 1996 Alcohol intake: never Substance use: never Substance use type: does not use Lack of Transportation: No Lack of Food: Never True Current Housing: I Have Housing Concerned About Future Housing: No Difficulty Paying Gas/Electric Bills: No Difficulty Paying for Meds: No Currently Unemployed: No Education: Bachelor's Degree Difficulty w/ Childcare or Family Care: No Living arrangements: with family Additional living arrangements comments: Occupation/Education: retired Gender identity (if verbalized by the patient): Female Spiritual care concerns: No Meds Home Medications and Allergies Home Medications ?Medication ?Instructions ?Recorded ?Confirmed ?Type calcium carbonate (Calcium 600) 600 mg PO DAILY 07/09/19 03/01/25 History mecobalamin (vitamin B12) 1,000 1,000 mcg sublingual DAILY 07/09/19 03/01/25 History mcg disintegrating tablet,sublingual ajujitsq-svjv-nwjj 8 mg-folic 400 1 tablet PO DAILY 07/09/19 03/01/25 History mcg-K 50 mcg-lutein 300 mcg tablet (Centrum Silver Women) omega-3 fatty acids 1,000 mg 2,000 mg PO DAILY 07/09/19 03/01/25 History capsule (Fish Oil Concentrate) cholecalciferol (vitamin D3) 125 125 mcg PO DAILY 03/22/22 03/01/25 History mcg (5,000 unit) capsule melatonin 5 mg capsule 5 mg PO HS 02/07/24 03/01/25 History fluticasone propionate 50 See Rx Instructions .Route 05/22/24 03/01/25 Rx mcg/actuation nasal .COMPLEX #48 grams spray,suspension insulin syringe-needle U-100 1 mL #100 ea 07/31/24 03/01/25 Rx 31 gauge x 09/26 bempedoic acid 180 mg-ezetimibe 10 1 tablet PO DAILY #90 tabs 08/20/24 03/01/25 Rx mg tablet (Nexlizet) mirabegron 50 mg tablet,extended 50 mg PO DAILY #90 tabs 08/20/24 03/01/25 Rx release 24 hr (Myrbetriq) triamcinolone acetonide 0.5 % See Rx Instructions .Route 10/27/24 03/01/25 Rx topical cream .COMPLEX #60 grams omeprazole 40 mg capsule,delayed See Rx Instructions .Route 11/20/24 03/01/25 Rx release .COMPLEX #90 caps blood-glucose sensor (FreeStyle #2 ea 12/11/24 03/01/25 Rx Sandy 3 Sensor device) 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-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,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,cont #1 ea 12/11/24 02/24/25 Rx (FreeStyle [place] 3 [place]) Jardiance 25 mg tablet See Rx Instructions .Route 02/04/25 03/01/25 Rx (empagliflozin) .COMPLEX #30 tabs Synthroid 150 mcg tablet See Rx Instructions .Route 02/04/25 03/01/25 Rx (levothyroxine) .COMPLEX #90 tabs alendronate 70 mg tablet (Fosamax) 70 mg PO WEEKLY #12 tabs 02/04/25 03/01/25 Rx bupropion HCl 150 mg 24 hr tablet, 150 mg PO QAM #90 tabs 02/04/25 03/01/25 Rx extended release (Wellbutrin XL) buspirone 15 mg tablet See Rx Instructions .Route 02/04/25 03/01/25 Rx .COMPLEX #90 tabs flash glucose scanning reader See Rx Instructions .Route 02/04/25 03/01/25 Rx (FreeStyle Sandy 14 Day [place]) .COMPLEX #1 ea metformin 1,000 mg tablet See Rx Instructions .Route 02/04/25 03/01/25 Rx .COMPLEX #180 tabs midodrine 10 mg tablet 10 mg PO TID #90 tabs 02/04/25 03/01/25 Rx sertraline 100 mg tablet See Rx Instructions .Route 02/04/25 03/01/25 Rx .COMPLEX #180 tabs trazodone 50 mg tablet See Rx Instructions .Route 02/04/25 03/01/25 Rx .COMPLEX #180 tabs semaglutide 0.25 mg or 0.5 mg (2 0.25 mg (0.368 mL) subcut WEEKLY 02/05/25 03/01/25 Rx mg/3 mL) subcutaneous pen injector #3 mL (Ozempic) calcium 200 mg-vit D3 5 1 tablet PO DAILY 03/01/25 03/01/25 History mcg-magnesium 75 ac-huujhz-Z3-K2-min tablet docusate sodium 50 mg capsule 50 mg PO DAILY PRN constipation 03/01/25 03/01/25 History fexofenadine-pseudoephedrine ER 1 tablet PO DAILY 03/01/25 03/01/25 History 180 mg-240 mg tablet,ext.release 24 hr (Laurence-D 24 Hour) fiber cap PO DAILY 03/01/25 History furosemide 20 mg tablet 20 mg PO PRN PRN PRN with 03/01/25 03/01/25 History POTAChloride insulin glargine 100 unit/mL 30 unit subcut QAM 03/01/25 03/01/25 History subcutaneous solution (Lantus U-100 Insulin) levocetirizine 5 mg tablet 5 mg PO PRN PRN allergy symptoms 03/01/25 03/01/25 History mirabegron 50 mg tablet,extended 50 mg PO DAILY 03/01/25 03/01/25 History release 24 hr (Myrbetriq) polyethylene glycol 3350 17 17 g PO DAILY PRN constipation 03/01/25 03/01/25 History gram/dose oral powder (ClearLax) trazodone 100 mg tablet See Rx Instructions .Route .COMPLEX 03/01/25 03/01/25 History Allergies Allergy/AdvReac Type Severity Reaction Status Date / Time morphine AdvReac Severe NAUSEA AND Verified 03/01/25 19:35 VOMITING Sulfa (Sulfonamide AdvReac Intermediate Diarrhea Verified 03/01/25 19:35 Antibiotics) Vital Signs Vital Signs - 24 hr 03/01/25 15:49 03/01/25 18:50 03/01/25 19:00 Temperature Pulse Rate 62 63 Respiratory Rate 17 20 Blood Pressure 120/60 131/71 Pulse Oximetry 94 94 Oxygen Delivery Room Air 03/01/25 20:15 03/01/25 20:15 03/02/25 00:00 Temperature 97.5 F L Pulse Rate 61 65 49 L Respiratory Rate 16 Blood Pressure 111/74 Pulse Oximetry 93 Oxygen Delivery 03/02/25 04:00 03/02/25 04:45 03/02/25 12:20 Temperature 96.8 F L Pulse Rate 59 L 55 L 67 Respiratory Rate 18 Blood Pressure 150/66 H 119/64 Pulse Oximetry 94 Oxygen Delivery Exam Const: General: No confusion Orientation/consciousness: No confusion HENMT: Head: normal to inspection, normocephalic and atraumatic Eyes: Conjunctivae: conjunctivae normal Sclera: sclerae normal Neck: Neck: supple and nontender Chest: Chest palpation & inspection: normal inspection of the chest Resp: Effort & Inspection: normal respiratory effort and no audible wheezes Cardio: Rate: regular rate Rhythm: regular rhythm : General: Yes deferred Skin: General skin exam: no rashes or lesions noted Neuro: General: No confusion Extrem: General: capillary refill normal Right upper extremity: normal to inspection Left upper extremity: normal to inspection Right lower extremity: normal to inspection, hip/thigh Details: normal to inspection and normal ROM; no tenderness and no swelling, knee Details: no tenderness and no swelling, ankle Details: normal ROM (Able to flex and extend the ankle) and foot Details: vascular exam Details: dorsalis pedis pulse present and normal capillary refill, tendon exam (Moves all toes) and motor-sensory exam Details: light-touch normal Location: in all toes Left lower extremity: hip/thigh Details: tenderness Location: of the hip Location: laterally and anteriorly, swelling Location: of the hip and abnormal ROM Details: pain with passive ROM (Full motion deferred secondary to fracture) Details: with flexion, with internal rotation and with external rotation, ankle (no calf tenderness) Details: normal ROM (Able to flex/ extend ankle) and foot Details: toes with normal ROM (Moves all toes), vascular exam Details: dorsalis pedis pulse present and normal capillary refill and motor-sensory exam light-touch normal in all toes; no tenderness Psych: Affect: normal affect Results Labs 03/01/25 11:37 03/01/25 11:37 Labs: Abnormal lab results 03/01/25 03/01/25 03/02/25 Range/Units 11:37 20:19 07:18 POC Capillary Glucose 193 H 121 H (65-105) mg/dl Total T3 2.02 H (0.82-1.58) NG/ML 03/02/25 Range/Units 11:24 POC Capillary Glucose 220 H (65-105) mg/dl Total T3 (0.82-1.58) NG/ML H & H 03/01/25 Range/Units 11:37 Hgb 13.7 D (12.0-15.0) g/dL Hct 42.7 (37.0-47.0) % Coagulation 03/01/25 Range/Units 11:37 INR 1.0 All other labs normal. Diagnostic results Hip x-ray: image reviewed ( Left hip x-rays show greater trochanter fracture with minimal displacement. Femoral head located. Internal fixation right hip.) Fracture/Casting/Strapping Pre Procedure Consent was obtained, Procedures/risks were explained, Questions were answered, Correct patient identified and Correct side and site confirmed Episode of Care New episode Location: Left hip Fracture Care Pelvis/hip/femur Pelvis, Hip, Femur: CLOSED TX GREATER TROCHANTERIC W/O MANIPULATION Application Exam of Affected Area: Color: Normal, Temp: Normal, Pulse: Normal, Blanching: Normal, Capillary Refill: Normal and Sensory Exam: Normal Swelling: Yes (mild) and Tenderness: Yes (gr troch left hip) Skin Apperance: Clean and Dry and Intact Patient Tolerated Procedure Well: Yes Post Procedure Patient tolerated the procedure well?: Tolerated procedure well
[2025-03-02] MEDS: oxyCODONE HCL (*CRX) 5 MG TAB IR PO ×2 (15:24→21:45)
[2025-03-02] MEDS: MELATONIN 5 MG TABLET PO (21:45)
[2025-03-03 03:32] VITALS: PULSE 74
[2025-03-03] MEDS: oxyCODONE HCL (*CRX) 5 MG TAB IR PO ×2 (04:31→09:50)
[2025-03-03 06:00] VITALS: BP 106/52; PULSE 60; RESP 16; TEMP 36.4; O2SAT 94
[2025-03-03 06:29] LABS: Hematocrit 39.9 % (37.0-47.0); Hemoglobin 12.9 g/dL (12.0-15.0); Mean Corpuscular HGB Conc 32.3 g/dl (32-36); Mean Corpuscular Hemoglobin 29.5 pg (26-34); Mean Corpuscular Volume 91.3 fl (80-100); Platelet Count Result 268 k/mm3 (150-375); Red Blood Count 4.37 M/mm3 (4.2-5.4); White Blood Count 5.7 K/mm3 (4.5-10.0)
[2025-03-03 06:45] LABS: Anion Gap 5 mmol/L (4-12); Blood Urea Nitrogen 17 mg/dL (7-17); Calcium 8.5 mg/dL (8.4-10.2); Carbon Dioxide 31 mmol/L (22-30); Chloride 100 mmol/L (98-107); Estimated CRCL calculation 49 ml/min; Estimated Glomerular Filt Rate > 60; Glucose 200 mg/dL (65-110); Potassium 3.7 mmol/L (3.4-5.0); Sodium 136 mmol/L (137-145)
--- NOTE | 2025-03-03 07:52 | P.PNIM_ITS ---
Progress Note: A&P Assessment and Plan (1) Nondisplaced fracture of greater trochanter of femur: Qualifiers: Encounter type: initial encounter Fracture type: closed Laterality: left Qualified Code(s): S72.115A - Nondisplaced fracture of greater trochanter of left femur, initial encounter for closed fracture Code(s): S72.116A - Nondisplaced fracture of greater trochanter of unspecified femur, initial encounter for closed fracture Status: Acute Assessment and Plan: S/p post fall on 02/27 with history of similar fall and injury resulting in an intertroch fracture on the right in September 2024. Left hip and pelvic x-ray revealed nondisplaced avulsion fracture of the left femur greater trochanter, no dislocation, no pelvic fracture. -ortho consult -pain control with acetaminophen and hydromorphone -PT OT 03/02: Pt reports that her pain is controlled on current regimen (acetaminophen, Dilaudid) added oxy PO today PRN -Pending ortho -Bedrest order until ortho recs -Eventual PT/OT 03/03: Ortho recs as of 03/02: Conservative treatment with immobilization, ice, pain control, DVT prophylaxis weight-bearing as tolerated. PT/OT. Recommend CT scan to evaluate left hip for any extension of the fracture into the intertrochanteric region. L hip results: IMPRESSION: 1. Subtle lucency in the greater trochanter of the proximal left femur. Differential includes acute/subacute fracture or sequelae from degenerative change. Correlate for point tenderness. If continued concern, consider an MRI for further assessment. 2. No other possible fracture identified by CT. Pending PT/OT recs with possible discharge with therapy (2) Diabetes mellitus type 2, insulin dependent: Code(s): E11.9 - Type 2 diabetes mellitus without complications; Z79.4 - detention (current) use of insulin Status: Chronic Assessment and Plan: - hypoglycemia protocol - POC blood glucose ACHS - home medication: Lantus 40 units, Jardiance, Ozempic, metformin - correct regimen ordered: Low-dose corrective scale - A1C 6.3 on 11/26 03/02: -FBS 121 -Continue to hold orals -Confirmed pt takes 30 U lantus in the AM at home, last took it 03/01 AM. FBS 120's last x2 days, will continue to trend and re-eval her lantus need tomorrow (3) Hypothyroidism (acquired): Code(s): E03.9 - Hypothyroidism, unspecified Status: Chronic Assessment and Plan: Takes Synthroid 150 mcg at home. Labs currently indicate subclinical hyperthyroidism with TSH 0.424, free T4 1.52, total T3 2.02 -recommend holding Synthroid while inpatient and follow-up with primary care for adjustment in setting of osteoporosis (4) Osteoporosis: Qualifiers: Osteoporosis type: age-related Presence of current pathological fracture: unspecified Qualified Code(s): M81.0 - Age-related osteoporosis without current pathological fracture Code(s): M81.0 - Age-related osteoporosis without current pathological fracture Status: Chronic Assessment and Plan: DEXA scan dated 03/17/2022 indicates osteoporosis. Patient currently taking Fosamax weekly. Last dose today, 03/01/2503/02: -Continued Ca & Vit D today Plan Diet: Heart healthy GI prophylaxis: NA DVT prophylaxis: SCDs lines/drains: PIV Fluids: None Code status: Manager Technical Training Spent With Patient Time: 35 Subjective Date/time seen: 03/03/25 Interval history: Pt resting in bed with her at the bedside. Pt reports L hip pain and no other sx. Pt eager to go home, but discussed plan for orthopedics consults as well as waiting for their plan / therapy. Pt agreeable. Review of Systems Review of Systems: All systems reviewed & are unremarkable except as noted in HPI and below Exam Narrative: GENERAL: non-toxic appearing, in no acute distress. HEAD: Normocephalic, atraumatic. EYES: PERRLA. Conjunctivae clear. NOSE: Normal no drainage. THROAT: Pharynx clear, no exudate. NECK: Trachea midline. No adenopathy, no masses. RESPIRATORY: Airway patent, respirations nonlabored. CTA. CARDIOVASCULAR: Regular rate and rhythm BREASTS: Defer GASTROINTESTINAL: Abdomen is soft and nontender. No organomegaly. Bowel sounds normal in all quadrants. GENITOURINARY: Defer MUSCULOSKELETAL: Moves all extremities. No gross deformities. No calf tenderness. Tenderness to L lateral hip SKIN: Warm, dry, normal color. NEURO: A&O X4. Speech clear PSYCHIATRIC: Normal interaction Objective Data Vital Signs Vital Signs: Vital Signs - 24 hr 03/02/25 08:00 03/02/25 12:00 03/02/25 12:20 Temperature Pulse Rate 72 72 67 Respiratory Rate Blood Pressure 119/64 Pulse Oximetry Oxygen Delivery 03/02/25 13:53 03/02/25 16:00 03/02/25 20:00 Temperature 97.0 F L Pulse Rate 62 61 55 L Respiratory Rate 20 16 Blood Pressure 129/71 Pulse Oximetry 94 94 Oxygen Delivery Room Air 03/02/25 20:00 03/02/25 22:00 03/02/25 23:19 Temperature 97.2 F L Pulse Rate 55 L 55 L 60 Respiratory Rate 16 Blood Pressure 123/70 Pulse Oximetry 94 Oxygen Delivery 03/03/25 03:32 03/03/25 06:00 Temperature 97.5 F L Pulse Rate 74 60 Respiratory Rate 16 Blood Pressure 106/52 L Pulse Oximetry 94 Oxygen Delivery Intake/Output Intake/Output: Intake & Output 02/28/25 03/01/25 03/02/25 03/03/25 23:59 23:59 23:59 23:59 Intake Total 1310 150 Output Total 400 Balance 1310 -250 Meds/Results Medications: Active Medications Generic Name Dose Route Start Last Admin Trade Name Freq PRN Reason Stop Dose Admin Acetaminophen 650 mg 03/01/25 15:32 Acetaminophen 325 Mg Tablet PO Q4H PRN Pain Rated 1-3, or fever Bupropion HCl 150 mg 03/02/25 09:00 03/02/25 08:47 Bupropion Hcl Xl (24 Hr) 150 Mg Tabcr PO 150 mg QAM INGRID Administration Buspirone HCl 15 mg 03/02/25 07:35 03/03/25 04:31 Buspirone Hcl 5 Mg Tablet BY MOUTH 15 mg Q8HR INGRID Administration Calcium Carbonate 500 mg 03/02/25 09:00 03/02/25 08:54 Calcium Carbonate (Oscal) 500 Mg Tablet PO 500 mg QAM INGRID Administration Cyanocobalamin 1,000 mcg 03/02/25 09:00 03/02/25 08:54 Cyanocobalamin 1,000 Mcg Tablet PO 1,000 mcg QAM INGRID Administration Dextrose 12.5 gm 03/01/25 16:38 Dextrose 50% 25 Gm/50 Ml Syringe IV PUSH PRN PRN Hypoglycemia Protocol Docusate Sodium 50 mg 03/02/25 09:18 Docusate Sodium Liq 100 Mg/10 Ml Udc PO DAILY PRN constipation Enoxaparin Sodium 40 mg 03/02/25 09:00 03/02/25 08:55 Enoxaparin 40 Mg/0.4 Ml Syringe SUB-Q 40 mg DAILY INGRID Administration Fish Oil 2 gm 03/02/25 09:00 03/02/25 08:51 [place] 3 Polyunsat Fatty Acids 1 Gm Cap PO 2 gm DAILY INGRID Administration Fluticasone Propionate 2 spray 03/02/25 09:00 03/02/25 08:52 Fluticasone Propionate 0.05% Na Spr 16 Gm Btl (*Bkc) NASAL 2 spray DAILY NIGRID Administration Furosemide 20 mg 03/02/25 07:33 Furosemide 20 Mg Tablet PO QAM PRN PRN 5# WEIGHT GAIN * W/KCL Glucagon 1 mg 03/01/25 16:38 Glucagon For Inj 1 Mg Vial IM PRN PRN Hypoglycemia Protocol Glucose 15 gm 03/01/25 16:38 Glucose Oral Gel 15 Gm Of Glucse In 37.5 Gm Tube PO PRN PRN Hypoglycemia Protocol Hydromorphone HCl 0.5 mg 03/01/25 15:33 03/02/25 09:05 Hydromorphone Hcl Inj (*Crx) 1 Mg/Ml Syr IV PUSH 0.5 mg Q3H PRN Administration Pain Rated 7-10 Dextrose 1,000 mls @ 100 mls/hr 03/01/25 16:38 Dextrose 5% 1,000 Ml IVPB PRN PRN Hypoglycemia Protocol Insulin Aspart 2 - 5 units 03/02/25 08:00 03/03/25 07:44 Insulin Aspart (*Bkc) 100 Units/Ml SUB-Q Not Given TIDWM INGRID Protocol Insulin Glargine 30 units 03/03/25 09:00 Insulin Glargine (*Bkc) 100 Units/Ml SUB-Q QAM INGRID Loratadine 10 mg 03/02/25 09:25 Loratadine 10 Mg Tablet PO QAM PRN allergy symptoms Melatonin 5 mg 03/02/25 21:00 03/02/25 21:45 Melatonin 5 Mg Tablet PO 5 mg HS INGRID Administration Midodrine 10 mg 03/02/25 09:00 03/02/25 17:45 Midodrine Hcl 10 Mg Tablet PO 10 mg TID INGRID Administration Mirabegron 50 mg 03/02/25 09:00 03/02/25 08:51 Mirabegron 50 Mg Er Tablet PO 50 mg DAILY INGRID Administration Multivitamins/Minerals 1 tab 03/02/25 09:00 03/02/25 08:51 Multivitamins /C Lutein (Centrum Silver) Tablet *Bkc PO 1 tab DAILY INGRID Administration Non-Formulary Medication 1 tablet 03/02/25 09:00 Bempedoic Acid-Ezetimibe [Nexlizet] PO 04/01/25 08:59 DAILY INGRID Oxycodone HCl 5 mg 03/02/25 12:16 03/03/25 04:31 Oxycodone Hcl (*Crx) 5 Mg Tab Ir PO 5 mg Q4H PRN Administration Pain Rated 4-6 Pantoprazole Sodium 40 mg 03/02/25 09:00 03/02/25 21:45 Pantoprazole 40 Mg Tablet PO 40 mg Q12HR INGRID Administration Polyethylene Glycol 17 gm 03/02/25 07:33 Polyethylene Glycol 3350 17 Gm Powd.Pack PO On Hold: 03/02/25 09:17 DAILY PRN Comment: PT DOES NOT WANT TO Constipation USE Sertraline HCl 200 mg 03/02/25 09:00 03/02/25 08:47 Sertraline Hcl 50 Mg Tablet BY MOUTH 200 mg DAILY INGRID Administration Trazodone HCl 150 mg 03/02/25 09:30 03/02/25 21:44 Trazodone Hcl 50 Mg Tablet PO 150 mg Q12HR INGRID Administration Vitamin D 125 mcg 03/02/25 09:00 03/02/25 08:54 Cholecalciferol (Vitamin D3) 125 Mcg (5,000 Units) Tablet PO 125 mcg DAILY INGRID Administration Radiology Results: ITS Impressions Head CT 03/01/25 11:28 IMPRESSION: 1. No acute intracranial findings. Chest X-Ray 03/01/25 11:32 IMPRESSION: 1. Mild right basilar atelectasis and/or airspace disease. Hip CT 03/02/25 13:22 IMPRESSION: 1. Subtle lucency in the greater trochanter of the proximal left femur. Differential includes acute/subacute fracture or sequelae from degenerative change. Correlate for point tenderness. If continued concern, consider an MRI for further assessment. 2. No other possible fracture identified by CT. Labs Labs: Laboratory Results - last 24 hr 03/02/25 03/02/25 03/02/25 11:24 16:19 21:30 WBC RBC Hgb Hct MCV MCH MCHC RDW Plt Count MPV Sodium Potassium Chloride Carbon Dioxide Anion Gap BUN Creatinine Estim Creat Clear Calc Estimated GFR Glucose POC Capillary Glucose 220 H 138 H 183 H Calcium 03/03/25 03/03/25 06:03 07:18 WBC 5.7 RBC 4.37 Hgb 12.9 Hct 39.9 MCV 91.3 MCH 29.5 MCHC 32.3 RDW 14.6 H Plt Count 268 MPV 10.0 Sodium 136 L Potassium 3.7 Chloride 100 Carbon Dioxide 31 H Anion Gap 5 BUN 17 D Creatinine 0.59 L Estim Creat Clear Calc 49 Estimated GFR > 60 Glucose 200 H POC Capillary Glucose 166 H Calcium 8.5 Quality VTE Prophylaxis VTE prophylaxis: mechanical ordered and pharmacologic ordered
[2025-03-03 08:00] VITALS: PULSE 65
--- NOTE | 2025-03-03 08:29 | PM.PNORT ---
Progress Note: A&P Assessment and Plan (1) Nondisplaced fracture of greater trochanter of femur: Qualifiers: Encounter type: initial encounter Fracture type: closed Laterality: left Qualified Code(s): S72.115A - Nondisplaced fracture of greater trochanter of left femur, initial encounter for closed fracture Code(s): S72.116A - Nondisplaced fracture of greater trochanter of unspecified femur, initial encounter for closed fracture Status: Acute Assessment and Plan: 2 days s/p left hip injury. History, exam, radiographs and CT scan reviewed with the patient. Radiographs of the left hip reveal a fracture of the greater trochanter. CT scan of the left hip reveals subtle lucency in the greater trochanter of the proximal left femur, no other fractures identified. The fracture type and injury as well as radiographs discussed with the patient. Operative and nonoperative treatment options reviewed. Given the nature of the fracture, we have recommended non operative treatment. Risk of nonunion, malunion or late displacement discussed. Stiffness, pain and possible dysfunction of the joint discussed. Fracture precautions and activity restrictions reviewed. The patient verbalizes understanding. Continue PT/OT. WBAT. Walker. FALL PRECAUTIONS. Pain control. Follow up in the outpatient orthopedic clinic for new radiographs arranged. Plan Reviewed history, exam, radiographs and current labs with attending MD and covering surgeon, Dr. Muhammad, who agrees with current plan as indicated above. No further recommendations from Dr. Muhammad at this time. Time Spent With Patient Time with patient: 15 - 25 minutes Subjective Subjective Date/Time Seen: 03/03/25 08:29 Interval history: Patient awake/alert. Continues to complain of left lateral sided hip pain. No other complaints. Review of Systems Constitutional: Constitutional: Denies fever(s) Eyes: Eyes: Denies blurry vision ENT: Reports Normal hearing present Cardiovascular: Cardiovascular: Denies chest pain and Denies dyspnea Respiratory: Respiratory: Denies dyspnea and Denies wheezing Gastrointestinal: Gastrointestinal: Denies abdominal pain Genitourinary: Genitourinary: Denies urinary urgency Musculoskeletal: Musculoskeletal: Reports as per HPI and Denies numbness Integumentary/Breasts: Skin/Breast: Denies changing lesions and Denies sores Neurologic: Reports Normal hearing present, Denies behavioral changes, Denies confusion, Denies numbness and Denies convulsions Psychiatric: Psychiatric: Denies behavioral changes, Denies confusion and Denies hallucinations Endocrine: Endocrine: Denies heat intolerance Hematologic/Lymphatic: Hematologic/Lymphatic: Denies easy bleeding Allergic/Immunologic: Allergic/Immunologic: Denies wheezing Exam Const: General: No confusion Orientation/consciousness: No confusion HENMT: Head: normal to inspection, normocephalic and atraumatic Eyes: Conjunctivae: conjunctivae normal Sclera: sclerae normal Neck: Neck: supple and nontender Chest: Chest palpation & inspection: normal inspection of the chest Resp: Effort & Inspection: normal respiratory effort and no audible wheezes Cardio: Rate: regular rate Rhythm: regular rhythm : General: Yes deferred Skin: General skin exam: no rashes or lesions noted Neuro: General: No confusion Cranial nerves: Yes Normal hearing present Extrem: General: capillary refill normal Right upper extremity: normal to inspection Left upper extremity: normal to inspection Right lower extremity: normal to inspection, hip/thigh Details: normal to inspection and normal ROM; no tenderness and no swelling, knee Details: no tenderness and no swelling, ankle Details: normal ROM (Able to flex and extend the ankle) and foot Details: vascular exam Details: dorsalis pedis pulse present and normal capillary refill, tendon exam (Moves all toes) and motor-sensory exam Details: light-touch normal Location: in all toes Left lower extremity: hip/thigh Details: tenderness Location: of the hip Location: laterally and anteriorly, swelling Location: of the hip and abnormal ROM Details: pain with passive ROM (Full motion deferred secondary to fracture) Details: with flexion, with internal rotation and with external rotation, ankle (no calf tenderness) Details: normal ROM (Able to flex/ extend ankle) and foot Details: toes with normal ROM (Moves all toes), vascular exam Details: dorsalis pedis pulse present and normal capillary refill and motor-sensory exam light-touch normal in all toes; no tenderness Psych: Affect: normal affect Objective Data Vital Signs Vital Signs: Vital Signs - 24 hr 03/02/25 12:00 03/02/25 12:20 03/02/25 13:53 Temperature 36.1 C L Pulse Rate 72 67 62 Respiratory Rate 20 Blood Pressure 119/64 129/71 Pulse Oximetry 94 Oxygen Delivery 03/02/25 16:00 03/02/25 20:00 03/02/25 20:00 Temperature Pulse Rate 61 55 L 55 L Respiratory Rate 16 Blood Pressure Pulse Oximetry 94 Oxygen Delivery Room Air 03/02/25 22:00 03/02/25 23:19 03/03/25 03:32 Temperature 36.2 C L Pulse Rate 55 L 60 74 Respiratory Rate 16 Blood Pressure 123/70 Pulse Oximetry 94 Oxygen Delivery 03/03/25 06:00 Temperature 36.4 C L Pulse Rate 60 Respiratory Rate 16 Blood Pressure 106/52 L Pulse Oximetry 94 Oxygen Delivery Intake/Output Intake/Output: Intake & Output 02/28/25 03/01/25 03/02/25 03/03/25 23:59 23:59 23:59 23:59 Intake Total 1310 390 Output Total 400 Balance 1310 -10 Meds/Results Medications: Active Medications Generic Name Dose Route Start Last Admin Trade Name Freq PRN Reason Stop Dose Admin Acetaminophen 650 mg 03/01/25 15:32 Acetaminophen 325 Mg Tablet PO Q4H PRN Pain Rated 1-3, or fever Bupropion HCl 150 mg 03/02/25 09:00 03/02/25 08:47 Bupropion Hcl Xl (24 Hr) 150 Mg Tabcr PO 150 mg QAM INGRID Administration Buspirone HCl 15 mg 03/02/25 07:35 03/03/25 04:31 Buspirone Hcl 5 Mg Tablet BY MOUTH 15 mg Q8HR INGRID Administration Calcium Carbonate 500 mg 03/02/25 09:00 03/02/25 08:54 Calcium Carbonate (Oscal) 500 Mg Tablet PO 500 mg QAM INGRID Administration Cyanocobalamin 1,000 mcg 03/02/25 09:00 03/02/25 08:54 Cyanocobalamin 1,000 Mcg Tablet PO 1,000 mcg QAM INGRID Administration Dextrose 12.5 gm 03/01/25 16:38 Dextrose 50% 25 Gm/50 Ml Syringe IV PUSH PRN PRN Hypoglycemia Protocol Docusate Sodium 50 mg 03/02/25 09:18 Docusate Sodium Liq 100 Mg/10 Ml Udc PO DAILY PRN constipation Enoxaparin Sodium 40 mg 03/02/25 09:00 03/02/25 08:55 Enoxaparin 40 Mg/0.4 Ml Syringe SUB-Q 40 mg DAILY INGRID Administration Fish Oil 2 gm 03/02/25 09:00 03/02/25 08:51 [place] 3 Polyunsat Fatty Acids 1 Gm Cap PO 2 gm DAILY INGRID Administration Fluticasone Propionate 2 spray 03/02/25 09:00 03/02/25 08:52 Fluticasone Propionate 0.05% Na Spr 16 Gm Btl (*Bkc) NASAL 2 spray DAILY INGRID Administration Furosemide 20 mg 03/02/25 07:33 Furosemide 20 Mg Tablet PO QAM PRN PRN 5# WEIGHT GAIN * W/KCL Glucagon 1 mg 03/01/25 16:38 Glucagon For Inj 1 Mg Vial IM PRN PRN Hypoglycemia Protocol Glucose 15 gm 03/01/25 16:38 Glucose Oral Gel 15 Gm Of Glucse In 37.5 Gm Tube PO PRN PRN Hypoglycemia Protocol Hydromorphone HCl 0.5 mg 03/01/25 15:33 03/02/25 09:05 Hydromorphone Hcl Inj (*Crx) 1 Mg/Ml Syr IV PUSH 0.5 mg Q3H PRN Administration Pain Rated 7-10 Dextrose 1,000 mls @ 100 mls/hr 03/01/25 16:38 Dextrose 5% 1,000 Ml IVPB PRN PRN Hypoglycemia Protocol Insulin Aspart 2 - 5 units 03/02/25 08:00 03/03/25 07:44 Insulin Aspart (*Bkc) 100 Units/Ml SUB-Q Not Given TIDWM INGRID Protocol Insulin Glargine 30 units 03/03/25 09:00 Insulin Glargine (*Bkc) 100 Units/Ml SUB-Q QAM INGRID Loratadine 10 mg 03/02/25 09:25 Loratadine 10 Mg Tablet PO QAM PRN allergy symptoms Melatonin 5 mg 03/02/25 21:00 03/02/25 21:45 Melatonin 5 Mg Tablet PO 5 mg HS INGRID Administration Midodrine 10 mg 03/02/25 09:00 03/02/25 17:45 Midodrine Hcl 10 Mg Tablet PO 10 mg TID INGRID Administration Mirabegron 50 mg 03/02/25 09:00 03/02/25 08:51 Mirabegron 50 Mg Er Tablet PO 50 mg DAILY INGRID Administration Multivitamins/Minerals 1 tab 03/02/25 09:00 03/02/25 08:51 Multivitamins /C Lutein (Centrum Silver) Tablet *Bkc PO 1 tab DAILY INGRID Administration Non-Formulary Medication 1 tablet 03/02/25 09:00 Bempedoic Acid-Ezetimibe [Nexlizet] PO 04/01/25 08:59 DAILY INGRID Oxycodone HCl 5 mg 03/02/25 12:16 03/03/25 04:31 Oxycodone Hcl (*Crx) 5 Mg Tab Ir PO 5 mg Q4H PRN Administration Pain Rated 4-6 Pantoprazole Sodium 40 mg 03/02/25 09:00 03/02/25 21:45 Pantoprazole 40 Mg Tablet PO 40 mg Q12HR INGRID Administration Polyethylene Glycol 17 gm 03/02/25 07:33 Polyethylene Glycol 3350 17 Gm Powd.Pack PO On Hold: 03/02/25 09:17 DAILY PRN Comment: PT DOES NOT WANT TO Constipation USE Sertraline HCl 200 mg 03/02/25 09:00 03/02/25 08:47 Sertraline Hcl 50 Mg Tablet BY MOUTH 200 mg DAILY INGRID Administration Trazodone HCl 150 mg 03/02/25 09:30 03/02/25 21:44 Trazodone Hcl 50 Mg Tablet PO 150 mg Q12HR INGRID Administration Vitamin D 125 mcg 03/02/25 09:00 03/02/25 08:54 Cholecalciferol (Vitamin D3) 125 Mcg (5,000 Units) Tablet PO 125 mcg DAILY INGRID Administration Radiology Results: ITS Impressions Head CT 03/01/25 11:28 IMPRESSION: 1. No acute intracranial findings. Chest X-Ray 03/01/25 11:32 IMPRESSION: 1. Mild right basilar atelectasis and/or airspace disease. Hip CT 03/02/25 13:22 IMPRESSION: 1. Subtle lucency in the greater trochanter of the proximal left femur. Differential includes acute/subacute fracture or sequelae from degenerative change. Correlate for point tenderness. If continued concern, consider an MRI for further assessment. 2. No other possible fracture identified by CT. Labs Labs: Laboratory Results - last 24 hr 03/02/25 03/02/25 03/02/25 11:24 16:19 21:30 WBC RBC Hgb Hct MCV MCH MCHC RDW Plt Count MPV Sodium Potassium Chloride Carbon Dioxide Anion Gap BUN Creatinine Estim Creat Clear Calc Estimated GFR Glucose POC Capillary Glucose 220 H 138 H 183 H Calcium 03/03/25 03/03/25 06:03 07:18 WBC 5.7 RBC 4.37 Hgb 12.9 Hct 39.9 MCV 91.3 MCH 29.5 MCHC 32.3 RDW 14.6 H Plt Count 268 MPV 10.0 Sodium 136 L Potassium 3.7 Chloride 100 Carbon Dioxide 31 H Anion Gap 5 BUN 17 D Creatinine 0.59 L Estim Creat Clear Calc 49 Estimated GFR > 60 Glucose 200 H POC Capillary Glucose 166 H Calcium 8.5
[2025-03-03] MEDS: INSULIN GLARGINE (*BKC) 100 UNITS/ML 30 UNITS SUB-Q (09:53)
[2025-03-03] MEDS: OMEGA 3 POLYUNSAT FATTY ACIDS 1 GM CAP 2 GM PO (09:57)
[2025-03-03] MEDS: buPROPion HCL XL (24 HR) 150 MG TABCR PO (09:59)
[2025-03-03] MEDS: CYANOCOBALAMIN 1,000 MCG TABLET 1000 MCG PO (09:59)
[2025-03-03] MEDS: SERTRALINE HCL 50 MG TABLET 200 MG BY MOUTH (09:59)
[2025-03-03] MEDS: CHOLECALCIFEROL (VITAMIN D3) 125 MCG (5,000 UNITS) TABLET PO (09:59)
[2025-03-03] MEDS: PANTOPRAZOLE 40 MG TABLET PO (10:00)
[2025-03-03] MEDS: MIRABEGRON 50 MG ER TABLET PO (10:00)
[2025-03-03] MEDS: CALCIUM CARBONATE (OSCAL) 500 MG TABLET PO (10:00)
[2025-03-03] MEDS: MIDODRINE HCL 10 MG TABLET PO ×2 (10:00→11:59)
[2025-03-03] MEDS: MULTIVITAMINS /C LUTEIN (CENTRUM SILVER) TABLET *BKC 1 TAB PO (10:00)
[2025-03-03] MEDS: FLUTICASONE PROPIONATE 0.05% NA SPR 16 GM BTL (*BKC) 2 SPRAY NASAL (10:01)
[2025-03-03] MEDS: ENOXAPARIN 40 MG/0.4 ML SYRINGE SUB-Q (10:05)
--- NOTE | 2025-03-03 11:32 | PM.DS ---
DS: Admitting Diagnosis Discharge Date 03/03/2025 Admitting Diagnosis Fall, hip fx DS: Discharge Diagnosis Discharge Diagnosis (1) Nondisplaced fracture of greater trochanter of femur: Qualifiers: Encounter type: initial encounter Fracture type: closed Laterality: left Qualified Code(s): S72.115A - Nondisplaced fracture of greater trochanter of left femur, initial encounter for closed fracture Code(s): S72.116A - Nondisplaced fracture of greater trochanter of unspecified femur, initial encounter for closed fracture Status: Acute Assessment and Plan: S/p post fall on 02/27 with history of similar fall and injury resulting in an intertroch fracture on the right in September 2024. Left hip and pelvic x-ray revealed nondisplaced avulsion fracture of the left femur greater trochanter, no dislocation, no pelvic fracture. -ortho consult -pain control with acetaminophen and hydromorphone -PT OT 03/02: Pt reports that her pain is controlled on current regimen (acetaminophen, Dilaudid) added oxy PO today PRN -Pending ortho -Bedrest order until ortho recs -Eventual PT/OT 03/03: Ortho recs as of 03/02: Conservative treatment with immobilization, ice, pain control, DVT prophylaxis weight-bearing as tolerated. PT/OT. Recommend CT scan to evaluate left hip for any extension of the fracture into the intertrochanteric region. L hip results: IMPRESSION: 1. Subtle lucency in the greater trochanter of the proximal left femur. Differential includes acute/subacute fracture or sequelae from degenerative change. Correlate for point tenderness. If continued concern, consider an MRI for further assessment. 2. No other possible fracture identified by CT. Pending PT/OT recs with possible discharge with therapy (2) Diabetes mellitus type 2, insulin dependent: Code(s): E11.9 - Type 2 diabetes mellitus without complications; Z79.4 - group home (current) use of insulin Status: Chronic Assessment and Plan: - hypoglycemia protocol - POC blood glucose ACHS - home medication: Lantus 40 units, Jardiance, Ozempic, metformin - correct regimen ordered: Low-dose corrective scale - A1C 6.3 on 11/26 03/02: -FBS 121 -Continue to hold orals -Confirmed pt takes 30 U lantus in the AM at home, last took it 03/01 AM. FBS 120's last x2 days, will continue to trend and re-eval her lantus need tomorrow 03/03: -FBS 200, continue home dose insulin (3) Hypothyroidism (acquired): Code(s): E03.9 - Hypothyroidism, unspecified Status: Chronic Assessment and Plan: Takes Synthroid 150 mcg at home. Labs currently indicate subclinical hyperthyroidism with TSH 0.424, free T4 1.52, total T3 2.02 -recommend holding Synthroid while inpatient and follow-up with primary care for adjustment in setting of osteoporosis (4) Osteoporosis: Qualifiers: Osteoporosis type: age-related Presence of current pathological fracture: unspecified Qualified Code(s): M81.0 - Age-related osteoporosis without current pathological fracture Code(s): M81.0 - Age-related osteoporosis without current pathological fracture Status: Chronic Assessment and Plan: DEXA scan dated 03/17/2022 indicates osteoporosis. Patient currently taking Fosamax weekly. Last dose today, 03/01/2503/02: -Continued Ca & Vit D today Plan Discharge home with ortho f/u DS: Summary Hospital Course Reason for hospitalization: Fall, hip fx Hospital Course: 75-year-old female with a past medical history of orthostatic hypotension with syncopal episodes, osteoporosis, GERD, HTN, hypothyroidism, hyperlipidemia, DM 2, neuropathy presents to ED on 03/01/2025 with complaints of a fall happened on the evening of 02/27. Patient states she was in a hurry to get to the bathroom and it was dark. She remembers running into the wall and her helping her up from the floor. The patient does not remember if she hit her head but had last hip and shoulder pain immediately after the fall. Denies feeling dizzy before running into the wall but is unable to say if she lost consciousness or not. She wanted to wait to see if she was only sore from falling before coming to the ER. The pain continued, prompting her to present to the ED. Prior history of similar fall and injury resulting in an intertroch fracture on the right. She describes the pain as constant and sharp sharp rated as high as 8/10, worse with movement. She uses a walker at baseline and has been able to ambulate at home with her walker but has not been up as much since the fall. Denies any recent illness, chest pain, shortness a breath, cough, fever. Vital signs within normal limits on arrival to ED. 99% on room air. No electrolyte derangement. Carbon dioxide 32, BUN 31, creatinine 0.61. TSH 0.424 with free T4 1.52 and total T3 2.02 Chest x-ray with mild bibasilar atelectasis and/or airspace disease. Head CT with no acute intracranial findings. Left shoulder x-ray with no acute findings, no fracture Left hip and pelvic x-ray revealed nondisplaced avulsion fracture of the left femur greater trochanter, no dislocation, no pelvic fracture Takes Synthroid 150 mcg at home. Labs currently indicate subclinical hyperthyroidism with TSH 0.424, free T4 1.52, total T3 2.02. Recommend holding Synthroid while inpatient and follow-up with primary care for adjustment in setting of osteoporosis. Orthopedics followed pt while inpt. Recs for PT/OT, WBAT, and L hip CT. CT yielded: IMPRESSION: 1. Subtle lucency in the greater trochanter of the proximal left femur. Differential includes acute/subacute fracture or sequelae from degenerative change. Correlate for point tenderness. If continued concern, consider an MRI for further assessment. 2. No other possible fracture identified by CT. Post CT, ortho recs to continue with PT/OT inpt, WBAT, walker, fall precautions, pain control, and discharge with a follow-up with outpatient orthopedic clinic for new radiographs (appt has been arranged). Per pt, since her last injury was recent, she declines SNF or HH due to her already having home exercises for non-op hip fx. Pt discharged with x1 week of oxycodone to last until her follow-up with orthopedics. Status at Discharge Overall status at discharge: patient is progressing back to baseline Time Spent with Patient Time attestation: Total time spent providing and/or coordinating discharge services: 30 Exam Narrative: GENERAL: non-toxic appearing, in no acute distress. HEAD: Normocephalic, atraumatic. EYES: PERRLA. Conjunctivae clear. NOSE: Normal no drainage. THROAT: Pharynx clear, no exudate. NECK: Trachea midline. No adenopathy, no masses. RESPIRATORY: Airway patent, respirations nonlabored. CTA. CARDIOVASCULAR: Regular rate and rhythm BREASTS: Defer GASTROINTESTINAL: Abdomen is soft and nontender. No organomegaly. Bowel sounds normal in all quadrants. GENITOURINARY: Defer MUSCULOSKELETAL: Moves all extremities. No gross deformities. No calf tenderness. Tenderness to L lateral hip SKIN: Warm, dry, normal color. NEURO: A&O X4. Speech clear PSYCHIATRIC: Normal interaction DS: Data Data Completed and Pending Completed studies during hospitalization: Labs, urine, hip/pelvis XR, shoulder XR, head CT, CXR, hip CT Labs on day of discharge: Labs from last 24 hours 03/03/25 03/03/25 03/02/25 07:18 06:03 21:30 WBC 5.7 RBC 4.37 Hgb 12.9 Hct 39.9 MCV 91.3 MCH 29.5 MCHC 32.3 RDW 14.6 H Plt Count 268 MPV 10.0 Sodium 136 L Potassium 3.7 Chloride 100 Carbon Dioxide 31 H Anion Gap 5 BUN 17 D Creatinine 0.59 L Estim Creat Clear Calc 49 Estimated GFR > 60 Glucose 200 H POC Capillary Glucose 166 H 183 H Calcium 8.5 03/02/25 03/02/25 16:19 11:24 WBC RBC Hgb Hct MCV MCH MCHC RDW Plt Count MPV Sodium Potassium Chloride Carbon Dioxide Anion Gap BUN Creatinine Estim Creat Clear Calc Estimated GFR Glucose POC Capillary Glucose 138 H 220 H Calcium Discharge Plan Discharge Attending physician on discharge: Uriah Thomas Consulting providers: Julián Muhammad; Isatu Herrera Discharging Clinician: Isatu Herrera Anticipated Discharge Date/Time: 03/03/25 13:00 Patient Disposition: Home Activity: may shower and follow weight bearing status Diet: regular Discharge Instructions: Orthopedic Recommendations Dr. Julián Muhammad [phone] Weight bearing as tolerated left lower extremity. Pain control. Ice. Walker. Follow up as scheduled below. -Continue to hold your SYNTHROID (levothyroxine) medication until you can have your labs redraw / medication dose change by your primary care provider -A prescription for oxycodone pain medication has been sent to your pharmacy. Remember to take a stool softener with this to prevent constipation. If you are in need of more pain medication, please reach out to the orthopedic team. Continue to check your blood pressure and blood sugar at home if applicable. Keep your scheduled appts with your primary care provider and any specialist that you may see. Return to the emergency department if you develop sudden shortness of breath, chest pain, a fever of greater than 101.5, or nausea, vomiting, abd pain, or diarrhea that does not go away. Follow-up with your primary care provider within 1-2 weeks, they will want to be updated on your inpatient stay in the hospital. Thank you for choosing [facility] for your healthcare needs. Patient Instructions: Fall Prevention (DC) Patient Language: Macedonian Stand Alone Forms: General Discharge Information Follow-up/Referrals: Julián Muhammad MD [Physician, Orthopedics] - 03/24/25 10:00 am Fredy Puri MD [Primary Care Provider, Internal Medicine] - 1 Week Discharge Medications: New oxycodone 5 mg Tablet 5 mg PO .q6 h PRN (Reason: Pain Rated 4-6) 7 Days Qty: 28 0RF Continued calcium carbonate [Calcium 600] 600 mg calcium (1,500 mg) tablet 600 mg PO DAILY mecobalamin (vitamin B12) 1,000 mcg tablet,disintegrating 1,000 mcg SUBLINGUAL DAILY Rx Instructions: place tablet under tongue and allow to dissolve for at least30 secs before swallowing Centrum Silver Women 8 mg iron-400 mcg-300 mcg tablet 1 tablet PO DAILY omega-3 fatty acids [Fish Oil Concentrate] 1,000 mg capsule 2,000 mg PO DAILY melatonin 5 mg capsule 5 mg PO HS Nexlizet 180-10 mg tablet 1 tablet PO DAILY Qty: 90 1RF mirabegron [Myrbetriq] 50 mg tablet extended release 24 hr 50 mg PO DAILY Qty: 90 1RF Rx Instructions: . mirabegron [Myrbetriq] 50 mg tablet extended release 24 hr 50 mg PO DAILY polyethylene glycol 3350 [ClearLax] 17 gram/dose powder 17 g PO DAILY PRN (Reason: constipation) docusate sodium 50 mg capsule 50 mg PO DAILY PRN (Reason: constipation ) [id number] 200 mg-5 mcg-75 mg-200 mcg DFE tablet 1 tablet PO DAILY fiber Capsule PO DAILY insulin glargine [Lantus U-100 Insulin] 100 unit/mL solution 30 unit subcut QAM Rx Instructions: INJECT 30 UNITS SUBCUTANEOUSLY ONCE IN THE MORNING. DISCARD VIAL 28 DAYS AFTER OPENING. trazodone 100 mg tablet See Rx Instructions .ROUTE .COMPLEX Rx Instructions: TAKE 1 TO 2 TABLETS EVERY NIGHT FOR SLEEP. TAKE WITH 50MG TABLET FOR TOTAL OF 100-300mg. furosemide 20 mg tablet 20 mg PO PRN PRN (Reason: PRN with POTAChloride) Rx Instructions: TAKE 1 TABLET EVERY MORNING NEEDED FOR WEIGHT GAIN PRN; fexofenadine-pseudoephedrine [Luiza-D 24 Hour] 180-240 mg tablet extended release 24 hr 1 tablet PO DAILY Rx Instructions: pt takes 120mg daily 24 hr levocetirizine 5 mg tablet 5 mg PO PRN PRN (Reason: allergy symptoms) Rx Instructions: TAKE 1 TABLET ONE TIME DAILY IN THE EVENING IF LUIZA D NOT WORKING ( NEEDED FOR CONGESTION) PRN; cholecalciferol (vitamin D3) 125 mcg (5,000 unit) capsule 125 mcg PO DAILY fluticasone propionate 50 mcg/actuation spray,suspension See Rx Instructions .ROUTE .COMPLEX Qty: 48 1RF Dose Instruction: USE 2 SPRAYS IN EACH NOSTRIL EVERY DAY Rx Instructions: USE 2 SPRAYS IN EACH NOSTRIL EVERY DAY (DME) insulin syringe-needle U-100 1 mL 31 gauge x 5/16 syringe See Rx Instructions .ROUTE .COMPLEX Qty: 100 2RF Dose Instruction: USE 4 SYRINGE DAILY WITH INSULIN Rx Instructions: USE 4 SYRINGE DAILY WITH INSULIN triamcinolone acetonide 0.5 % cream See Rx Instructions .ROUTE .COMPLEX Qty: 60 0RF Dose Instruction: APPLY TOPICALLY THREE TIMES DAILY NEEDED FOR ITCHING Rx Instructions: APPLY TOPICALLY THREE TIMES DAILY NEEDED FOR ITCHING omeprazole 40 mg capsule,delayed release(DR/EC) See Rx Instructions .ROUTE .COMPLEX Qty: 90 1RF Dose Instruction: Take 1 capsule by mouth once daily Rx Instructions: Take 1 capsule by mouth once daily (DME) FreeStyle Sandy 3 Sensor Device See Rx Instructions .ROUTE .COMPLEX Qty: 2 5RF Dose Instruction: USE DIRECTED Rx Instructions: USE DIRECTED; FREE STYLE SANDY 3 PLUS DENSOR (DME) FreeStyle Sandy 3 Reading Misc See Rx Instructions .Route Qty: 1 0RF Rx Instructions: As directed buspirone 15 mg tablet See Rx Instructions .ROUTE .COMPLEX Qty: 90 0RF Dose Instruction: TAKE 1 TABLET BY MOUTH THREE TIMES DAILY Rx Instructions: TAKE 1 TABLET BY MOUTH THREE TIMES DAILY metformin 1,000 mg tablet See Rx Instructions .ROUTE .COMPLEX Qty: 180 1RF Dose Instruction: TAKE 1 TABLET TWICE DAILY Rx Instructions: TAKE 1 TABLET TWICE DAILY alendronate [Fosamax] 70 mg tablet 70 mg PO WEEKLY Qty: 12 1RF Patient Comments: TAKES ON SUNDAYS sertraline 100 mg tablet See Rx Instructions .ROUTE .COMPLEX Qty: 180 1RF Dose Instruction: TAKE 2 TABLETS EVERY DAY Rx Instructions: TAKE 2 TABLETS EVERY DAY midodrine 10 mg tablet 10 mg PO TID Qty: 90 1RF Rx Instructions: do not give last dose of day after 6PM or within 4 hrs of bedtime FreeStyle Sandy 14 Day [place] [facility] [place] Rx Instructions .ROUTE .COMPLEX Qty: 1 0RF Dose Instruction: USE TO CONTINUOUSLY MONITOR BLOOD SUGAR Rx Instructions: USE TO CONTINUOUSLY MONITOR BLOOD SUGAR bupropion HCl [Wellbutrin XL] 150 mg tablet extended release 24 hr 150 mg PO QAM Qty: 90 1RF trazodone 50 mg tablet See Rx Instructions .ROUTE .COMPLEX Qty: 180 1RF Dose Instruction: TAKE 1 TO 2 TABLETS AT BEDTIME FOR SLEEP (TAKE WITH 100MG TABLET FOR TOTAL OF 150 TO 300MG) Rx Instructions: TAKE 1 TO 2 TABLETS AT BEDTIME FOR SLEEP (TAKE WITH 100MG TABLET FOR TOTAL OF 150 TO 300MG) Jardiance 25 mg tablet See Rx Instructions .ROUTE .COMPLEX Qty: 30 1RF Dose Instruction: TAKE 1 TABLET BY MOUTH ONCE DAILY IN THE MORNING Rx Instructions: TAKE 1 TABLET BY MOUTH ONCE DAILY IN THE MORNING Ozempic 0.25 mg or 0.5 mg (2 mg/3 mL) pen injector 0.25 mg subcut WEEKLY Qty: 3 0RF Rx Instructions: for 4 weeks Held levothyroxine [Synthroid] 150 mcg tablet See Rx Instructions .ROUTE .COMPLEX Qty: 90 1RF Hold Instructions: Resume on 03/10/25. Follow-up with your primary care provider to resume for appropriate dose Dose Instruction: TAKE 1 TABLET EVERY MORNING Rx Instructions: TAKE 1 TABLET EVERY MORNING Date of admission: 03/01/25 16:40 Primary Care Provider: Fredy Puri Admitting Provider: Uriah Thomas Attending physician on admission: Uriah Thomas Condition: Stable Quality VTE Prophylaxis VTE prophylaxis: mechanical ordered and pharmacologic ordered Hospitalist MIPS Heart Failure (Exclusion) Patient has history of Heart Transplant or Left Ventricular Assistive Device?: No IF YES, STOP HERE Heart Failure (Qualifier) Patient has current or prior documentation of LVEF less than or equal to 40%, or mod/servere depressed LVSF?: No IF NO, STOP HERE
[2025-03-03] MEDS: INSULIN ASPART (*BKC) 100 UNITS/ML SUB-Q (11:39)
--- OUTSIDE RECORDS SUMMARY | 2025-03-04 07:24 | XMS_ITS | Clinical Summary ---
Author Organization [facility] Address [address] [place] [id number] Care Team Providers Care Rn Radiation Oncology Name Role Phone Fredy Puri MD Primary Care Provider [phone] Social History Tobacco Use Types Packs/Day Years [...] patient's age to complete this topic Insurance [facility] MEDICARE Member Subscriber Plan / Payer (Ef fective 2023-Present) Name:Natasha Edouard Relation to Subscriber:Self Name:Natasha Edouard Payer ID:[id number] (NAIC) Type:Not on file Address: [place] [id number] MEDICARE Care Teams Rn Radiation Oncology Relationship Specialty Start Date End Date Fredy Puri MD [address] [place] [id number] PCP - General INTERNAL MEDICINE 02/08/24
--- OUTSIDE RECORDS SUMMARY | 2025-03-04 07:24 | XMS_ITS | Encounter Summary ---
Author Organization [employer] Address [address] [place] [address] Care Team Providers Care Special Skills Officer Name Role Phone Unavailable Primary Care Provider Unavailabl e Encounter Details Date Type Department Care Team (Late st Contact Info) Description 11/27/2002 Outpatient [facility] [address] [place] [address] Shahbaz Bland MD [address] [place] [address] [address] SWELLING OF LIMB (Primary Dx) Social History Tobacco Use Types Packs/Day Years Used Date Smoking Tobacco: Never Assessed Comments Unknown Sex and Gender Information Value Date Recorded Sex Assigned at Not on file 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
--- OUTSIDE RECORDS SUMMARY | 2025-03-04 07:24 | XMS_ITS | Encounter Summary ---
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
--- OUTSIDE RECORDS SUMMARY | 2025-03-04 07:24 | XMS_ITS | Clinical Summary ---
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
--- OUTSIDE RECORDS SUMMARY | 2025-03-04 07:25 | XMS_ITS | Clinical Summary ---
Author Organization [facility] Address Formerly [facility], later [facility] [place] [address] Care Team Providers Care Dice Dealer Name Role Phone Fredy Puri MD Primary Care Provider [phone] Allergies Active Allergy Reactions Criticality Noted Date [...] times a day 10/25/19 20 Active omega 7-fyj-oej-fish oil 1,200 (144-216) mg capsuleIndicatio ns:hypertriglyce ridemia Take 1 capsule by mouth mold breaker before breakfast 09/11/19 20 Active multivitamin-iro n-folic acid (Centrum Complete) 18-400 mg-mcg tabletIndication s:Vitamin Deficiency Prevention Take 1 tablet by mouth mold breaker before breakfast 05/14/19 20 Active furosemide (LASIX) 20 mg tabletIndication s:Edema Take 20 mg by mouth as needed 11/10/19 20 Active Synthroid 150 mcg tabletIndication s:hypothyroidism Take 150 mcg by mouth mold breaker before breakfast 11/29/19 20 Active Jardiance 25 mg tabletIndication s:type 2 diabetes mellitus Take 25 mg by mouth mold breaker before breakfast 01/20/20 20 Active insulin aspart [...] (08/11/2021): Added automatically from request for surgery [id number] Regurgitation of food 08/11/2021 Overview (08/11/2021): Added automatically from request for surgery [id number] Status post gastric bypass for obesity Overview (07/18/2020): Added automatically from request for surgery [id number] Abdominal pannus 03/30/2020 Overview (03/30/2020): Added automatically from request for surgery [id number] Encounter for long-term (current) use of other m edications 12/17/2019 Urinary tract infection 12/17/2019 Epigastric pain 05/31/2019 Overview (06/01/2019): Added automatically from request for surgery [id number] MYESHA (acute kidney injury) ([facility]) 02/28/2019 Type 2 diabetes mellitus 02/28/2019 Severe malnutrition 02/21/2019 Nausea and vomiting 02/20/2019 Overview (02/21/2019): Added automatically from request for surgery [id number] Morbid obesity 09/11/2018 Benign essential hypertension 04/15/2010 [...] (11/01/2018): Added automatically from request for surgery [id number] Immunizations Immunization Administration Dates Next Due Influenza, [...] on file Legal Sex Female 8:10 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 Gender Identity Not on file Sexual Orientation [...] 03/19/2018, 06/2016 Medical Devices Implanted Type Area Coal Mill Operator Device Identifier Shelf Expiration Date Model / Serial / Lot Other - See Comments Other - see comments Bilatera l: Knee Description:Double knee repl acement Procedures Procedure Name Priority Date/Time Associated Diagnosis Comments HEMOGLOBIN A1C Timed 06/01/2019 3:42 AM MEDICAL STAFF CREDENTIALING COORDINATOR LIPID PANEL Timed 06/01/2019 3:42 AM MEDICAL STAFF CREDENTIALING COORDINATOR EGFR Routine 01/21/2019 2:50 AM CDT from Last 3 Months or Most Recently Relevant to Health Maintenance Results * (ABNORMAL) Hemoglobin A1c (06/01/2019 3:42 AM MEDICAL STAFF CREDENTIALING COORDINATOR) Hgb A1C 7.3(H) 4.0 - 5.6 % MICHELE BHANDARI Estimated Average Glucose 163 mg/dL MICHELE BHANDARI Comment: The ADA recommends reporting an estimated Average Glucose (eAG) with all Hemoglobin A1c results using the equation derived from a study of 507 normal and diabetic adults. Minority populations were underrepresented and children were not included. (Diabetes Care 31:5619-4159, 2008). The eAG is not equivalent to a fasting glucose. Blood specimen (specimen) 06/01/2019 3:42 AM MEDICAL STAFF CREDENTIALING COORDINATOR 06/01/2019 4:24 AM MEDICAL STAFF CREDENTIALING COORDINATOR us Jesus Gallegos MD LAB BLOOD ORDERABLES Final Res ult [facility] Department [place] [address] * Lipid panel (06/01/2019 3:42 AM MEDICAL STAFF CREDENTIALING COORDINATOR) Cholesterol 88 30 - 199 mg/dL MICHELE [facility] Comment: Interpretive Data Ages < [...] revised on 2018. Triglycerides 117 <=149 mg/dL [facility] Comment: Interpretive Data Ages < [...] on 2018. HDL 44 >=40 mg/dL MICHELE [facility] Comment: Interpretive Data Ages < [...] 2018. LDL, calculated 21 <=129 mg/dL MICHELE [facility] Comment: Interpretive Data Ages < [...] 2018. Non-HDL Cholesterol 44 mg/dL MICHELE [facility] Comment: Interpretive Data Ages < [...] revised on 2018. Chol/HDL ratio 2 MICHELE [facility] Blood specimen (specimen) 06/01/2019 3:42 AM MEDICAL STAFF CREDENTIALING COORDINATOR 06/01/2019 4:21 AM MEDICAL STAFF CREDENTIALING COORDINATOR us Jesus Gallegos MD LAB BLOOD ORDERABLES Final Res ult [facility] [place] [address] * eGFR (01/21/2019 2:50 AM CDT) eGFR >60 mL/min/1.7 3 m2 [facility] Comment: Interpretive Data Reference Interval Normal >/= 90 mL/min/1.73m2 Mildly decreased* 60 - 89 mL/min/1.73m2 Mildly to moderately decreased 45 - 59 mL/min/1.73m2 Moderately to severely decreased 30 - 44 mL/min/1.73m2 Severely decreased 15 - 29 mL/min/1.73m2 Kidney Failure < 15 mL/min/1.73m2 *Relative to young adult level If -Thai multiply value by 1.16. Estimated glomerular filtration [...] BLOOD ORDERABLES Final Resu lt MICHELE [facility] [id number] [facility]. AALIYAH Drummond [address] from Last 3 Months or Most Recently Relevant to Health Maintenance Insurance [employer] MEDICARE PPO [employer] MEDICARE PPO [employer] MEDICARE PPO Advance Directives For more information, please contact: [phone] * Full Code (Latest Code Status on [...] 2:11 PM 01/22/2019 9:34 PM Care Teams Dice Dealer Relationship Specialty Start Date End Date Fredy Puri MD PCP - General 10/17/12
--- OUTSIDE RECORDS SUMMARY | 2025-03-04 07:25 | XMS_ITS | Patient Health Record ---
Author Organization [facility] Address [address] [facility] [address] [place] [address] Care Team Providers Care Card Puncher Name Role Phone Tan Subramanian Unavailable [phone] Reason For Referral No Information Plan Of Treatment No Information
== END 2025-03-03 13:00 | disposition home or self-care (01) ==
LOC: ANHED 14:14 → ANH3MEDSUR 03-02 07:21
PROVIDERS: Admitting Provider Internal Medicine; Emergency Provider Emergency Medicine; PCP Internal Medicine; Visit Provider Internal Medicine
DX: S72.115A Nondisplaced fracture of greater trochanter of left femur, initial encounter for closed fracture (principal); W18.30XA Fall on same level, unspecified, initial encounter; M81.0 Age-related osteoporosis without current pathological fracture; E55.9 Vitamin D deficiency, unspecified; I10 Essential (primary) hypertension; E03.9 Hypothyroidism, unspecified; E78.5 Hyperlipidemia, unspecified; E11.9 Type 2 diabetes mellitus without complications; K21.9 Gastro-esophageal reflux disease without esophagitis; Z79.4 Long term (current) use of insulin; Z79.84 Long term (current) use of oral hypoglycemic drugs; Z79.85 Long-term (current) use of injectable non-insulin antidiabetic drugs; G47.33 Obstructive sleep apnea (adult) (pediatric); Z99.89 Dependence on other enabling machines and devices; Z87.891 Personal history of nicotine dependence; Z96.653 Presence of artificial knee joint, bilateral; Z20.822 Contact with and (suspected) exposure to COVID-19; Z98.84 Bariatric surgery status; Z83.3 Family history of diabetes mellitus; Z80.8 Family history of malignant neoplasm of other organs or systems; Z82.49 Family history of ischemic heart disease and other diseases of the circulatory system
CPT/HCPCS: 36415; 70450; 71046; 73030; 73502; 73700; 80048; 80053; 82948; 83735; 84439; 84443; 84480; 85025; 85027; 85610; 85730; 87637; 96374; 97161; 97166; 97535; 99285; A9270; G0378; J1171; J1650; J1815

== ENCOUNTER 2025-03-26 11:09 | Outpatient (CLI) | payer MEDICARE, SELFPAY ==
--- NOTE | ~2025-03-26 | DEXA_ITS ---
Bone Density Report Name: SABRINA MARTIN Age: 75 Sex: Female Ethnicity: White Date of : 1950 Indication: osteopenia; prior fracture; hysterectomy; Referring Provider: KAREEM ALBARRNA Study: Bone densitometry was performed. Exam Date: March 26, 2025 Accession number: [id number] Bone Density: Region BMD T-score Z-score Classification AP Spine(L1-L4) 1.072 0.2 2.7 Normal Femoral Neck (Left) 0.499 -3.2 -1.0 Osteoporosis Total Hip (Left) 0.726 -1.8 0.1 Osteopenia World Health Organization criteria for BMD impression classify patients as: Normal (T-score at or above -1.0), Osteopenia (T-score between -1.0 and -2.5), or Osteoporosis (T-score at or below -2.5). 10-year Fracture Risk: FRAX not reported because: Some T-score for Spine Total or Hip Total or Femoral Neck at or below -2.5 Prior hip or vertebral fracture Previous Exams: -- Region Exam Age BMD T-score BMD Change BMD Change Date g/cm2 vs Baseline vs Previous -- AP Spine (L1-L4) 03/26/2025 75 1.072 0.2 -0.3% -0.3% 03/17/2022 72 1.076 0.3 Total Hip(Left) 03/26/2025 75 0.726 -1.8 -1.2% -1.2% 03/17/2022 72 0.735 -1.7 -- *Denotes significance at 95% confidence level, LSC for AP Spine = 0.022 g/cm2, LSC for Total Hip = 0.027 g/cm2 Clinical Information Provided by Patient: Have had a previous hip or vertebral fracture Has had a low trauma fracture Has used the following medications: Fosamax (i.e. alendronate), Vitamin D, Calcium Has the following medical conditions: Hysterectomy Patient maximum height was 60 Menopause Age: 44 Does not regularly consume dairy products Onset of menses at age 10 Number of children 3 Impression: The patient has established osteoporosis, based on the Left Femoral Neck T-score and the existence of a prior fracture. The patient has risk factors, including: previous fracture. No significant bone loss was observed. Discussion: HIGH RISK OF FRACTURE. BONE DENSITY IS UNDESIRABLY LOW AT ONE OR MORE SKELETAL SITES, CONSISTENT WITH POSTMENOPAUSAL OSTEOPOROSIS. This patient's lowest T-score, in a patient who has previously fractured, meets the World Health Organization's (WHO) criteria for severe osteoporosis. In untreated patients, the risk of osteoporotic fracture increases approximately two-fold for each 1.0 SD decrease in T-score. Low bone density is not the only risk factor for fracture; also consider factors such as patient's age, frailty or poor health, risk of falling, risk of injury, previous osteoporotic fracture, family history of osteoporosis, cigarette smoking, low body weight, etc. Not everyone with low bone mineral density has osteoporosis; osteomalacia and other metabolic bone disorders should also be considered. Patients who have osteoporosis should be evaluated for specific diseases and conditions (secondary causes) that may cause or contribute to bone loss. The [place] Association of Clinical Endocrinologists (AACE) and National Osteoporosis Foundation (NOF) recommend pharmacologic intervention for all postmenopausal women with a previous hip or vertebral fracture and a T-score in this range. The patient should follow a healthful lifestyle (good nutrition with adequate calcium and vitamin D, and appropriate weight-bearing exercise). Follow-Up: Consider a repeat BMD and Vertebral Fracture Assessment (VFA) exam in 2 years or sooner if medically necessary, to reassess this patient's status. Reported by: FRANCESCO on 03/26/2025 11:33:00 AM. Reviewed, dictated and finalized at location A.
== END 2025-03-26 11:10 | disposition home or self-care (01) ==
LOC: MICIMG 11:09
PROVIDERS: PCP Internal Medicine; Visit Provider Internal Medicine
DX: Z78.0 Asymptomatic menopausal state (principal); M81.0 Age-related osteoporosis without current pathological fracture; M85.852 Other specified disorders of bone density and structure, left thigh
CPT/HCPCS: 77080

== ENCOUNTER 2025-04-29 09:03 | Outpatient (CLI) | payer MEDICARE, SELFPAY ==
--- NOTE | ~2025-04-29 | MM_ITS ---
EXAMINATION: MM screening shun BI w earnest HISTORY: Screening TECHNIQUE: Craniocaudal and mediolateral oblique 3-D tomosynthesis images were obtained and synthetic 2-D images were generated. CAD analysis was submitted and interpreted. COMPARISON: Comparison to multiple prior studies sequentially, with oldest reviewed study dated , 03/17/2022 BREAST PARENCHYMAL COMPOSITION: Not Dense: There are scattered areas of fibroglandular density. FINDINGS: There is no evidence of suspicious mass, calcification, or architectural distortion to suggest malignancy in either breast. IMPRESSION: 1. No mammographic evidence of malignancy. 2. Recommend routine screening mammography in one year. BI-RADS Category 1: Negative Reviewed, dictated and finalized at location A. MS SORTER
--- OUTSIDE RECORDS SUMMARY | 2025-04-29 09:51 | XMS_ITS | Encounter Summary ---
Author Organization [facility] Address [address] [place] [address] Care Team Providers Care Boiling Tub Operator Name Role Phone Unavailable Primary Care Provider Unavailabl e Encounter Details Date Type Department Care Team (Late st Contact Info) Description 11/27/2002 Outpatient [facility] [address] [facility] [address] Shahbaz Bland MD [address] [address] SWELLING OF LIMB (Primary Dx) Social History Tobacco Use Types Packs/Day Years Used Date Smoking Tobacco: Never Assessed Comments Unknown Sex and Gender Information Value Date Recorded Sex Assigned at Not on file Legal Sex 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
--- OUTSIDE RECORDS SUMMARY | 2025-04-29 09:51 | XMS_ITS | Clinical Summary ---
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
--- OUTSIDE RECORDS SUMMARY | 2025-04-29 09:51 | XMS_ITS | Clinical Summary ---
Author Organization [facility] Address [address] [place] [address] Care Team Providers Care Applications Engineer Name Role Phone Fredy Puri MD Primary Care Provider [phone] Social History Tobacco Use Types Packs/Day Years [...] patient's age to complete this topic Insurance [facility] MEDICARE Member Subscriber Plan / Payer (Ef fective 2023-Present) Name:Natasha Edouard Relation to Subscriber:Self Name:Natasha Edouard Payer ID:[id number] (NAIC) Type:Not on file Address: [address] [place] [id number] MEDICARE Care Teams Applications Engineer Relationship Specialty Start Date End Date Fredy Puri MD [address] [place] [id number] PCP - General INTERNAL MEDICINE 02/08/24
== END 2025-04-29 09:04 | disposition home or self-care (01) ==
LOC: ANHFOHIMG 09:04
PROVIDERS: PCP Internal Medicine; Visit Provider Internal Medicine
DX: Z12.31 Encounter for screening mammogram for malignant neoplasm of breast (principal)
CPT/HCPCS: 77063; 77067